=== PATIENT | male | born 1945 | race Caucasian/White ===

== ENCOUNTER 2019-01-06 10:05 | Inpatient (IN) | payer OTHER, MEDICARE, SELFPAY ==
[2019-01-06] VITALS (10 sets, daily range): BP systolic 129–141; BP diastolic 69–90; PULSE 66–89; RESP 14–18; TEMP 36.4–37.2; O2SAT 96–99; BMI 27.8; BMI 26.4; BMI 26.5
--- NOTE | 2019-01-06 10:18 | RAD_ITS ---
STUDY: X-RAY CHEST REASON FOR EXAM: Male, 73 years old. Bilateral lower extremity edema. TECHNIQUE: Single AP portable view of the chest. COMPARISON: None. FINDINGS: Minimal increased markings at the lung bases suggestive of mild bibasilar scarring. There is no demonstrated pleural abnormality. Sternal cerclage wires and vascular clips are present from a prior sternotomy and coronary artery bypass graft procedure (CABG). Normal mediastinum and maddie. Normal visualized pulmonary arteries. There is atherosclerotic tortuosity of the aortic arch and descending thoracic aorta. Normal visualized thoracic spine. Normal visualized ribs, clavicles, and shoulders. There is no demonstrated abnormality of the visualized soft tissue structures of the upper abdomen. RAD/Chest 1 View (Portable) IMPRESSION: No acute abnormalities. Electronically Signed: Hussain Sarabia, at 11:03 EDT , Service support ,
--- NOTE | 2019-01-06 10:19 | EKG12_ITS ---
Test Reason : EDEMA Blood Pressure : / mmHG Vent. Rate : 074 BPM Atrial Rate : 074 BPM P-R Int : 116 ms QRS Dur : 108 ms QT Int : 410 ms P-R-T Axes : -16 -34 -01 degrees QTc Int : 455 ms Normal sinus rhythm Left axis deviation , LAHB Minimal voltage criteria for LVH, may be normal variant Abnormal ECG Confirmed by GWEN KAUR ([id number]), medical editor MAXIME RIVER ([id number]) on 01/08/2019 2:33:08 PM Referred By: Venkata Lee Confirmed By:GWEN KAUR
--- NOTE | 2019-01-06 10:22 | ED.DCSUM_ITS ---
- ER Visit Summary Date of Service: 01/06/19 Chief Complaint: Bilateral acute on chronic lower extremity lymphedema and now unable to ambulate History of Present Illness: The patient is a 73 M history of CAD, CHF, hypertension and chronic lymphedema for the last 3+ years. He has had a 6 way bypass done for CAD. Patient states he has chronic lower extremity lymphedema is gotten worse his son states he is unable to even walk around his house because the amount of swelling. He is unable to get his dressings off. He denies any fever or chills. Physical Examination: Older male no acute distress. Vital signs are stable and afebrile. He does not look septic or toxic. HEENT exam unremarkable. Neck nontender no JVD no lymphadenopathy. Lungs clear to auscultation bilaterally. Heart regular rhythm 3/6 systolic ejection murmur. Abdomen is soft and nontender. Normal bowel sounds no peritoneal signs. Extremities he moves all 4. His upper extremities are unremarkable. He has normal staff field engineer strength. Both lower extremities are massively swollen.. The right lower leg is red in the front. He has compression stockings that we need to get off. He will need to be cut off. Is very foul odor coming from his legs. He is physically unable to lift them off the bed so heavy due to the lymphedema. Neurologically he is awake and alert. He can move all 4 extremities. Test Results: See white count 8. Hemoglobin 11. No old available for comparison. Chemistries unremarkable gap of 9. BUN 26 creatinine 0.9. Chest x-ray chronic changes prior sternotomy but no signs of failure or effusions. EKG sinus rhythm rate of 74 no ischemia. Emergency Department Course and Treatment: Patient will need [facility]. He can even walk around his house currently his legs are so swollen. Screening labs will be obtained. client services analyst been consulted. Treatment Plan: Repeat exam unchanged. I spoke to the hospitalist about admission. He was started on IV Zosyn for possible lower extremity soft tissue infection. Disposition: Admission Impression: Acute on chronic lower extremity lymphedema Unable to ambulate and failure to thrive Rule out lower extremity cellulitis and anaerobic infection This note was generated with [employer] dictation software. It may contain incorrect words, spelling, and punctuation that were not noted in review of the chart prior to signing ED Disposition - Plan for ED Patient: Referrals: Care Physician,No Primary [NON-STAFF] -
--- NOTE | 2019-01-06 10:23 | NURSING ---
CALLED DIRECTOR OF EXHIBITS FOR DR PAYAN
--- NOTE | 2019-01-06 11:14 | CM.ED ---
Social Work Consult: Placement/APS Informant: Dr. Lilly Met with patient in room. Patient stating to live alone in a 1-story home. Patient stating to be [facility] connected and to have last seen a [facility] doctor 6 months ago. Patient stating to have been able to ambulate with a walker up until today. Patient stating to take a [place] Shower (sponge bath) 1-2 times a week. Patient presenting with fowl odor and noted to have hair on head matted down. Patient with wounds to bilateral legs from kalani hose. Patient stating to not be able to manage kalani hose on own. Patient stating that friends have been providing patient with meals in the home. Patient stating to have no concerns with home and to plan to return to home after ED provides patient with antibiotics for legs, patient stating this it what has fixed my legs before. Nursing staff stating that wound have maggots in them. Patient stating to not be concerned about state of wounds and to have seen them this bad before. Patient agreeable to this social media director speaking with patient son, Yinka. Yinka reporting to have been providing patient with meals but to have been unable to go into patient home for that past few days due to the smell. Yinka stating to have been attempting to set up home health aides and a medical alert system for patient, but patient has been declining aides. Yinka stating that patient home is clean at this time due to patient ex- cleaning the home earlier this week. Yinka concerned with patient returning to the community and stating to have been trying to convince patient to come to the hospital for sometime. This social media director educating Yinka about adult protective services and that Yinka is able to also call reports. Yinka voicing understanding. Telephone call to Adult Protective ServicesJade. Voicemail left with above information. Jade to contact this social media director back with any questions. Hand off to acute social media director completed. Yann CASTILLO, DORIAN
[2019-01-06 11:21] LABS: Absolute Lymphocyte Count 0.87 X10^3/uL (0.83-4.51); Absolute Neutrophil Count 6.5 X10^3/uL (2.0-7.7); Basophil# 0.03 X10^3/uL; Basophil% 0.4 % (0-1); Eosinophil# 0.09 X10^3/uL; Eosinophils% 1.1 % (0-5); Hemoglobin 11.6 g/dL (13.0-16.5); Lymphocyte # 0.87 X10^3/ul (4.0); Lymphocyte % 10.6 % (19-41); Mean Corp Hgb Conc 31.4 g/dL (32-36); Mean Corpuscular Hgb 27.9 pg (27.0-32.0); Mean Corpuscular Volume 88.9 fL (80-94); Monocyte# 0.72 X10^3/uL; Monocyte% 8.7 % (0-10); NRBC Flagged by Analyzer 0 % (0-5); Neutrophil # 6.49 X10^3/uL (2.7-7.7); Neutrophil % 78.7 % (47-70); Platelet Count 243 K/mm3 (150-450); RBC Distribution Width CV 14.4 % (11.6-14.6); RBC Distribution Width SD 46.5 fl (35.1-43.9); Red Blood Count 4.16 M/mm3 (4.6-6.2); White Blood Count 8.2 K/mm3 (4.4-11.0)
[2019-01-06 11:25] LABS: POSITIVE COUNT NO; POSITIVE DIFFERENTIAL NO; POSITIVE MORPHOLOGY NO
[2019-01-06 11:34] LABS: Anion Gap 9 (5-15); BUN 26 mg/dL (7-18); BUN/Creat Ratio 26.7 RATIO (10-20); Calcium,Total 8.8 mg/dL (8.5-10.1); Chloride 103 mmol/L (98-107); Creatinine, Serum 0.97 mg/dL (0.70-1.30); EST Glomerular Filtration Rate 80 mL/min (>60); Est Glom Filt Rate - Afr Amer 97 mL/min (>60); Estimated Creatinine Clearance 82.27 ml/min; Glucose 115 mg/dL (74-106); Potassium 3.7 mmol/L (3.5-5.1); Sodium Level 142 mmol/L (136-145)
--- NOTE | 2019-01-06 12:39 | HP.PCM_ITS ---
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 Hoskins: [place] to LAD, SVG to two PDA branches of RCA, SVG to CX, and SVG to two branches of the DX of the LAD (6) History of left heart catheterization Status: Chronic (7) S/P CABG x 6 Status: Chronic Comment: 03/26/1997, [facility] per Dr. Hoskins: [place] to LAD, SVG to two PDA branches of RCA, SVG to CX, and SVG to two branches of the DX of the LAD History of Present Illness Date of Admission: 01/06/19 Chief Complaint: Bilateral lower extremity swelling wounds redness and malodorou s discharge The patient is a 73 year old M with past medical history significant for chronic lymphedema, essential hypertension, coronary artery disease with previous CABG in 1996 who presents with increasing swelling involving both lower extremities. Patient also did notice redness as well as malodorous discharge from both lower extremities. He presented to the emergency department in view of worsening symptoms. An assessment of lateral lower extremity cellulitis in the setting of chronic lymphedema was made admitted to the regular nursing floor for subsequent management. Past Medical History Past Medical History (Chronic Problems): Chronic Problems (Last Reviewed 06/04/17 @ 11:39 by Lewis Ball MD) Hyperlipidemia (Chronic) Hypertension (Chronic) Bradycardia (Chronic) Old inferior wall myocardial infarction (Chronic) Atherosclerotic heart disease of [place] coronary artery without angina pectoris (Chronic) 03/26/1997, [facility] per Dr. Hoskins: [place] to LAD, SVG to two PDA branches of RCA, SVG to CX, and SVG to two branches of the DX of the LAD History of left heart catheterization (Chronic) S/P CABG x 6 (Chronic) 03/26/1997, [facility] per Dr. Hoskins: [place] to LAD, SVG to two PDA branches of RCA, SVG to CX, and SVG to two branches of the DX of the LAD Medical History: Medical History (Last Reviewed 01/06/19 @ 13:10 by Venkata Lee MD) Hyperlipidemia (Chronic) E78.5 Hypertension (Chronic) I10 Bradycardia (Chronic) R00.1 Old inferior wall myocardial infarction (Chronic) I25.2 Atherosclerotic heart disease of [place] coronary artery without angina pectoris (Chronic) I25.10 03/26/1997, [facility] per Dr. Hoskins: [place] to LAD, SVG to two PDA branches of RCA, SVG to CX, and SVG to two branches of the DX of the LAD History of left heart catheterization (Chronic) Z98.890 Allergies hydrocodone [From Vicodin] Adverse Reaction (Intermediate, Verified 01/06/19 10:12) Vomiting morphine Adverse Reaction (Intermediate, Verified 01/06/19 10:12) Vomiting Home Medications: Ambulatory Orders Medication Instructions Recorded aspirin 81 mg tablet,delayed 81 mg PO QDAY 05/31/17 release vitamin E mixed 400 unit capsule 400 unit PO .COMPLEX ea 05/31/17 ascorbic acid (vitamin C) 500 mg 500 mg PO BID ea 06/04/17 capsule benazepril 20 1 tab PO QDAY #90 tab 06/04/17 mg-hydrochlorothiazide 25 mg tablet calcium-magnesium 300 mg-300 mg 1 tab PO QDAY tab 06/04/17 tablet cinnamon bark 500 mg capsule 1,000 mg PO BID ea 06/04/17 magnesium 250 mg tablet 250 mg PO QDAY 06/04/17 niacin ER 500 mg capsule,extended 500 mg PO QHS 06/04/17 release simvastatin 80 mg tablet 80 mg PO QPM #90 tab 05/23/18 metoprolol tartrate 25 mg tablet 25 mg PO BID #180 tab 05/30/18 Surgical History: Surgical History (Last Reviewed 01/06/19 @ 13:10 by Venkata Lee MD) S/P CABG x 6 (Chronic) Z95.1 03/26/1997, [facility] per Dr. Hoskins: [place] to LAD, SVG to two PDA branches of RCA, SVG to CX, and SVG to two branches of the DX of the LAD Smoking Status: Former smoker - *Family History Maternal Family History: Family History (Last Reviewed 01/06/19 @ 13:10 by Venkata Lee MD) Father CAD (coronary artery disease) Myocardial infarction Hx of CABG Mother CAD (coronary artery disease) Hx of CABG Alzheimer's dementia Review of Systems Constitutional: Denies: Anorexia, Chills, Fever HEENT: Denies: Head Aches, Sinus Congestion, Sinus Drainage Cardiovascular: Denies: Chest Pain, Orthopnea, Palpitations, Paroxysmal Noc. Dyspnea Respiratory: Denies: Cough, Shortness of breath at rest, Shortness of breath upon exertion, Sputum production Gastrointestinal: Denies: Abdominal Pain, Hematemesis, Hematochezia, Nausea, Melena, Vomiting Genitourinary: Denies: Dysuria, Frequency, Hematuria, Urgency Musculoskeletal: Denies: Joint Pain, Joint Tenderness Skin: Reports: Pruritis, Rash, Skin Changes, Wounds Neurological: Denies: Focal weakness, Numbness, Tingling Psychiatric: Denies: Homicidal Ideations, Suicidal Ideations Hematologic/ Lymphatic: Denies: Easy Bruising, Easy Bleeding VTE Information - Inpt Only VTE Present on Admission: No VTE Mechan Device Prophylaxis: None VTE Pharm Prophylaxis ordered?: Yes Objective: GENERAL: cooperative HEENT: Atraumatic; moist oral mucosa EYES; Anicteric, Normal Conjunctiva NECK; supple, normal thyroid, no distended JVD. RESPIRATORY: Diminished to auscultation bilaterally, CARDIOVASCULAR: Regular S1 S2, no audible murmurs GI: soft, non-tender, normoactive bowel sounds, : No Renal angle tenderness; EXTREMITIES: Bilateral lymphedema with areas of warmth and erythema on the anterior santiago with open wounds above the ankle with malodorous discharge MUSCULOSKELETAL: No Joint Tenderness; no muscle waisting NEURO: Awake; no lateralizing signs. SKIN: Described above PSYCH; Normal affect - Physical Exam Vital Signs Temp Pulse Resp BP Pulse Ox 97.9 F 73 18 137/90 H 98 01/06/19 11:09 01/06/19 11:09 01/06/19 11:09 01/06/19 11:09 01/06/19 11:09 Oxygen Delivery Method Room Air Weight: 101.2 kg Body Mass Index (BMI) 27.8 Laboratory Tests Past 24 Hrs 08/13/19 08/13/19 11:00 11:00 WBC 8.2 RBC 4.16 L Hgb 11.6 L Hct 37.0 L MCV 88.9 MCH 27.9 MCHC 31.4 L RDW Std Deviation 46.5 H RDW Coeff of Allegra 14.4 Plt Count 243 MPV 10.0 Immature Gran % (Auto) 0.500 Neut % (Auto) 78.7 H Lymph % (Auto) 10.6 L Dare % (Auto) 8.7 Eos % (Auto) 1.1 Baso % (Auto) 0.4 Absolute Neuts (auto) 6.5 Absolute Lymphs (auto) 0.87 Nucleated RBC % 0 Sodium 142 Potassium 3.7 Chloride 103 Carbon Dioxide 30.0 Anion Gap 9 BUN 26 H Creatinine 0.97 Estim Creat Clear Calc 82.27 Est GFR (MDRD) Af Amer 97 Est GFR (MDRD) Non-Af 80 BUN/Creatinine Ratio 26.7 H Glucose 115 H Calcium 8.8 Assessment/Plan Patient is a 73-year-old gentleman with history of bilateral chronic lymphedema, CAD with previous CABG who presented with increasing swelling erythema and more order was discharged from both lower extremities 1. Cellulitis in the patient with bilateral lymphedema. Admitted to regular nursing floor patient started on broad-spectrum antibiotic therapy with vancomycin as well as Zosyn. Cultures sent consult placed wound care nurse as well as infectious disease and podiatry 2. Coronary artery disease status post CABG in 1996 3. Dyslipidemia-patient is on statin therapy, continued at home dose 4. Hypertension-blood pressure controlled, home medications continued with dose adjustment as needed 5. Bilateral chronic lymphedema patient has apparently been managed at the [facility] 6. DVT prophylaxis SC Lovenox CODE STATUS full code Code Visit Inpatient E&M: 93598 Init Hosp L3
--- NOTE | 2019-01-06 13:24 | NURSING ---
312 KITTOE CELLULITIS, LYMPHEDEMA
--- NOTE | 2019-01-06 14:04 | NURSING ---
1245 CALLED MED SURG, TALKED TO ARACELI. ROOM IS CLEAN,BUT NO BED IN ROOM
--- NOTE | 2019-01-06 14:21 | ED.RN ---
son Yinka left his number [phone]. wanted an update with room # and health update. cori charles rn [id number]
--- NOTE | 2019-01-06 14:49 | ECHOD_ITS ---
Reason For Study: dyspnea/SOB Procedure This was a 2D Doppler, Color Flow transthoracic echocardiogram. The study was technically difficult. Unable to reposition patient due to BLE lymphedema and abdominal support wrap (PT stated can not be removed). Exam performed portable in patient room. Left Ventricle Mild concentric left ventricular hypertrophy. The estimated ejection fraction is 60 %. Stage 1 diastolic dysfunction. No regional wall motion abnormalities noted. Right Ventricle Normal size and thickness. Normal systolic function. Atria The left atrium is mildly enlarged. Mitral Valve The mitral valve is structurally normal. No prolapse or stenosis seen. Tricuspid Valve Normal tricuspid valve. Trivial tricuspid valve insufficiency. Right ventricular systolic pressure estimated to be 31 mmHg. Aortic Valve Trisinus/trileaflet aortic valve. Mild diffuse aortic valve thickening. Mild aortic stenosis. Peak aortic valve gradient 23 mmHg. Mean aortic valve gradient 13 mmHg. Calculated aortic valve area (continuity equation) is 1.8 cm2. Pulmonic Valve Normal pulmonic valve. Great Vessels Calcified aortic root. Normal arch. Pericardium/Pleural No pericardial effusion. MMode/2D Measurements & Calculations LVIDd: 6.0 cm IVSd: 1.3 cm LVOT diam: 2.2 cm LVIDs: 4.1 cm LVPWd: 1.2 cm LVOT area: 4.0 cm2 RVDd: 3.3 cm FS: 31.3 % Ao root diam: 3.5 cm LAV(MOD-bp): 91.2 ml LA A4 area: 25.3 cm2 LAV(MOD-bp) Indexed: 40.6 ml/m2 LAV(MOD-sp2): 90.1 ml LAV(MOD-sp4): 90.1 ml LA dimension(2D): 5.0 cm Time Measurements MV dec time: 0.23 sec Doppler Measurements & Calculations MV E max mono: 62.4 cm/sec Lat Peak E' Mono: 14.1 cm/sec Med Peak E' Mono: 7.8 cm/sec MV A max mono: 86.1 cm/sec E/E' lat: 4.4 E/E' med: 8.0 MV E/A: 0.72 Ao V2 max: 240.0 cm/sec LV V1 max: 104.6 cm/sec SV(LVOT): 84.9 ml Ao max P.0 mmHg LV V1 max P.4 mmHg Ao V2 mean: 171.7 cm/sec LV V1 mean P.3 mmHg Ao mean P.0 mmHg LV V1 mean: 72.0 cm/sec Ao V2 VTI: 45.8 cm LV V1 VTI: 21.4 cm EMERALD(I,D): 1.9 cm2 EMERALD(V,D): 1.7 cm2 PA V2 max: 106.2 cm/sec TR max mono: 257.5 cm/sec TR max P.5 mmHg Interpretation Summary Mild concentric left ventricular hypertrophy. The estimated ejection fraction is 60 %. Stage 1 diastolic dysfunction. The left atrium is mildly enlarged. Trivial tricuspid valve insufficiency. Right ventricular systolic pressure estimated to be 31 mmHg. Mild aortic stenosis. Calculated aortic valve area (continuity equation) is 1.8 cm2. There is no comparison study available. Ordering Physician: Venkata Lee Referring Physician: [facility] Performed By: Sonia Beard RDCS, RVT
[2019-01-06] MEDS: Acetaminophen 325 MG Tablet 650 MG PO (15:56)
[2019-01-06] MEDS: Furosemide 40 MG/4 ML Vial IV ×2 (15:57→22:02)
--- NOTE | 2019-01-06 16:00 | PCM.RX.CS ---
Consult Pharmacy has been consulted to manage selected antiobiotic: Vancomycin Type of Consult: New start Suspected Infection: Skin/Soft tissue Prior Doses of Antibiotics Received/Current Regimen: NEW START Labs: Sodium 142 mmol/L (136-145) 01/06/19 11:00 Potassium 3.7 mmol/L (3.5-5.1) 01/06/19 11:00 Chloride 103 mmol/L (98-107) 01/06/19 11:00 Carbon Dioxide 30.0 mmol/L (21.0-32.0) 01/06/19 11:00 9 (5-15) 01/06/19 11:00 BUN 26 mg/dL (7-18) H 01/06/19 11:00 0.97 mg/dL (0.70-1.30) 01/06/19 11:00 Est GFR (MDRD) Af Amer 97 mL/min (>60) 01/06/19 11:00 Est GFR (MDRD) Non-Af 80 mL/min (>60) 01/06/19 11:00 26.7 RATIO (10-20) H 01/06/19 11:00 Glucose 115 mg/dL (74-106) H 01/06/19 11:00 TROUGH ORDERED PRIOR TO 4TH DOSE Weight used for dosin.1 kg Estimated Creatinine Clearance: 82.27 Goal Trough: 10-15 mcg/mL - VANCOMYCIN 1500MG LOADING DOSE THEN 1250MG IVPB Q12H Pharmacy Plan for Drug Dosing: Pharmacy Service will continue to monitor and adjust dosing as required.
--- NOTE | 2019-01-06 17:49 | NURSING ---
wound photo: lymphedema bilat lower extrem
--- NOTE | 2019-01-06 17:52 | NURSING ---
wound photo right heel
--- NOTE | 2019-01-06 17:55 | NURSING ---
wound photo left heel
--- NOTE | 2019-01-06 17:58 | NURSING ---
wound photo left posterior lower leg
--- NOTE | 2019-01-06 18:10 | NURSING ---
Addendum entered by Marsha Ovalle 01/06/19 18:17: right circumferential ankle Original Note: wound photo
--- NOTE | 2019-01-06 18:18 | NURSING ---
wound photo right ant ankle
--- NOTE | 2019-01-06 18:21 | CON.PCM_ITS ---
Problem List (1) Lymphedema of lower extremity Status: Acute (2) Ulcer of right lower extremity with fat layer exposed Status: Acute (3) Ulcer of left lower extremity with fat layer exposed Status: Acute Reason for Consult Date of Consultation: 01/06/19 Reason for Consultation: lymphedema, cellulitis, ulcers to lower extremities History of Present Illness: The patient is a 73 year old M with with a past medical history significant for chronic lymphedema, essential hypertension, CAD with previous CABG in 1996 as well as other comorbidities was consulted to podiatry after being admitted to the emergency room today for bilateral lymphedema with open ulcers to bilateral ankles as well as an ulcer to left heel as well as a pressure injury to the right heel. Patient unsure how long his compression stockings had been wrinkled and slid down, but feels that it was at least a week. He says he is unable to get these on and off on his own. He has not done much to care for these areas on his own. He says he usually [place] up [place] for any medical issues and has seen the wound center in the past at the [place]. I also discussed this case with the patient's ex-, friend, and son who all state that the patient is unable to adequately care for himself on his own and needs assistance. Patient is currently resting comfortably in bed and denies any feelings of nausea, vomiting, fever, chills. [] Past Medical History Past Medical History (Chronic Problems): Chronic Problems (Last Reviewed 01/06/19 @ 13:10 by Venkata Lee MD) Hyperlipidemia (Chronic) Hypertension (Chronic) Bradycardia (Chronic) Old inferior wall myocardial infarction (Chronic) Atherosclerotic heart disease of [place] coronary artery without angina pectoris (Chronic) 03/26/1997, [facility] per Dr. Hoskins: [place] to LAD, SVG to two PDA branches of RCA, SVG to CX, and SVG to two branches of the DX of the LAD History of left heart catheterization (Chronic) S/P CABG x 6 (Chronic) 03/26/1997, [facility] per Dr. Hoskins: [place] to LAD, SVG to two PDA branches of RCA, SVG to CX, and SVG to two branches of the DX of the LAD Medical History: Medical History (Last Reviewed 01/06/19 @ 13:10 by Venkata Lee MD) Hyperlipidemia (Chronic) E78.5 Hypertension (Chronic) I10 Bradycardia (Chronic) R00.1 Old inferior wall myocardial infarction (Chronic) I25.2 Atherosclerotic heart disease of [place] coronary artery without angina pectoris (Chronic) I25.10 03/26/1997, [facility] per Dr. Hoskins: [place] to LAD, SVG to two PDA branches of RCA, SVG to CX, and SVG to two branches of the DX of the LAD History of left heart catheterization (Chronic) Z98.890 Allergies hydrocodone [From Vicodin] Adverse Reaction (Intermediate, Verified 01/06/19 10:12) Vomiting morphine Adverse Reaction (Intermediate, Verified 01/06/19 10:12) Vomiting Home Medications: Ambulatory Orders Medication Instructions Recorded aspirin 81 mg tablet,delayed 81 mg PO DAILY 05/31/17 release ascorbic acid (vitamin C) 500 mg 500 mg PO BID ea 06/04/17 capsule magnesium 250 mg tablet 250 mg PO DAILY 06/04/17 Calcium Carb,Gluc/Mag Ox,Gluc 1 tab PO DAILY 01/06/19 [Calcium Magnesium Caplet] Cinnamon Bark [Cinnamon] 500 mg PO DAILY 01/06/19 Metoprolol Tartrate [Lopressor 25 mg PO BID 01/06/19 (beta uriel)] Simvastatin 80 mg PO QPM 01/06/19 Surgical History: Surgical History (Last Reviewed 01/06/19 @ 13:10 by Venkata Lee MD) S/P CABG x 6 (Chronic) Z95.1 03/26/1997, [facility] per Dr. Hoskins: [place] to LAD, SVG to two PDA branches of RCA, SVG to CX, and SVG to two branches of the DX of the LAD Smoking Status: Former smoker Tobacco Use: Cigarettes - *Family History Maternal Family History: Family History (Last Reviewed 01/06/19 @ 13:10 by Venkata Lee MD) Father CAD (coronary artery disease) Myocardial infarction Hx of CABG Mother CAD (coronary artery disease) Hx of CABG Alzheimer's dementia Review of Systems Constitutional: Denies: Chills, Fever, Weight Change HEENT: Denies: Head Aches, Sinus Congestion, Sinus Drainage Cardiovascular: Denies: Chest Pain, Palpitations Respiratory: Denies: Cough, Shortness of breath at rest, Sputum production Gastrointestinal: Denies: Abdominal Pain, Nausea, Vomiting Genitourinary: Denies: Dysuria Musculoskeletal: Reports: Leg Pain. Denies: Joint Pain, Joint Tenderness Skin: Reports: - - Ulcers to bilateral lower extremities Neurological: Denies: Numbness, Tingling, Focal weakness Psychiatric: Denies: Homicidal Ideations, Suicidal Ideations Patient Problems: Active and Suspected Problems (Last Reviewed 01/06/19 @ 13:10 by Venkata Lee MD) Lymphedema of lower extremity (Acute) Ulcer of right lower extremity with fat layer exposed (Acute) Ulcer of left lower extremity with fat layer exposed (Acute) - Physical Exam General: Alert, Oriented x3, Cooperative, No apparent distress Extremities: Capillary Refill Less than 3 Seconds - To distal digits of the right and left foot, No Calf Tenderness - Negative Bear and Randle signs bilateral, Diminished Peripheral Pulses - DP and PT pulses nonpalpable due to patient's lymphedema, Edema - Significant lymphedema to bilateral lower extremities Skin: Ulcer/ Wound - Patient has 0 to the anterior aspect of the left ankle in the posterior and lateral aspect of the right ankle with fat layer exposed. Left ankle ulcer measures approximately 1.5 cm x 10 cm x 0.6 cm. The right ankle ulcer measures approximately 1.2 cm x 12 cm x 0.5 cm. There is no probing to bone, no tracking, no undermining in these areas. The base is a mixture of adherent slough, fibrin, biofilm, granular tissue. There is no purulence or malodor appreciated to these ulcer sites. Patient does have some slight erythema to bilateral lower extremities with right being slightly worse than left. This is already improved in the short time he is been admitted and now on antibiotics. Patient also has an ulcer to the left heel measuring approximately 1.3 cm x 2 cm x 0.5 cm. The base is majority of fibrotic tissue as well as some biofilm and granular tissue. There is no deep probing to bone on initial exam today, no tracking, no undermining. There is no purulence or surrounding cellulitis or erythema to the site. There is also a very slight unstageable pressure injury to the right heel as well with no openings or breakdown of skin at this time and no signs of surrounding local infection. Musculoskeletal: No Tenderness to Palpation of Joints or Extremities, Tenderness - Some tenderness with manipulation of ulcer sites Neurological: Sensory exam intact to light touch and pain Psych/Mental Status: Normal Affect, Appropriate Vital Signs Temp Pulse Resp BP Pulse Ox 98.6 F 70 16 129/69 H 99 01/06/19 15:44 01/06/19 16:56 01/06/19 15:44 01/06/19 15:44 01/06/19 15:44 Oxygen Delivery Method Room Air Weight: 96.1 kg Body Mass Index (BMI) 26.4 Intake and Output for Last 24 Hours 01/04/19 01/05/19 01/06/19 23:59 23:59 23:59 Intake Total 120 / 120 Output Total 1150 / 1150 Balance -1030 / -1030 Laboratory Tests Past 24 Hrs 01/06/19 01/06/19 01/06/19 11:00 11:00 17:19 WBC 8.2 RBC 4.16 L Hgb 11.6 L Hct 37.0 L MCV 88.9 MCH 27.9 MCHC 31.4 L RDW Std Deviation 46.5 H RDW Coeff of Allegra 14.4 Plt Count 243 MPV 10.0 Immature Gran % (Auto) 0.500 Neut % (Auto) 78.7 H Lymph % (Auto) 10.6 L Ada % (Auto) 8.7 Eos % (Auto) 1.1 Baso % (Auto) 0.4 Absolute Neuts (auto) 6.5 Absolute Lymphs (auto) 0.87 Nucleated RBC % 0 Sodium 142 Potassium 3.7 Chloride 103 Carbon Dioxide 30.0 Anion Gap 9 BUN 26 H Creatinine 0.97 Estim Creat Clear Calc 82.27 Est GFR (MDRD) Af Amer 97 Est GFR (MDRD) Non-Af 80 BUN/Creatinine Ratio 26.7 H Glucose 115 H Calcium 8.8 MRSA (PCR) Pending Assessment/Plan All Active Problems (Last Reviewed 01/06/19 @ 13:10 by Venkata Lee MD) Lymphedema of lower extremity (Acute) Ulcer of right lower extremity with fat layer exposed (Acute) Ulcer of left lower extremity with fat layer exposed (Acute) Ulcer right lower extremity with fat layer exposed Ulcer left lower extremity fat layer exposed Lymphedema Cellulitis lower extremity Other comorbidities This patient was carefully examined and evaluated resting bedside this evening after being admitted to the emergency room for bilateral lymphedema as well as some lower leg cellulitis and ulcers to bilateral lower ankles and left heel. Patient is somewhat of a poor historian and cannot tell me all the details of how his ulcers came about. Patient's WBC is 8.2. Vital signs are all currently stable. Wound cultures taken earlier and results are still pending. Bilateral ankle x-rays will be ordered for this patient. The ulcer sites were all carefully cleansed, and then dressed with Aquacel Ag to the base followed by 4 x 4's, Kerlix, and Javier bandages. Santyl will be ordered for future dressing changes. The patient is to keep his legs elevated all times while seated or laying in bed. He is to make sure he keeps all pressure off of his heels at all times by having him floated over the ends of pillows so nothing but air is touching his heels. I also discussed the case at length with the patient's ex- , friend, and son who are all visiting. They all spoke with me telling me that they do not feel the patient is safe to live on his own anymore and cannot adequately care for himself. They state that he has trouble getting around due to his lymphedema. They are hoping the patient can be placed in extended care facility upon discharge. They would also [facility] the [facility] as [facility] is already been [facility] multiple times. They are also wondering whether they should have the patient transferred up to [facility] as [facility]. They state they will talk with social work tomorrow. Continued medical management DVT prophylaxis is appreciated per primary medical team. Podiatry will continue to follow this patient while in house.
--- NOTE | 2019-01-06 18:22 | NURSING ---
wound photo left ant ankle
[2019-01-06 18:52] LABS: M R Staph aureus DNA By PCR Negative (Negative); Probe Check PASS; Specimen Processing Control PASS
[2019-01-06] MEDS: Metoprolol Tartrate 25 MG Tablet PO (22:03)
[2019-01-06] MEDS: Atorvastatin Calcium 40 MG Tablet PO (22:03)
[2019-01-06] MEDS: Ascorbic Acid 500 MG Tablet PO (22:03)
[2019-01-07] VITALS (7 sets, daily range): BP systolic 115–137; BP diastolic 63–70; PULSE 66–76; RESP 16–18; TEMP 36.8–37.4; O2SAT 95–98
[2019-01-07] MEDS: 0.9% NaCl Peripheral Flush Adult/Peds IV ×2 (04:13→14:22)
[2019-01-07 05:41] LABS: Absolute Lymphocyte Count 1.06 X10^3/uL (0.83-4.51); Absolute Neutrophil Count 6.4 X10^3/uL (2.0-7.7); Basophil# 0.05 X10^3/uL; Basophil% 0.6 % (0-1); Eosinophils% 3.5 % (0-5); Hematocrit 37.6 % (40-54); Lymphocyte # 1.06 X10^3/ul (4.0); Lymphocyte % 12.3 % (19-41); Mean Corp Hgb Conc 31.9 g/dL (32-36); Mean Corpuscular Hgb 27.8 pg (27.0-32.0); Mean Platelet Vol. 10.1 fl (6.2-12.0); Monocyte% 9.3 % (0-10); NRBC Flagged by Analyzer 0 % (0-5); Neutrophil # 6.37 X10^3/uL (2.7-7.7); Neutrophil % 74.1 % (47-70); Platelet Count 218 K/mm3 (150-450); RBC Distribution Width CV 14.6 % (11.6-14.6); RBC Distribution Width SD 46.3 fl (35.1-43.9); Red Blood Count 4.32 M/mm3 (4.6-6.2); White Blood Count 8.6 K/mm3 (4.4-11.0)
[2019-01-07 05:58] LABS: Anion Gap 7 (5-15); BUN 20 mg/dL (7-18); BUN/Creat Ratio 19.8 RATIO (10-20); Calcium,Total 8.5 mg/dL (8.5-10.1); Chloride 103 mmol/L (98-107); Creatinine, Serum 1.01 mg/dL (0.70-1.30); EST Glomerular Filtration Rate 77 mL/min (>60); Est Glom Filt Rate - Afr Amer 93 mL/min (>60); Estimated Creatinine Clearance 79.02 ml/min; Glucose 116 mg/dL (74-106); Magnesium 1.8 mg/dL (1.6-2.6); Potassium 3.4 mmol/L (3.5-5.1); Sodium Level 140 mmol/L (136-145)
[2019-01-07] MEDS: Furosemide 40 MG/4 ML Vial IV ×3 (06:05→21:25)
--- NOTE | 2019-01-07 07:10 | PCM.PN.HOSP ---
Patient Problems: Active and Suspected Problems (Last Reviewed 01/06/19 @ 13:10 by Venkata Lee MD) Lymphedema of lower extremity (Acute) Ulcer of right lower extremity with fat layer exposed (Acute) Ulcer of left lower extremity with fat layer exposed (Acute) Subjective: Patient is a 73-year-old gentleman with history of bilateral chronic lymphedema, CAD with previous CABG who presented with increasing swelling erythema and more order was discharged from both lower extremities patient admitted to regular nursing floor started on broad-spectrum antibiotic therapy. Patient was seen in consultation by Dr. Sanches with podiatry's notes and commendations reviewed. Patient's potassium down to 3.4 repletion initiated Objective: GENERAL: cooperative HEENT: Atraumatic; moist oral mucosa EYES; Anicteric, Normal Conjunctiva NECK; supple, normal thyroid, no distended JVD. RESPIRATORY: Diminished to auscultation bilaterally, CARDIOVASCULAR: Regular S1 S2, no audible murmurs GI: soft, non-tender, normoactive bowel sounds, : No Renal angle tenderness; EXTREMITIES: Bilateral lymphedema; dressed MUSCULOSKELETAL: No Joint Tenderness; no muscle waisting NEURO: Awake; no lateralizing signs. SKIN: Described above PSYCH; Normal affect Vitals/I&O's: Vital Signs Temp Pulse Resp BP Pulse Ox 98.2 F 66 16 125/63 H 96 01/07/19 03:24 01/07/19 03:24 01/07/19 03:24 01/07/19 03:24 01/07/19 03:24 Oxygen Delivery Method Room Air Weight: 96.1 kg Body Mass Index (BMI) 26.4 Intake and Output for Last 24 Hours 01/05/19 01/06/19 01/07/19 23:59 23:59 23:59 Intake Total 120 / 520 800 / 800 Output Total 1150 / 1450 900 / 900 Balance -1030 / -930 -100 / -100 Laboratory Results 01/06/19 11:00: WBC 8.2, RBC 4.16 L, Hgb 11.6 L, Hct 37.0 L, MCV 88.9, MCH 27.9, MCHC 31.4 L, RDW Std Deviation 46.5 H, RDW Coeff of Allegra 14.4, Plt Count 243, MPV 10.0, Immature Gran % (Auto) 0.500, Neut % (Auto) 78.7 H, Lymph % (Auto) 10.6 L, Aurora % (Auto) 8.7, Eos % (Auto) 1.1, Baso % (Auto) 0.4, Absolute Neuts (auto) 6.5, Absolute Lymphs (auto) 0.87, Nucleated RBC % 0 01/06/19 11:00: Sodium 142, Potassium 3.7, Chloride 103, Carbon Dioxide 30.0, Anion Gap 9, BUN 26 H, Creatinine 0.97, Estim Creat Clear Calc 82.27, Est GFR (MDRD) Af Amer 97, Est GFR (MDRD) Non-Af 80, BUN/Creatinine Ratio 26.7 H, Glucose 115 H, Calcium 8.8 01/06/19 17:19: MRSA (PCR) Negative 01/07/19 05:30: WBC 8.6, RBC 4.32 L, Hgb 12.0 L, Hct 37.6 L, MCV 87.0, MCH 27.8, MCHC 31.9 L, RDW Std Deviation 46.3 H, RDW Coeff of Allegra 14.6, Plt Count 218, MPV 10.1, Immature Gran % (Auto) 0.200, Neut % (Auto) 74.1 H, Lymph % (Auto) 12.3 L, Aurora % (Auto) 9.3, Eos % (Auto) 3.5, Baso % (Auto) 0.6, Absolute Neuts (auto) 6.4, Absolute Lymphs (auto) 1.06, Nucleated RBC % 0 01/07/19 05:30: Sodium 140, Potassium 3.4 L, Chloride 103, Carbon Dioxide 30.0, Anion Gap 7, BUN 20 H, Creatinine 1.01, Estim Creat Clear Calc 79.02, Est GFR (MDRD) Af Amer 93, Est GFR (MDRD) Non-Af 77, BUN/Creatinine Ratio 19.8, Glucose 116 H, Calcium 8.5, Magnesium 1.8 Current Medications Acetaminophen (Tylenol) 650 mg PO Q6H PRN PRN PRN Reason: Mild Pain (1-3)/Temp > 100.7 F Last Admin: 01/06/19 15:56 Dose: 650 mg Documented by: Al Hydroxide/Mg Hydroxide (Mylanta Ii) 30 ml PO Q6H PRN PRN PRN Reason: Gastric Burning Albuterol Sulfate (Ventolin Aerosols) 2.5 mg INHALATION Q2H PRN PRN PRN Reason: Shortness of Breath/Wheezing Ascorbic Acid (Vitamin C) 500 mg PO BID [facility] Last Admin: 01/06/19 22:03 Dose: 500 mg Documented by: Aspirin (Ecotrin) 81 mg PO DAILY@0800 [facility] Atorvastatin Calcium (Lipitor) 40 mg PO QHS [facility] Last Admin: 01/06/19 22:03 Dose: 40 mg Documented by: Calcium Carbonate (Os-Francisco J 500) 500 mg PO DAILY@0800 [facility] Collagenase (Santyl) 1 applic TOPICAL DAILY [facility]; Protocol Enoxaparin Sodium (Lovenox) 40 mg SC DAILY@1000 [facility] Furosemide (Lasix) 40 mg IV Q8 [facility] Last Admin: 01/07/19 06:05 Dose: 40 mg Documented by: Guaifenesin (Robitussin) 20 ml PO Q4H PRN PRN PRN Reason: COUGH Vancomycin IV Pharmacy to Dose (1 ea/ Sodium Chloride) 500 mls @ 250 mls/hr IV X1 PRN; Protocol PRN Reason: Rx to Dose Piperacillin Sod/Tazobactam (Sod 3.375 gm/ Sodium Chloride) 50 mls @ 12.5 mls/hr IV Q8 [facility] Last Admin: 01/07/19 06:05 Dose: 12.5 mls/hr Documented by: Vancomycin HCl 1,250 mg/ (Sodium Chloride) 275 mls @ 167 mls/hr IV Q12H [facility] Last Admin: 01/07/19 04:10 Dose: 167 mls/hr Documented by: Sodium Chloride () 250 mls @ 15 mls/hr IV .[id number] PRN PRN Reason: SALINE FLUSH Magnesium Hydroxide (Milk Of Magnesia) 30 ml PO DAILY PRN PRN PRN Reason: Constipation Magnesium Oxide (Mag-Ox 400) 200 mg PO DAILY [facility] Melatonin (Melatonin) 3 mg PO QHS PRN PRN PRN Reason: INSOMNIA Metoprolol Tartrate (Lopressor (Beta Muna)) 25 mg PO BID [facility] Last Admin: 01/06/19 22:03 Dose: 25 mg Documented by: Nutritional Formula (Lactose Free) (Ensure Enlive) 120 ml PO 4X/DAY [facility] Last Admin: 01/06/19 22:02 Dose: 120 ml Documented by: Ondansetron HCl (Zofran) 4 mg IV Q8H PRN PRN PRN Reason: NAUSEA/VOMITING Promethazine HCl (Phenergan) 25 mg IM Q6H PRN PRN PRN Reason: Breakthrough nausea/vomiting Sodium Chloride () 10 - 40 ml IV UD PRN PRN Reason: SALINE FLUSH Last Admin: 01/07/19 04:13 Dose: 20 ml Documented by: Medical Necessity - Tobacco Use Smoking Status: Former smoker Tobacco Use: Cigarettes Assessment/Plan All Active Problems (Last Reviewed 01/06/19 @ 13:10 by Venkata Lee MD) Lymphedema of lower extremity (Acute) Ulcer of right lower extremity with fat layer exposed (Acute) Ulcer of left lower extremity with fat layer exposed (Acute) Patient is a 73-year-old gentleman with history of bilateral chronic lymphedema, CAD with previous CABG who presented with increasing swelling erythema and more order was discharged from both lower extremities 1. Cellulitis in the patient with bilateral lymphedema. Admitted to regular nursing floor patient started on broad-spectrum antibiotic therapy with vancomycin as well as Zosyn. Cultures sent consult placed wound care nurse as well as infectious disease and podiatry. Patient was seen in consultation by Dr. Sanches with podiatry's notes and commendations reviewed. 2. Coronary artery disease status post CABG in 1996 3. Dyslipidemia-patient is on statin therapy, continued at home dose 4. Hypertension-blood pressure controlled, home medications: Patient blood pressure control remains optimal 5. Bilateral chronic lymphedema patient has apparently been managed at the [place] hospital consult was placed to wound care nurse for dressing changes 6. Hypokalemia corrected per protocol 7. DVT prophylaxis SC Lovenox CODE STATUS full code Code Visit Inpatient E&M: 34747 Subs Hosp L3
--- NOTE | 2019-01-07 08:00 | RAD_ITS ---
STUDY: X-RAY - LEFT ANKLE REASON FOR EXAM: Male, 73 years old. Ulcerations. TECHNIQUE: 3 view(s) of the ankle. COMPARISON: None. FINDINGS: Normal visualized distal tibia and fibula. Normal medial and lateral malleoli. Normal tibiotalar articulation and ankle mortise. Plantar spur. The visualized subtalar, talonavicular, calcaneocuboid and tarsal articulations are normal. Diffuse soft tissue swelling. RAD/Ankle min 3 Views IMPRESSION: Diffuse soft tissue swelling. Electronically Signed: Hussain Sarabia, at 13:54 EDT , Service support ,
--- NOTE | 2019-01-07 08:00 | RAD_ITS ---
STUDY: X-RAY - RIGHT ANKLE REASON FOR EXAM: Male, 73 years old. Ulcerations. TECHNIQUE: 3 view(s) of the ankle. COMPARISON: None. FINDINGS: Normal visualized distal tibia and fibula. Old small avulsion fracture of the medial malleolus. Normal tibiotalar articulation and ankle mortise. Plantar spur. The visualized subtalar, talonavicular, calcaneocuboid and tarsal articulations are normal. Diffuse soft tissue swelling. Atherosclerotic calcification. RAD/Ankle min 3 Views IMPRESSION: Diffuse soft tissue swelling. Old avulsion fracture of the medial malleolus. Electronically Signed: Hussain Sarabia, at 13:53 EDT , Service support ,
[2019-01-07] MEDS: Magnesium Oxide 400 MG Tablet 200 MG PO (09:01)
[2019-01-07] MEDS: Calcium (Elemental) 500 MG Tablet PO (09:01)
[2019-01-07] MEDS: Aspirin E.C. 81 MG Tablet PO (09:01)
[2019-01-07] MEDS: Ascorbic Acid 500 MG Tablet PO ×2 (09:01→21:24)
[2019-01-07] MEDS: Enoxaparin 40 MG/0.4 ML Syringe SC (09:04)
[2019-01-07] MEDS: Metoprolol Tartrate 25 MG Tablet PO ×2 (09:05→21:24)
[2019-01-07] MEDS: Collagenase 30gm Tube 1 APPLIC TOPICAL (09:20)
--- NOTE | 2019-01-07 09:43 | NURSING ---
wound photo: right heel
--- NOTE | 2019-01-07 09:44 | NURSING ---
wound photo: right ankle (lateral view)
--- NOTE | 2019-01-07 09:45 | NURSING ---
wound photo: right ankle (medial view)
--- NOTE | 2019-01-07 09:46 | NURSING ---
wound photo: right anterior ankle
--- NOTE | 2019-01-07 09:47 | NURSING ---
wound photo: left anterior ankle
--- NOTE | 2019-01-07 09:49 | NURSING ---
wound photo: left heel
--- NOTE | 2019-01-07 11:04 | CASEMGMT ---
Case Management Progress Note: This racebook writer s/w patient at bedside, Confirmed patient is a and is Service Connected, states [facility]. States [facility] for [facility] and signed Declination. This racebook writer called [facility] refuge manager [phone] ext [phone] and left a VM to return call to this CM or primary [facility] Tish Reid to notify of admission and refusal of transfer. Patient wishes to stay at [facility] for admission but would like the [facility] as he is service connected. Faxed Refusal of transfer, face sheet, and H&P to [facility] [phone] to notify of admission. Delia Larsen RNCM
--- NOTE | 2019-01-07 11:20 | CASEMGMT ---
Social Work Note MIRIAM spoke with Black Sanches at [facility]. Black states pt is in system and is 30% service connected. MIRIAM updated Black on pt's admission and reason for admission (Cellulitis, Lymphedema). MIRIAM informed Black that per CM note, pt has declined transfer to [place] [facility]. Black states that they will only cover bill if pt's admission to hospital is related to pt's service. Black states that at this time she is only seeing heart disease that is service related and that is not what pt came to hospital for. MIRIAM asked Black that since pt has Medicare secondary if pt could go to SNF under Medicare and Black confirms this. Black provided extension [phone]. Black asked to be updated. Black stated that pt has to be 70% service connected for [place] to pay for SNF but if pt comes to hospital with a condition related to service and is under 70% service connected, they may be able to get paperwork completed for pt to go to SNF under [place]. Black states again though that since pt's admission to [facility] is not related to service, pt could go to SNF under Medicare. Tish Smith PAINTER SHIPYARD, MACHINE FANCY STITCHER
--- NOTE | 2019-01-07 12:28 | PCM.PROGNOTE ---
Patient Problems: Active and Suspected Problems (Last Reviewed 01/06/19 @ 13:10 by Venkata Lee MD) Lymphedema of lower extremity (Acute) Ulcer of right lower extremity with fat layer exposed (Acute) Ulcer of left lower extremity with fat layer exposed (Acute) Subjective: This patient was seen again today resting comfortably in bed with his ex- in the room. Patient being seen for chronic lymphedema as well as bilateral lower extremity ulcers. Patient had no acute events overnight. He says he feels better today. He states that his legs feel better as well. He currently denies any feelings of nausea, vomiting, fever, chills. - Physical Exam General: Alert, Oriented x3, Cooperative, No apparent distress Extremities: Capillary Refill Less than 3 Seconds - To distal digits of the right left foot, No Calf Tenderness - Negative Bear and Randle signs bilateral, Edema - Chronic lymphedema to lower extremities Skin: Ulcer/ Wound - Patient had just undergone a dressing change approximately 1 hour ago. Pictures were taken and were carefully reviewed. No significant changes seen since yesterday. Ulcer sites and skin appearance described in detail yesterday's note and can be referred to if needed. Neurological: Sensory exam intact to light touch and pain Psych/Mental Status: Normal Affect, Appropriate Vital Signs Temp Pulse Resp BP Pulse Ox 99.3 F H 68 18 137/70 H 98 01/07/19 09:13 01/07/19 09:13 01/07/19 09:13 01/07/19 09:13 01/07/19 09:13 Oxygen Delivery Method Room Air Weight: 96.1 kg Body Mass Index (BMI) 26.4 Intake and Output for Last 24 Hours 01/05/19 01/06/19 01/07/19 23:59 23:59 23:59 Intake Total 120 / 520 800 / 800 Output Total 1150 / 1450 900 / 900 Balance -1030 / -930 -100 / -100 Microbiology Past 72 Hours 01/06/19 17:16 Gram Stain - Final Wound - Other Wound Culture - Preliminary Gram negative avelina Gram positive organism Laboratory Tests Past 24 Hrs 01/06/19 01/07/19 01/07/19 17:19 05:30 05:30 WBC 8.6 RBC 4.32 L Hgb 12.0 L Hct 37.6 L MCV 87.0 MCH 27.8 MCHC 31.9 L RDW Std Deviation 46.3 H RDW Coeff of Allegra 14.6 Plt Count 218 MPV 10.1 Immature Gran % (Auto) 0.200 Neut % (Auto) 74.1 H Lymph % (Auto) 12.3 L [place] % (Auto) 9.3 Eos % (Auto) 3.5 Baso % (Auto) 0.6 Absolute Neuts (auto) 6.4 Absolute Lymphs (auto) 1.06 Nucleated RBC % 0 Sodium 140 Potassium 3.4 L Chloride 103 Carbon Dioxide 30.0 Anion Gap 7 BUN 20 H Creatinine 1.01 Estim Creat Clear Calc 79.02 Est GFR (MDRD) Af Amer 93 Est GFR (MDRD) Non-Af 77 BUN/Creatinine Ratio 19.8 Glucose 116 H Calcium 8.5 Magnesium 1.8 MRSA (PCR) Negative Medical Necessity - Tobacco Use Smoking Status: Former smoker Tobacco Use: Cigarettes Assessment/Plan All Active Problems (Last Reviewed 01/06/19 @ 13:10 by Venkata Lee MD) Lymphedema of lower extremity (Acute) Ulcer of right lower extremity with fat layer exposed (Acute) Ulcer of left lower extremity with fat layer exposed (Acute) Ulcer right lower extremity with fat layer exposed Ulcer left lower extremity fat layer exposed Lymphedema Cellulitis lower extremity Other comorbidities This patient was carefully examined and evaluated resting bedside for bilateral lymphedema as well as improving lower leg cellulitis and ulcers to bilateral lower ankles and left heel. Patient's ex- in the room again today. Patient's WBC is 8.6. Vital signs are all currently stable. Wound cultures taken earlier and preliminary results show gram-negative avelina and gram-positive organism. Bilateral ankle x-rays were ordered for this patient last evening and if still not been taken. Deysi Chopra took the patient's dressings down today, cleanse the lower legs, and redressed the ulcer sites with Santyl to the base followed by 4 x 4's, Kerlix, and Javier bandages. She took pictures of the ulcer sites and notes were reviewed carefully today. No significant change appreciated since yesterday evening. The patient is to keep his legs elevated all times while seated or laying in bed. He is to make sure he keeps all pressure off of his heels at all times by having him floated over the ends of pillows so nothing but air is touching his heels. I also discussed the case at length with the patient's ex-, friend, and son last evening. They all spoke with me telling me that they do not feel the patient is safe to live on his own anymore and cannot adequately care for himself. They state that he has trouble getting around due to his lymphedema. They are hoping the patient can be placed in extended care facility upon discharge. I discussed this issue further with the patient again today and he seems amenable. They would also like the [facility] as [facility] is already [facility] multiple [facility]. Patient also agrees with this plan. Continued medical management DVT prophylaxis is appreciated per primary medical team. Podiatry will continue to follow this patient while in house.
--- NOTE | 2019-01-07 13:50 | CASEMGMT ---
Social Work Note SW met with pt to confirm discharge plans. Pt is alert and orientated x3. SW introduced self and role at [facility]. Pt states he lives alone and was previously independent with ALDs except for the last few days. Pt states his legs got worse and was unable to get around. Pt states he has canes and walkers at home. SW educated pt on SNF and provided pt with list of area SNF. SW educated pt that he is able to go to SNF under his Medicare if he gets qualifying stay and then Medicare will pay for SNF first 20 days at 100%. SW encouraged pt to review SNF list and have 2-3 options and that this worker will check back with him tomorrow. Pt states that he thought he was going to [facility] for a while. MIRIAM informed pt that this worker is unsure when pt will be medically cleared for discharge but that it is important to have a discharge plan lined up so when pt is medically cleared for discharge everything is done. Pt states understanding, is willing to review list of SNF tonight. Plan: TBD. Likely SNF pending acceptance Tish Smith SCREEN PRINTING MACHINE LOADER UNLOADER, GM VIDEO
--- NOTE | 2019-01-07 14:47 | CON.PCM_ITS ---
Problem List (1) Lymphedema of lower extremity Status: Acute Reason for Consult: leg infection Consulted by: Dr. Lee History of Present Illness: The patient is a 73 year old M with chronic lymphedema, presented 01/06 with several weeks of worsened BLE edema, drainage, redness, pain, and odor. Had been unable to get around the house. [facility] [place] reports he was on po abx recently. No fever, no n/v/d. Came to ED, compression stockings had to be cut off. Legs feeling better, now on vanc/zosyn. Full ROS performed and neg except as noted above. 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 Hoskins: [place]O to LAD, SVG to two PDA branches of RCA, SVG to CX, and SVG to two branches of the DX of the LAD Allergies/Adverse Reactions: Allergies hydrocodone [From Vicodin] Adverse Reaction (Intermediate, Verified 01/06/19 10:12) Vomiting morphine Adverse Reaction (Intermediate, Verified 01/06/19 10:12) Vomiting Home Medications: Ambulatory Orders Medication Instructions Recorded aspirin 81 mg tablet,delayed 81 mg PO DAILY 05/31/17 release ascorbic acid (vitamin C) 500 mg 500 mg PO BID ea 06/04/17 capsule magnesium 250 mg tablet 250 mg PO DAILY 06/04/17 Calcium Carb,Gluc/Mag Ox,Gluc 1 tab PO DAILY 01/06/19 [Calcium Magnesium Caplet] Cinnamon Bark [Cinnamon] 500 mg PO DAILY 01/06/19 Metoprolol Tartrate [Lopressor 25 mg PO BID 01/06/19 (beta uriel)] Simvastatin 80 mg PO QPM 01/06/19 - Social History SMOKING STATUS:: Former smoker Vital Signs Temp Pulse Resp BP Pulse Ox 98.3 F 66 18 115/65 95 01/07/19 14:26 01/07/19 14:26 01/07/19 14:26 01/07/19 14:26 01/07/19 14:26 Oxygen Delivery Method Room Air Weight: 96.1 kg Body Mass Index (BMI) 26.4 Microbiology Past 72 Hours 01/06/19 17:16 Gram Stain - Final Wound - Other Wound Culture - Preliminary Gram negative avelina Gram positive organism Laboratory Tests Past 24 Hrs 01/06/19 01/07/19 01/07/19 17:19 05:30 05:30 WBC 8.6 RBC 4.32 L Hgb 12.0 L Hct 37.6 L MCV 87.0 MCH 27.8 MCHC 31.9 L RDW Std Deviation 46.3 H RDW Coeff of Allegra 14.6 Plt Count 218 MPV 10.1 Immature Gran % (Auto) 0.200 Neut % (Auto) 74.1 H Lymph % (Auto) 12.3 L [place] % (Auto) 9.3 Eos % (Auto) 3.5 Baso % (Auto) 0.6 Absolute Neuts (auto) 6.4 Absolute Lymphs (auto) 1.06 Nucleated RBC % 0 Sodium 140 Potassium 3.4 L Chloride 103 Carbon Dioxide 30.0 Anion Gap 7 BUN 20 H Creatinine 1.01 Estim Creat Clear Calc 79.02 Est GFR (MDRD) Af Amer 93 Est GFR (MDRD) Non-Af 77 BUN/Creatinine Ratio 19.8 Glucose 116 H Calcium 8.5 Magnesium 1.8 MRSA (PCR) Negative - Other Studies Radiology: [] reviewed Other Studies: [] Route of nutrition/ use of supplements: [] Nutritional Intake: [] IV Site: [] Quiñones Catheter: [] - Physical Exam General: Alert, Cooperative, No apparent distress HEENT: Atraumatic, PERRLA, EOMI Neck: Supple, No Nodes Lungs: Clear to auscultation, Normal air movement Cardiovascular: Regular rate, Regular Rhythm Abdomen: Soft, Non Tender, Non-Distended Extremities: Edema Skin: Ulcer/ Wound - reviewed photos of BLE IV Site: Peripheral, without redness Neurological: Cranial nerves II-XII grossly intact - Assessment/Plan Antibiotics: [] Assessment/Plan: [] Active and Suspected Problems (Last Reviewed 01/06/19 @ 13:10 by Venkata Lee MD) Lymphedema of lower extremity (Acute) Ulcer of right lower extremity with fat layer exposed (Acute) Ulcer of left lower extremity with fat layer exposed (Acute) Infected ulcers of BLE due to chronic lymphedema - cx here pending, podiatry following, cont vanc/zosyn for now. Will follow, thank you.
[2019-01-07] MEDS: Acetaminophen 325 MG Tablet 650 MG PO (18:50)
[2019-01-07] MEDS: Atorvastatin Calcium 40 MG Tablet PO (21:24)
[2019-01-08] VITALS (7 sets, daily range): BP systolic 108–126; BP diastolic 61–76; PULSE 61–71; RESP 18; TEMP 36.6–37.1; O2SAT 95–96
[2019-01-08 03:54] LABS: Absolute Lymphocyte Count 1.19 X10^3/uL (0.83-4.51); Absolute Neutrophil Count 5.9 X10^3/uL (2.0-7.7); Basophil# 0.04 X10^3/uL; Basophil% 0.5 % (0-1); Eosinophils% 3.7 % (0-5); Hematocrit 33.7 % (40-54); Hemoglobin 10.7 g/dL (13.0-16.5); Lymphocyte # 1.19 X10^3/ul (4.0); Lymphocyte % 14.5 % (19-41); Mean Corp Hgb Conc 31.8 g/dL (32-36); Mean Corpuscular Volume 88.2 fL (80-94); Mean Platelet Vol. 10.2 fl (6.2-12.0); Monocyte# 0.68 X10^3/uL; Monocyte% 8.3 % (0-10); NRBC Flagged by Analyzer 0 % (0-5); Neutrophil # 5.94 X10^3/uL (2.7-7.7); Neutrophil % 72.5 % (47-70); Platelet Count 228 K/mm3 (150-450); RBC Distribution Width CV 14.4 % (11.6-14.6); RBC Distribution Width SD 46.1 fl (35.1-43.9); Red Blood Count 3.82 M/mm3 (4.6-6.2); White Blood Count 8.2 K/mm3 (4.4-11.0)
[2019-01-08 04:05] LABS: Anion Gap 7 (5-15); BUN 21 mg/dL (7-18); BUN/Creat Ratio 18.9 RATIO (10-20); Calcium,Total 8.1 mg/dL (8.5-10.1); Chloride 100 mmol/L (98-107); Creatinine, Serum 1.11 mg/dL (0.70-1.30); EST Glomerular Filtration Rate 69 mL/min (>60); Est Glom Filt Rate - Afr Amer 84 mL/min (>60); Glucose 119 mg/dL (74-106); Potassium 2.8 mmol/L (3.5-5.1); Sodium Level 142 mmol/L (136-145)
[2019-01-08 04:15] LABS: Vancomycin, Trough Level 19.4 ug/mL (5.0-15.0)
[2019-01-08] MEDS: Potassium Chloride 10mEq/100mL 10 MEQ/100 ML IV.SOLN. 100 MEQ IV BOLUS ×6 (05:11→10:28)
--- NOTE | 2019-01-08 05:12 | PCM.RX.CS ---
Consult Pharmacy has been consulted to manage selected antiobiotic: Vancomycin Type of Consult: Follow-up Suspected Infection: Other Prior Doses of Antibiotics Received/Current Regimen: Medications Vancomycin HCl 1,250 mg/ (Sodium Chloride) 275 mls @ 167 mls/hr IV Q12H CHARIS Last Admin: 01/08/19 04:03 Dose: 167 mls/hr Documented by: Labs: Sodium 142 mmol/L (136-145) 01/08/19 03:30 Potassium 2.8 mmol/L (3.5-5.1) L 01/08/19 03:30 Chloride 100 mmol/L (98-107) 01/08/19 03:30 Carbon Dioxide 35.0 mmol/L (21.0-32.0) H 01/08/19 03:30 7 (5-15) 01/08/19 03:30 BUN 21 mg/dL (7-18) H 01/08/19 03:30 1.11 mg/dL (0.70-1.30) 01/08/19 03:30 Est GFR (MDRD) Af Amer 84 mL/min (>60) 01/08/19 03:30 Est GFR (MDRD) Non-Af 69 mL/min (>60) 01/08/19 03:30 18.9 RATIO (10-20) 01/08/19 03:30 Glucose 119 mg/dL (74-106) H 01/08/19 03:30 Vancomycin Trough 19.4 ug/mL (5.0-15.0) H 01/08/19 03:30 Microbiology: Microbiology 01/06/19 17:16 Wound - Other Gram Stain - Final 01/06/19 17:16 Wound - Other Wound Culture - Preliminary Gram negative avelina Gram positive organism Goal Trough: 10-15 mcg/mL Pharmacy Plan for Drug Dosing: Vancomycin trough above goal but dose prior to level was given 2.5 hr late. Recommend to still decrease slightly to 1000mg IV q12h, restart this evening. Check prior to 4th dose. Pharmacy Service will continue to monitor and adjust dosing as required. Follow-Up Labs: Trough Vancomycin - 01/10 @ 0930
[2019-01-08] MEDS: Furosemide 40 MG/4 ML Vial IV ×3 (06:36→22:46)
[2019-01-08] MEDS: 0.9% NaCl Peripheral Flush Adult/Peds IV ×4 (06:39→14:26)
--- NOTE | 2019-01-08 07:21 | PCM.PN.HOSP ---
Patient Problems: Active and Suspected Problems (Last Reviewed 01/06/19 @ 13:10 by Venkata Lee MD) Lymphedema of lower extremity (Acute) Ulcer of right lower extremity with fat layer exposed (Acute) Ulcer of left lower extremity with fat layer exposed (Acute) Subjective: Patient seen had a relatively uneventful night. Potassium this morning is 2.7 repletion initiated Wound cultures so far positive for Gram negative avelina and Gram positive organism Objective: GENERAL: cooperative HEENT: Atraumatic; moist oral mucosa EYES; Anicteric, Normal Conjunctiva NECK; supple, normal thyroid, no distended JVD. RESPIRATORY: Diminished to auscultation bilaterally, CARDIOVASCULAR: Regular S1 S2, no audible murmurs GI: soft, non-tender, normoactive bowel sounds, : No Renal angle tenderness; EXTREMITIES: Bilateral lymphedema; dressed NEURO: Awake; no lateralizing signs. SKIN: Described above PSYCH; Normal affect Vitals/I&O's: Vital Signs Temp Pulse Resp BP Pulse Ox 98.7 F 62 18 115/61 95 01/08/19 03:03 01/08/19 03:03 01/08/19 03:03 01/08/19 03:03 01/08/19 03:03 Oxygen Delivery Method Room Air Weight: 96.1 kg Body Mass Index (BMI) 26.4 Intake and Output for Last 24 Hours 01/06/19 01/07/19 01/08/19 23:59 23:59 23:59 Intake Total 120 / 520 1541 / 1761 370 / 370 Output Total 1150 / 1450 2700 / 3300 1750 / 1750 Balance -1030 / -930 -1159 / -1539 -1380 / -1380 Microbiology Past 72 Hours 01/06/19 17:16 Wound - Other Gram Stain - Final 01/06/19 17:16 Wound - Other Wound Culture - Preliminary Gram negative avelina Gram positive organism Laboratory Results 01/08/19 03:30: WBC 8.2, RBC 3.82 L, Hgb 10.7 L, Hct 33.7 L, MCV 88.2, MCH 28.0, MCHC 31.8 L, RDW Std Deviation 46.1 H, RDW Coeff of Allegra 14.4, Plt Count 228, MPV 10.2, Immature Gran % (Auto) 0.500, Neut % (Auto) 72.5 H, Lymph % (Auto) 14.5 L, [place] % (Auto) 8.3, Eos % (Auto) 3.7, Baso % (Auto) 0.5, Absolute Neuts (auto) 5.9, Absolute Lymphs (auto) 1.19, Nucleated RBC % 0 01/08/19 03:30: Sodium 142, Potassium 2.8 L, Chloride 100, Carbon Dioxide 35.0 H, Anion Gap 7, BUN 21 H, Creatinine 1.11, Estim Creat Clear Calc 71.90, Est GFR (MDRD) Af Amer 84, Est GFR (MDRD) Non-Af 69, BUN/Creatinine Ratio 18.9, Glucose 119 H, Calcium 8.1 L 01/08/19 03:30: Vancomycin Trough 19.4 H Current Medications Acetaminophen (Tylenol) 650 mg PO Q6H PRN PRN PRN Reason: Mild Pain (1-3)/Temp > 100.7 F Last Admin: 01/07/19 18:50 Dose: 650 mg Documented by: Al Hydroxide/Mg Hydroxide (Mylanta Ii) 30 ml PO Q6H PRN PRN PRN Reason: Gastric Burning Albuterol Sulfate (Ventolin Aerosols) 2.5 mg INHALATION Q2H PRN PRN PRN Reason: Shortness of Breath/Wheezing Ascorbic Acid (Vitamin C) 500 mg PO BID [facility] Last Admin: 01/07/19 21:24 Dose: 500 mg Documented by: Aspirin (Ecotrin) 81 mg PO DAILY@0800 [facility] Last Admin: 01/07/19 09:01 Dose: 81 mg Documented by: Atorvastatin Calcium (Lipitor) 40 mg PO QHS [facility] Last Admin: 01/07/19 21:24 Dose: 40 mg Documented by: Calcium Carbonate (Os-Francisco J 500) 500 mg PO DAILY@0800 [facility] Last Admin: 01/07/19 09:01 Dose: 500 mg Documented by: Collagenase (Santyl) 1 applic TOPICAL DAILY [facility]; Protocol Last Admin: 01/07/19 09:20 Dose: 1 applicatio Documented by: Enoxaparin Sodium (Lovenox) 40 mg SC DAILY@1000 [facility] Last Admin: 01/07/19 09:04 Dose: 40 mg Documented by: Furosemide (Lasix) 40 mg IV Q8 [facility] Last Admin: 01/08/19 06:36 Dose: 40 mg Documented by: Guaifenesin (Robitussin) 20 ml PO Q4H PRN PRN PRN Reason: COUGH Vancomycin IV Pharmacy to Dose (1 ea/ Sodium Chloride) 500 mls @ 250 mls/hr IV X1 PRN; Protocol PRN Reason: Rx to Dose Piperacillin Sod/Tazobactam (Sod 3.375 gm/ Sodium Chloride) 50 mls @ 12.5 mls/hr IV Q8 [facility] Last Admin: 01/08/19 06:36 Dose: 12.5 mls/hr Documented by: Sodium Chloride () 250 mls @ 15 mls/hr IV .[id number] PRN PRN Reason: SALINE FLUSH Potassium Chloride () 10 meq in 100 mls @ 100 mls/hr IV BOLUS Q1H [facility] Stop: 01/08/19 10:59 Last Admin: 01/08/19 07:13 Dose: 100 mls/hr Documented by: Vancomycin HCl (Vancomycin) 1,000 mg in 200 mls @ 200 mls/hr IV Q12H [facility] Magnesium Hydroxide (Milk Of Magnesia) 30 ml PO DAILY PRN PRN PRN Reason: Constipation Magnesium Oxide (Mag-Ox 400) 200 mg PO DAILY [facility] Last Admin: 01/07/19 09:01 Dose: 200 mg Documented by: Melatonin (Melatonin) 3 mg PO QHS PRN PRN PRN Reason: INSOMNIA Metoprolol Tartrate (Lopressor (Beta Muna)) 25 mg PO BID [facility] Last Admin: 01/07/19 21:24 Dose: 25 mg Documented by: Nutritional Formula (Lactose Free) (Ensure Enlive) 120 ml PO 4X/DAY [facility] Last Admin: 01/07/19 21:24 Dose: 120 ml Documented by: Ondansetron HCl (Zofran) 4 mg IV Q8H PRN PRN PRN Reason: NAUSEA/VOMITING Potassium Chloride (K-Dur) 20 meq PO BIDCM [facility] Potassium Chloride (K-Dur) 40 meq PO X1 ONE Stop: 01/08/19 07:21 Promethazine HCl (Phenergan) 25 mg IM Q6H PRN PRN PRN Reason: Breakthrough nausea/vomiting Sodium Chloride () 10 - 40 ml IV UD PRN PRN Reason: SALINE FLUSH Last Admin: 01/08/19 06:39 Dose: 10 ml Documented by: Medical Necessity - Tobacco Use Smoking Status: Former smoker Tobacco Use: Cigarettes Assessment/Plan All Active Problems (Last Reviewed 01/06/19 @ 13:10 by Venkata Lee MD) Lymphedema of lower extremity (Acute) Ulcer of right lower extremity with fat layer exposed (Acute) Ulcer of left lower extremity with fat layer exposed (Acute) Patient is a 73-year-old gentleman with history of bilateral chronic lymphedema, CAD with previous CABG who presented with increasing swelling erythema and more order was discharged from both lower extremities 1. Cellulitis in the patient with bilateral lymphedema. Admitted to regular nursing floor patient started on broad-spectrum antibiotic therapy with vancomycin as well as Zosyn. Cultures sent consult placed wound care nurse as well as infectious disease and podiatry. Patient was seen in consultation by Dr. Sanches with podiatry's notes and commendations reviewed. Wound cultures so far positive for Gram negative avelina and Gram positive organism 2. Coronary artery disease status post CABG in 1996 3. Chronic congestive heart failure with preserved ejection fraction echo obtained on 01/06/2019 demonstrated EF of 61% with stage I diastolic dysfunction and concentric left ventricular hypertrophy 4. Dyslipidemia-patient is on statin therapy, continued at home dose 5. Hypertension-blood pressure controlled, home medications: Patient blood pressure control remains optimal 6. Bilateral chronic lymphedema patient has apparently been managed at the [facility] consult was placed to wound care nurse for dressing changes 7. Hypokalemia corrected per protocol 8. DVT prophylaxis SC Lovenox CODE STATUS full code Code Visit Inpatient E&M: 77641 Subs Hosp L2
[2019-01-08] MEDS: Ascorbic Acid 500 MG Tablet PO ×2 (09:31→22:45)
[2019-01-08] MEDS: Magnesium Oxide 400 MG Tablet 200 MG PO (09:31)
[2019-01-08] MEDS: Aspirin E.C. 81 MG Tablet PO (09:31)
[2019-01-08] MEDS: Calcium (Elemental) 500 MG Tablet PO (09:31)
[2019-01-08] MEDS: Enoxaparin 40 MG/0.4 ML Syringe SC (09:32)
[2019-01-08] MEDS: Metoprolol Tartrate 25 MG Tablet PO ×2 (09:32→22:45)
--- NOTE | 2019-01-08 10:07 | PCM.PN.ID ---
Patient Problems: Active and Suspected Problems (Last Reviewed 01/06/19 @ 13:10 by Venkata Lee MD) Lymphedema of lower extremity (Acute) Ulcer of right lower extremity with fat layer exposed (Acute) Ulcer of left lower extremity with fat layer exposed (Acute) Subjective: Feeling better, legs less sore, no fever - Physical Exam General: Alert, Cooperative, No apparent distress Lungs: Clear to auscultation, Normal air movement Cardiovascular: Regular rate, Regular Rhythm Abdomen: Soft, Non Tender, Non-Distended Skin: Ulcer/ Wound - legs wrapped Vital Signs Temp Pulse Resp BP Pulse Ox 97.8 F 65 18 108/66 95 01/08/19 08:30 01/08/19 09:32 01/08/19 08:30 01/08/19 08:30 01/08/19 08:44 Oxygen Delivery Method Room Air Weight: 96.1 kg Body Mass Index (BMI) 26.4 Intake and Output for Last 24 Hours 01/06/19 01/07/19 01/08/19 23:59 23:59 23:59 Intake Total 120 / 520 1541 / 1761 370 / 370 Output Total 1150 / 1450 2700 / 3300 1750 / 1750 Balance -1030 / -930 -1159 / -1539 -1380 / -1380 Microbiology Past 72 Hours 01/06/19 17:16 Gram Stain - Final Wound - Other Wound Culture - Final Proteus mirabilis Gram positive organism Laboratory Tests Past 24 Hrs 01/08/19 01/08/19 01/08/19 03:30 03:30 03:30 WBC 8.2 RBC 3.82 L Hgb 10.7 L Hct 33.7 L MCV 88.2 MCH 28.0 MCHC 31.8 L RDW Std Deviation 46.1 H RDW Coeff of Allegra 14.4 Plt Count 228 MPV 10.2 Immature Gran % (Auto) 0.500 Neut % (Auto) 72.5 H Lymph % (Auto) 14.5 L [place] % (Auto) 8.3 Eos % (Auto) 3.7 Baso % (Auto) 0.5 Absolute Neuts (auto) 5.9 Absolute Lymphs (auto) 1.19 Nucleated RBC % 0 Sodium 142 Potassium 2.8 L Chloride 100 Carbon Dioxide 35.0 H Anion Gap 7 BUN 21 H Creatinine 1.11 Estim Creat Clear Calc 71.90 Est GFR (MDRD) Af Amer 84 Est GFR (MDRD) Non-Af 69 BUN/Creatinine Ratio 18.9 Glucose 119 H Calcium 8.1 L Vancomycin Trough 19.4 H Medical Necessity - Tobacco Use Smoking Status: Former smoker Tobacco Use: Cigarettes Route of nutrition/ use of supplements: [] Nutritional Intake: [] IV Site: [] Quiñones Catheter: [] - Assessment/Plan Antibiotics: [] Assessment/Plan: [] Active and Suspected Problems (Last Reviewed 01/06/19 @ 13:10 by Venkata Lee MD) Lymphedema of lower extremity (Acute) Ulcer of right lower extremity with fat layer exposed (Acute) Ulcer of left lower extremity with fat layer exposed (Acute) Infected ulcers of BLE due to chronic lymphedema - cx here showing gram pos and proteus, podiatry following, will narrow to doxy/augmentin, plan on 5 more days of po abx after discharge. Will follow
[2019-01-08] MEDS: Collagenase 30gm Tube 1 APPLIC TOPICAL (10:31)
--- NOTE | 2019-01-08 11:23 | CASEMGMT ---
Addendum entered by Tish Smith 01/08/19 14:19: SW received message from Kiana at [facility] stating they are able to accept pt but had questions. Kiana asked if pt was going to apply for Medicaid, states they are not a [facility] SNF so won't be able to bill [facility] and stated they have a wound nurse and physician at facility so pt will get seen by them and not go up to [facility] for wound care. SW in to speak with pt. SW updated pt that [facility] is able to accept pt, educated pt on Medicaid and [facility] will be able to assist pt with applying for Medicaid, informed pt that [facility] not be [facility] for SNF and informed pt that [facility] has wound nurse and physician and that once pt discharges from SNF he can follow up with [facility] for wound care. Pt states understanding, states he feels like he needs a few more days. SW informed pt to speak with physician regarding discharge. SW placed a call back to Kiana at [facility] and updated her on this. Plan: W tomorrow skilled Original Note: Social Work Note Physician updated this worker that pt is agreeable to SNF. SW met with pt to confirm discharge plans. Pt states he reviewed list of SNF with his friend and is agreeable to going to SNF. Pt asked this worker about [facility]CU. SW informed pt that this worker will have to check on bed availability but as of the other day they didn't have any beds and pt can't stay at [facility] until a bed opens up. Pt states that first choice for SNF is [facility] and second choice is [facility] [place]. SW explained that this worker will call [facility] first and send referral to determine if they are able to accept pt. Pt states understanding. MIRIAM placed a call to Jeannie with TCU who confirms TCU doesn't have any beds. SW faxed referral to [facility] and placed a call to Kiana at [facility] and left message regarding referral. SW waiting for call back. Plan: SNF tomorrow pending acceptance Tish Smith ROTARY DUMP OPERATOR, CROP SETTING OUT MACHINE OPERATOR
[2019-01-08] MEDS: Doxycycline 100 MG CAPSULE PO ×2 (12:26→22:45)
[2019-01-08] MEDS: Amox/Clavulanate 875 MG Tablet PO ×2 (12:26→17:44)
[2019-01-08] MEDS: Magnesium Hydroxide 30 ML UDC PO (12:32)
--- NOTE | 2019-01-08 15:52 | CASEMGMT ---
Social Work Note MIRIAM received message from Kiana at [facility] asking if she is able to contact pt's friend Kurt that is listed on demographics page. MIRIAM placed a call back to Kiana at [facility] and left her a message and updated her that this worker hasn't been working with pt's friend Kurt and this worker is not sure how involved he is with patient's care. MIRIAM informed Kiana that pt is his own person, is alert and orientated x4, and is able to make own decisions so this worker has only been working with the pt. MIRIAM informed Kiana that this worker can ask pt tomorrow if he is agreeable to providing [facility] with Kurt's contact information and agreeable to [facility] calling Kurt, or ex- name and number or son's name and number that then could be relayed to [facility]. Tish Smith COOK HELPER JUICE, BLACK PICKLER
[2019-01-08] MEDS: Atorvastatin Calcium 40 MG Tablet PO (22:46)
[2019-01-09 02:55] VITALS: BP 116/77; PULSE 66; RESP 20; TEMP 36.6; O2SAT 95
[2019-01-09] MEDS: Furosemide 40 MG/4 ML Vial IV ×2 (05:50→14:17)
[2019-01-09 06:34] LABS: Absolute Lymphocyte Count 1.41 X10^3/uL (0.83-4.51); Absolute Neutrophil Count 5.7 X10^3/uL (2.0-7.7); Basophil# 0.04 X10^3/uL; Basophil% 0.5 % (0-1); Eosinophil# 0.33 X10^3/uL; Hematocrit 35.1 % (40-54); Hemoglobin 10.9 g/dL (13.0-16.5); Lymphocyte # 1.41 X10^3/ul (4.0); Lymphocyte % 16.9 % (19-41); Mean Corp Hgb Conc 31.1 g/dL (32-36); Mean Corpuscular Hgb 27.5 pg (27.0-32.0); Mean Corpuscular Volume 88.6 fL (80-94); Mean Platelet Vol. 10.4 fl (6.2-12.0); Monocyte# 0.82 X10^3/uL; Monocyte% 9.8 % (0-10); NRBC Flagged by Analyzer 0 % (0-5); Neutrophil # 5.72 X10^3/uL (2.7-7.7); Neutrophil % 68.4 % (47-70); Platelet Count 230 K/mm3 (150-450); RBC Distribution Width CV 14.6 % (11.6-14.6); RBC Distribution Width SD 46.6 fl (35.1-43.9); Red Blood Count 3.96 M/mm3 (4.6-6.2); White Blood Count 8.4 K/mm3 (4.4-11.0)
[2019-01-09 06:51] LABS: Anion Gap 5 (5-15); BUN 22 mg/dL (7-18); BUN/Creat Ratio 18.5 RATIO (10-20); Calcium,Total 8.2 mg/dL (8.5-10.1); Chloride 98 mmol/L (98-107); Creatinine, Serum 1.19 mg/dL (0.70-1.30); EST Glomerular Filtration Rate 64 mL/min (>60); Est Glom Filt Rate - Afr Amer 77 mL/min (>60); Estimated Creatinine Clearance 67.06 ml/min; Glucose 115 mg/dL (74-106); Potassium 3.7 mmol/L (3.5-5.1); Sodium Level 139 mmol/L (136-145)
--- NOTE | 2019-01-09 07:33 | PN_ITS ---
Patient Problems: Active and Suspected Problems (Last Reviewed 01/06/19 @ 13:10 by Venkata Lee MD) Lymphedema of lower extremity (Acute) Ulcer of right lower extremity with fat layer exposed (Acute) Ulcer of left lower extremity with fat layer exposed (Acute) Subjective: Patient wound cultures came back positive for Proteus mirabilis as well as coagulase negative staph. Antibiotics have since been adjusted by infectious disease awaiting for patient to make a decision regarding disposition to a senior living facility Microbiology 01/06/19 17:16 Wound - Other Gram Stain - Final 01/06/19 17:16 Wound - Other Wound Culture - Final Proteus mirabilis Coag Negative Staph Objective: GENERAL: cooperative HEENT: Atraumatic; moist oral mucosa EYES; Anicteric, Normal Conjunctiva NECK; supple, normal thyroid, RESPIRATORY: Diminished to auscultation bilaterally, CARDIOVASCULAR: Regular S1 S2, GI: soft, non-tender, normoactive bowel sounds, : No Renal angle tenderness; EXTREMITIES: Bilateral lymphedema; dressed NEURO: Awake; no lateralizing signs. SKIN: Described above PSYCH; Normal affect Vitals/I&O's: Vital Signs Temp Pulse Resp BP Pulse Ox 98 F 66 20 H 116/77 95 01/09/19 02:55 01/09/19 02:55 01/09/19 02:55 01/09/19 02:55 01/09/19 02:55 Oxygen Delivery Method Room Air Weight: 96.1 kg Body Mass Index (BMI) 26.4 Intake and Output for Last 24 Hours 01/07/19 01/08/19 01/09/19 23:59 23:59 23:59 Intake Total 1541 / 1761 1605 / 1775 370 / 370 Output Total 2700 / 3300 4325 / 4625 1175 / 1175 Balance -1159 / -1539 -2720 / -2850 -805 / -805 Microbiology Past 72 Hours 01/06/19 17:16 Wound - Other Gram Stain - Final 01/06/19 17:16 Wound - Other Wound Culture - Final Proteus mirabilis Coag Negative Staph Laboratory Results 01/09/19 06:06: WBC 8.4, RBC 3.96 L, Hgb 10.9 L, Hct 35.1 L, MCV 88.6, MCH 27.5, MCHC 31.1 L, RDW Std Deviation 46.6 H, RDW Coeff of Allegra 14.6, Plt Count 230, MPV 10.4, Immature Gran % (Auto) 0.400, Neut % (Auto) 68.4, Lymph % (Auto) 16.9 L, [place] % (Auto) 9.8, Eos % (Auto) 4.0, Baso % (Auto) 0.5, Absolute Neuts (auto) 5.7, Absolute Lymphs (auto) 1.41, Nucleated RBC % 0 01/09/19 06:06: Sodium 139, Potassium 3.7, Chloride 98, Carbon Dioxide 36.0 H, Anion Gap 5, BUN 22 H, Creatinine 1.19, Estim Creat Clear Calc 67.06, Est GFR (MDRD) Af Amer 77, Est GFR (MDRD) Non-Af 64, BUN/Creatinine Ratio 18.5, Glucose 115 H, Calcium 8.2 L Current Medications Acetaminophen (Tylenol) 650 mg PO Q6H PRN PRN PRN Reason: Mild Pain (1-3)/Temp > 100.7 F Last Admin: 01/07/19 18:50 Dose: 650 mg Documented by: Al Hydroxide/Mg Hydroxide (Mylanta Ii) 30 ml PO Q6H PRN PRN PRN Reason: Gastric Burning Albuterol Sulfate (Ventolin Aerosols) 2.5 mg INHALATION Q2H PRN PRN PRN Reason: Shortness of Breath/Wheezing Amoxicillin/Clavulanate Potassium ([facility]) [facility] Last Admin: 01/08/19 17:44 Dose: 875 mg Documented by: Ascorbic Acid (Vitamin C) 500 mg PO BID [facility] Last Admin: 01/08/19 22:45 Dose: 500 mg Documented by: Aspirin (Ecotrin) 81 mg PO DAILY@0800 [facility] Last Admin: 01/08/19 09:31 Dose: 81 mg Documented by: Atorvastatin Calcium (Lipitor) 40 mg PO QHS [facility] Last Admin: 01/08/19 22:46 Dose: 40 mg Documented by: Calcium Carbonate (Os-Francisco J 500) 500 mg PO DAILY@0800 [facility] Last Admin: 01/08/19 09:31 Dose: 500 mg Documented by: Collagenase (Santyl) 1 applic TOPICAL DAILY [facility]; Protocol Last Admin: 01/08/19 10:31 Dose: 1 applicatio Documented by: Doxycycline Monohydrate (Doxycycline) 100 mg PO BID [facility] Last Admin: 01/08/19 22:45 Dose: 100 mg Documented by: Enoxaparin Sodium (Lovenox) 40 mg SC DAILY@1000 [facility] Last Admin: 01/08/19 09:32 Dose: 40 mg Documented by: Furosemide (Lasix) 40 mg IV Q8 [facility] Last Admin: 01/09/19 05:50 Dose: 40 mg Documented by: Guaifenesin (Robitussin) 20 ml PO Q4H PRN PRN PRN Reason: COUGH Sodium Chloride () 250 mls @ 15 mls/hr IV .[id number] PRN PRN Reason: SALINE FLUSH Magnesium Hydroxide (Milk Of Magnesia) 30 ml PO DAILY PRN PRN PRN Reason: Constipation Last Admin: 01/08/19 12:32 Dose: 30 ml Documented by: Magnesium Oxide (Mag-Ox 400) 200 mg PO DAILY [facility] Last Admin: 01/08/19 09:31 Dose: 200 mg Documented by: Melatonin (Melatonin) 3 mg PO QHS PRN PRN PRN Reason: INSOMNIA Metoprolol Tartrate (Lopressor (Beta Muna)) 25 mg PO BID [facility] Last Admin: 01/08/19 22:45 Dose: 25 mg Documented by: Nutritional Formula (Lactose Free) (Ensure Enlive) 120 ml PO 4X/DAY [facility] Last Admin: 01/08/19 23:16 Dose: Not Given Documented by: Ondansetron HCl (Zofran) 4 mg IV Q8H PRN PRN PRN Reason: NAUSEA/VOMITING Potassium Chlor[facility] ([facility]Dur) [facility] Last Admin: 01/08/19 17:44 Dose: 20 meq Documented by: Promethazine HCl (Phenergan) 25 mg IM Q6H PRN PRN PRN Reason: Breakthrough nausea/vomiting Sodium Chloride () 10 - 40 ml IV UD PRN PRN Reason: SALINE FLUSH Last Admin: 01/08/19 14:26 Dose: 10 ml Documented by: Medical Necessity - Tobacco Use Smoking Status: Former smoker Tobacco Use: Cigarettes Assessment/Plan All Active Problems (Last Reviewed 01/06/19 @ 13:10 by Venkata Lee MD) Lymphedema of lower extremity (Acute) Ulcer of right lower extremity with fat layer exposed (Acute) Ulcer of left lower extremity with fat layer exposed (Acute) Patient is a 73-year-old gentleman with history of bilateral chronic lymphedema, CAD with previous CABG who presented with increasing swelling erythema and more order was discharged from both lower extremities 1. Cellulitis in the patient with bilateral lymphedema. Admitted to regular nursing floor patient started on broad-spectrum antibiotic therapy with vancomycin as well as Zosyn. Cultures sent consult placed wound care nurse as well as infectious disease and podiatry. Patient was seen in consultation by Dr. Sanches with podiatry's notes and commendations reviewed. Patient wound cultures came back positive for Proteus mirabilis as well as coagulase negative staph. Antibiotics adjusted by ID 2. Coronary artery disease status post CABG in 1996 3. Chronic congestive heart failure with preserved ejection fraction echo obtained on 01/06/2019 demonstrated EF of 61% with stage I diastolic dysfunction and concentric left ventricular hypertrophy 4. Dyslipidemia-patient is on statin therapy, continued at home dose 5. Hypertension-blood pressure controlled, home medications: Patient blood pressure control remains optimal 6. Bilateral chronic lymphedema patient has apparently been managed at the [facility] consult was placed to wound care nurse for dressing changes 7. Hypokalemia corrected per protocol 8. DVT prophylaxis SC Lovenox CODE STATUS full code Code Visit Inpatient E&M: 53971 Subs Hosp L2
--- NOTE | 2019-01-09 08:24 | TREXTCAR_ITS ---
- Diet 01/06/19 14:50 Diet: Cardiac/Low Cholesterol Food consistency:: Regular Liquid Consistency:: Regular/Thin Diet: Fluid Restriction Food consistency:: Regular Liquid Consistency:: Regular/Thin Fluid restriction:: 1500 mL - Wound(s) r ant ankle Wound Type: Pressure Injury Dressing Change: AntiMicrobial (Aquacel AG, etc) right circumferential ankle Wound Type: pressure injury from compression stockings Dressing Change: santyl left ant ankle Wound Type: pressure injury from compression stocking Dressing Change: santyl left heel Wound Type: Pressure Injury Dressing Change: santyl post left lower leg Wound Type: Stasis Ulcer Dressing Change: Adaptic right heel Wound Type: Pressure Injury Dressing Change: Dry Sterile Dressing - Therapies Physical Therapy: Eval and Treat Occupational Therapy: Eval and Treat - Problem/Diagnosis (1) Hyperlipidemia Status: Chronic Current Visit: No (2) Hypertension Status: Chronic Current Visit: No (3) Bradycardia Status: Chronic Current Visit: No (4) 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 Hoskins: MON[place]ÑO to LAD, SVG to two PDA branches of RCA, SVG to CX, and SVG to two branches of the DX of the LAD Current Visit: No (6) History of left heart catheterization Status: Chronic Current Visit: No (7) S/P CABG x 6 Status: Chronic Comment: 03/26/1997, [facility] per Dr. Hoskins: MON[place]ÑO to LAD, SVG to two PDA branches of RCA, SVG to CX, and SVG to two branches of the DX of the LAD Current Visit: No - Allergies/Procedures Done in Hospital Allergies/Adverse Reactions: Allergies hydrocodone [From Vicodin] Adverse Reaction (Intermediate, Verified 01/06/19 10:12) Vomiting morphine Adverse Reaction (Intermediate, Verified 01/06/19 10:12) Vomiting - Type of Care/Length of Stay Estimated LOS: Convalescent Care Less Than 30 days Type of Care Needed: Skilled Rehab Potential: Good Prognosis: Good - Additional Orders/Day of Discharge H&P will serve as current which was dated: 01/09/19 Day of Discharge: 01/09/19 - Dietary and Speech Recommendations Dietitian Recommendations/Changes: Recommend Slava 1 packet BID d/t wounds - order by pharmacy. Recommend continue cardiac/low cholesterol, low Na diet. - Follow Up Care Primary Care Physician: Care Physician,No Primary [NON-STAFF] - [facility]
--- NOTE | 2019-01-09 08:26 | PCM.DC.SUM ---
Discharge Date and Diagnosis - Problem List Patient Problems: Active and Suspected Problems (Last Reviewed 01/06/19 @ 13:10 by Venkata Lee MD) Lymphedema of lower extremity (Acute) Ulcer of right lower extremity with fat layer exposed (Acute) Ulcer of left lower extremity with fat layer exposed (Acute) Date of Admission: 01/06/19 Date of Discharge: 01/09/19 - Primary Discharge Diagnosis Active and Suspected Problems (Last Reviewed 01/06/19 @ 13:10 by Venkata Lee MD) Lymphedema of lower extremity (Acute) Ulcer of right lower extremity with fat layer exposed (Acute) Ulcer of left lower extremity with fat layer exposed (Acute) - Secondary Discharge Diagnosis Chronic Problems (Last Reviewed 01/06/19 @ 13:10 by Venkata Lee MD) Hyperlipidemia (Chronic) Hypertension (Chronic) Bradycardia (Chronic) Old inferior wall myocardial infarction (Chronic) Atherosclerotic heart disease of [place] coronary artery without angina pectoris (Chronic) 03/26/1997, [facility] per Dr. Hoskins: MONTAÑO to LAD, SVG to two PDA branches of RCA, SVG to CX, and SVG to two branches of the DX of the LAD History of left heart catheterization (Chronic) S/P CABG x 6 (Chronic) 03/26/1997, [facility] per Dr. Hoskins: MONTAÑO to LAD, SVG to two PDA branches of RCA, SVG to CX, and SVG to two branches of the DX of the LAD Hospital Course and Treatment Imaging Results: Clinical Impression(s) from Imaging Studies Chest X-Ray 01/06/19 10:18 IMPRESSION: No acute abnormalities. Electronically Signed: Hussain Sarabia, at 11:03 EDT , Service support , Ankle X-Ray 01/07/19 08:00 IMPRESSION: Diffuse soft tissue swelling. Electronically Signed: Hussain Sarabia, at 13:54 EDT , Service support , Ankle X-Ray 01/07/19 08:00 IMPRESSION: Diffuse soft tissue swelling. Old avulsion fracture of the medial malleolus. Electronically Signed: Hussain Sarabia, at 13:53 EDT , Service support , Microbiology 01/06/19 17:16 Wound - Other Gram Stain - Final 01/06/19 17:16 Wound - Other Wound Culture - Final Proteus mirabilis Coag Negative Staph Consultations 01/06/19 14:49 Consult: Onc/Wound/reshipping clerk Routine Comment: Summary of Care Provided: Patient is a 73-year-old gentleman with history of bilateral chronic lymphedema, CAD with previous CABG who presented with increasing swelling erythema and more order was discharged from both lower extremities 1. Cellulitis in the patient with bilateral lymphedema. Admitted to regular nursing floor patient started on broad-spectrum antibiotic therapy with vancomycin as well as Zosyn. Cultures sent consult placed wound care nurse as well as infectious disease and podiatry. Patient was seen in consultation by Dr. Sanches with podiatry's notes and commendations reviewed. Patient wound cultures came back positive for Proteus mirabilis as well as coagulase negative staph. Antibiotics adjusted by ID patient was discharged on Augmentin as well as doxycycline for 5 more days. 2. Coronary artery disease status post CABG in 1996 3. Chronic congestive heart failure with preserved ejection fraction echo obtained on 01/06/2019 demonstrated EF of 61% with stage I diastolic dysfunction and concentric left ventricular hypertrophy 4. Dyslipidemia-patient is on statin therapy, continued at home dose 5. Hypertension-blood pressure controlled, home medications: Patient blood pressure control remains optimal 6. Bilateral chronic lymphedema patient has apparently been managed at the [facility] consult was placed to wound care nurse for dressing changes 7. Hypokalemia corrected per protocol 8. DVT prophylaxis SC Lovenox Patient Problems: Active and Suspected Problems (Last Reviewed 01/06/19 @ 13:10 by Venkata Lee MD) Lymphedema of lower extremity (Acute) Ulcer of right lower extremity with fat layer exposed (Acute) Ulcer of left lower extremity with fat layer exposed (Acute) Objective: GENERAL: cooperative HEENT: Atraumatic; moist oral mucosa EYES; Anicteric, Normal Conjunctiva NECK; supple, normal thyroid, RESPIRATORY: Diminished to auscultation bilaterally, CARDIOVASCULAR: Regular S1 S2, GI: soft, non-tender, normoactive bowel sounds, : No Renal angle tenderness; EXTREMITIES: Bilateral lymphedema; dressed NEURO: Awake; no lateralizing signs. SKIN: Described above PSYCH; Normal affect - Physical Exam Vital Signs Temp Pulse Resp BP Pulse Ox 98 F 66 20 H 116/77 95 01/09/19 02:55 01/09/19 02:55 01/09/19 02:55 01/09/19 02:55 01/09/19 02:55 Oxygen Delivery Method Room Air Weight: 96.1 kg Body Mass Index (BMI) 26.4 Intake and Output for Last 24 Hours 01/07/19 01/08/19 01/09/19 23:59 23:59 23:59 Intake Total 1541 / 1761 1605 / 1775 370 / 370 Output Total 2700 / 3300 4325 / 4625 1175 / 1175 Balance -1159 / -1539 -2720 / -2850 -805 / -805 Microbiology Past 72 Hours 01/06/19 17:16 Gram Stain - Final Wound - Other Wound Culture - Final Proteus mirabilis Coag Negative Staph Laboratory Tests Past 24 Hrs 01/09/19 01/09/19 06:06 06:06 WBC 8.4 RBC 3.96 L Hgb 10.9 L Hct 35.1 L MCV 88.6 MCH 27.5 MCHC 31.1 L RDW Std Deviation 46.6 H RDW Coeff of Allegra 14.6 Plt Count 230 MPV 10.4 Immature Gran % (Auto) 0.400 Neut % (Auto) 68.4 Lymph % (Auto) 16.9 L [place] % (Auto) 9.8 Eos % (Auto) 4.0 Baso % (Auto) 0.5 Absolute Neuts (auto) 5.7 Absolute Lymphs (auto) 1.41 Nucleated RBC % 0 Sodium 139 Potassium 3.7 Chloride 98 Carbon Dioxide 36.0 H Anion Gap 5 BUN 22 H Creatinine 1.19 Estim Creat Clear Calc 67.06 Est GFR (MDRD) Af Amer 77 Est GFR (MDRD) Non-Af 64 BUN/Creatinine Ratio 18.5 Glucose 115 H Calcium 8.2 L Discharge Diet: 2000 mg Sodium Diet Discharge Activity: Return to Normal Activity Home Medications: Medications to take at Discharge aspirin 81 mg tablet,delayed release 81 mg PO DAILY 05/31/17 ascorbic acid (vitamin C) 500 mg capsule 500 mg PO BID ea 06/04/17 magnesium 250 mg tablet 250 mg PO DAILY 06/04/17 Calcium Carb,Gluc/Mag Ox,Gluc [Calcium Magnesium Caplet] 1 tab PO DAILY 01/06/19 Cinnamon Bark [Cinnamon] 500 mg PO DAILY 01/06/19 Metoprolol Tartrate [Lopressor (beta uriel)] 25 mg PO BID 01/06/19 Simvastatin 80 mg PO QPM 01/06/19 Acetaminophen [Tylenol Tablet] 650 mg PO Q6H PRN PRN tab 01/09/19 Albuterol Aerosols [Ventolin Aerosols] 2.5 mg INHALATION Q2H PRN PRN vial.neb. 01/09/19 Amox/Clavulanate Tablet [Augmentin Tablet] 875 mg PO BIDCM #10 tab 01/09/19 Collagenase [Santyl] 1 applic TOPICAL DAILY #0 tube 01/09/19 Doxycycline 100 mg PO BID #10 cap 01/09/19 Ensure Enlive 120 ml PO 4X/DAY liquid 01/09/19 Furosemide [Lasix] 40 mg PO DAILY #30 tab 01/09/19 Guaifenesin [Robitussin] 20 ml PO Q4H PRN PRN udc 01/09/19 Mag Hydrox/Al Hydrox/Simeth [Mylanta II] 30 ml PO Q6H PRN PRN udc 01/09/19 Magnesium Hydroxide [Milk Of Magnesia] 30 ml PO DAILY PRN PRN udc 01/09/19 Melatonin 3 mg PO QHS PRN PRN tab 01/09/19 Potassium Chloride [K-Dur] 20 meq PO DAILY #30 tab 01/09/19 Following Prescrptions Were Given to Patient: Amox/Clavulanate Tablet [Augmentin Tablet] 875 mg PO BIDCM #10 tab Prescription Printed Doxycycline 100 mg PO BID #10 cap Prescription Printed Potassium Chloride [K-Dur] 20 meq PO DAILY #30 tab Prescription Printed Furosemide [Lasix] 40 mg PO DAILY #30 tab Prescription Printed Primary Care Physician: Care Physician,No Primary [NON-STAFF] - Please follow [place] Phys[place] Disposition: Nursing Home facility Minutes spent on discharge:: 45 Patient Condition:: Stable Medical Necessity - Tobacco Use Smoking Status: Former smoker Tobacco Use: Cigarettes Meaningful Use Info Meaningful Use Diagnoses (Choose all that apply): None applicable Code Visit Inpatient E&M: 69873 Disch Hosp
[2019-01-09 08:42] VITALS: BP 114/75; PULSE 67; RESP 18; TEMP 36.7; O2SAT 97
[2019-01-09] MEDS: Amox/Clavulanate 875 MG Tablet PO (08:49)
[2019-01-09] MEDS: Aspirin E.C. 81 MG Tablet PO (08:50)
[2019-01-09] MEDS: Magnesium Oxide 400 MG Tablet 200 MG PO (08:50)
[2019-01-09] MEDS: Ascorbic Acid 500 MG Tablet PO (08:51)
[2019-01-09] MEDS: Doxycycline 100 MG CAPSULE PO (08:51)
[2019-01-09 08:52] VITALS: BP 114/75; PULSE 67
[2019-01-09] MEDS: Calcium (Elemental) 500 MG Tablet PO (08:52)
[2019-01-09] MEDS: Metoprolol Tartrate 25 MG Tablet PO (08:52)
--- NOTE | 2019-01-09 09:20 | CASEMGMT ---
Social Work Note SW received message from Kiana at [facility] stating they still have concerns and would like to speak with pt's media sales representative either pt's friend Kurt listed on demographics page, pt's ex-, or pt's son. SW will speak to pt. Tish Smith READING ASSISTANT, MACHINIST CLASS B
[2019-01-09] MEDS: Enoxaparin 40 MG/0.4 ML Syringe SC (10:03)
[2019-01-09] MEDS: Bisacodyl 10 MG Suppository RECTAL (10:04)
[2019-01-09] MEDS: Collagenase 30gm Tube 1 APPLIC TOPICAL (10:09)
--- NOTE | 2019-01-09 10:27 | CASEMGMT ---
Addendum entered by Tish Smith 01/09/19 12:54: SW placed a call to Lucia at [facility] and updated her on transportation time. Addendum entered by Tish Smith 01/09/19 11:49: SW received call from Lucia at [facility] stating she is able to accept pt today. SW faxed discharge paperwork to Lucia at [facility] including transfer to extended care facility, signed medication list and any scripts. Original in SNF folder and copy on pt's chart. SW in to update pt that [facility] is now not able to accept pt. SW informed pt that per the list pt's friend circled [facility] as a second choice and that this worker faxed referral to [facility] and they are able to accept pt. Pt states that he heard bad things about that place. SW informed pt that everyone has different experiences at [facility] and that at [facility] they have all private rooms so pt will be able to have private room. Pt states he doesn't want to go to any of the other SNF in [place] and is agreeable to [facility]. SW explained that this worker will arrange transportation for later this afternoon as RN is wanting pt to have bowel movement. Pt states understanding. MIRIAM called [facility] and arranged transportation via cot for 3:30pm. Transportation form completed and placed on SNF folder and copy on pt's chart. MIRIAM completed [facility]val[facility] in [place]. Original in SNF folder and copy on pt's chart. SW updated RN and Pt on transportation time. MIRIAM placed a call to Jade Em at [facility] and updated her that pt will be discharged to [facility] today. Plan: [facility] skilled today with [facility] transporting via cot at 3:30pm Tish Smith RESIDENTIAL SPECIALIST, SEMIAUTOMATIC TAPER OPERATOR Original Note: Social Work Note SW in to speak with pt regarding [facility] calling pt's friend, ex- or son. SW updated pt that [facility] is able to accept pt today and should be able to discharge today. Pt gave this worker permission to give [facility] permission to call his friend Kurt. Pt states that Kurt is aware pt will be going to SNF but is unware that it would be today. RN states pt hasn't had a bowel movement and is requesting transportation be arranged for later this afternoon. While this worker was in talking with pt. SW received another phone call from Kiana at [facility]. Kiana left this worker a message stating she met with staff again this morning and they still have concerns with pt. Kiana states that her concerns are that pt is non-weight bearing on BLE, pt has no secondary insurance and they have no loan clerk beds available and if they were not able to skill pt they would have no senior care beds available. Kiana at [facility] states that they are not able to accept pt at this time. Per previous conversation with pt, pt's second choice for SNF is [facility] [place] [facility]. MIRIAM placed a call to [facility] [place] and updated her on referral and that pt is medically cleared for discharge today. MIRIAM faxed referral. Plan: [facility] [place] pending acceptance Tish Smith RESIDENTIAL SPECIALIST, SEMIAUTOMATIC TAPER OPERATOR
--- NOTE | 2019-01-09 12:30 | CASEMGMT ---
Social Work Note SW attempted to update pt on discharge time, pt soundly sleeping. Tish Smith LAWN MOWER MECHANIC, SALES SUPPORT COORDINATOR
--- NOTE | 2019-01-09 12:38 | PN_ITS ---
Patient Problems: Active and Suspected Problems (Last Reviewed 01/06/19 @ 13:10 by Venkata Lee MD) Lymphedema of lower extremity (Acute) Ulcer of right lower extremity with fat layer exposed (Acute) Ulcer of left lower extremity with fat layer exposed (Acute) Subjective: Patient was seen this morning for follow up foot/leg ulcers. He was resting comfortably in bed, no new complaints. No complaints of fever, chills, nausea or vomiting. Patient is schedule to be discharged to nursing facility today. - Physical Exam General: Alert, Oriented x3, Cooperative, No apparent distress Extremities: Capillary Refill Less than 3 Seconds, - - Patient has ulcer to the anterior aspect of the left ankle in the posterior and lateral aspect of the right ankle with fat layer exposed - improved. There is no exposed bone, no tracking, no undermining in these areas. The base is a mixture of fibrogranular tissue. There is no purulence or malodor appreciated to these ulcer sites. Patient does have resolved erythema bilateral lower extremities with sign much less edema present. ulcer to the left heel with the base is fibrogranular tissue. There is no deep probing to bone, no tracking, no undermining. There is no purulence or surrounding cellulitis or erythema to the site. There is also a very slight unstageable pressure injury to the right heel as well with no openings or breakdown of skin at this time and no signs of surrounding local infection. No evidence of acute ischemia bilateral foot/ankle or leg Psych/Mental Status: Normal Affect, Alert and oriented to time, place, person, mood and affect Vital Signs Temp Pulse Resp BP Pulse Ox 98.1 F 67 18 114/75 97 01/09/19 08:42 01/09/19 08:52 01/09/19 08:42 01/09/19 08:52 01/09/19 08:42 Oxygen Delivery Method Room Air Weight: 96.1 kg Body Mass Index (BMI) 26.4 Intake and Output for Last 24 Hours 01/07/19 01/08/19 01/09/19 23:59 23:59 23:59 Intake Total 1541 / 1761 1605 / 1775 370 / 370 Output Total 2700 / 3300 4325 / 4625 1175 / 1175 Balance -1159 / -1539 -2720 / -2850 -805 / -805 Microbiology Past 72 Hours 01/06/19 17:16 Gram Stain - Final Wound - Other Wound Culture - Final Proteus mirabilis Coag Negative Staph Laboratory Tests Past 24 Hrs 01/09/19 01/09/19 06:06 06:06 WBC 8.4 RBC 3.96 L Hgb 10.9 L Hct 35.1 L MCV 88.6 MCH 27.5 MCHC 31.1 L RDW Std Deviation 46.6 H RDW Coeff of Allegra 14.6 Plt Count 230 MPV 10.4 Immature Gran % (Auto) 0.400 Neut % (Auto) 68.4 Lymph % (Auto) 16.9 L [place] % (Auto) 9.8 Eos % (Auto) 4.0 Baso % (Auto) 0.5 Absolute Neuts (auto) 5.7 Absolute Lymphs (auto) 1.41 Nucleated RBC % 0 Sodium 139 Potassium 3.7 Chloride 98 Carbon Dioxide 36.0 H Anion Gap 5 BUN 22 H Creatinine 1.19 Estim Creat Clear Calc 67.06 Est GFR (MDRD) Af Amer 77 Est GFR (MDRD) Non-Af 64 BUN/Creatinine Ratio 18.5 Glucose 115 H Calcium 8.2 L Medical Necessity - Tobacco Use Smoking Status: Former smoker Tobacco Use: Cigarettes Assessment/Plan All Active Problems (Last Reviewed 01/06/19 @ 13:10 by Venkata Lee MD) Lymphedema of lower extremity (Acute) Ulcer of right lower extremity with fat layer exposed (Acute) Ulcer of left lower extremity with fat layer exposed (Acute) Ulcer right lower extremity with fat layer exposed Ulcer left lower extremity fat layer exposed Heel ulcer Lymphedema - edema much improved Cellulitis lower extremity - much improved Other comorbidities Reviewed data, and findings. There has been noted improvement. Reviewed culture results. Patient to complete course of antibiotic per Infectious Disease. Continue with local wound care. Santyl, with overlying gauze, and neal dressings - change daily, continue to cleanse with each dressing change. The patient is to keep his legs elevated all times while seated or laying in bed. He is to make sure he keeps all pressure off of his heels at all times by having him floated over the ends of pillows so nothing but air is touching his heels. Patient going to nursing facility. Patient to follow up at wound center for outpatient care of wounds next week (patient would like to go to [place]), sooner if needed.
[2019-01-09 14:07] VITALS: BP 125/79; PULSE 65; RESP 18; TEMP 36.7; O2SAT 95
[2019-01-09] MEDS: 0.9% NaCl Peripheral Flush Adult/Peds IV (14:18)
--- NOTE | 2019-01-09 15:19 | NURSING ---
report called to Pur[facility] @ [facility]
[2019-01-09 15:38] VITALS: BP 125/79; PULSE 65; RESP 18; TEMP 36.7; O2SAT 95
--- NOTE | 2019-01-12 14:29 | CASEMGMT ---
Case Management Progress Note: Received a Call from Lina from the [facility], inquired about what SNF patient was DC'd to. Updated on SNF patient was sent to per notes. Pan Larsen RNCM
== END 2019-01-09 15:38 | disposition skilled nursing facility (03) | DRG 603 ==
LOC: ED 11:41 → MS3 12:59
PROVIDERS: Admitting Provider Internal Medicine; Emergency Provider Emergency Medicine; Referring Provider Internal Medicine; Visit Provider Internal Medicine
DX: L03.116 Cellulitis of left lower limb (principal); I50.32 Chronic diastolic (congestive) heart failure; L97.322 Non-pressure chronic ulcer of left ankle with fat layer exposed; L97.312 Non-pressure chronic ulcer of right ankle with fat layer exposed; L97.429 Non-pressure chronic ulcer of left heel and midfoot with unspecified severity; I89.0 Lymphedema, not elsewhere classified; L03.115 Cellulitis of right lower limb; Z95.1 Presence of aortocoronary bypass graft; I25.10 Atherosclerotic heart disease of native coronary artery without angina pectoris; E78.5 Hyperlipidemia, unspecified; B96.4 Proteus (mirabilis) (morganii) as the cause of diseases classified elsewhere; B95.7 Other staphylococcus as the cause of diseases classified elsewhere; I11.0 Hypertensive heart disease with heart failure; E87.6 Hypokalemia; L89.610 Pressure ulcer of right heel, unstageable; I25.2 Old myocardial infarction
CPT/HCPCS: 36415; 71045; 73610; 80048; 80202; 83735; 85025; 87070; 87077; 87186; 87205; 87641; 93005; 93306; 97162; 97166; 97530; 97802; 99251; 99285; J7040; J7050; A4216; G0463; J1940

== ENCOUNTER 2020-04-04 11:46 | Inpatient (IN) | payer MEDICARE, OTHER, SELFPAY ==
[2019-05-28 08:45] VITALS: BMI 29.2
[2020-04-04] VITALS (11 sets, daily range): BP systolic 111–149; BP diastolic 66–89; PULSE 67–80; RESP 16–18; TEMP 36.6–37; O2SAT 94–97; BMI 29.0; BMI 28.1; BMI 28.2
--- NOTE | 2020-04-04 13:04 | RAD_ITS ---
STUDY: X-RAY - RIGHT FOOT CLINICAL: Male, 75 years old. Pain, and swelling. TECHNIQUE: 3 view(s) of the foot. COMPARISON: None. FINDINGS: There is a plantar calcaneal spur. Normal visualized subtalar, talonavicular, calcaneocuboid, tarsal and tarsometatarsal articulations. Normal metatarsi. Normal metatarsophalangeal joint of the great toe. Normal tibial and fibular sesamoid bones. Normal interphalangeal joint of the great toe. Normal phalanges of the great toe. Normal second through fifth metatarsophalangeal joints. Normal interphalangeal joints and phalanges of the lesser toes. Diffuse soft tissue swelling. Vascular calcification. RAD/Foot min 3 Views IMPRESSION: Diffuse soft tissue swelling. Electronically Signed: Hussain Sarabia, at 14:01 EST , Service support ,
--- NOTE | 2020-04-04 13:06 | ED.VIS.GEN ---
History of Present Illness Chief Complaint: Wound Informant: Patient Onset: Weeks - 1 approx Context: Gradual Onset Timing: Continuous Quality: sore Location: left ankle/lower leg Current Severity: Moderate Maximum Severity: Moderate Worsened by: walking Relieved by: rest Associated Symptoms: increased swelling in legs Narrative: Patient states that he has had some increased lymphedema in his legs lately. He states they are a little painful and the left one has been seeping a little lately. He has old, soiled compression stockings on that have zippers and when asked if he has wounds beneath those, he states no he does not. He denies any fevers, chills, systemic symptoms of any sort. 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 (2) Nonrheumatic aortic (valve) stenosis Status: Chronic (3) (HFpEF) heart failure with preserved ejection fraction Status: Chronic (4) Essential (primary) hypertension Status: Chronic (5) Hyperlipidemia Status: Chronic (6) Lymphedema of lower extremity Status: Chronic Past Medical History - Allergies and Home Meds Allergies/Adverse Reactions: Allergies hydrocodone [From Vicodin] Adverse Reaction (Intermediate, Verified 04/04/20 11:50) Vomiting morphine Adverse Reaction (Intermediate, Verified 04/04/20 11:50) Vomiting [facility] Care Phys[facility]: [facility] [[facility] - Lives: Alone Smoking Status: Former smoker Review of Systems General: Denies: Chills, Fever, Sweats Eyes: Denies: Visual changes - bilaterally, Diplopia ENT: Denies: Rhinorrhea, Sore throat Cardiovascular: Denies: Chest pain, Palpitations Respiratory: Denies: Dyspnea, Cough, Dyspnea on exertion Gastrointestinal: Denies: Abdominal pain, Nausea, Vomiting, Diarrhea, Melena, Hematochezia Genitourinary: Denies: Dysuria, Hematuria, Frequency Musculoskeletal: Reports: Swelling, Extremity Pain. Denies: Neck pain, Back pain Skin: Reports: Wounds - Although patient denies. Denies: Rash Neurological: Denies: Headache, Weakness, Parasthesia, Numbness Physical Exam Vital Signs/Narrative: Vital Signs Temp Pulse Resp BP Pulse Ox 04/04/20 11:51 98.6 F 80 17 142/78 H 97 04/04/20 11:47 98.6 F 80 17 142/78 H 97 Inital Vital Signs reviewed: Yes General: Well nourished, Well developed, Unkempt, No Acute Distress Head: Normocephalic, Atraumatic Eyes: Perrl, EOMI ENT: Moist mucous membranes, No rhinorrhea Neck: Supple, Nontender Cardiovascular: Regular rate, Regular rhythm, No murmurs Respiratory: No distress, CTA bilaterally, Chest nontender Abdomen: Soft, Nontender, Nondistended, Normal bowel sounds Back: Nontender, Normal Inspection Extremities: Tenderness - Both ankles around the wound. on the right, dorsally, the tibialis anterior and extensor digitorum tendons are exposed and plainly palpable, intact., Edema - Severe lymphedema both lower legs distally including ankles and feet. The lymphedema limits any significant evaluation of the distal lower extremities and feet, although they do appear well perfused and warm. Skin: Normal color, - - Chronic appearing wounds in both lower extremities, especially where his compression stockings did into his ankles, where there are deep crevasses, with surrounding erythema, bleeding mildly on the left. No purulent discharge expressible. Neurological: Alert, Oriented x3, Cranial nerves II-XII grossly intact, Normal Strength, Normal Sensation Psychological: Normal affect, Normal Mood Diagnostic/Tx/Re-eval Impressions Foot X-Ray 04/04/20 13:24 IMPRESSION: Diffuse soft tissue swelling. Electronically Signed: Hussain Sarabia, at 14:02 EST , Service support , 04/04/20 13:04 Xray Foot [Foot min 3 Views] [RAD] Stat 04/04/20 13:24 Foot min 3 Views [RAD] Stat Laboratory Results 04/04/20 04/04/20 12:02 12:02 WBC 8.1 RBC 4.36 L Hgb 12.1 L Hct 39.4 L MCV 90.4 MCH 27.8 MCHC 30.7 L RDW Std Deviation 50.4 H RDW Coeff of Allegra 15.1 H Plt Count 307 MPV 10.4 Immature Gran % (Auto) 0.400 Neut % (Auto) 76.0 H Lymph % (Auto) 12.5 L [place] % (Auto) 9.0 Eos % (Auto) 1.7 Baso % (Auto) 0.4 Absolute Neuts (auto) 6.2 Absolute Lymphs (auto) 1.02 Nucleated RBC % 0 ESR 31 H Sodium 140 Potassium 3.3 L Chloride 105 Carbon Dioxide 30.0 Anion Gap 5 BUN 28 H Creatinine 1.28 Estim Creat Clear Calc 60.51 Est GFR (MDRD) Af Amer 71 Est GFR (MDRD) Non-Af 58 L BUN/Creatinine Ratio 21.9 H Glucose 109 H Calcium 9.3 C-React Prot Ext Range 133.00 H - Medical Decision Making CRP is very elevated but the rest of his labs show nothing acute. He is a little prerenal. There is no evidence of osteomyelitis in either foot on x-ray. The wounds look and smell awful. He is having trouble caring for himself at home. He does not see wound care, and did not even know that he had wounds or that they smelled funny. Given the chronicity of them and erythema everywhere that may be associated with infection or just lymphedema/stasis, it is very difficult to tell on exam if there is any infection or not, but there certainly are several openings but they are deep within crevices in the skin/lymphedema and difficult to evaluate. There is very little tenderness, however it is difficult to palpate into deeper tissues. With tendons being open and exposed I have concerned that he may need more than oral antibiotics and an outpatient appointment with wound care in a week or 2. Plan is for admission. ED Disposition - Plan for ED Patient: Disposition: Acute Care [facility] Diagnosis: Lymphedema of lower extremity, Infected wound [facility] -
--- NOTE | 2020-04-04 13:24 | RAD_ITS ---
STUDY: X-RAY - LEFT FOOT CLINICAL: Male, 75 years old. Increased pain and swelling. TECHNIQUE: 3 view(s) of the foot. COMPARISON: None. FINDINGS: There is a plantar calcaneal spur. Normal visualized subtalar, talonavicular, calcaneocuboid, tarsal and tarsometatarsal articulations. Normal metatarsi. Normal metatarsophalangeal joint of the great toe. Normal tibial and fibular sesamoid bones. Normal interphalangeal joint of the great toe. Normal phalanges of the great toe. Normal second through fifth metatarsophalangeal joints. Normal interphalangeal joints and phalanges of the lesser toes. Diffuse soft tissue swelling. Vascular calcification. RAD/Foot min 3 Views IMPRESSION: Diffuse soft tissue swelling. Electronically Signed: Hussain Sarabia, at 14:02 EST , Service support ,
--- NOTE | 2020-04-04 13:27 | CM.ED ---
Social Work Consult: Adult Protective Services Informant: Nursing staff. Nursing reporting unmanaged wounds and foul odder. Nursing reporting that patient lives alone. Patient noted to have matted hair as well. Chief Complaint: Swelling in legs. Marital/Social History: . Has one adult child Yinka ([phone]). Patient provided verbal permission for this social and human services assistant to speak with patient son. PCP: [place]. [facility] as that is what I need. Living Situation: Lives alone in a 1-story apartment. DME: Cane. PLOF: Patient reports to use a cane to ambulate sometimes. Patient states to be able to drive self to the grocery store to obtain groceries. Patient reports to compete sponge baths on own and to be able to manage all ADL's/IADL's. Of note EMS reports that patient was unable to ambulate without assistance. Advanced Care Planning: Denies having a HCPOA/LW. Declines information on. Support/Resources: No active community services. Patient reports that patient son sometimes will bring me food. 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 Transportation: Patient reports to be able to drive self. Mental Health treatment/history: Denies. Maybe a little Depressed because of my legs. Denies suicidal thoughts/plans/intents. Mental Status Exam: A&Ox3 Appearance/General Behavior: Calm. Unkept. A foul odder is noted in the room. Patient hair is noted to be matted to patient head and appears unkept and unwashed. Mood/Affect: Pleasant, Engaged. Communication Pattern: Responds to questions. Assessment: Met with patient in room. Introduced self and social and human services assistant role. Patient agreeable to speaking with this social and human services assistant. Upon entering patient room a foul odder is noted. Patient remembering this social and human services assistant from prior interaction in 2018. From chart review patient was admitted to acute care setting in [address] [facility]. Patient reports to have been at the [facility] for three months and to have returned to home. Patient denies any concerns on returning to home or need for community services. This social and human services assistant inquires as to who called EMS today. Patient reports I think my son, or best friend. Patient identifies son as Yinka and best friend as Kurt Gibson. This social and human services assistant noted that patient son contact information is not on patient chart. Patient reports to not be sure of patient contact number and instructed this social and human services assistant to call [employer] as that is where he works. Patient states to want to get antibiotics and get home. This social and human services assistant voices concern for patient being able to manage own needs in the home. Patient states multiples times I can take care of myself. Patient states to change dressings on patient wounds daily, I can reach them. Patient reports I spray them [compression stockings] with alcohol daily. Telephone call to [employer]. This social and human services assistant able to speak with patient son, Yinka. Yinka providing contact number to this social and human services assistant that is listed above. Yinka states concern for patient to care for self. Yinka states that patient lays on couch all the time and does not take care of his legs. Yinka states that patient cleans patient stockings but not patient wounds, as patient reported as well. Yinka reports he can't keep living like this. Yinka confirms that patient does not have a HCPOA. Yinka reports that patient home is unkept and there is a smell in the house. Yinka states to be unable to go into patient home due to the smell. Yinka reports a desire to support/help patient but that patient does not make good choices. Yinka recommends for patient to transition to a fdc and stay there. This social and human services assistant explains patient rights as patient appears to be alert and oriented. Yinka reports understanding and frustration with current situation with patient. Patient son also notes that patient has only been out of the fdc for 6 months, which does not add up to patient timeline. Yinka requests updates as patient allows. Telephone call to Andrea RITTER. Andrea updated on above information and request to be updated on patient disposition from the Emergency Department. Medical team updated on above. Will continue to follow as needed. Yann CASTILLO, YANG
[2020-04-04 13:34] LABS: Erythrocyte Sedimentation Rate 31 mm/hr (0-20)
[2020-04-04 13:35] LABS: Absolute Lymphocyte Count 1.02 X10^3/uL (0.83-4.51); Absolute Neutrophil Count 6.2 X10^3/uL (2.0-7.7); Basophil# 0.03 X10^3/uL; Basophil% 0.4 % (0-1); Eosinophil# 0.14 X10^3/uL; Eosinophils% 1.7 % (0-5); Hematocrit 39.4 % (40-54); Hemoglobin 12.1 g/dL (13.0-16.5); Lymphocyte # 1.02 X10^3/ul (4.0); Lymphocyte % 12.5 % (19-41); Mean Corp Hgb Conc 30.7 g/dL (32-36); Mean Corpuscular Hgb 27.8 pg (27.0-32.0); Mean Corpuscular Volume 90.4 fL (80-94); Mean Platelet Vol. 10.4 fl (6.2-12.0); Monocyte# 0.73 X10^3/uL; NRBC Flagged by Analyzer 0 % (0-5); Neutrophil # 6.19 X10^3/uL (2.7-7.7); Platelet Count 307 K/mm3 (150-450); RBC Distribution Width CV 15.1 % (11.6-14.6); RBC Distribution Width SD 50.4 fl (35.1-43.9); Red Blood Count 4.36 M/mm3 (4.6-6.2); White Blood Count 8.1 K/mm3 (4.4-11.0)
[2020-04-04 14:16] LABS: Anion Gap 5 (5-15); BUN 28 mg/dL (7-18); BUN/Creat Ratio 21.9 RATIO (10-20); Calcium,Total 9.3 mg/dL (8.5-10.1); Chloride 105 mmol/L (98-107); Creatinine, Serum 1.28 mg/dL (0.70-1.30); EST Glomerular Filtration Rate 58 mL/min (>60); Est Glom Filt Rate - Afr Amer 71 mL/min (>60); Estimated Creatinine Clearance 60.51 ml/min; Glucose 109 mg/dL (74-106); Potassium 3.3 mmol/L (3.5-5.1); Sodium Level 140 mmol/L (136-145)
--- NOTE | 2020-04-04 14:16 | CM.ED ---
Addendum entered by Marina Fischer 04/04/20 14:19: This health and social care teacher writing down Yinka's cell phone number on a paper for patient. Patient also asking to have patient friends number, Kurt Gibson written down for patient. This health and social care teacher giving patient contact numbers for KurtMelizatt. Original Note: Social Work Patient providing verbal permission for this health and social care teacher to have patient son, Yinka Esquivel contact information added to patient chart. While this health and social care teacher was speaking with patient nursing staff was cleaning patient wounds. This health and social care teacher inquiring when the last time was that patient was saw patient wounds. Patient states it has been awhile. Patient states I need help. Active listening provided. Will continue to follow as needed. Yann Fischer MSW, DORIAN-S
--- NOTE | 2020-04-04 14:49 | ED.RN ---
PT PRESENTS WITH VERY POOR HYGIENE, UNABLE TO BATHE SELF, STATES I HOSE DOWN MY LEGS AND THEN SPRAY ALCOHOL ON THEM. LEGS AND FEET WASHED WITH SALINE AND HYDRA CLENS, WET GAUZE PLACED IN OPEN WOUNDS ON ANKLES, DRY GAUZE PLACED AROUND TOES. LARGE PIECES OF DIRT, SKIN AND HAIR FALLING OFF ONTO FLOOR. WOUNDS ON LEGS HAVE STRONG ODOR, TENDON VISIBLE ON RIGHT ANKLE. AWARE.
--- NOTE | 2020-04-04 16:56 | CM.ED ---
Social Work Telephone call to patient son, Yinka. This social and human services assistant updated Yinka that patient is being admitted to the hospital for wound management. Yinka voices understanding. No further questions currently. Telephone call to Adult Protective Services, Andrea. No answer. Voicemail left updating on patient admission. Yann CASTILLO, DORIAN-S
--- NOTE | 2020-04-04 17:33 | PCM.HP.STD ---
History of Present Illness Date of Admission: 04/04/20 Chief Complaint: increase leg swelling The patient is a 75 year old M presents with increased leg swelling. Patient was wearing AMINA hose but was not able to get his legs and his AMINA hose due to increased girth. Patient has a known history of a lymphedema. He presented to the emergency room and had redness on his legs but patient stated that occurred after they cleaned his legs and did receive antibiotics with vancomycin. Patient himself denies any fever or chills. Patient states that he takes furosemide once daily. He does not know if his weight has gone up. He denies any shortness of breath. [] Past Medical History Past Medical History (Chronic Problems): Chronic Problems (Last Reviewed 05/28/19 @ 11:[address] 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 Rigoberto Yuan DO) Atherosclerotic heart disease of [place] coronary artery without angina pectoris (Chronic) I25.10 Old inferior wall myocardial infarction (Chronic) I25.2 Nonrheumatic aortic (valve) stenosis (Chronic) I35.0 (HFpEF) heart failure with preserved ejection fraction (Chronic) I50.30 Essential (primary) hypertension (Chronic) I10 Hyperlipidemia (Chronic) E78.5 Lymphedema of lower extremity (Chronic) I89.0 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 Z77.098 Ulcer of left lower extremity with fat layer exposed L97.922 Ulcer of right lower extremity with fat layer exposed L97.912 Cellulitis and abscess of lower extremity Onset Date: 12/2018 L03.119, L02.419 Bradycardia (Inactive) R00.1 History of left heart catheterization (Inactive) Z98.890 Allergies hydrocodone [From Vicodin] Adverse Reaction (Intermediate, Verified 04/04/20 11:50) Vomiting morphine Adverse Reaction (Intermediate, Verified 04/04/20 11:50) Vomiting Home Medications: Ambulatory Orders Medication Instructions Recorded ascorbic acid (vitamin C) 500 mg 500 mg PO BID ea 06/04/17 capsule Cinnamon Bark [Cinnamon] 500 mg PO DAILY 01/06/19 furosemide 40 mg tablet 40 mg PO DAILY #90 tab 05/28/19 metoprolol tartrate 25 mg tablet 25 mg PO BID #180 tab 05/28/19 potassium chloride 20 mEq 20 meq PO DAILY #90 tab 05/28/19 tablet,extended release(part/cryst) Aspirin [Aspirin EC] 81 mg PO DAILY@0800 04/04/20 Magnesium Oxide 400 mg PO DAILY 04/04/20 Simvastatin 80 mg PO QPM 04/04/20 Surgical History: Surgical History (Last Reviewed 04/04/20 @ 17:[address] Rigoberto Yuan DO) H/O coronary artery bypass surgery (Resolved) Onset Date: 03/26/97 Z95.1 CABG x 6 [place] to LAD, Sequential SVG to two RPDA, SVG to LCx, Sequential SVG to D1 and D2 03/26/97 Lives: Alone Smoking Status: Former smoker Tobacco Use: Cigarettes - *Family History Maternal Family History: Family History (Last Reviewed 04/04/20 @ 17:[address] Rigoberto Yuan DO) Father CAD (coronary artery disease) Myocardial infarction Hx of CABG Mother CAD (coronary artery disease) Hx of CABG Alzheimer's dementia Review of Systems Constitutional: Denies: Anorexia, Chills, Fever, Malaise, Weakness HEENT: Denies: Head Aches, Sinus Congestion, Sinus Drainage Cardiovascular: Reports: Edema. Denies: Chest Pain, Palpitations Respiratory: Denies: Cough, Shortness of breath at rest, Sputum production Gastrointestinal: Denies: Abdominal Pain, Nausea, Vomiting Skin: Reports: Rash, Skin Changes - Chronic open wounds on the creases between his legs and his feet. Comment: All review of systems were negative except as mentioned above in the history of present illness and the other review of systems. VTE Information - Inpt Only VTE Present on Admission: No VTE Mechan Device Prophylaxis: None VTE Pharm Prophylaxis ordered?: Yes Patient Problems: Active and Suspected Problems (Last Reviewed 05/28/19 @ 11:[address] Lewis Ball MD) Infected wound (Acute) - Physical Exam Vitals/I&O's: Vital Signs Temp Pulse Resp BP Pulse Ox 36.6 C 67 16 111/66 97 04/04/20 16:47 04/04/20 16:47 04/04/20 16:47 04/04/20 16:47 04/04/20 16:47 Oxygen Delivery Method Room Air Weight: 102.194 kg Body Mass Index (BMI) 28.1 Intake and Output for Last 24 Hours 04/02/20 04/03/20 04/04/20 23:59 23:59 23:59 Intake Total 530 / 530 Balance 530 / 530 General: Alert, Cooperative, No apparent distress HEENT: Atraumatic, Normocephalic Oral: Moist Mucosa, No Gingival or Mucosal Lesions/ Ulcerations Neck: No Nodes, Thyroid Normal Size and Texture Lungs: Clear to auscultation, Normal air movement, No rhonchi, No wheeze, No rales Cardiovascular: Regular rate, Regular Rhythm, Normal S1, Normal S2, No murmurs Abdomen: Bowel Sounds Present, Soft, Non Tender, Non-Distended, No Hepato-splenomegaly, Passing Flatus Extremities: - - Profound lymphedema of the lower extremities with redundant tissue over his ankles as well as over his feet. Does have fungating tissue over his legs and toes. Skin: - - Open wounds at the crease of his ankles and feet. No purulence could be expressed. Psych/Mental Status: Normal Affect, Appropriate Laboratory Results 04/04/20 12:02: WBC 8.1, RBC 4.36 L, Hgb 12.1 L, Hct 39.4 L, MCV 90.4, MCH 27.8, MCHC 30.7 L, RDW Std Deviation 50.4 H, RDW Coeff of Allegra 15.1 H, Plt Count 307, MPV 10.4, Immature Gran % (Auto) 0.400, Neut % (Auto) 76.0 H, Lymph % (Auto) 12.5 L, [place] % (Auto) 9.0, Eos % (Auto) 1.7, Baso % (Auto) 0.4, Absolute Neuts (auto) 6.2, Absolute Lymphs (auto) 1.02, Nucleated RBC % 0, ESR 31 H 04/04/20 12:02: Sodium 140, Potassium 3.3 L, Chloride 105, Carbon Dioxide 30.0, Anion Gap 5, BUN 28 H, Creatinine 1.28, Estim Creat Clear Calc 60.51, Est GFR (MDRD) Af Amer 71, Est GFR (MDRD) Non-Af 58 L, BUN/Creatinine Ratio 21.9 H, Glucose 109 H, Calcium 9.3, C-React Prot Ext Range 133.00 H Current Medications Sodium Chloride (0.9% Saline Lock 10 Ml Syringe) 10 - 40 ml IV UD PRN PRN Reason: SALINE FLUSH Assessment/Plan All Active Problems (Last Reviewed 05/28/19 @ 11:[address] Lewis Ball MD) Infected wound (Acute) H/O coronary artery bypass surgery (Resolved 03/26/97) 1. Lymphedema: Patient has profound lymphedema in his lower extremities. Patient states that he has had harvesting of his veins from both legs due to his history of CABG. This really complicating his overall lymphedematous picture. Patient only on furosemide once daily. I feel that he needs more vigorous diuresis. Will put the patient on furosemide 40mg twice daily IV. Strict I's and O's, fluid restriction of 1500 cc/day. Patient had an echocardiogram from December 2018 where his ejection fraction was 60% at that time left jugular systolic pressure was 31 mmHg. Also noted mild aortic stenosis. Patient does have erythema of his lower extremities though I do not feel that they are infected at this time and told the patient I would not be continuing antibiotics on the floor. Discussed reasoning for no antibiotics as I would feel that his legs are infected at this time though could be given his large wounds become infected but also antibiotic resistance and potential for C. difficile colitis. I did advise the patient to get an outpatient polysomnogram to see if he has some underlying sleep apnea. 2. LE wounds Venous stasis, but also due to profound lymphedema Once again, I do not feel there is any actual infection. Consult wound care and nutrition for recommendations. 3. Hypokalemia: replace. check mag 4. VTE prophylaxis: LMWH 5. Advanced care planning: DW patient. He is unsure what he wants. Informed patient that I will leave him at full code (explained its meanings to patient). Encouraged him to discuss further with family at some point in the future. Inpatient E&M: 36206 Init Hosp L2
[2020-04-04] MEDS: Furosemide 40 MG/4 ML Vial IV (18:02)
[2020-04-04] MEDS: 0.9% Saline Lock 10 ML Syringe IV (18:03)
[2020-04-04] MEDS: Atorvastatin Calcium 40 MG Tablet PO (21:00)
[2020-04-04] MEDS: Metoprolol Tartrate 25 MG Tablet PO (21:00)
[2020-04-04] MEDS: Ascorbic Acid 500 MG Tablet PO (21:00)
[2020-04-05] VITALS (9 sets, daily range): BP systolic 110–138; BP diastolic 62–83; PULSE 62–100; RESP 16–18; TEMP 36.6–37.2; O2SAT 94–97
[2020-04-05 07:19] LABS: Absolute Lymphocyte Count 1.22 X10^3/uL (0.83-4.51); Absolute Neutrophil Count 4.7 X10^3/uL (2.0-7.7); Basophil# 0.03 X10^3/uL; Basophil% 0.4 % (0-1); Eosinophils% 4.4 % (0-5); Hematocrit 35.6 % (40-54); Lymphocyte # 1.22 X10^3/ul (4.0); Lymphocyte % 17.8 % (19-41); Mean Corp Hgb Conc 30.9 g/dL (32-36); Mean Corpuscular Hgb 27.6 pg (27.0-32.0); Mean Corpuscular Volume 89.4 fL (80-94); Mean Platelet Vol. 9.7 fl (6.2-12.0); Monocyte# 0.56 X10^3/uL; Monocyte% 8.2 % (0-10); NRBC Flagged by Analyzer 0 % (0-5); Neutrophil % 68.8 % (47-70); Platelet Count 265 K/mm3 (150-450); RBC Distribution Width CV 14.9 % (11.6-14.6); RBC Distribution Width SD 49.3 fl (35.1-43.9); Red Blood Count 3.98 M/mm3 (4.6-6.2); White Blood Count 6.8 K/mm3 (4.4-11.0)
[2020-04-05 07:47] LABS: Anion Gap 3 (5-15); BUN 25 mg/dL (7-18); BUN/Creat Ratio 21.2 RATIO (10-20); Calcium,Total 8.6 mg/dL (8.5-10.1); Chloride 109 mmol/L (98-107); Creatinine, Serum 1.18 mg/dL (0.70-1.30); EST Glomerular Filtration Rate 64 mL/min (>60); Est Glom Filt Rate - Afr Amer 78 mL/min (>60); Estimated Creatinine Clearance 65.64 ml/min; Glucose 117 mg/dL (74-106); Potassium 3.4 mmol/L (3.5-5.1); Sodium Level 142 mmol/L (136-145)
--- NOTE | 2020-04-05 09:08 | NURSING ---
wound photo: left anterior ankle
--- NOTE | 2020-04-05 09:09 | NURSING ---
wound photo: right anterior ankle
[2020-04-05] MEDS: Magnesium Chloride 64 MG Delay Rel.Tablet 128 MG PO (09:51)
[2020-04-05] MEDS: Enoxaparin 40 MG/0.4 ML Syringe SC (09:51)
[2020-04-05] MEDS: Polyethylene Glycol 3350 17 GM PACKET PO (09:51)
[2020-04-05] MEDS: Metoprolol Tartrate 25 MG Tablet PO ×2 (09:52→20:58)
[2020-04-05] MEDS: Senna/Docusate Sodium 1 Tablet PO ×2 (09:52→20:57)
[2020-04-05] MEDS: Ascorbic Acid 500 MG Tablet PO ×2 (09:52→20:57)
[2020-04-05] MEDS: Furosemide 40 MG/4 ML Vial IV ×2 (09:52→18:08)
[2020-04-05] MEDS: Aspirin E.C. 81 MG Tablet PO (09:52)
--- NOTE | 2020-04-05 12:50 | PCM.CONS.GEN ---
Problem List (1) Lymphedema of right lower extremity Status: Chronic (2) Lymphedema of left lower extremity Status: Acute (3) Ulcer of right lower extremity with bone involvement without evidence of necrosis Status: Chronic (4) Cellulitis of right lower limb Status: Acute (5) Ulcer of left lower extremity with muscle involvement without evidence of necrosis Status: Chronic Reason for Consult Date of Consultation: 04/05/20 Reason for Consultation: Chronic ankle ulcers History of Present Illness: The patient is a 75 year old M with significant past medical history of lymphedema, hypertension, cardiac disease was admitted for increased lower extremity edema and chronic ulcers that have progressively worsened over the past year. He relates he is taking decent care of himself at home and is unaware that his wounds have deteriorated and progressed in a worse manner. He denies lower extremity pain. He denies fever, chill, nausea, vomiting, loss of appetite. He denies recent trauma. He has ongoing weakness in his left lower extremity that is consistent with his dropfoot deformity. He relates just a couple weeks ago he was ambulating fine with a cane.He relates he does not plan to follow-up with a digital imaging specialist because he is receiving care with the [place] system. He does not want to consider longterm placement. Past Medical History Past Medical History (Chronic Problems): Chronic Problems (Last Updated 04/04/20 @ 17:[address] 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 Rigoberto Yuan DO) Atherosclerotic heart disease of [place] coronary artery without angina pectoris (Chronic) I25.10 Old inferior wall myocardial infarction (Chronic) I25.2 Nonrheumatic aortic (valve) stenosis (Chronic) I35.0 (HFpEF) heart failure with preserved ejection fraction (Chronic) I50.30 Essential (primary) hypertension (Chronic) I10 Hyperlipidemia (Chronic) E78.5 Lymphedema of lower extremity (Chronic) I89.0 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 Z77.098 Ulcer of left lower extremity with fat layer exposed L97.922 Ulcer of right lower extremity with fat layer exposed L97.912 Cellulitis and abscess of lower extremity Onset Date: 12/2018 L03.119, L02.419 Bradycardia (Inactive) R00.1 History of left heart catheterization (Inactive) Z98.890 Allergies hydrocodone [From Vicodin] Adverse Reaction (Intermediate, Verified 04/04/20 11:50) Vomiting morphine Adverse Reaction (Intermediate, Verified 04/04/20 11:50) Vomiting Home Medications: Ambulatory Orders Medication Instructions Recorded ascorbic acid (vitamin C) 500 mg 500 mg PO BID ea 06/04/17 capsule Cinnamon Bark [Cinnamon] 500 mg PO DAILY 01/06/19 furosemide 40 mg tablet 40 mg PO DAILY #90 tab 05/28/19 metoprolol tartrate 25 mg tablet 25 mg PO BID #180 tab 05/28/19 potassium chloride 20 mEq 20 meq PO DAILY #90 tab 05/28/19 tablet,extended release(part/cryst) Aspirin [Aspirin EC] 81 mg PO DAILY@0800 04/04/20 Magnesium Oxide 400 mg PO DAILY 04/04/20 Simvastatin 80 mg PO QPM 04/04/20 Surgical History: Surgical History (Last Reviewed 04/04/20 @ 17:[address] Rigoberto Yuan DO) H/O coronary artery bypass surgery (Resolved) Onset Date: 03/26/97 Z95.1 CABG x 6 [place] to LAD, Sequential SVG to two RPDA, SVG to LCx, Sequential SVG to D1 and D2 03/26/97 Lives: Alone Smoking Status: Former smoker Tobacco Use: Cigarettes - *Family History Maternal Family History: Family History (Last Reviewed 04/04/20 @ 17:[address] Rigoberto Yuan DO) Father CAD (coronary artery disease) Myocardial infarction Hx of CABG Mother CAD (coronary artery disease) Hx of CABG Alzheimer's dementia Review of Systems Constitutional: Denies: Chills, Fever Cardiovascular: Reports: Edema. Denies: Chest Pain Respiratory: Denies: Cough, Shortness of Breath Gastrointestinal: Denies: Nausea, Vomiting Musculoskeletal: Denies: Foot Pain, Joint Tenderness, Leg Pain Skin: Reports: Skin Changes, Wounds Neurological: Reports: Balance problems, Incoordination, Numbness Patient Problems: Active and Suspected Problems (Last Updated 04/04/20 @ 17:[address] Rigoberto Yuan, DO) Infected wound (Acute) Lymphedema of left lower extremity (Acute) Cellulitis of right lower limb (Acute) - Physical Exam Vitals/I&O's: Vital Signs Temp Pulse Resp BP Pulse Ox 98.2 F 76 16 126/72 H 94 04/05/20 09:45 04/05/20 09:52 04/05/20 09:45 04/05/20 09:52 04/05/20 09:45 Oxygen Delivery Method Room Air Weight: 101.695 kg Body Mass Index (BMI) 28.1 Intake and Output for Last 24 Hours 04/03/20 04/04/20 04/05/20 23:59 23:59 23:59 Intake Total 530 / 530 500 / 500 Output Total 2400 / 2400 Balance 530 / 530 -1900 / -1900 General: Alert, Oriented x3, Cooperative HEENT: Atraumatic Extremities: No cyanosis, Capillary Refill Less than 3 Seconds, No Calf Tenderness, Diminished Peripheral Pulses, Edema, - - There is also a left medial foot fissure that extends to deeper muscular compartment without infection. There is also a heel ulcer on the left that has some hemorrhagic tissue with no adjacent infection. There is nonblanchable area to the left heel with no exposed subcutaneous/subhemorrhagic Skin: Ulcer/ Wound - Anterior ankle right lower extremity ulcer with exposed tendon and product of probe to bone and joint. There is localized purulence of less than 2 cc expressed from the dorsal lateral hindfoot. After saline irrigation additional purulence was not formed. No R. erythema, streaking, odor, necrosis, - - Left lower extremity anterior ankle ulcer has granulation tissue and healthy appearing extensor tendons. There is probe to deep tissue and this is not apparent if it is bone. No purulence on expression, no odor, no necrosis, no erythema or streaking. Skin is atrophic and hairless. Musculoskeletal: No Tenderness to Palpation of Joints or Extremities, Muscle Wasting, - - Lower extremity weakness bilateral lower extremities with no apparent resistive left ankle dorsiflexion consistent with dropfoot deformity. Laxity with past manipulation left ankle. Lymphatic: - - Lymphedema bilateral lower extremities with increased skin wrinkles with compression wraps used the last day. There is chronic skin changes with significant invagination at the bases of all toes bilateral and also extending onto the ankle and leg. Compartments are soft to palpate bilateral lower e Neurological: - - Altered sensation light touch Psych/Mental Status: Normal Affect, Appropriate Laboratory Results 04/04/20 12:02: WBC 8.1, RBC 4.36 L, Hgb 12.1 L, Hct 39.4 L, MCV 90.4, MCH 27.8, MCHC 30.7 L, RDW Std Deviation 50.4 H, RDW Coeff of [place] 15.1 H, Plt Count 307, MPV 10.4, Immature Gran % (Auto) 0.400, Neut % (Auto) 76.0 H, Lymph % (Auto) 12.5 L, [place] % (Auto) 9.0, Eos % (Auto) 1.7, Baso % (Auto) 0.4, Absolute Neuts (auto) 6.2, Absolute Lymphs (auto) 1.02, Nucleated RBC % 0, ESR 31 H 04/04/20 12:02: Sodium 140, Potassium 3.3 L, Chloride 105, Carbon Dioxide 30.0, Anion Gap 5, BUN 28 H, Creatinine 1.28, Estim Creat Clear Calc 60.51, Est GFR (MDRD) Af Amer 71, Est GFR (MDRD) Non-Af 58 L, BUN/Creatinine Ratio 21.9 H, Glucose 109 H, Calcium 9.3, C-React Prot Ext Range 133.00 H 04/05/20 07:03: WBC 6.8, RBC 3.98 L, Hgb 11.0 L, Hct 35.6 L, MCV 89.4, MCH 27.6, MCHC 30.9 L, RDW Std Deviation 49.3 H, RDW Coeff of [place] 14.9 H, Plt Count 265, MPV 9.7, Immature Gran % (Auto) 0.400, Neut % (Auto) 68.8, Lymph % (Auto) 17.8 L, [place] % (Auto) 8.2, Eos % (Auto) 4.4, Baso % (Auto) 0.4, Absolute Neuts (auto) 4.7, Absolute Lymphs (auto) 1.22, Nucleated RBC % 0 04/05/20 07:03: Sodium 142, Potassium 3.4 L, Chloride 109 H, Carbon Dioxide 30.0, Anion Gap 3 L, BUN 25 H, Creatinine 1.18, Estim Creat Clear Calc 65.64, Est GFR (MDRD) Af Amer 78, Est GFR (MDRD) Non-Af 64, BUN/Creatinine Ratio 21.2 H, Glucose 117 H, Calcium 8.6 04/05/20 08:00: S.aureus Protein A PCR Pending, MRSA (PCR) Pending Current Medications Acetaminophen (Acetaminophen 325 Mg Tablet) 650 mg PO Q6H PRN PRN PRN Reason: Pain Score 1-10/Temp > 100.7 F Ascorbic Acid (Ascorbic Acid 500 Mg Tablet) 500 mg PO BID [facility] Last Admin: 04/05/20 09:52 Dose: 500 mg Documented by: Aspirin (Aspirin E.C. 81 Mg Tablet) 81 mg PO DAILY@0800 [facility] Last Admin: 04/05/20 09:52 Dose: 81 mg Documented by: Atorvastatin Calcium (Atorvastatin Calcium 40 Mg Tablet) 40 mg PO QHS [facility] Last Admin: 04/04/20 21:00 Dose: 40 mg Documented by: Enoxaparin Sodium (Enoxaparin 40 Mg/0.4 Ml Syringe) 40 mg SC DAILY [facility] Last Admin: 04/05/20 09:51 Dose: 40 mg Documented by: Furosemide (Furosemide 40 Mg/4 Ml Vial) 40 mg IV BID@1000,1800 [facility] Last Admin: 04/05/20 09:52 Dose: 40 mg Documented by: Magnesium Chloride (Magnesium Chloride 64 Mg Delay Rel.Tablet) 128 mg PO DAILY [facility] Last Admin: 04/05/20 09:51 Dose: 128 mg Documented by: Metoprolol Tartrate (Metoprolol Tartrate 25 Mg Tablet) 25 mg PO BID [facility] Last Admin: 04/05/20 09:52 Dose: 25 mg Documented by: Ondansetron HCl (Ondansetron 4 Mg/2 Ml Vial) 4 mg IV Q8H PRN PRN PRN Reason: NAUSEA/VOMITING Polyethylene Glycol (Polyethylene Glycol 3350 17 Gm Packet) 17 gm PO DAILY [facility] Last Admin: 04/05/20 09:51 Dose: 17 gm Documented by: Potassium Chloride (Potassium Chloride 20 Meq Tablet) 20 meq PO DAILYCM [facility] Last Admin: 04/05/20 09:52 Dose: 20 meq Documented by: Senna/Docusate Sodium (Senna/Docusate Sodium 1 Tablet) 1 tablet PO BID [facility] Last Admin: 04/05/20 09:52 Dose: 1 tablet Documented by: Sodium Chloride (0.9% Saline Lock 10 Ml Syringe) 10 - 40 ml IV UD PRN PRN Reason: SALINE FLUSH Assessment/Plan All Active Problems (Last Reviewed 04/04/20 @ 17:[address] Rigoberto Yuan, DO) Infected wound (Acute) Lymphedema of left lower extremity (Acute) Cellulitis of right lower limb (Acute) H/O coronary artery bypass surgery (Resolved 03/26/97) Chronic bilateral lower extremity lymphedema Right anterior ankle ulcer with positive probe to bone and exposed tendon Right ankle purulence Left anterior ankle ulcer with exposed tendon and deep structures, no purulence Left dropfoot Lower extremity edema with additional cardiac and other etiologies Debilitation and gait impairment I reviewed and discussed his case. He is afebrile and his vital signs remained stable. His labs were reviewed with a white blood cell count of 6.8, ESR 31, C-reactive protein of 133. Bilateral foot x-rays demonstrated significant edema consistent with his lymphedema. There was no soft tissue emphysema, foreign body, acute fracture or dislocation, or acute osseous destruction adjacent to the ulcer site. Ankle x-rays were better evaluate his ulcer location sites and these will be ordered for tomorrow. Culture was already obtained for the left ankle and these results are pending including MRSA PCR. After irrigation of the right ankle and identification of a small localized area of purulence, aerobic, anaerobic, and MRSA PCR culture was obtained. Is noted he is on IV vancomycin and recommend continuation till additional information from the cultures return. Although he has a localized purulence. There was no streaking or odor or systemic signs of illness. A dressing consisting of Aquacel Ag, gauze, abdominal pad, Kerlix were applied to bilateral lower extremities. Dakin solution will be ordered for dressing change and irrigation tomorrow. I recommend continued aggressive edema management with diuresis, elevation, and double Javier wrap application. He understands he is at high risk for limb loss and systemic illness due to this condition. He is not a great amputation candidate due to his lymphedema status and wound care to keep him infection free and stable is recommended at this time. He does not appear to be able to care for himself properly at home and I also recommend residential facility placement with transition into a comprehensive home health and digital imaging specialist follow-up in outpatient setting. He reports he was doing well on his own and is not amendable to this at this time. I will continue to follow him very closely while in house. Please do not hesitate to call if you have any questions. Thank you for the consultation. Abbie Weber DPM, FACF[facility] [phone]
[2020-04-05 13:09] LABS: M R Staph aureus DNA By PCR Negative (Negative); Probe Check PASS; Specimen Processing Control PASS; Staph aureus DNA By PCR NEGATIVE (Negative)
--- NOTE | 2020-04-05 14:11 | CASEMGMT ---
Social Work Note MIRIAM met with pt to continue discussion of discharge plans. SNF is being recommended. SW in to speak with pt. MIRIAM introduced self and role at [facility]. Pt is alert and orientated. MIRIAM discussed SNF placement with pt. Pt denied SNF at this time. Pt does confirm that he went to [facility] in the past. Pt states I've neem doing just fine at home. MIRIAM informed pt that MIRIAM and RN EMMIE will continue to follow along for pt's needs at discharge. MIRIAM did provide pt with list of SNF that accept pt's insurance. MIRIAM informed pt that this worker can get pt to SNF under his Medicare if pt is agreeable to SNF. Pt states understanding, again denied SNF at this time. Plan: [facility], OR FIRST ASSIST REGISTERED NURSE
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
--- NOTE | 2020-04-05 19:23 | NURSING ---
Spoke to [facility] hospital case consultant. Silvina Lynn has been assigned to patient case. Her fax # is [phone] and will need faxed clinical information tomorrow. Phone # is [phone] ext [phone]. The [facility] will be closed tomorrow 04/06 for .
[2020-04-05] MEDS: Atorvastatin Calcium 40 MG Tablet PO (20:57)
--- NOTE | 2020-04-05 21:07 | RAD_ITS ---
HISTORY: CHRONIC ANTERIOR ANKLE WOUND/INFECTION ADDITIONAL HISTORY: None provided. EXAMINATION/TECHNIQUE: XR Ankle Min 3 Views Left Number of images including paperwork: 4 COMPARISON: 01/07/2019 FINDINGS: BONES: No acute fracture. No bone destructive changes or periostitis. MRI more sensitive for osteomyelitis. JOINTS: No subluxation. SOFT TISSUES: No distinct foreign body. Soft tissue edema. Soft tissue defect anterior to the distal tibia appears similar. Vascular calcifications. Surgical clips in the medial lower leg. RAD/Ankle min 3 Views IMPRESSION: No acute osseous abnormality. Anterior ankle soft tissue wound. at 2211 Reported and signed by: Alexandria Garcia MD Electronically Signed: Alexandria Garcia MD at 22:11 EST Tel , Service support ,
--- NOTE | 2020-04-05 21:07 | RAD_ITS ---
HISTORY: CHRONIC ANTERIOR ANKLE WOUND/INFECTION ADDITIONAL HISTORY: None provided. EXAMINATION/TECHNIQUE: XR Ankle Min 3 Views Right Number of images including paperwork: 3 COMPARISON: 01/07/2019 FINDINGS: BONES: No acute fracture. No bone destructive changes or periostitis. MRI more sensitive for osteomyelitis. JOINTS: No subluxation. SOFT TISSUES: No distinct foreign body. Soft tissue defect is noted anterior to the proximal tibia lateral aspect measuring about 1.6 cm, previously about 9 mm. Soft tissue swelling. Vascular calcifications. RAD/Ankle min 3 Views IMPRESSION: No acute osseous abnormality. Anterior ankle soft tissue wound. at 2205 Reported and signed by: Alexandria Garcia MD Electronically Signed: Alexandria Garcia MD at 22:04 EST Tel , Service support ,
[2020-04-06] VITALS (7 sets, daily range): BP systolic 114–133; BP diastolic 62–73; PULSE 62–68; RESP 18; TEMP 36.7–37.2; O2SAT 94–96
[2020-04-06] MEDS: 0.9% Saline Lock 10 ML Syringe IV ×5 (03:42→22:22)
[2020-04-06] MEDS: DAKIN'S SOL HALF STRENGTH (=0.25%) 1 APPLIC TOPICAL (07:58)
--- NOTE | 2020-04-06 08:14 | PCM.PROGNOTE ---
Patient Problems: Active and Suspected Problems (Last Updated 04/04/20 @ 17:[address] Rigoberto Yuan, DO) Infected wound (Acute) Lymphedema of left lower extremity (Acute) Cellulitis of right lower limb (Acute) Subjective: This 75-year-old male was seen bedside this morning for bilateral anterior ankle ulcers with deep tissue exposure. He denies fever, chill, nausea, vomiting. He has been compliant with compression dressings. - Physical Exam Vitals/I&O's: Vital Signs Temp Pulse Resp BP Pulse Ox 98.9 F 63 18 133/73 H 94 04/06/20 03:38 04/06/20 03:38 04/06/20 03:38 04/06/20 03:38 04/06/20 03:38 Oxygen Delivery Method Room Air Weight: 99.065 kg Body Mass Index (BMI) 28.1 Intake and Output for Last 24 Hours 04/04/20 04/05/20 04/06/20 23:59 23:59 23:59 Intake Total 530 / 530 1670 / 1670 0 / 0 Output Total 5250 / 5250 200 / 200 Balance 530 / 530 -3580 / -3580 -200 / -200 General: Alert, Oriented x3, Cooperative HEENT: Atraumatic Extremities: No cyanosis, Capillary Refill Less than 3 Seconds, Diminished Peripheral Pulses, Edema - Bilateral lymphedema changes Skin: Ulcer/ Wound - Localized purulent drainage noted from the distal margin of the anterior lateral wound that does have exposed healthy looking tendon and positive probe to bone and joint right. There is no purulence on the left anterior foot ulcers. There is exposed tendon and bone noted to the anterior ankle,left, - - Bilateral skin is atrophic and hairless without redness or Musculoskeletal: No Tenderness to Palpation of Joints or Extremities, Muscle Wasting, - - Left dropfoot. Bilateral soft compartments. No bogginess or fluctuance on palpation bilateral lower extremities Neurological: - - Lack of normal epicritic sensation to light touch Psych/Mental Status: Normal Affect, Appropriate Laboratory Results 04/05/20 08:00: S.aureus Protein A PCR NEGATIVE, MRSA (PCR) Negative 04/05/20 12:50: S.aureus Protein A PCR Cancelled, MRSA (PCR) Cancelled Current Medications Acetaminophen (Acetaminophen 325 Mg Tablet) 650 mg PO Q6H PRN PRN PRN Reason: Pain Score 1-Temp > 100.7 F Ascorbic Acid (Ascorbic Acid 500 Mg Tablet) 500 mg PO BID [facility] Last Admin: 04/05/20 20:57 Dose: 500 mg Documented by: Aspirin (Aspirin E.C. 81 Mg Tablet) 81 mg PO DAILY@0800 [facility] Last Admin: 04/05/20 09:52 Dose: 81 mg Documented by: Atorvastatin Calcium (Atorvastatin Calcium 40 Mg Tablet) 40 mg PO QHS [facility] Last Admin: 04/05/20 20:57 Dose: 40 mg Documented by: Enoxaparin Sodium (Enoxaparin 40 Mg/0.4 Ml Syringe) 40 mg SC DAILY [facility] Last Admin: 04/05/20 09:51 Dose: 40 mg Documented by: Furosemide (Furosemide 40 Mg/4 Ml Vial) 40 mg IV BID@1000,1800 [facility] Last Admin: 04/05/20 18:08 Dose: 40 mg Documented by: Magnesium Chloride (Magnesium Chloride 64 Mg Delay Rel.Tablet) 128 mg PO DAILY [facility] Last Admin: 04/05/20 09:51 Dose: 128 mg Documented by: Metoprolol Tartrate (Metoprolol Tartrate 25 Mg Tablet) 25 mg PO BID [facility] Last Admin: 04/05/20 20:58 Dose: 25 mg Documented by: Ondansetron HCl (Ondansetron 4 Mg/2 Ml Vial) 4 mg IV Q8H PRN PRN PRN Reason: NAUSEA/VOMITING Polyethylene Glycol (Polyethylene Glycol 3350 17 Gm Packet) 17 gm PO DAILY [facility] Last Admin: 04/05/20 09:51 Dose: 17 gm Documented by: Potassium Chloride (Potassium Chloride 20 Meq Tablet) 20 meq PO DAILYCM [facility] Last Admin: 04/05/20 09:52 Dose: 20 meq Documented by: Senna/Docusate Sodium (Senna/Docusate Sodium 1 Tablet) 1 tablet PO BID [facility] Last Admin: 04/05/20 20:57 Dose: 1 tablet Documented by: Sodium Chloride (0.9% Saline Lock 10 Ml Syringe) 10 - 40 ml IV UD PRN PRN Reason: SALINE FLUSH Last Admin: 04/06/20 03:42 Dose: 10 ml Documented by: Sodium Hypochlorite (Dakin's Charissa Half Strength (=0.25%)) 1 applic TOPICAL DAILY [facility]; Protocol Last Admin: 04/06/20 07:58 Dose: 1 applicatio Documented by: Medical Necessity - Tobacco Use Smoking Status: Former smoker Tobacco Use: Cigarettes Assessment/Plan All Active Problems (Last Reviewed 04/04/20 @ 17:[address] Rigoberto Yuan DO) Infected wound (Acute) Lymphedema of left lower extremity (Acute) Cellulitis of right lower limb (Acute) H/O coronary artery bypass surgery (Resolved 03/26/97) Chronic bilateral lower extremity lymphedema Right anterior ankle ulcer with positive probe to bone and exposed tendon Right ankle purulence Left anterior ankle ulcer with exposed tendon and bone, no purulence Left dropfoot Lower extremity edema with additional cardiac and other etiologies Debilitation and gait impairment I reviewed and discussed his case. He is afebrile and his vital signs remained stable. His labs were reviewed without leukocytosis today, ESR 31, C-reactive protein of 133. Bilateral foot and ankle x-rays demonstrated significant edema consistent with his lymphedema. There was no soft tissue emphysema, foreign body, acute fracture or dislocation, or acute osseous destruction adjacent to the ulcer site. He has localized purulence to the right ankle ulcer without systemic illness or local streaking. Cultures demonstrate gram neg avelina growth so far and potential fungus; final report is pending. He was started on the recommended broad spectrum antibiotics until further culture development; vancomycin and zosyn. Dakin solution on a wicked gauze was applied to the deep probed tract right ankle and also to the left ankle and foot ulcer sites. I recommend continued aggressive edema management with diuresis, elevation, and double Javier wrap application. He understands he is at high risk for limb loss and systemic illness due to this condition. I will continue to follow him very closely while in house. Please do not hesitate to call if you have any questions. Abbie Weber DPM, [facility] [phone]
[2020-04-06] MEDS: Aspirin E.C. 81 MG Tablet PO (08:46)
[2020-04-06 09:20] LABS: Hematocrit 36.9 % (40-54); Hemoglobin 11.3 g/dL (13.0-16.5); Mean Corp Hgb Conc 30.6 g/dL (32-36); Mean Corpuscular Hgb 27.6 pg (27.0-32.0); Mean Corpuscular Volume 90.2 fL (80-94); Mean Platelet Vol. 9.5 fl (6.2-12.0); Platelet Count 262 K/mm3 (150-450); RBC Distribution Width SD 49.3 fl (35.1-43.9); Red Blood Count 4.09 M/mm3 (4.6-6.2); White Blood Count 7.9 K/mm3 (4.4-11.0)
[2020-04-06] MEDS: Enoxaparin 40 MG/0.4 ML Syringe SC (09:20)
[2020-04-06] MEDS: Furosemide 40 MG/4 ML Vial IV ×2 (09:20→18:26)
[2020-04-06] MEDS: Polyethylene Glycol 3350 17 GM PACKET PO (09:20)
[2020-04-06] MEDS: Metoprolol Tartrate 25 MG Tablet PO ×2 (09:21→22:16)
[2020-04-06] MEDS: Magnesium Chloride 64 MG Delay Rel.Tablet 128 MG PO (09:21)
[2020-04-06] MEDS: Ascorbic Acid 500 MG Tablet PO ×2 (09:21→22:16)
[2020-04-06] MEDS: Senna/Docusate Sodium 1 Tablet PO ×2 (09:21→22:16)
--- NOTE | 2020-04-06 09:31 | PCM.PROGNOTE ---
<Elisha Pelayo OUTREACH LIBRARIAN - Last Filed: 04/06/20 09:43> Patient Problems: Active and Suspected Problems (Last Updated 04/04/20 @ 17:[address] Rigoberto Yuan DO) Infected wound (Acute) Lymphedema of left lower extremity (Acute) Cellulitis of right lower limb (Acute) Subjective: Patient seen and examined. Reports improvement in lower extremity swelling and left lower extremity pain. Denies fever, chills. - Physical Exam Vitals/I&O's: Vital Signs Temp Pulse Resp BP Pulse Ox 98.6 F 67 18 118/62 94 04/06/20 09:19 04/06/20 09:21 04/06/20 09:19 04/06/20 09:21 04/06/20 09:19 Oxygen Delivery Method Room Air Weight: 218 lb 6.4 oz Body Mass Index (BMI) 28.1 Intake and Output for Last 24 Hours 04/04/20 04/05/20 04/06/20 23:59 23:59 23:59 Intake Total 530 / 530 1670 / 1670 0 / 0 Output Total 5250 / 5250 200 / 200 Balance 530 / 530 -3580 / -3580 -200 / -200 General: Alert, Oriented x3, Cooperative HEENT: Atraumatic, PERRLA, EOMI, Normocephalic Neck: Supple, No JVD, Negative Carotid Bruits Lungs: Clear to auscultation, Normal air movement Cardiovascular: Regular rate, No murmurs Abdomen: Bowel Sounds Present, Soft, Non Tender, Non-Distended Extremities: No clubbing, No cyanosis, Capillary Refill Less than 3 Seconds, - - Chronic lymphedema bilateral lower extremities. Skin: - - Bilateral lower extremity wounds, dressings intact. Change this morning per wound RN. Musculoskeletal: No Tenderness to Palpation of Joints or Extremities Neurological: Cranial nerves II-XII grossly intact, Neuro grossly intact Psych/Mental Status: Normal Affect, Appropriate Laboratory Results 04/05/20 08:00: S.aureus Protein A PCR NEGATIVE, MRSA (PCR) Negative 04/05/20 12:50: S.aureus Protein A PCR Cancelled, MRSA (PCR) Cancelled 04/06/20 09:09: WBC 7.9, RBC 4.09 L, Hgb 11.3 L, Hct 36.9 L, MCV 90.2, MCH 27.6, MCHC 30.6 L, RDW Std Deviation 49.3 H, RDW Coeff of Allegra 15.0 H, Plt Count 262, MPV 9.5 04/06/20 09:09: Sodium Pending, Potassium Pending, Chloride Pending, Carbon Dioxide Pending, Anion Gap Pending, BUN Pending, Creatinine Pending, Est GFR (MDRD) Af Amer Pending, Est GFR (MDRD) Non-Af Pending, BUN/Creatinine Ratio Pending, Glucose Pending, Calcium Pending Current Medications Acetaminophen (Acetaminophen 325 Mg Tablet) 650 mg PO Q6H PRN PRN PRN Reason: Pain Score 1-10/Temp > 100.7 F Ascorbic Acid (Ascorbic Acid 500 Mg Tablet) 500 mg PO BID [facility] Last Admin: 04/06/20 09:21 Dose: 500 mg Documented by: Aspirin (Aspirin E.C. 81 Mg Tablet) 81 mg PO DAILY@0800 [facility] Last Admin: 04/06/20 08:46 Dose: 81 mg Documented by: Atorvastatin Calcium (Atorvastatin Calcium 40 Mg Tablet) 40 mg PO QHS [facility] Last Admin: 04/05/20 20:57 Dose: 40 mg Documented by: Enoxaparin Sodium (Enoxaparin 40 Mg/0.4 Ml Syringe) 40 mg SC DAILY [facility] Last Admin: 04/06/20 09:20 Dose: 40 mg Documented by: Furosemide (Furosemide 40 Mg/4 Ml Vial) 40 mg IV BID@1000,1800 [facility] Last Admin: 04/06/20 09:20 Dose: 40 mg Documented by: Magnesium Chloride (Magnesium Chloride 64 Mg Delay Rel.Tablet) 128 mg PO DAILY [facility] Last Admin: 04/06/20 09:21 Dose: 128 mg Documented by: Metoprolol Tartrate (Metoprolol Tartrate 25 Mg Tablet) 25 mg PO BID [facility] Last Admin: 04/06/20 09:21 Dose: 25 mg Documented by: Ondansetron HCl (Ondansetron 4 Mg/2 Ml Vial) 4 mg IV Q8H PRN PRN PRN Reason: NAUSEA/VOMITING Polyethylene Glycol (Polyethylene Glycol 3350 17 Gm Packet) 17 gm PO DAILY [facility] Last Admin: 04/06/20 09:20 Dose: 17 gm Documented by: Potassium Chloride (Potassium Chloride 20 Meq Tablet) 20 meq PO DAILYCM [facility] Last Admin: 04/06/20 08:46 Dose: 20 meq Documented by: Senna/Docusate Sodium (Senna/Docusate Sodium 1 Tablet) 1 tablet PO BID [facility] Last Admin: 04/06/20 09:21 Dose: 1 tablet Documented by: Sodium Chloride (0.9% Saline Lock 10 Ml Syringe) 10 - 40 ml IV UD PRN PRN Reason: SALINE FLUSH Last Admin: 04/06/20 09:20 Dose: 10 ml Documented by: Sodium Hypochlorite (Dakin's Charissa Half Strength (=0.25%)) 1 applic TOPICAL DAILY [facility]; Protocol Last Admin: 04/06/20 07:58 Dose: 1 applicatio Documented by: Medical Necessity - Tobacco Use Smoking Status: Former smoker Tobacco Use: Cigarettes Assessment/Plan All Active Problems (Last Reviewed 04/04/20 @ 17:[address] Rigoberto Yuan, DO) Infected wound (Acute) Lymphedema of left lower extremity (Acute) Cellulitis of right lower limb (Acute) H/O coronary artery bypass surgery (Resolved 03/26/97) 1. Bilateral lower extremity lymphedema-continue IV Lasix. Javier wraps bilateral lower extremities. Patient's previous echo December 2018 demonstrates an EF of 60%, stage I diastolic dysfunction, RVSP estimated to be 31 mmHg. 2. Bilateral lower extremity wounds with purulent drainage-MRSA/MSSA PCR negative. Wound cultures pending. Will begin IV vancomycin and IV Zosyn pending repeat wound cultures. Wound RN consult. Continue dressing changes per orders. Patient will need follow-up with wound center. Podiatry following. 3. Hypokalemia-replace per protocol, trend BMP. 4. Hypertension-stable, continue metoprolol, Lasix. 5. Hyperlipidemia-continue statin. 6. CAD-continue aspirin, statin, metoprolol. 7. Self-neglect- recommended SNF however patient declines at this time. SW following. DVT prophylaxis- Lovenox sc This patient was seen by JAS[facility] Lr under the supervision of Dr. Landis. <Anthony Landis F - Last Filed: 04/06/20 18:33> - Physical Exam Vitals/I&O's: Vital Signs Temp Pulse Resp BP Pulse Ox 98.7 F 62 18 118/64 94 04/06/20 15:15 04/06/20 15:15 04/06/20 15:15 04/06/20 15:15 04/06/20 15:15 Oxygen Delivery Method Room Air Weight: 218 lb 6.4 oz Body Mass Index (BMI) 28.1 Intake and Output for Last 24 Hours 04/04/20 04/05/20 04/06/20 23:59 23:59 23:59 Intake Total 530 / 530 1670 / 1670 980.25 / 980.25 Output Total 5250 / 5250 1025 / 1025 Balance 530 / 530 -3580 / -3580 -44.75 / -44.75 Microbiology Past 72 Hours 04/05/20 12:50 Wound Drainage - Ankle Gram Stain - Final 04/05/20 12:50 Wound Drainage - Ankle Wound Culture - Preliminary Gram negative avelina 04/05/20 08:00 Wound - Aerobic & Anaerobic Swabs Gram Stain - Final 04/05/20 08:00 Wound - Aerobic & Anaerobic Swabs Wound Culture - Preliminary Gram negative avelina Possible Fungus Laboratory Results 04/06/20 09:09: WBC 7.9, RBC 4.09 L, Hgb 11.3 L, Hct 36.9 L, MCV 90.2, MCH 27.6, MCHC 30.6 L, RDW Std Deviation 49.3 H, RDW Coeff of Allegra 15.0 H, Plt Count 262, MPV 9.5 04/06/20 09:09: Sodium 139, Potassium 3.2 L, Chloride 103, Carbon Dioxide 31.0, Anion Gap 5, BUN 26 H, Creatinine 1.13, Estim Creat Clear Calc 68.55, Est GFR (MDRD) Af Amer 82, Est GFR (MDRD) Non-Af 67, BUN/Creatinine Ratio 23.0 H, Glucose 107 H, Calcium 8.5 Current Medications Acetaminophen (Acetaminophen 325 Mg Tablet) 650 mg PO Q6H PRN PRN PRN Reason: Pain Score 1-10/Temp > 100.7 F Ascorbic Acid (Ascorbic Acid 500 Mg Tablet) 500 mg PO BID [facility] Last Admin: 04/06/20 09:21 Dose: 500 mg Documented by: Aspirin (Aspirin E.C. 81 Mg Tablet) 81 mg PO DAILY@0800 [facility] Last Admin: 04/06/20 08:46 Dose: 81 mg Documented by: Atorvastatin Calcium (Atorvastatin Calcium 40 Mg Tablet) 40 mg PO QHS [facility] Last Admin: 04/05/20 20:57 Dose: 40 mg Documented by: Enoxaparin Sodium (Enoxaparin 40 Mg/0.4 Ml Syringe) 40 mg SC DAILY [facility] Last Admin: 04/06/20 09:20 Dose: 40 mg Documented by: Furosemide (Furosemide 40 Mg/4 Ml Vial) 40 mg IV BID@1000,1800 [facility] Last Admin: 04/06/20 18:26 Dose: 40 mg Documented by: Piperacillin Sod/Tazobactam (Sod 3.375 gm/ Sodium Chloride) 50 mls @ 12.5 mls/hr IV Q8 [facility] Last Infusion: 04/06/20 17:56 Dose: Infused Documented by: Vancomycin IV Pharmacy to Dose (1 ea/ Sodium Chloride) 500 mls @ 250 mls/hr IV X1 PRN; Protocol PRN Reason: Rx to Dose Sodium Chloride () 250 mls @ 15 mls/hr IV .[id number] PRN PRN Reason: Additional IVPB Infusion Last Infusion: 04/06/20 17:56 Dose: 15 mls/hr Documented by: Vancomycin HCl 1,250 mg/ (Sodium Chloride) 275 mls @ 167 mls/hr IV Q12H [facility] Magnesium Chloride (Magnesium Chloride 64 Mg Delay Rel.Tablet) 128 mg PO DAILY [facility] Last Admin: 04/06/20 09:21 Dose: 128 mg Documented by: Metoprolol Tartrate (Metoprolol Tartrate 25 Mg Tablet) 25 mg PO BID [facility] Last Admin: 04/06/20 09:21 Dose: 25 mg Documented by: Ondansetron HCl (Ondansetron 4 Mg/2 Ml Vial) 4 mg IV Q8H PRN PRN PRN Reason: NAUSEA/VOMITING Polyethylene Glycol (Polyethylene Glycol 3350 17 Gm Packet) 17 gm PO DAILY [facility] Last Admin: 04/06/20 09:20 Dose: 17 gm Documented by: Potassium Chloride (Potassium Chloride 20 Meq Tablet) 20 meq PO DAILYCM [facility] Last Admin: 04/06/20 08:46 Dose: 20 meq Documented by: Senna/Docusate Sodium (Senna/Docusate Sodium 1 Tablet) 1 tablet PO BID [facility] Last Admin: 04/06/20 09:21 Dose: 1 tablet Documented by: Sodium Chloride (0.9% Saline Lock 10 Ml Syringe) 10 - 40 ml IV UD PRN PRN Reason: SALINE FLUSH Last Admin: 04/06/20 18:26 Dose: 10 ml Documented by: Sodium Hypochlorite (Dakin's Charissa Half Strength (=0.25%)) 1 applic TOPICAL DAILY [facility]; Protocol Last Admin: 04/06/20 07:58 Dose: 1 applicatio Documented by: Addendum: Dr. Landis I personally examined the patient and reviewed the chart. I agree with the above. 75-year-old male with history of lymphedema presented from home because of increasing swelling in his lower extremities as well as redness. He does take Lasix daily at home but he did not know that his weight had been increasing or that he could take extra Lasix. Culture data is pending, it does appear preliminarily to be gram-negative rods. Appreciate podiatry assistance. We will continue with Jered and continue to monitor culture data. Inpatient E&M: 34566 Subs Hosp L2
[2020-04-06 09:48] LABS: Anion Gap 5 (5-15); BUN 26 mg/dL (7-18); Calcium,Total 8.5 mg/dL (8.5-10.1); Chloride 103 mmol/L (98-107); Creatinine, Serum 1.13 mg/dL (0.70-1.30); EST Glomerular Filtration Rate 67 mL/min (>60); Est Glom Filt Rate - Afr Amer 82 mL/min (>60); Estimated Creatinine Clearance 68.55 ml/min; Glucose 107 mg/dL (74-106); Potassium 3.2 mmol/L (3.5-5.1); Sodium Level 139 mmol/L (136-145)
--- NOTE | 2020-04-06 13:49 | PHA.PHARE_ITS ---
Consult Pharmacy has been consulted to manage selected antiobiotic: Vancomycin Type of Consult: New start Suspected Infection: Skin/Soft tissue Prior Doses of Antibiotics Received/Current Regimen: received 1500mg x1 in E.R. but that was 2 days ago on 04/04/20 Labs: Sodium 139 mmol/L (136-145) 04/06/20 09:09 Potassium 3.2 mmol/L (3.5-5.1) L 04/06/20 09:09 Chloride 103 mmol/L (98-107) 04/06/20 09:09 Carbon Dioxide 31.0 mmol/L (21.0-32.0) 04/06/20 09:09 Anion Gap 5 (5-15) 04/06/20 09:09 BUN 26 mg/dL (7-18) H 04/06/20 09:09 Creatinine 1.13 mg/dL (0.70-1.30) 04/06/20 09:09 Est GFR (MDRD) Af Amer 82 mL/min (>60) 04/06/20 09:09 Est GFR (MDRD) Non-Af 67 mL/min (>60) 04/06/20 09:09 BUN/Creatinine Ratio 23.0 RATIO (10-20) H 04/06/20 09:09 Glucose 107 mg/dL (74-106) H 04/06/20 09:09 Microbiology: Microbiology 04/05/20 12:50 Wound Drainage - Ankle Gram Stain - Final 04/05/20 12:50 Wound Drainage - Ankle Wound Culture - Preliminary Gram negative avelina 04/05/20 08:00 Wound - Aerobic & Anaerobic Swabs Gram Stain - Final 04/05/20 08:00 Wound - Aerobic & Anaerobic Swabs Wound Culture - Preliminary Gram negative avelina Possible Fungus Weight used for dosin kg Estimated Creatinine Clearance: 68.5ml/min Goal Trough: 15-20 mcg/mL Pharmacy Plan for Drug Dosing: Give initial loading dose of 2000mg x1, then continue with 1250mg q12h per [facility] vanc dosing protocol. Will check a trough level before the 4th dose tomorrow night. Pharmacy Service will continue to monitor and adjust dosing as required. Follow-Up Labs: Trough Vancomycin Labs to be done on [date and time ordered]: 04/07/20 22:30
--- NOTE | 2020-04-06 15:09 | CASEMGMT ---
Social Work Note MIRIAM received message from EMMIE Husain through [place] requesting update on pt. Lisha states to call [phone] ext. [phone]. MIRIAM attempted to call Lisha twice with number that was provided, phone kept ringing, no answer and didn't go to voicemail. Tish Smith COMMERCIAL FRONT LOAD OPERATOR, DENTAL ASSISTANT INSTRUCTOR
[2020-04-06] MEDS: Atorvastatin Calcium 40 MG Tablet PO (22:16)
[2020-04-07 02:36] VITALS: BP 109/69; PULSE 65; RESP 18; TEMP 36.7; O2SAT 95
[2020-04-07] MEDS: 0.9% Saline Lock 10 ML Syringe IV ×3 (03:21→18:26)
[2020-04-07 06:01] LABS: Hematocrit 35.7 % (40-54); Hemoglobin 10.8 g/dL (13.0-16.5); Mean Corp Hgb Conc 30.3 g/dL (32-36); Mean Corpuscular Volume 89.3 fL (80-94); Mean Platelet Vol. 9.4 fl (6.2-12.0); Platelet Count 292 K/mm3 (150-450); RBC Distribution Width CV 14.8 % (11.6-14.6); RBC Distribution Width SD 48.8 fl (35.1-43.9); White Blood Count 8.9 K/mm3 (4.4-11.0)
[2020-04-07 06:37] LABS: Anion Gap 6 (5-15); BUN 36 mg/dL (7-18); BUN/Creat Ratio 28.6 RATIO (10-20); Calcium,Total 8.6 mg/dL (8.5-10.1); Chloride 100 mmol/L (98-107); Creatinine, Serum 1.26 mg/dL (0.70-1.30); EST Glomerular Filtration Rate 59 mL/min (>60); Est Glom Filt Rate - Afr Amer 72 mL/min (>60); Estimated Creatinine Clearance 61.47 ml/min; Glucose 112 mg/dL (74-106); Potassium 3.4 mmol/L (3.5-5.1); Sodium Level 138 mmol/L (136-145)
[2020-04-07] MEDS: DAKIN'S SOL HALF STRENGTH (=0.25%) 1 APPLIC TOPICAL (07:15)
--- NOTE | 2020-04-07 07:27 | PN_ITS ---
Patient Problems: Active and Suspected Problems (Last Updated 04/04/20 @ 17:[address] Rigoberto Yuan, DO) Infected wound (Acute) Lymphedema of left lower extremity (Acute) Cellulitis of right lower limb (Acute) Subjective: This 75-year-old male was seen bedside for bilateral ankle wounds with deep tissue exposure including a rate sided infection. He also has other wounds to his left foot and lymphedema. He denies fever, chill, nausea, vomiting, pain. He has reduction in swelling. - Physical Exam Vitals/I&O's: Vital Signs Temp Pulse Resp BP Pulse Ox 98.1 F 65 18 109/69 95 04/07/20 02:36 04/07/20 02:36 04/07/20 02:36 04/07/20 02:36 04/07/20 02:36 Oxygen Delivery Method Room Air Weight: 97.341 kg Body Mass Index (BMI) 28.1 Intake and Output for Last 24 Hours 04/05/20 04/06/20 04/07/20 23:59 23:59 23:59 Intake Total 1670 / 1670 2240.00 / 2240.00 325 / 325 Output Total 5250 / 5250 3175 / 3175 400 / 400 Balance -3580 / -3580 -935.00 / -935.00 -75 / -75 General: Alert, Oriented x3, Cooperative HEENT: Atraumatic Extremities: No cyanosis, Capillary Refill Less than 3 Seconds, No Calf Tenderness, Diminished Peripheral Pulses, Edema, - - Lymphedema bilateral lower extremities. There are foot and ankle invaginations due to his chronic lymphedema status Skin: Ulcer/ Wound - No erythema streaking necrosis bilateral. Positive probe to bone and visualize healthy tendon bilateral anterior ankles. There was a prior pocket of purulence on the right ankle from the hindfoot laterally and this purulence is no longer present today on expression. The wound still looks fibrous, - - The left anterior ankle wound looks healthy with granulation tissue. His adjacent skin is hairless and atrophic Musculoskeletal: No Tenderness to Palpation of Joints or Extremities, Muscle Wasting, - - Weakness including dropfoot left Neurological: - - Lack of normal epicritic sensation Psych/Mental Status: Normal Affect, Appropriate Microbiology Past 72 Hours 04/04/20 12:02 Blood Culture (Wb) - Anticubital Right Blood Culture - Preliminary 04/05/20 12:50 Wound Drainage - Ankle Gram Stain - Final 04/05/20 12:50 Wound Drainage - Ankle Wound Culture - Preliminary Gram negative avelina 04/05/20 08:00 Wound - Aerobic & Anaerobic Swabs Gram Stain - Final 04/05/20 08:00 Wound - Aerobic & Anaerobic Swabs Wound Culture - Preliminary Gram negative avelina Possible Fungus Laboratory Results 04/06/20 09:09: WBC 7.9, RBC 4.09 L, Hgb 11.3 L, Hct 36.9 L, MCV 90.2, MCH 27.6, MCHC 30.6 L, RDW Std Deviation 49.3 H, RDW Coeff of Allegra 15.0 H, Plt Count 262, MPV 9.5 04/06/20 09:09: Sodium 139, Potassium 3.2 L, Chloride 103, Carbon Dioxide 31.0, Anion Gap 5, BUN 26 H, Creatinine 1.13, Estim Creat Clear Calc 68.55, Est GFR (MDRD) Af Amer 82, Est GFR (MDRD) Non-Af 67, BUN/Creatinine Ratio 23.0 H, Glucose 107 H, Calcium 8.5 04/07/20 05:46: WBC 8.9, RBC 4.00 L, Hgb 10.8 L, Hct 35.7 L, MCV 89.3, MCH 27.0, MCHC 30.3 L, RDW Std Deviation 48.8 H, RDW Coeff of Allegra 14.8 H, Plt Count 292, MPV 9.4 04/07/20 05:46: Sodium 138, Potassium 3.4 L, Chloride 100, Carbon Dioxide 32.0, Anion Gap 6, BUN 36 H, Creatinine 1.26, Estim Creat Clear Calc 61.47, Est GFR (MDRD) Af Amer 72, Est GFR (MDRD) Non-Af 59 L, BUN/Creatinine Ratio 28.6 H, Glucose 112 H, Calcium 8.6 Current Medications Acetaminophen (Acetaminophen 325 Mg Tablet) 650 mg PO Q6H PRN PRN PRN Reason: Pain Score 1-10/Temp > 100.7 F Ascorbic Acid (Ascorbic Acid 500 Mg Tablet) 500 mg PO BID [facility] Last Admin: 04/06/20 22:16 Dose: 500 mg Documented by: Aspirin (Aspirin E.C. 81 Mg Tablet) 81 mg PO DAILY@0800 [facility] Last Admin: 04/06/20 08:46 Dose: 81 mg Documented by: Atorvastatin Calcium (Atorvastatin Calcium 40 Mg Tablet) 40 mg PO QHS [facility] Last Admin: 04/06/20 22:16 Dose: 40 mg Documented by: Enoxaparin Sodium (Enoxaparin 40 Mg/0.4 Ml Syringe) 40 mg SC DAILY [facility] Last Admin: 04/06/20 09:20 Dose: 40 mg Documented by: Furosemide (Furosemide 40 Mg/4 Ml Vial) 40 mg IV BID@1000,1800 [facility] Last Admin: 04/06/20 18:26 Dose: 40 mg Documented by: Piperacillin Sod/Tazobactam (Sod 3.375 gm/ Sodium Chloride) 50 mls @ 12.5 mls/hr IV Q8 [facility] Last Admin: 04/07/20 05:30 Dose: 12.5 mls/hr Documented by: Vancomycin IV Pharmacy to Dose (1 ea/ Sodium Chloride) 500 mls @ 250 mls/hr IV X1 PRN; Protocol PRN Reason: Rx to Dose Sodium Chloride () 250 mls @ 15 mls/hr IV .[id number] PRN PRN Reason: Additional IVPB Infusion Last Infusion: 04/06/20 22:35 Dose: 0 mls/hr Documented by: Vancomycin HCl 1,250 mg/ (Sodium Chloride) 275 mls @ 167 mls/hr IV Q12H [facility] Last Infusion: 04/07/20 00:13 Dose: Infused Documented by: Magnesium Chloride (Magnesium Chloride 64 Mg Delay Rel.Tablet) 128 mg PO DAILY [facility] Last Admin: 04/06/20 09:21 Dose: 128 mg Documented by: Metoprolol Tartrate (Metoprolol Tartrate 25 Mg Tablet) 25 mg PO BID [facility] Last Admin: 04/06/20 22:16 Dose: 25 mg Documented by: Ondansetron HCl (Ondansetron 4 Mg/2 Ml Vial) 4 mg IV Q8H PRN PRN PRN Reason: NAUSEA/VOMITING Polyethylene Glycol (Polyethylene Glycol 3350 17 Gm Packet) 17 gm PO DAILY [facility] Last Admin: 04/06/20 09:20 Dose: 17 gm Documented by: Potassium Chloride (Potassium Chloride 20 Meq Tablet) 20 meq PO DAILYCM [facility] Last Admin: 04/06/20 08:46 Dose: 20 meq Documented by: Senna/Docusate Sodium (Senna/Docusate Sodium 1 Tablet) 1 tablet PO BID [facility] Last Admin: 04/06/20 22:16 Dose: 1 tablet Documented by: Sodium Chloride (0.9% Saline Lock 10 Ml Syringe) 10 - 40 ml IV UD PRN PRN Reason: SALINE FLUSH Last Admin: 04/07/20 05:30 Dose: 10 ml Documented by: Sodium Hypochlorite (Dakin's Charissa Half Strength (=0.25%)) 1 applic TOPICAL DAILY [facility]; Protocol Last Admin: 04/06/20 07:58 Dose: 1 applicatio Documented by: Medical Necessity - Tobacco Use Smoking Status: Former smoker Tobacco Use: Cigarettes Assessment/Plan All Active Problems (Last Reviewed 04/04/20 @ 17:[address] 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 He is afebrile and his vital signs remained stable. His labs were reviewed without leukocytosis today, ESR 31, C-reactive protein of 133. Cultures demonstrate gram neg avelina growth so far and potential fungus; final report is pending. He was started on the recommended broad spectrum antibiotics until further culture development; vancomycin and zosyn. Copious saline irrigation was performed today toe bilateral anterior ankle wound sites. Dakin solution on a wicked gauze was applied to the deep probed tract right ankle and also to the left ankle and foot ulcer sites. I do not anticipate the need for surgical intervention such as incision and drainage at this time. He is responding well to wound care and antibiotics currently. I recommend continued aggressive edema management with diuresis, elevation, and double Javier wrap application. He understands he is at high risk for limb loss and systemic illness due to this condition. I will continue to follow him very closely while in house. Please do not hesitate to call if you have any questions. Abbie Weber DPM, [facility] [phone]
[2020-04-07 07:43] VITALS: BP 104/68; PULSE 70; RESP 16; TEMP 37.3; O2SAT 93
[2020-04-07] MEDS: Aspirin E.C. 81 MG Tablet PO (08:00)
[2020-04-07 10:40] VITALS: PULSE 70
[2020-04-07] MEDS: Metoprolol Tartrate 25 MG Tablet PO ×2 (10:40→21:41)
[2020-04-07] MEDS: Enoxaparin 40 MG/0.4 ML Syringe SC (10:40)
[2020-04-07] MEDS: Ascorbic Acid 500 MG Tablet PO ×2 (10:41→21:42)
[2020-04-07] MEDS: Magnesium Chloride 64 MG Delay Rel.Tablet 128 MG PO (10:41)
[2020-04-07] MEDS: Polyethylene Glycol 3350 17 GM PACKET PO (10:41)
[2020-04-07] MEDS: Senna/Docusate Sodium 1 Tablet PO (10:41)
--- NOTE | 2020-04-07 10:47 | CASEMGMT ---
VIRGIE OLEA in to discuss discharge planning with patient. VIRGIE OLEA discuss care needs at discharge. Patient realizes that he can not care for himself if he is to discharge home today or tomorrow and is agreeable to go to SNF at discharge. Patient [facility] that [facility] last year. VIRGIE OLEA updated MIRIAM Perla Smith regarding request for SNF referral. [facility] and he [facility] and have stay billed under his [facility] A. [facility] signed [facility].
[2020-04-07] MEDS: Furosemide 40 MG/4 ML Vial IV ×2 (10:48→18:25)
--- NOTE | 2020-04-07 10:50 | CASEMGMT ---
Addendum entered by Tish Smith 04/07/20 13:15: MIRIAM received message from Lucia at [facility] stating she is able to accept pt. MIRIAM updated Lucia that the plan is now discharge tomorrow. Lucia states understanding. SW updated pt on acceptance to [facility] and likely discharge tomorrow. Pt states understanding, agreeable to [facility]. Plan: [facility] once medically cleared Addendum entered by Tish Smith 04/07/20 11:01: MIRIAM received message from [facility] [place] MIRIAM asking if APS report was made on pt. MIRIAM placed a call to [facility] and left message that APS report was made for pt in ED, APS will be updated once pt discharges and updated [facility] that at this time, pt is agreeable to SNF. Original Note: Social Work Note SW faxed referral to [facility]. MIRIAM placed a call to Lucia at [facility] and provided referral. MIIRAM updated Lucia that pt ready for discharge today if SNF can accept. Lucia states understanding, will review referral. Plan: [facility] pending acceptance Tish Smith LOW EMISSION AUTOMOBILE DESIGNER, GROUNDS FOREMAN
--- NOTE | 2020-04-07 10:52 | MRI_ITS ---
STUDY: MRI RIGHT ANKLE WITH AND WITHOUT CONTRAST REASON FOR EXAM: Male, 75 years old. right ankle anterior non healing wound probing to the bone, hx lymphedema TECHNIQUE: Standarized fat and water weighted pulse sequences were obtained in all 3 orthogonal plane pre and post intravenous administration of IV Yes YES. COMPARISON: X-ray 04/05/2020 FINDINGS: Diffuse skin thickening and edema of the subcutaneous fat consistent with known lymphedema. There is an ulcer of the anterior laterally which extends deep to the musculotendinous junction of the extensor digitorum. No loculated fluid collection to suggest abscess. No marrow edema to suggest cortical osteitis. No bone destruction to suggest osteomyelitis. Normal posterior tibialis tendon. Normal flexor digitorum longus tendon. Normal flexor hallucis longus tendon. Normal peroneus longus and brevis tendons. Normal tibialis anterior tendon. Normal extensor hallucis longus tendon. Normal extensor digitorum longus tendons. Normal Achilles tendon and teno-osseous insertion. Normal plantar fascia. Normal plantar calcaneal tubercles. Normal intrinsic muscles of the rearfoot. Normal distal tibiofibular syndesmotic ligamentous complex. Normal lateral ligamentous complex. Normal subtalar ligaments and sinus tarsi. Normal deltoid ligamentous complexes. Normal plantar calcaneonavicular (spring) ligament. Normal tibiotalar articulation. Normal talar dome. Normal subtalar articulations. Normal talonavicular articulation. Normal calcaneocuboid articulation. Normal navicular-cuneiform articulations. There is no abnormal contrast enhancement. MRI/Lower Ext Joint Only W/WO Cont IMPRESSION: Lymphedema and ulcer of the anterolateral soft tissues but no abscess or osteomyelitis. Electronically Signed: Brent Aguirre MD at 16:41 EST Tel , Service support ,
--- NOTE | 2020-04-07 12:48 | PCM.PN.HOSP ---
<Lorenzo Gutierrez - Last Filed: 04/07/20 12:48> Patient Problems: Active and Suspected Problems (Last Updated 04/04/20 @ 17:[address] Rigoberto Yuan, DO) Infected wound (Acute) Lymphedema of left lower extremity (Acute) Cellulitis of right lower limb (Acute) Reason for Visit: nonhealing wounds BLE Subjective: pain controlled. pt with ongoing weakness and difficulty ambulating on his own. no fever/chills. No SOB/cough. No nausea / vomiting / diarrhea. Vitals/I&O's: Vital Signs Temp Pulse Resp BP Pulse Ox 99.1 F 70 16 104/68 93 04/07/20 07:43 04/07/20 10:40 04/07/20 07:43 04/07/20 07:43 04/07/20 07:43 Oxygen Delivery Method Room Air Weight: 214 lb 9.6 oz Body Mass Index (BMI) 28.1 Intake and Output for Last 24 Hours 04/05/20 04/06/20 04/07/20 23:59 23:59 23:59 Intake Total 1670 / 1670 2240.00 / 2240.00 375 / 375 Output Total 5250 / 5250 3175 / 3175 400 / 400 Balance -3580 / -3580 -935.00 / -935.00 -25 / -25 General: Alert, Oriented x3, Cooperative HEENT: Atraumatic, PERRLA, EOMI, Normocephalic Neck: Supple, No JVD, Negative Carotid Bruits Lungs: Clear to auscultation, Normal air movement Cardiovascular: Regular rate, No murmurs Abdomen: Bowel Sounds Present, Soft, Non Tender Extremities: Capillary Refill Less than 3 Seconds, Edema Skin: No rashes, No breakdown Musculoskeletal: No Tenderness to Palpation of Joints or Extremities Neurological: Cranial nerves II-XII grossly intact Psych/Mental Status: Normal Affect, Appropriate, Alert and oriented to time, place, person, mood and affect Microbiology Past 72 Hours 04/05/20 08:00 Wound - Aerobic & Anaerobic Swabs Gram Stain - Final 04/05/20 08:00 Wound - Aerobic & Anaerobic Swabs Wound Culture - Preliminary Providencia stuartii 04/05/20 08:00 Wound - Aerobic & Anaerobic Swabs Anaerobic Culture - Preliminary Checking for anaerobes, further studies to follow. 04/05/20 12:50 Wound Drainage - Ankle Gram Stain - Final 04/05/20 12:50 Wound Drainage - Ankle Wound Culture - Preliminary Proteus mirabilis 04/05/20 12:50 Wound Drainage - Ankle Anaerobic Culture - Preliminary Checking for anaerobes, further studies to follow. 04/04/20 12:02 Blood Culture (Wb) - Anticubital Right Blood Culture - Preliminary Laboratory Results 04/07/20 05:46: WBC 8.9, RBC 4.00 L, Hgb 10.8 L, Hct 35.7 L, MCV 89.3, MCH 27.0, MCHC 30.3 L, RDW Std Deviation 48.8 H, RDW Coeff of Allegra 14.8 H, Plt Count 292, MPV 9.4 04/07/20 05:46: Sodium 138, Potassium 3.4 L, Chloride 100, Carbon Dioxide 32.0, Anion Gap 6, BUN 36 H, Creatinine 1.26, Estim Creat Clear Calc 61.47, Est GFR (MDRD) Af Amer 72, Est GFR (MDRD) Non-Af 59 L, BUN/Creatinine Ratio 28.6 H, Glucose 112 H, Calcium 8.6 04/07/20 11:42: COVID-19 (LALIT) Pending Current Medications Acetaminophen (Acetaminophen 325 Mg Tablet) 650 mg PO Q6H PRN PRN PRN Reason: Pain Score 1-10/Temp > 100.7 F Ascorbic Acid (Ascorbic Acid 500 Mg Tablet) 500 mg PO BID [facility] Last Admin: 04/07/20 10:41 Dose: 500 mg Documented by: Aspirin (Aspirin E.C. 81 Mg Tablet) 81 mg PO DAILY@0800 [facility] Last Admin: 04/07/20 08:00 Dose: 81 mg Documented by: Atorvastatin Calcium (Atorvastatin Calcium 40 Mg Tablet) 40 mg PO QHS [facility] Last Admin: 04/06/20 22:16 Dose: 40 mg Documented by: Enoxaparin Sodium (Enoxaparin 40 Mg/0.4 Ml Syringe) 40 mg SC DAILY [facility] Last Admin: 04/07/20 10:40 Dose: 40 mg Documented by: Furosemide (Furosemide 40 Mg/4 Ml Vial) 40 mg IV BID@1000,1800 [facility] Last Admin: 04/07/20 10:48 Dose: 40 mg Documented by: Sodium Chloride () 250 mls @ 15 mls/hr IV .[id number] PRN PRN Reason: Additional IVPB Infusion Last Infusion: 04/06/20 22:35 Dose: 0 mls/hr Documented by: Ceftriaxone Sodium 2 gm/ (Sodium Chloride) 50 mls @ 100 mls/hr IV Q24 [facility] Magnesium Chloride (Magnesium Chloride 64 Mg Delay Rel.Tablet) 128 mg PO DAILY [facility] Last Admin: 04/07/20 10:41 Dose: 128 mg Documented by: Metoprolol Tartrate (Metoprolol Tartrate 25 Mg Tablet) 25 mg PO BID [facility] Last Admin: 04/07/20 10:40 Dose: 25 mg Documented by: Ondansetron HCl (Ondansetron 4 Mg/2 Ml Vial) 4 mg IV Q8H PRN PRN PRN Reason: NAUSEA/VOMITING Polyethylene Glycol (Polyethylene Glycol 3350 17 Gm Packet) 17 gm PO DAILY [facility] Last Admin: 04/07/20 10:41 Dose: 17 gm Documented by: Potassium Chloride (Potassium Chloride 20 Meq Tablet) 20 meq PO DAILYCM [facility] Last Admin: 04/07/20 08:01 Dose: 20 meq Documented by: Senna/Docusate Sodium (Senna/Docusate Sodium 1 Tablet) 1 tablet PO BID [facility] Last Admin: 04/07/20 10:41 Dose: 1 tablet Documented by: Sodium Chloride (0.9% Saline Lock 10 Ml Syringe) 10 - 40 ml IV UD PRN PRN Reason: SALINE FLUSH Last Admin: 04/07/20 05:30 Dose: 10 ml Documented by: Sodium Hypochlorite (Dakin's Charissa Half Strength (=0.25%)) 1 applic TOPICAL DAILY [facility]; Protocol Last Admin: 04/07/20 07:15 Dose: 1 applicatio Documented by: STROKE Vital Signs/Narrative: Vital Signs Pulse 04/07/20 10:40 70 Medical Necessity - Tobacco Use Smoking Status: Former smoker Tobacco Use: Cigarettes Assessment/Plan All Active Problems (Last Reviewed 04/04/20 @ 17:[address] Rigoberto Yuan DO) Infected wound (Acute) Lymphedema of left lower extremity (Acute) Cellulitis of right lower limb (Acute) H/O coronary artery bypass surgery (Resolved 03/26/97) 1. BL LE lymphedema with nonhealing wounds, cellulitis - probes to bone. MRI right ankle pending. purulent drainage improved. culture with proteus and Providencia susceptible to rocephin. abx changed to rocephin. blood cx prelim neg. if osteo will consult ID. Per podiatry no plans for surgery at this point. Continue neal wraps, lasix. Wound care following 2. Hypokalemia - replete. check mag/phos. 3. HTN - stable 4. HLD - statin 5, CAD - asa/statin/metoprolol 6. Debility - PTOT, SNF placement 7. Normocytic anemia - check iron/tibc. DVT ppx: lovenox DC planing: SNF This patient was seen by Lorenzo Gutierrez PA-C under the supervision of Dr. Landis. <Anthony Landis F - Last Filed: 04/07/20 18:04> Vitals/I&O's: Vital Signs Temp Pulse Resp BP Pulse Ox 98.6 F 66 16 112/55 L 94 04/07/20 14:25 04/07/20 14:25 04/07/20 14:25 04/07/20 14:25 04/07/20 14:25 Oxygen Delivery Method Room Air Weight: 214 lb 9.6 oz Body Mass Index (BMI) 28.1 Intake and Output for Last 24 Hours 04/05/20 04/06/20 04/07/20 23:59 23:59 23:59 Intake Total 1670 / 1670 2240.00 / 2240.00 700 / 700 Output Total 5250 / 5250 3175 / 3175 1000 / 1000 Balance -3580 / -3580 -935.00 / -935.00 -300 / -300 Microbiology Past 72 Hours 04/05/20 08:00 Wound - Aerobic & Anaerobic Swabs Gram Stain - Final 04/05/20 08:00 Wound - Aerobic & Anaerobic Swabs Wound Culture - Preliminary Providencia stuartii 04/05/20 08:00 Wound - Aerobic & Anaerobic Swabs Anaerobic Culture - Preliminary Checking for anaerobes, further studies to follow. 04/05/20 12:50 Wound Drainage - Ankle Gram Stain - Final 04/05/20 12:50 Wound Drainage - Ankle Wound Culture - Preliminary Proteus mirabilis 04/05/20 12:50 Wound Drainage - Ankle Anaerobic Culture - Preliminary Checking for anaerobes, further studies to follow. 04/04/20 12:02 Blood Culture (Wb) - Anticubital Right Blood Culture - Preliminary Laboratory Results 04/07/20 05:46: WBC 8.9, RBC 4.00 L, Hgb 10.8 L, Hct 35.7 L, MCV 89.3, MCH 27.0, MCHC 30.3 L, RDW Std Deviation 48.8 H, RDW Coeff of Allegra 14.8 H, Plt Count 292, MPV 9.4 04/07/20 05:46: Sodium 138, Potassium 3.4 L, Chloride 100, Carbon Dioxide 32.0, Anion Gap 6, BUN 36 H, Creatinine 1.26, Estim Creat Clear Calc 61.47, Est GFR (MDRD) Af Amer 72, Est GFR (MDRD) Non-Af 59 L, BUN/Creatinine Ratio 28.6 H, Glucose 112 H, Calcium 8.6 04/07/20 05:46: Phosphorus 3.2, Magnesium 1.9, Iron 36 L, TIBC 256, Iron Saturation 14.1 L 04/07/20 11:42: COVID-19 (LALIT) Not Detected Current Medications Acetaminophen (Acetaminophen 325 Mg Tablet) 650 mg PO Q6H PRN PRN PRN Reason: Pain Score 1-10/Temp > 100.7 F Ascorbic Acid (Ascorbic Acid 500 Mg Tablet) 500 mg PO BID [facility] Last Admin: 04/07/20 10:41 Dose: 500 mg Documented by: Aspirin (Aspirin E.C. 81 Mg Tablet) 81 mg PO DAILY@0800 [facility] Last Admin: 04/07/20 08:00 Dose: 81 mg Documented by: Atorvastatin Calcium (Atorvastatin Calcium 40 Mg Tablet) 40 mg PO QHS [facility] Last Admin: 04/06/20 22:16 Dose: 40 mg Documented by: Enoxaparin Sodium (Enoxaparin 40 Mg/0.4 Ml Syringe) 40 mg SC DAILY [facility] Last Admin: 04/07/20 10:40 Dose: 40 mg Documented by: Furosemide (Furosemide 40 Mg/4 Ml Vial) 40 mg IV BID@1000,1800 [facility] Last Admin: 04/07/20 10:48 Dose: 40 mg Documented by: Sodium Chloride () 250 mls @ 15 mls/hr IV .[id number] PRN PRN Reason: Additional IVPB Infusion Last Infusion: 11/11/20 22:35 Dose: 0 mls/hr Documented by: Ceftriaxone Sodium 2 gm/ (Sodium Chloride) 50 mls @ 100 mls/hr IV Q24 [facility] Last Infusion: 04/07/20 13:05 Dose: Infused Documented by: Ferric Sodium Gluconate Complex 250 mg/ Sodium Chloride 270 mls @ 135 mls/hr IV X1 ONE Stop: 04/07/20 19:59 Magnesium Chloride (Magnesium Chloride 64 Mg Delay Rel.Tablet) 128 mg PO DAILY [facility] Last Admin: 04/07/20 10:41 Dose: 128 mg Documented by: Metoprolol Tartrate (Metoprolol Tartrate 25 Mg Tablet) 25 mg PO BID [facility] Last Admin: 04/07/20 10:40 Dose: 25 mg Documented by: Ondansetron HCl (Ondansetron 4 Mg/2 Ml Vial) 4 mg IV Q8H PRN PRN PRN Reason: NAUSEA/VOMITING Polyethylene Glycol (Polyethylene Glycol 3350 17 Gm Packet) 17 gm PO DAILY [facility] Last Admin: 04/07/20 10:41 Dose: 17 gm Documented by: Polysaccharide Iron Complex (Iron Polysaccharide Complex 150 Mg Capsule) [facility] Potassium Chloride (Potassium Chloride 20 Meq Tablet) 20 meq PO DAILYCM [facility] Last Admin: 04/07/20 08:01 Dose: 20 meq Documented by: Senna/Docusate Sodium (Senna/Docusate Sodium 1 Tablet) 1 tablet PO BID [facility] Last Admin: 04/07/20 10:41 Dose: 1 tablet Documented by: Sodium Chloride (0.9% Saline Lock 10 Ml Syringe) 10 - 40 ml IV UD PRN PRN Reason: SALINE FLUSH Last Admin: 04/07/20 05:30 Dose: 10 ml Documented by: Sodium Hypochlorite (Dakin's Charissa Half Strength (=0.25%)) 1 applic TOPICAL DAILY [facility]; Protocol Last Admin: 04/07/20 07:15 Dose: 1 applicatio Documented by: STROKE Vital Signs/Narrative: Vital Signs Temp Pulse Resp BP Pulse Ox 04/07/20 14:25 98.6 F 66 16 112/55 L 94 Addendum: Dr. Landis I personally examined the patient and reviewed the chart. I agree with the above. 75-year-old male with history of lymphedema presented from home because of increasing swelling in his lower extremities as well as redness. He does take Lasix daily at home but he did not know that his weight had been increasing or that he could take extra Lasix. Culture data is pending, it does appear preliminarily to be gram-negative rods. Appreciate podiatry assistance. We will continue with Jered and continue to monitor culture data. 04/07/2020: Pain is controlled, and an MRI was obtained today to evaluate for osteomyelitis to dictate duration of antibiotics, MRI was negative for osteo therefore could plan for discharge to a half-way on oral antibiotics for 7 to 10 days to treat his Proteus and Providencia. In discussion with podiatry, there is no current plan for surgery and will need to follow-up at the wound care center on discharge. Inpatient E&M: 11385 Subs Hosp L2
[2020-04-07 14:25] VITALS: BP 112/55; PULSE 66; RESP 16; TEMP 37; O2SAT 94
[2020-04-07 14:32] LABS: Iron 36 ug/dL (65-175); Iron Binding Capacity,Total 256 ug/dL (250-450); Magnesium 1.9 mg/dL (1.6-2.6); PERCENT IRON SATURATION 14.1 % (15.0-55.0); Phosphorus 3.2 mg/dL (2.5-4.9)
--- NOTE | 2020-04-07 14:50 | NURSING ---
pt to mri via bed. attends placed on pt.
[2020-04-07] MEDS: Sodium Ferric Gluconat 250 MG in 0.9% Normal Saline 250 ML 135 MG IV (18:37)
[2020-04-07 21:36] VITALS: BP 124/81; PULSE 70; RESP 18; TEMP 36.9; O2SAT 98
[2020-04-07 21:41] VITALS: PULSE 70
[2020-04-07] MEDS: Atorvastatin Calcium 40 MG Tablet PO (21:45)
[2020-04-07 23:14] LABS: Vancomycin, Trough Level 21.8 ug/mL (5.0-15.0)
[2020-04-08 03:52] VITALS: BP 117/78; PULSE 69; RESP 16; TEMP 36.6; O2SAT 99
[2020-04-08 07:31] LABS: Absolute Lymphocyte Count 1.36 X10^3/uL (0.83-4.51); Absolute Neutrophil Count 5.7 X10^3/uL (2.0-7.7); Basophil# 0.06 X10^3/uL; Basophil% 0.7 % (0-1); Eosinophil# 0.33 X10^3/uL; Hematocrit 38.2 % (40-54); Hemoglobin 11.6 g/dL (13.0-16.5); Lymphocyte # 1.36 X10^3/ul (4.0); Lymphocyte % 16.6 % (19-41); Mean Corp Hgb Conc 30.4 g/dL (32-36); Mean Corpuscular Hgb 27.7 pg (27.0-32.0); Mean Corpuscular Volume 91.2 fL (80-94); Mean Platelet Vol. 9.6 fl (6.2-12.0); Monocyte# 0.66 X10^3/uL; Monocyte% 8.1 % (0-10); NRBC Flagged by Analyzer 0 % (0-5); Neutrophil # 5.72 X10^3/uL (2.7-7.7); Neutrophil % 70.1 % (47-70); Platelet Count 304 K/mm3 (150-450); RBC Distribution Width CV 14.9 % (11.6-14.6); RBC Distribution Width SD 50.1 fl (35.1-43.9); Red Blood Count 4.19 M/mm3 (4.6-6.2); White Blood Count 8.2 K/mm3 (4.4-11.0)
[2020-04-08] MEDS: DAKIN'S SOL HALF STRENGTH (=0.25%) 1 APPLIC TOPICAL (08:05)
--- NOTE | 2020-04-08 08:07 | PN_ITS ---
Patient Problems: Active and Suspected Problems (Last Updated 04/04/20 @ 17:[address] Rigoberto Yuan, DO) Infected wound (Acute) Lymphedema of left lower extremity (Acute) Cellulitis of right lower limb (Acute) Subjective: This patient was seen bedside bilateral anterior ankle wound with deep tissue exposure and left foot ulcers. These are chronic. He denies fever, chill, nausea, vomiting. He does have some intermittent pain noted more on the left side. He is amenable to go to the [facility]. - Physical Exam Vitals/I&O's: Vital Signs Temp Pulse Resp BP Pulse Ox 98 F 69 16 117/78 99 04/08/20 03:52 04/08/20 03:52 04/08/20 03:52 04/08/20 03:52 04/08/20 03:52 Oxygen Delivery Method Room Air Weight: 96.479 kg Body Mass Index (BMI) 28.1 Intake and Output for Last 24 Hours 04/06/20 04/07/20 04/08/20 23:59 23:59 23:59 Intake Total 2240.00 / 2240.00 970 / 1190 220 / 220 Output Total 3175 / 3175 1000 / 1500 1200 / 1200 Balance -935.00 / -935.00 -30 / -310 -980 / -980 General: Alert, Oriented x3, Cooperative HEENT: Atraumatic Extremities: No cyanosis, Capillary Refill Less than 3 Seconds, No Calf Tenderness, Diminished Peripheral Pulses, Edema Skin: Ulcer/ Wound - Reduce periulcer inflammation and edema. There is no odor erythema streaking or necrosis. There is no nasra purulence on expression of the right anterior ankle. There is exposed bone and tendon to bilateral anterior ankle and not to the other foot ulcer sites Musculoskeletal: No Tenderness to Palpation of Joints or Extremities, Muscle Wasting, - - Dropfoot, left. Compartments are soft to palpate bilateral lower extremities Neurological: - - Altered sensation via light touch Psych/Mental Status: Normal Affect, Appropriate Microbiology Past 72 Hours 04/04/20 12:02 Blood Culture (Wb) - Anticubital Right Blood Culture - Preliminary 04/05/20 08:00 Wound - Aerobic & Anaerobic Swabs Gram Stain - Final 04/05/20 08:00 Wound - Aerobic & Anaerobic Swabs Wound Culture - Final Providencia stuartii Proteus mirabilis 04/05/20 08:00 Wound - Aerobic & Anaerobic Swabs Anaerobic Culture - Preliminary Checking for anaerobes, further studies to follow. 04/05/20 12:50 Wound Drainage - Ankle Gram Stain - Final 04/05/20 12:50 Wound Drainage - Ankle Wound Culture - Preliminary Proteus mirabilis 04/05/20 12:50 Wound Drainage - Ankle Anaerobic Culture - Preliminary Checking for anaerobes, further studies to follow. Laboratory Results 04/07/20 05:46: Phosphorus 3.2, Magnesium 1.9, Iron 36 L, TIBC 256, Iron Saturation 14.1 L 04/07/20 11:42: COVID-19 (LALIT) Not Detected 04/07/20 22:27: Vancomycin Trough 21.8 H 04/08/20 07:02: WBC 8.2, RBC 4.19 L, Hgb 11.6 L, Hct 38.2 L, MCV 91.2, MCH 27.7, MCHC 30.4 L, RDW Std Deviation 50.1 H, RDW Coeff of Allegra 14.9 H, Plt Count 304, MPV 9.6, Immature Gran % (Auto) 0.500, Neut % (Auto) 70.1 H, Lymph % (Auto) 16.6 L, Payne % (Auto) 8.1, Eos % (Auto) 4.0, Baso % (Auto) 0.7, Absolute Neuts (auto) 5.7, Absolute Lymphs (auto) 1.36, Nucleated RBC % 0 04/08/20 07:02: Sodium Pending, Potassium Pending, Chloride Pending, Carbon Dioxide Pending, Anion Gap Pending, BUN Pending, Creatinine Pending, Est GFR (MDRD) Af Amer Pending, Est GFR (MDRD) Non-Af Pending, BUN/Creatinine Ratio Pending, Glucose Pending, Calcium Pending Current Medications Acetaminophen (Acetaminophen 325 Mg Tablet) 650 mg PO Q6H PRN PRN PRN Reason: Pain Score 1-10/Temp > 100.7 F Ascorbic Acid (Ascorbic Acid 500 Mg Tablet) 500 mg PO BID [facility] Last Admin: 04/07/20 21:42 Dose: 500 mg Documented by: Aspirin (Aspirin E.C. 81 Mg Tablet) 81 mg PO DAILY@0800 [facility] Last Admin: 04/07/20 08:00 Dose: 81 mg Documented by: Atorvastatin Calcium (Atorvastatin Calcium 40 Mg Tablet) 40 mg PO QHS [facility] Last Admin: 04/07/20 21:45 Dose: 40 mg Documented by: Enoxaparin Sodium (Enoxaparin 40 Mg/0.4 Ml Syringe) 40 mg SC DAILY [facility] Last Admin: 04/07/20 10:40 Dose: 40 mg Documented by: Furosemide (Furosemide 40 Mg/4 Ml Vial) 40 mg IV BID@1000,1800 [facility] Last Admin: 04/07/20 18:25 Dose: 40 mg Documented by: Sodium Chloride () 250 mls @ 15 mls/hr IV .[id number] PRN PRN Reason: Additional IVPB Infusion Last Infusion: 04/06/20 22:35 Dose: 0 mls/hr Documented by: Ceftriaxone Sodium 2 gm/ (Sodium Chloride) 50 mls @ 100 mls/hr IV Q24 [facility] Last Infusion: 04/07/20 13:05 Dose: Infused Documented by: Magnesium Chloride (Magnesium Chloride 64 Mg Delay Rel.Tablet) 128 mg PO DAILY [facility] Last Admin: 04/07/20 10:41 Dose: 128 mg Documented by: Metoprolol Tartrate (Metoprolol Tartrate 25 Mg Tablet) 25 mg PO BID [facility] Last Admin: 04/07/20 21:41 Dose: 25 mg Documented by: Ondansetron HCl (Ondansetron 4 Mg/2 Ml Vial) 4 mg IV Q8H PRN PRN PRN Reason: NAUSEA/VOMITING Polyethylene Glycol (Polyethylene Glycol 3350 17 Gm Packet) 17 gm PO DAILY [facility] Last Admin: 04/07/20 10:41 Dose: 17 gm Documented by: Polysaccharide Iron Complex (Iron Polysaccharide Complex 150 Mg Capsule) [facility] Potassium Chloride (Potassium Chloride 20 Meq Tablet) [facility] Last Admin: 04/07/20 08:01 Dose: 20 meq Documented by: Senna/Docusate Sodium (Senna/Docusate Sodium 1 Tablet) 1 tablet PO BID [facility] Last Admin: 04/07/20 21:42 Dose: Not Given Documented by: Sodium Chloride (0.9% Saline Lock 10 Ml Syringe) 10 - 40 ml IV UD PRN PRN Reason: SALINE FLUSH Last Admin: 04/07/20 18:26 Dose: 10 ml Documented by: Sodium Hypochlorite (Dakin's Charissa Half Strength (=0.25%)) 1 applic TOPICAL DAILY [facility]; Protocol Last Admin: 04/07/20 07:15 Dose: 1 applicatio Documented by: Medical Necessity - Tobacco Use Smoking Status: Former smoker Tobacco Use: Cigarettes Assessment/Plan All Active Problems (Last Reviewed 04/04/20 @ 17:[address] Rigoberto Yuan, DO) Infected wound (Acute) Lymphedema of left lower extremity (Acute) Cellulitis of right lower limb (Acute) H/O coronary artery bypass surgery (Resolved 03/26/97) Chronic bilateral lower extremity lymphedema Right anterior ankle ulcer with positive probe to bone and exposed tendon Right ankle purulence resolving Left anterior ankle ulcer with exposed tendon and bone, no purulence Left dropfoot Lower extremity edema with additional cardiac and other etiologies Debilitation and gait impairment I reviewed and discussed his case. He is afebrile and his vital signs remained stable. His labs were reviewed without leukocytosis today (WBC 8.2), ESR 31, C- reactive protein of 133. MRI was negative for abscess or osteomyelitis. There were no osseous changes appreciated on plain x-rays either. Cultures demonstrate Proteus mirabilis and proventia stuartii so far and potential fungus; final report is pending. He was started on the recommended broad spectrum antibiotics until further culture development; vancomycin and zosyn. He will likely be transitioned to oral Rocephin at this time. Subcutaneous excisional debridement was performed after verbal consent to the right anterior ankle and left anterior ankle and medial left foot. Fibrous tissue, biofilm, slough, devitalized subcutaneous tissue was excised with a 3 mm curette. Pressu re was applied to maintain hemostasis. He tolerated this well. Copious saline irrigation was performed today toe bilateral anterior ankle wound sites. Dakin solution on a wicked gauze was applied to the deep probed tract right ankle and also to the left ankle and foot ulcer sites. I recommend this irrigation and daily dressing changes are continue [facility] [place] To continue with elevation and multilayered Javier wrap application. I recommend he follows up with the wound healing center after discharge. It is ok to discharge from a podiatry standpoint. Please do not hesitate to call if you have any questions. Abbie Weber DPM, [facility] [phone]
--- NOTE | 2020-04-08 08:12 | DCINST_ITS ---
Discharge Activity: Use Walker Weight Bearing Status: Partial weight bearing Keep extremity elevated above heart level: Left Leg, Right Leg Call your doctor if your incision/area has: Continuous Slow Oozing, Sudden Increased Bleeding, Increased Pain/ Swelling, Increased Redness, Foul Smelling Discharge Call your doctor if you observe: Fever of 101 or Higher, Calf discomfort, Uncontrolled pain Cleanse incision/area with: Soap & Water - Use antibacterial soap, - - Irrigate right ankle tracking site along the distal margin of the wound that extends into the dorsal foot daily with normal saline. Additional Dressing/Incision Instructions:: --Keep dressing clean and dry. DO NOT REMOVE THE DRESSING. You may adjust the elastic (Javier) bandage for comfort. A small amount of spotting of blood is normal and this should not alarm you. --After irrigation, packing with Dakin soaked gauze into this deeper area of the right ankle, left ankle, and left foot ulcers. Cover with dry gauze abdominal pads. --Apply open gauze to edema toe region. --Lastly, cover with protective Kerlix and a nonmanner and 2 Javeir wraps starting in the foot and extending to the leg. Additional Instructions: Complete oral antibiotics as prescribed. Allergies/Adverse Reactions: Allergies hydrocodone [From Vicodin] Adverse Reaction (Intermediate, Verified 04/04/20 11:50) Vomiting morphine Adverse Reaction (Intermediate, Verified 04/04/20 11:50) Vomiting Medications to take at Discharge ascorbic acid (vitamin C) 500 mg capsule 500 mg PO BID ea 06/04/17 Cinnamon Bark [Cinnamon] 500 mg PO DAILY 01/06/19 furosemide 40 mg tablet 40 mg PO DAILY #90 tab 05/28/19 metoprolol tartrate 25 mg tablet 25 mg PO BID #180 tab 05/28/19 potassium chloride 20 mEq tablet,extended release(part/cryst) 20 meq PO DAILY #90 tab 05/28/19 Aspirin [Aspirin EC] 81 mg PO DAILY@0800 04/04/20 Magnesium Oxide 400 mg PO DAILY 04/04/20 Simvastatin 80 mg PO QPM 04/04/20 Primary Care Physician: [facility] [Primary Care Provider] - Test Results: Test results from this visit will be discussed in further detail at your follow- up appointment, if applicable. Please Follow Up With: Clinic,Wound - Dr. Weber When: 1 week Proposed Discharge Date: 04/08/20
[2020-04-08 08:15] LABS: Anion Gap 3 (5-15); BUN 34 mg/dL (7-18); BUN/Creat Ratio 26.2 RATIO (10-20); Calcium,Total 8.8 mg/dL (8.5-10.1); Chloride 102 mmol/L (98-107); EST Glomerular Filtration Rate 57 mL/min (>60); Est Glom Filt Rate - Afr Amer 69 mL/min (>60); Estimated Creatinine Clearance 59.58 ml/min; Glucose 110 mg/dL (74-106); Potassium 3.9 mmol/L (3.5-5.1); Sodium Level 140 mmol/L (136-145)
[2020-04-08 08:18] VITALS: BP 93/64; PULSE 66; RESP 15; TEMP 36.8; O2SAT 93
[2020-04-08] MEDS: Aspirin E.C. 81 MG Tablet PO (10:01)
[2020-04-08] MEDS: Iron Polysaccharide Complex 150 MG CAPSULE PO (10:02)
[2020-04-08] MEDS: Enoxaparin 40 MG/0.4 ML Syringe SC (10:06)
[2020-04-08] MEDS: Magnesium Chloride 64 MG Delay Rel.Tablet 128 MG PO (10:07)
[2020-04-08] MEDS: Ascorbic Acid 500 MG Tablet PO (10:11)
[2020-04-08 10:14] VITALS: BP 93/64; PULSE 66
[2020-04-08] MEDS: 0.9% Saline Lock 10 ML Syringe IV (10:22)
[2020-04-08] MEDS: Furosemide 40 MG/4 ML Vial IV (10:22)
[2020-04-08] MEDS: Magnesium Citrate 300 ML 150 ML PO (10:48)
--- NOTE | 2020-04-08 11:24 | PCM.EXTCARCO ---
- Diet 04/04/20 17:34 Diet: Cardiac - Heart Healthy Food consistency:: Regular Liquid Consistency:: Regular/Thin Type of Dietary Supplement:: Slava Is pt able to select menu?: Yes Fluid restriction:: 1500 mL Diet Comments: Slava @breakfast and dinner - Routine Orders/Code Status Suppository Type: Dulcolax 10mg Suppository Frequency: Daily PRN Routine Lab Work: CBC - 5 days, BMP - 3 days Code Status: Full Code - Wound(s) BLE Wound Type: lymphedema wounds left ankle Wound Type: lymphedema wound right ankle Wound Type: lymphedema wound lower back Wound Type: Laceration right heel Wound Type: Pressure Injury left heel Wound Type: Pressure Injury left anterior ankle Wound Type: nonhealing wounds from compression hose Dressing Change: Dakins moistened gauze right anterior ankle Wound Type: nonhealing wound from compression hose Dressing Change: Dakins moistened gauze - Therapies Physical Therapy: Eval and Treat Occupational Therapy: Eval and Treat - Problem/Diagnosis (1) Cellulitis of right lower limb Status: Acute (2) Infected wound Status: Acute (3) (HFpEF) heart failure with preserved ejection fraction Status: Chronic (4) Essential (primary) hypertension Status: Chronic (5) Hyperlipidemia Status: Chronic (6) Lymphedema of lower extremity Status: Chronic (7) H/O coronary artery bypass surgery Status: Resolved Comment: CABG x 6 [place] to LAD, Sequential SVG to two RPDA, SVG to LCx, Sequential SVG to D1 and D2 03/26/97 - Allergies/Procedures Done in Hospital Allergies/Adverse Reactions: Allergies hydrocodone [From Vicodin] Adverse Reaction (Intermediate, Verified 04/04/20 11:50) Vomiting morphine Adverse Reaction (Intermediate, Verified 04/04/20 11:50) Vomiting Procedures: None - Type of Care/Length of Stay Estimated LOS: Convalescent Care Less Than 30 days Type of Care Needed: Skilled Rehab Potential: Fair Prognosis: Fair - Additional Orders/Day of Discharge Day of Discharge: 04/08/20 - Dietary and Speech Recommendations Dietitian Recommendations/Changes: Continue cardiac diet w/ 1500 mL FR. Will add Slava BID w/ lunch and dinner to assist in wound healing. - Follow Up Care Primary Care Physician: [facility] [Primary Care Provider] - Please follow up with your Primary Care Physician in: 2 weeks Please Follow Up With: Clinic,Wound - Dr. Weber When: 1 week
[2020-04-08 12:00] VITALS: BP 105/62; PULSE 58; RESP 15; TEMP 36.4; O2SAT 94
--- NOTE | 2020-04-08 13:00 | CASEMGMT ---
Social Work Note Pt is discharging to [facility] today. MIRIAM faxed completed discharge paperwork to [facility] including transfer to extended care facility, signed medication list, any scripts, COVID screening tool, negative COVID test. Original in SNF folder and copy on pt's chart. MIRIAM completed convalescent 7000 in [facility]. Original in SNF folder and copy on pt's chart. RN states pt can transport via wheelchair van. Wheelchair van would be private pay for pt. MIRIAM placed a call to Lucia at [facility] and asked if [facility] is able to transport pt. Lucia states they can be at [facility] at 2:30pm to transport pt. MIRIAM updated RN. MIRIAM in to speak with pt and updated pt on discharge and transportation time to [facility]. Pt states understanding, agreeable to discharge to [facility]. MIRIAM placed a call to Anrdea at [facility] and left message updating on pt's discharge. MIRIAM placed a call to [place] at [facility] and updated her on pt's discharge. Plan: [facility] today skilled with [facility] transporting pt via wheelchair van at 2:30pm Tish CASTILLO, [employer]
--- NOTE | 2020-04-08 13:57 | DS.PCM_ITS ---
<Lorenzo Gutierrez - Last Filed: 04/08/20 13:57> Discharge Date and Diagnosis - Problem List Patient Problems: Active and Suspected Problems (Last Updated 04/04/20 @ 17:[address] Rigoberto Yuan DO) Infected wound (Acute) Lymphedema of left lower extremity (Acute) Cellulitis of right lower limb (Acute) Date of Admission: 04/04/20 Date of Discharge: 04/08/20 - Primary Discharge Diagnosis Acute Problems: Active Problems (Last Updated 04/04/20 @ 17:[address] Rigoberto Yuan DO) Infected wound (Acute) Lymphedema of left lower extremity (Acute) Cellulitis of right lower limb (Acute) - Secondary Discharge Diagnosis Chronic Problems: Chronic Problems (Last Updated 04/04/20 @ 17:[address] 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 RAD/Foot min 3 Views IMPRESSION: Diffuse soft tissue swelling. RAD/Ankle min 3 Views IMPRESSION: No acute osseous abnormality. Anterior ankle soft tissue wound. RAD/Ankle min 3 Views IMPRESSION: No acute osseous abnormality. Anterior ankle soft tissue wound. MRI/Lower Ext Joint Only W/WO Cont IMPRESSION: Lymphedema and ulcer of the anterolateral soft tissues but no abscess or osteomyelitis. Consultations Podiatry-Dr. Weber 04/04/20 17:34 Consult: Onc/Wound/history professor Routine Comment: Operations: None Procedures: None Summary of Care Provided: Hospital course: The patient is a 75 year old M past medical history of lymphedema, CAD with prior CABG, who presented to the emergency room with 3 swelling of the lower extremities. Patient was found to have marked lower extremity edema, with significant wounds near the ankles where his lymphedema stockings had cut into his legs. He had been pursuing wound care through the [place] [facility]. Patient was admitted to the medical surgical floor. Podiatry was consulted. He was felt to have cellulitis in his legs complicated by the deep wounds present. He was placed on Vanco and Zosyn. There was purulent drainage expressed by podiatry particularly from the right ankle. The wound is probed to the bone. X-rays demonstrated soft tissue swelling. An MRI of the right ankle was obtained and did not demonstrate underlying osteomyelitis. Wound culture was obtained and demonstrated Proteus mirabilis and Providencia stuartii. 1 of 4 bottles of his blood culture came back with gram-positive cocci in chains, this was felt to be contaminant. He has no fever or leukocytosis. Patient was transitioned to Cipro and will complete 10 days of this. He continues to remain significantly debilitated and requires ongoing wound care as he was not properly caring for his wounds at home. His Lasix was increased while he was here as he had recent marked increase in his lower extremity edema. He was discharged to longterm in stable condition. He will need to continue the higher dose of Lasix, antibiotics, and will need close follow-up with the wound care center with the french teacher in 1 week. He will also need to follow-up with his PCP in 2 weeks. This patient was seen by Lorenzo Gutierrez PA-C under the supervision of Doctor Landis. [] Patient Problems: Active and Suspected Problems (Last Updated 04/04/20 @ 17:[address] Rigoberto Yuan DO) Infected wound (Acute) Lymphedema of left lower extremity (Acute) Cellulitis of right lower limb (Acute) - Physical Exam Vitals/I&O's: Vital Signs Temp Pulse Resp BP Pulse Ox 97.5 F L 58 L 15 105/62 94 04/08/20 12:00 04/08/20 12:00 04/08/20 12:00 04/08/20 12:00 04/08/20 12:00 Oxygen Delivery Method Room Air Weight: 212 lb 11.2 oz Body Mass Index (BMI) 28.1 Intake and Output for Last 24 Hours 04/06/20 04/07/20 04/08/20 23:59 23:59 23:59 Intake Total 2240.00 / 2240.00 970 / 1190 270 / 270 Output Total 3175 / 3175 1000 / 1500 1200 / 1200 Balance -935.00 / -935.00 -30 / -310 -930 / -930 General: Alert, Oriented x3, Cooperative HEENT: Atraumatic, PERRLA, EOMI, Normocephalic Neck: Supple, No JVD, Negative Carotid Bruits Lungs: Clear to auscultation, Normal air movement Cardiovascular: Regular rate, No murmurs Abdomen: Bowel Sounds Present, Soft, Non Tender Extremities: Capillary Refill Less than 3 Seconds, Edema - Lymphedema, bilateral lower extremities Skin: No rashes, No breakdown Musculoskeletal: No Tenderness to Palpation of Joints or Extremities Neurological: Cranial nerves II-XII grossly intact Psych/Mental Status: Normal Affect, Appropriate Microbiology Past 72 Hours 04/05/20 12:50 Wound Drainage - Ankle Gram Stain - Final 04/05/20 12:50 Wound Drainage - Ankle Wound Culture - Preliminary Proteus mirabilis 04/05/20 12:50 Wound Drainage - Ankle Anaerobic Culture - Preliminary Checking for anaerobes, further studies to follow. 04/04/20 12:02 Blood Culture (Wb) - Anticubital Right Blood Culture - Preliminary 04/05/20 08:00 Wound - Aerobic & Anaerobic Swabs Gram Stain - Final 04/05/20 08:00 Wound - Aerobic & Anaerobic Swabs Wound Culture - Final Providencia stuartii Proteus mirabilis 04/05/20 08:00 Wound - Aerobic & Anaerobic Swabs Anaerobic Culture - Preliminary Checking for anaerobes, further studies to follow. Laboratory Results 04/07/20 05:46: Phosphorus 3.2, Magnesium 1.9, Iron 36 L, TIBC 256, Iron Saturation 14.1 L 04/07/20 11:42: COVID-19 (LALIT) Not Detected 04/07/20 22:27: Vancomycin Trough 21.8 H 04/08/20 07:02: WBC 8.2, RBC 4.19 L, Hgb 11.6 L, Hct 38.2 L, MCV 91.2, MCH 27.7, MCHC 30.4 L, RDW Std Deviation 50.1 H, RDW Coeff of Allegra 14.9 H, Plt Count 304, MPV 9.6, Immature Gran % (Auto) 0.500, Neut % (Auto) 70.1 H, Lymph % (Auto) 16.6 L, [place] % (Auto) 8.1, Eos % (Auto) 4.0, Baso % (Auto) 0.7, Absolute Neuts (auto) 5.7, Absolute Lymphs (auto) 1.36, Nucleated RBC % 0 04/08/20 07:02: Sodium 140, Potassium 3.9, Chloride 102, Carbon Dioxide 35.0 H, Anion Gap 3 L, BUN 34 H, Creatinine 1.30, Estim Creat Clear Calc 59.58, Est GFR (MDRD) Af Amer 69, Est GFR (MDRD) Non-Af 57 L, BUN/Creatinine Ratio 26.2 H, Glucose 110 H, Calcium 8.8 Current Medications Acetaminophen (Acetaminophen 325 Mg Tablet) 650 mg PO Q6H PRN PRN PRN Reason: Pain Score 1-10/Temp > 100.7 F Ascorbic Acid (Ascorbic Acid 500 Mg Tablet) 500 mg PO BID [facility] Last Admin: 04/08/20 10:11 Dose: 500 mg Documented by: Aspirin (Aspirin E.C. 81 Mg Tablet) 81 mg PO DAILY@0800 [facility] Last Admin: 04/08/20 10:01 Dose: 81 mg Documented by: Atorvastatin Calcium (Atorvastatin Calcium 40 Mg Tablet) 40 mg PO QHS [facility] Last Admin: 04/07/20 21:45 Dose: 40 mg Documented by: Enoxaparin Sodium (Enoxaparin 40 Mg/0.4 Ml Syringe) 40 mg SC DAILY [facility] Last Admin: 04/08/20 10:06 Dose: 40 mg Documented by: Furosemide (Furosemide 40 Mg/4 Ml Vial) 40 mg IV BID@1000,1800 [facility] Last Admin: 04/08/20 10:22 Dose: 40 mg Documented by: Sodium Chloride () 250 mls @ 15 mls/hr IV .[id number] PRN PRN Reason: Additional IVPB Infusion Last Infusion: 04/06/20 22:35 Dose: 0 mls/hr Documented by: Ceftriaxone Sodium 2 gm/ (Sodium Chloride) 50 mls @ 100 mls/hr IV Q24 [facility] Last Infusion: 04/08/20 10:52 Dose: Infused Documented by: Magnesium Chloride (Magnesium Chloride 64 Mg Delay Rel.Tablet) 128 mg PO DAILY [facility] Last Admin: 04/08/20 10:07 Dose: 128 mg Documented by: Metoprolol Tartrate (Metoprolol Tartrate 25 Mg Tablet) 25 mg PO BID [facility] Last Admin: 04/08/20 10:14 Dose: Not Given Documented by: Ondansetron HCl (Ondansetron 4 Mg/2 Ml Vial) 4 mg IV Q8H PRN PRN PRN Reason: NAUSEA/VOMITING Polyethylene Glycol (Polyethylene Glycol 3350 17 Gm Packet) 17 gm PO DAILY [facility] Last Admin: 04/08/20 10:10 Dose: Not Given Documented by: Polysaccharide Iron Complex (Iron Polysaccharide Complex 150 Mg Capsule) 150 mg PO DAILYCM [facility] Last Admin: 04/08/20 10:02 Dose: 150 mg Documented by: Potassium Chloride (Potassium Chloride 20 Meq Tablet) 20 meq PO DAILYCM [facility] Last Admin: 04/08/20 10:05 Dose: 20 meq Documented by: Senna/Docusate Sodium (Senna/Docusate Sodium 1 Tablet) 1 tablet PO BID [facility] Last Admin: 04/08/20 10:10 Dose: Not Given Documented by: Sodium Chloride (0.9% Saline Lock 10 Ml Syringe) 10 - 40 ml IV UD PRN PRN Reason: SALINE FLUSH Last Admin: 04/08/20 10:22 Dose: 10 ml Documented by: Sodium Hypochlorite (Dakin's Charissa Half Strength (=0.25%)) 1 applic TOPICAL DAILY [facility]; Protocol Last Admin: 04/08/20 08:05 Dose: 1 applicatio Documented by: Discharge Diet: Low fat/ Low Cholesterol, 2000 mg Sodium Diet Discharge Activity: Use Walker Weight Bearing Status: Partial weight bearing Keep extremity elevated above heart level: Left Leg, Right Leg Call your doctor if your incision/area has: Continuous Slow Oozing, Sudden Incre ased Bleeding, Increased Pain/ Swelling, Increased Redness, Foul Smelling Discharge Call your doctor if you observe: Fever of 101 or Higher, Calf discomfort, Uncontrolled pain Cleanse incision/area with: Soap & Water - Use antibacterial soap, - - Irrigate right ankle tracking site along the distal margin of the wound that extends into the dorsal foot daily with normal saline. Additional Dressing/Incision Instructions:: --Keep dressing clean and dry. DO NOT REMOVE THE DRESSING. You may adjust the elastic (Javier) bandage for comfort. A small amount of spotting of blood is normal and this should not alarm you. --After irrigation, packing with Dakin soaked gauze into this deeper area of the right ankle, left ankle, and left foot ulcers. Cover with dry gauze abdominal pads. --Apply open gauze to edema toe region. --Lastly, cover with protective Kerlix and a nonmanner and 2 Javier wraps starting in the foot and extending to the leg. Home Medications: Medications to take at Discharge ascorbic acid (vitamin C) 500 mg capsule 500 mg PO BID ea 06/04/17 metoprolol tartrate 25 mg tablet 25 mg PO BID #180 tab 05/28/19 Aspirin [Aspirin EC] 81 mg PO DAILY@0800 04/04/20 Magnesium Oxide 400 mg PO DAILY 04/04/20 Simvastatin 80 mg PO QPM 04/04/20 Acetaminophen [Tylenol Tablet] 650 mg PO Q6H PRN PRN tab 04/08/20 Ciprofloxacin [Cipro] 500 mg PO BID #20 tab 04/08/20 Furosemide 40 mg PO BID #60 tab 04/08/20 Iron Polysaccharide Complex [Ferrex 150] 150 mg PO DAILYCM cap 04/08/20 Polyethylene Glycol 3350 [Miralax] 17 gm PO DAILY packet 04/08/20 Potassium Chloride [K-Dur] 20 meq PO BID #90 tab 04/08/20 Senna/Docusate Sodium [Senokot-S] 1 tab PO BID tab 04/08/20 Sodium Hypochlorite [Dakins Solution 0.25% (1/2 Strength)] 1 applic TOPICAL DAILY bottle 04/08/20 Following Prescriptions Were Given to Patient: Ciprofloxacin [Cipro] 500 mg PO BID #20 tab Primary Care Physician: [facility],[place] [Primary Care Provider] - Please follow up with your Primary Care Physician in: 2 weeks Please Follow Up With: Clinic,Wound - Dr. Weber When: 1 week Additional Instructions: Complete oral antibiotics as prescribed. Disposition: [facility] facility Minutes spent on discharge:: 35 Patient Condition:: Stable Medical Necessity - Tobacco Use Smoking Status: Former smoker Tobacco Use: Cigarettes Meaningful Use Info Meaningful Use Diagnoses (Choose all that apply): None applicable <Anthony Landis - Last Filed: 04/08/20 14:38> Discharge Date and Diagnosis - Primary Discharge Diagnosis Acute Problems: Active Problems (Last Updated 04/04/20 @ 17:[address] Rigoberto Yuan DO) Infected wound (Acute) Lymphedema of left lower extremity (Acute) Cellulitis of right lower limb (Acute) - Secondary Discharge Diagnosis Chronic Problems: Chronic Problems (Last Updated 04/04/20 @ 17:[address] 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) Nonrheumatic aortic (valve) stenosis (Chronic) (HFpEF) heart failure with preserved ejection fraction (Chronic) Essential (primary) hypertension (Chronic) Hyperlipidemia (Chronic) Lymphedema of lower extremity (Chronic) Hospital Course and Treatment Consultations 04/04/20 17:34 Consult: Onc/Wound/history professor Routine Comment: Summary of Care Provided: The patient is a 75 year old M [] - Physical Exam Vitals/I&O's: Vital Signs Temp Pulse Resp BP Pulse Ox 97.5 F L 58 L 15 105/62 94 04/08/20 12:00 04/08/20 12:00 04/08/20 12:00 04/08/20 12:00 04/08/20 12:00 Oxygen Delivery Method Room Air Weight: 212 lb 11.2 oz Body Mass Index (BMI) 28.1 Intake and Output for Last 24 Hours 04/06/20 04/07/20 04/08/20 23:59 23:59 23:59 Intake Total 2240.00 / 2240.00 970 / 1190 270 / 270 Output Total 3175 / 3175 1000 / 1500 1200 / 1200 Balance -935.00 / -935.00 -30 / -310 -930 / -930 Microbiology Past 72 Hours 04/05/20 12:50 Wound Drainage - Ankle Gram Stain - Final 04/05/20 12:50 Wound Drainage - Ankle Wound Culture - Preliminary Proteus mirabilis 04/05/20 12:50 Wound Drainage - Ankle Anaerobic Culture - Preliminary Checking for anaerobes, further studies to follow. 04/04/20 12:02 Blood Culture (Wb) - Anticubital Right Blood Culture - Preliminary 04/05/20 08:00 Wound - Aerobic & Anaerobic Swabs Gram Stain - Final 04/05/20 08:00 Wound - Aerobic & Anaerobic Swabs Wound Culture - Final Providencia stuartii Proteus mirabilis 04/05/20 08:00 Wound - Aerobic & Anaerobic Swabs Anaerobic Culture - Prel iminary Checking for anaerobes, further studies to follow. Laboratory Results 04/07/20 22:27: Vancomycin Trough 21.8 H 04/08/20 07:02: WBC 8.2, RBC 4.19 L, Hgb 11.6 L, Hct 38.2 L, MCV 91.2, MCH 27.7, MCHC 30.4 L, RDW Std Deviation 50.1 H, RDW Coeff of Allegra 14.9 H, Plt Count 304, MPV 9.6, Immature Gran % (Auto) 0.500, Neut % (Auto) 70.1 H, Lymph % (Auto) 16.6 L, [place] % (Auto) 8.1, Eos % (Auto) 4.0, Baso % (Auto) 0.7, Absolute Neuts (auto) 5.7, Absolute Lymphs (auto) 1.36, Nucleated RBC % 0 04/08/20 07:02: Sodium 140, Potassium 3.9, Chloride 102, Carbon Dioxide 35.0 H, Anion Gap 3 L, BUN 34 H, Creatinine 1.30, Estim Creat Clear Calc 59.58, Est GFR (MDRD) Af Amer 69, Est GFR (MDRD) Non-Af 57 L, BUN/Creatinine Ratio 26.2 H, Glucose 110 H, Calcium 8.8 Current Medications Acetaminophen (Acetaminophen 325 Mg Tablet) 650 mg PO Q6H PRN PRN PRN Reason: Pain Score 1-10/Temp > 100.7 F Ascorbic Acid (Ascorbic Acid 500 Mg Tablet) 500 mg PO BID [facility] Last Admin: 04/08/20 10:11 Dose: 500 mg Documented by: Aspirin (Aspirin E.C. 81 Mg Tablet) 81 mg PO DAILY@0800 [facility] Last Admin: 04/08/20 10:01 Dose: 81 mg Documented by: Atorvastatin Calcium (Atorvastatin Calcium 40 Mg Tablet) 40 mg PO QHS [facility] Last Admin: 04/07/20 21:45 Dose: 40 mg Documented by: Enoxaparin Sodium (Enoxaparin 40 Mg/0.4 Ml Syringe) 40 mg SC DAILY [facility] Last Admin: 04/08/20 10:06 Dose: 40 mg Documented by: Furosemide (Furosemide 40 Mg/4 Ml Vial) 40 mg IV BID@1000,1800 [facility] Last Admin: 04/08/20 10:22 Dose: 40 mg Documented by: Sodium Chloride () 250 mls @ 15 mls/hr IV .[id number] PRN PRN Reason: Additional IVPB Infusion Last Infusion: 04/06/20 22:35 Dose: 0 mls/hr Documented by: Ceftriaxone Sodium 2 gm/ (Sodium Chloride) 50 mls @ 100 mls/hr IV Q24 [facility] Last Infusion: 04/08/20 10:52 Dose: Infused Documented by: Magnesium Chloride (Magnesium Chloride 64 Mg Delay Rel.Tablet) 128 mg PO DAILY [facility] Last Admin: 04/08/20 10:07 Dose: 128 mg Documented by: Metoprolol Tartrate (Metoprolol Tartrate 25 Mg Tablet) 25 mg PO BID [facility] Last Admin: 04/08/20 10:14 Dose: Not Given Documented by: Ondansetron HCl (Ondansetron 4 Mg/2 Ml Vial) 4 mg IV Q8H PRN PRN PRN Reason: NAUSEA/VOMITING Polyethylene Glycol (Polyethylene Glycol 3350 17 Gm Packet) 17 gm PO DAILY [facility] Last Admin: 04/08/20 10:10 Dose: Not Given Documented by: Polysaccharide Iron Complex (Iron Polysaccharide Complex 150 Mg Capsule) 150 mg PO DAILYCM [facility] Last Admin: 04/08/20 10:02 Dose: 150 mg Documented by: Potassium Chloride (Potassium Chloride 20 Meq Tablet) 20 meq PO DAILYCM [facility] Last Admin: 04/08/20 10:05 Dose: 20 meq Documented by: Senna/Docusate Sodium (Senna/Docusate Sodium 1 Tablet) 1 tablet PO BID [facility] Last Admin: 04/08/20 10:10 Dose: Not Given Documented by: Sodium Chloride (0.9% Saline Lock 10 Ml Syringe) 10 - 40 ml IV UD PRN PRN Reason: SALINE FLUSH Last Admin: 04/08/20 10:22 Dose: 10 ml Documented by: Sodium Hypochlorite (Dakin's Charissa Half Strength (=0.25%)) 1 applic TOPICAL DAILY [facility]; Protocol Last Admin: 04/08/20 08:05 Dose: 1 applicatio Documented by: Addendum: Dr. Landis I personally examined the patient and reviewed the chart. I agree with the above. 75-year-old male with history of lymphedema presented from home because of increasing swelling in his lower extremities as well as redness. He does take Lasix daily at home but he did not know that his weight had been increasing or that he could take extra Lasix. Culture data is pending, it does appear preliminarily to be gram-negative rods. Appreciate podiatry assistance. We will continue with Jered and continue to monitor culture data. 04/07/2020: Pain is controlled, and an MRI was obtained today to evaluate for osteomyelitis to dictate duration of antibiotics, MRI was negative for osteo therefore could plan for discharge to a prison on oral antibiotics for 7 to 10 days to treat his Proteus and Providencia. In discussion with podiatry, there is no current plan for surgery and will need to follow-up at the wound care center on discharge. 04/08/2020: Doing much better today, culture data has finalized. He did have 1 out of 4 blood cultures with gram-positive contaminant however given as blood cultures have been obtained since the ninth without any further growth in either of the other 3 bottles I feel confident that this truly is just a contaminant. We will continue with Dionne to treat his infected foot for 10 more days as an outpatient p.o. and he will follow-up with podiatry as an outpatient as well. I discussed with him the risk and benefits of discharge and he expressed understanding and would like to be discharged today to the longterm facility. Inpatient E&M: [id number] Disch Hosp
--- NOTE | 2020-04-11 10:14 | CASEMGMT ---
Social Work Note SW received message from Lisha ([phone] ext. [phone]) at [facility] requesting update on pt's discharge plan. MIRIAM placed a call to Lisha and informed her that pt discharged to SNF Saturday. Tish Smith DAMAGE ADJUSTER, BASKET BRAIDER
== END 2020-04-08 14:39 | disposition skilled nursing facility (03) | DRG 571 ==
LOC: ED 15:13 → MS3 17:43
PROVIDERS: Internal Medicine; Nurse Practitioner Family; Physician Assistant; Emergency Provider Emergency Medicine; Visit Provider Family Medicine
DX: I89.0 Lymphedema, not elsewhere classified (principal); L03.115 Cellulitis of right lower limb; I50.32 Chronic diastolic (congestive) heart failure; L97.322 Non-pressure chronic ulcer of left ankle with fat layer exposed; L97.312 Non-pressure chronic ulcer of right ankle with fat layer exposed; B96.4 Proteus (mirabilis) (morganii) as the cause of diseases classified elsewhere; I11.0 Hypertensive heart disease with heart failure; M21.372 Foot drop, left foot; D64.9 Anemia, unspecified; I25.10 Atherosclerotic heart disease of native coronary artery without angina pectoris; I35.0 Nonrheumatic aortic (valve) stenosis; I25.2 Old myocardial infarction; E78.5 Hyperlipidemia, unspecified; E87.6 Hypokalemia; Z95.1 Presence of aortocoronary bypass graft; Z79.82 Long term (current) use of aspirin; Z79.899 Other long term (current) drug therapy; Z87.891 Personal history of nicotine dependence
CPT/HCPCS: 36415; 73610; 73630; 73723; 80048; 80202; 83540; 83550; 83735; 84100; 85025; 85027; 85652; 86140; 87040; 87070; 87075; 87077; 87186; 87205; 87635; 87640; 97110; 97162; 97166; 97530; 97535; 97802; 99285; A9575; J7040; J7050; A4216; J0696; J1940; J2916; U0002

== ENCOUNTER 2021-04-08 10:20 | Inpatient (IN) | payer OTHER, SELFPAY ==
[2021-04-08] VITALS (10 sets, daily range): BP systolic 100–129; BP diastolic 56–75; PULSE 78–84; RESP 16–18; TEMP 36.3–37.7; O2SAT 98–99; BMI 27.6; BMI 25.1
--- NOTE | 2021-04-08 10:31 | RAD_ITS ---
STUDY: X-RAY - RIGHT TIBIA AND FIBULA REASON FOR EXAM: Male, 76 years old. Swelling TECHNIQUE: 4 view(s) of the tibia and fibula were obtained. COMPARISON: None. FINDINGS: Normal visualized tibia. Normal visualized fibula. Diffuse soft tissue swelling. Vascular calcifications. Surgical clips. RAD/Tibia & Fibula 2 Views IMPRESSION: Diffuse soft tissue swelling may indicate cellulitis. No underlying acute osseous abnormality is identified. Electronically Signed: Jose Springer MD at 12:45 EST Tel , Service support ,
--- NOTE | 2021-04-08 10:31 | RAD_ITS ---
STUDY: X-RAY - RIGHT FOOT CLINICAL: Male, 76 years old. Swelling TECHNIQUE: 3 view(s) of the foot. COMPARISON: None. FINDINGS: Normal talus, calcaneus, and tarsal bones. Normal visualized subtalar, talonavicular, calcaneocuboid, tarsal and tarsometatarsal articulations. There is demineralization of the metatarsi. Normal metatarsophalangeal joint of the great toe. Normal tibial and fibular sesamoid bones. Normal interphalangeal joint of the great toe. Normal phalanges of the great toe. Normal second through fifth metatarsophalangeal joints. Normal interphalangeal joints. Demineralization of the phalanges of the lesser toes. There is severe soft tissue swelling. There is air in the soft tissues on the plantar aspect of the forefoot. RAD/Foot 2 Views IMPRESSION: Severe soft tissue swelling. Air in the soft tissues consistent with infection with gas-forming organisms. No osseous destruction seen. Electronically Signed: Jonathon Muhammad MD at 12:50 EST , Service support ,
--- NOTE | 2021-04-08 10:51 | RAD_ITS ---
STUDY: X-RAY - LEFT TIBIA AND FIBULA REASON FOR EXAM: Male, 76 years old. SWELLING TECHNIQUE: 2 view(s) of the tibia and fibula were obtained. COMPARISON: None. FINDINGS: Tibia and fibula are intact and located at the knee and ankle. There is diffuse soft tissue swelling with surgical clips in the distal medial lower leg. RAD/Tibia & Fibula 2 Views IMPRESSION: Normal tibia/fibula. Soft tissue swelling and prior surgery. Electronically Signed: Alesha Hernadez MD at 12:21 EST Tel , Service support ,
--- NOTE | 2021-04-08 10:51 | RAD_ITS ---
STUDY: X-RAY - LEFT FOOT CLINICAL: Male, 76 years old. SWELLING TECHNIQUE: 2 view(s) of the foot. COMPARISON: None. FINDINGS: Normal talus, calcaneus, and tarsal bones. Normal visualized subtalar, talonavicular, calcaneocuboid, tarsal and tarsometatarsal articulations. There is demineralization of the metatarsi. Normal metatarsophalangeal joint of the great toe. Normal tibial and fibular sesamoid bones. Normal interphalangeal joint of the great toe. Normal phalanges of the great toe. Normal second through fifth metatarsophalangeal joints. Normal interphalangeal joints. Demineralization of the phalanges of the lesser toes. There is severe soft tissue swelling. There is air in the soft tissues of the forefoot. RAD/Foot 2 Views IMPRESSION: Severe soft tissue swelling. Air in the soft tissues consistent with infection with gas-forming organisms. No osseous destruction seen. Electronically Signed: Jonathon Muhammad MD at 12:51 EST , Service support ,
--- NOTE | 2021-04-08 10:52 | RAD_ITS ---
STUDY: X-RAY CHEST REASON FOR EXAM: Male, 76 years old. Edema TECHNIQUE: Single frontal view of the chest. COMPARISON: None. FINDINGS: Median sternotomy wires. Mediastinal clips. The lungs are clear and expanded. There is no demonstrated pleural abnormality. Normal size heart. Normal mediastinum and maddie. Normal visualized pulmonary arteries. Normal visualized aortic arch and descending thoracic aorta. Normal visualized thoracic spine. Normal visualized ribs, clavicles, and shoulders. There is no demonstrated abnormality of the visualized soft tissue structures of the upper abdomen. RAD/Chest 1 View (Portable) IMPRESSION: Normal x-ray examination of the chest. Electronically Signed: Jose Springer MD at 12:47 EST Tel , Service support ,
--- NOTE | 2021-04-08 10:52 | EKG12_ITS ---
Test Reason : WOUND Blood Pressure : / mmHG Vent. Rate : 077 BPM Atrial Rate : 077 BPM P-R Int : 132 ms QRS Dur : 106 ms QT Int : 398 ms P-R-T Axes : 000 -40 015 degrees QTc Int : 450 ms Normal sinus rhythm Left axis deviation Nonspecific ST and T wave abnormality Abnormal ECG Confirmed by NILE LEUNG, AFIA ([id number]), film editor MAXIME RIVER ([id number]) on 04/10/2021 10:53:12 AM Referred By: HU Confirmed By:AFIA DOWD MD
--- NOTE | 2021-04-08 10:55 | ED.VIS.LOWEX ---
HPI History of Present Illness Chief Complaint: Wound Narrative Narrative: 76-year-old male presenting with lower extremity edema which is chronic. He states that he has this secondary to agent orange exposure when he was in [place]. Patient states that he had previously been admitted for lower extremity cellulitis in the past. He states currently he has no wound care follow-up and does not see anybody for his lower extremities. He has been caring for himself by cleaning his right leg every day and wrapping it in Javier wrap's. He does his left leg every other day. He states that he does wash the Javier wrap and then reapplies them. He states that he actually feels very well, and comments that he feels better than he usually does however he notes that he has seen some maggots from his lower extremities and believes it has to be the last 2 days but this occurred because he has not seen them when he cleans his legs. Patient has not had a fever, chills. He denies nausea or vomiting. Patient states that he has been able to ambulate at home with a cane. 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 myocardial infarction Ulcer of left lower extremity with fat layer exposed Ulcer of right lower extremity with fat layer exposed Home Medications ascorbic acid (vitamin C) 500 mg capsule 500 mg PO BID ea 06/04/17 [History Last Taken 04/04/20] Aspirin [Aspirin Ec] 81 mg PO DAILY@0800 04/04/20 [History Last Taken 04/02/20] magnesium oxide 400 mg PO DAILY 04/04/20 [History Last Taken 04/04/20] acetaminophen 650 mg PO Q6H PRN PRN tab 04/08/20 [Rx Last Taken Unknown] polyethylene glycol 3350 17 gm PO DAILY packet 04/08/20 [Rx Last Taken Unknown] polysaccharide iron complex 150 mg PO DAILYCM cap 04/08/20 [Rx Last Taken Unknown] sennosides-docusate sodium 1 tab PO BID tab 04/08/20 [Rx Last Taken Unknown] sodium hypochlorite 1 applic TOPICAL DAILY bottle 04/08/20 [Rx Last Taken Unknown] metoprolol tartrate 25 mg tablet 25 mg PO BID #180 tab 06/29/20 [Rx Last Taken Unknown] furosemide 40 mg tablet 40 mg PO BID #180 tab 08/01/20 [Rx Last Taken Unknown] simvastatin 80 mg tablet 80 mg PO QPM #90 tab 08/01/20 [Rx Last Taken Unknown] potassium chloride 20 mEq tablet,extended release(part/cryst) 20 meq PO BID #90 tab 09/23/20 [Rx Last Taken Unknown] Allergy/AdvReac Type Severity Reaction Status Date / Time hydrocodone [From Vicodin] AdvReac Intermediate Vomiting Verified 04/08/21 10:25 morphine AdvReac Intermediate Vomiting Verified 04/08/21 10:25 Family History Father , age 62 CAD (coronary artery disease) Myocardial infarction Hx of CABG Mother CAD (coronary artery disease) Hx of CABG Alzheimer's dementia Surgical History H/O coronary artery bypass surgery (03/26/97) Social History Smoking Status: Former smoker pack-years: 35 ROS ROS ED Constitutional Constitutional ED: Denies chills or fever(s) Eyes Eyes: Denies blurry vision or change in vision ENT ENT ED: Denies rhinorrhea or sore throat Cardiovascular Cardiovascular: Denies chest pain or palpitations Respiratory/Chest Respiratory/Chest: Denies cough or dyspnea Gastrointestinal Gastrointestinal: Denies abdominal pain, nausea or vomiting Genitourinary Genitourinary ED: Denies dysuria or hematuria Integumentary Reports other Details: Lower extremity edema with redness and maggots coming from his skin. Neurologic Neurologic: Denies headache(s) or paresthesias EXAM Physical Exam Const Vital Signs: 04/08/21 10:21 04/08/21 10:23 04/08/21 11:16 Temperature 97.4 F L 97.4 F L Temperature Source Oral Oral Pulse Rate 81 81 84 Respiratory Rate 16 16 16 Blood Pressure 117/71 117/71 129/75 H Blood Pressure Mean 86 86 93 Pulse Ox 99 99 99 Oxygen Delivery Method Room Air Room Air 04/08/21 11:38 Temperature 97.4 F L Temperature Source Oral Pulse Rate 84 Respiratory Rate 16 Blood Pressure 129/75 H Blood Pressure Mean 93 Pulse Ox 99 Oxygen Delivery Method Room Air Positive well nourished General Appearance ED: NAD HEENT normocephalic and atraumatic Neck full ROM Chest Wall inspection of chest normal and palpation of chest normal Resp normal respiratory effort and clear to auscultation bilaterally Extremity Extremity Narrative: Bilateral lower extremity edema which is pitting. When the dressings are taken down his feet have very deep indentions and then from the Javier wrap being so tight. The tissue from the dorsal surface of the feet has been forced distally over the toes and from the dorsal aspect you are not able to see his toes. On the plantar surface of the bilateral feet the bottom of the toes are visualized. There are some toenails which have been displaced and are embedded in the skin. There are 100s of maggots on both legs which seem to be coming out of tissue creases and possibly holes. There is a piece of embedded Javier wrap in the right heel which was unable to be removed. There is some bleeding from the site and there is bleeding at the the proximal foot on the left as well. This is very mild. Psych mental status grossly normal Skin Skin Narrative: As described above MDM MDM MDM Narrative Medical decision making narrative: Patient presenting with bilateral lower extremity edema with maggots and slight erythema to the bilateral lower extremities. There is some distortion of the anatomy due to the edema and the tight bandages. There is some bandage that is embedded into the right heel that is not able to be removed. Patient states he feels well otherwise. Patient has been keeping his wounds wrapped in Javier wraps which he washes and then puts back on himself. Patient's EKG performed on arrival showed a sinus rhythm of 74 bpm without sign of ischemic change. Chest x-ray on my interpretation shows no acute cardiopulmonary process. BC shows no leukocytosis and his white blood cell count of 6.2. Hemoglobin 9.5 with last comparison a year ago. It has not significantly dropped. Patient's creatinine is 1.54. Electrolytes appear to be normal. CRP is 17.6. Sed rate is 53. Chest x-ray my interpretation shows no acute cardiopulmonary process and the radiologist does agree. The bilateral tibial x-rays appear to show soft tissue swelling on my interpretation however there is no acute bony abnormality. On my interpretation of the bilateral foot x-rays it does look like there is subcutaneous gas however without the ability to physically examine the feet the radiologist reads this as gas-forming organisms however I do believe this is the redundancy of the skin and the area that is between the soft tissues on feet that is causing the solution. His feet are not having any crepitance and there is not any significant erythema. Patient was discussed with Dr. Charlton who came and physically examined the patient himself. He recommended twice daily cleaning of the feet. I did give him vancomycin and Zosyn. The patient will be admitted to the hospitalist. Impression: 1. Bilateral lower extremity edema 2. Bilateral lower extremity cellulitis Lab Data Attestation: I reviewed the patient's lab results. Labs: Laboratory Results - last 24 hr 04/08/21 04/08/21 04/08/21 10:50 10:50 10:50 WBC 6.2 RBC 3.47 L Hgb 9.5 L Hct 30.4 L MCV 87.6 MCH 27.4 MCHC 31.3 L RDW Std Deviation 50.5 H RDW Coeff of Allegra 15.9 H Plt Count 312 MPV 8.9 Immature Gran % (Auto) 0.300 Neut % (Auto) 62.5 Lymph % (Auto) 23.5 [place] % (Auto) 10.0 Eos % (Auto) 3.1 Baso % (Auto) 0.6 Absolute Neuts (auto) 3.9 Absolute Lymphs (auto) 1.46 Nucleated RBC % 0 ESR 53 H PT 13.8 INR 1.1 Sodium 137 Potassium 3.4 L Chloride 108 H Carbon Dioxide 23.0 Anion Gap 6 BUN 29 H Creatinine 1.54 H Estim Creat Clear Calc 49.54 Est GFR (MDRD) Af Amer 57 L Est GFR (MDRD) Non-Af 47 L BUN/Creatinine Ratio 18.8 Glucose 102 Lactic Acid Calcium 8.6 Total Bilirubin 0.40 AST 13 L ALT 17 Alkaline Phosphatase 98 C-React Prot Ext Range 17.60 H B-Natriuretic Peptide Total Protein 6.9 Albumin 2.4 L Globulin 4.5 H Albumin/Globulin Ratio 0.5 L 04/08/21 04/08/21 10:50 10:50 WBC RBC Hgb Hct MCV MCH MCHC RDW Std Deviation RDW Coeff of Allegra Plt Count MPV Immature Gran % (Auto) Neut % (Auto) Lymph % (Auto) [place] % (Auto) Eos % (Auto) Baso % (Auto) Absolute Neuts (auto) Absolute Lymphs (auto) Nucleated RBC % ESR PT INR Sodium Potassium Chloride Carbon Dioxide Anion Gap BUN Creatinine Estim Creat Clear Calc Est GFR (MDRD) Af Amer Est GFR (MDRD) Non-Af BUN/Creatinine Ratio Glucose Lactic Acid 1.6 Calcium Total Bilirubin AST ALT Alkaline Phosphatase C-React Prot Ext Range B-Natriuretic Peptide 52.7 Total Protein Albumin Globulin Albumin/Globulin Ratio Radiography Diagnostic Testing: Clinical Impression(s) from Imaging Studies Foot X-Ray 04/08/21 10:31 IMPRESSION: Severe soft tissue swelling. Air in the soft tissues consistent with infection with gas-forming organisms. No osseous destruction seen. Electronically Signed: Jonathon Muhammad MD at 12:50 EST , Service support , Tibia/Fibula X-Ray 04/08/21 10:31 IMPRESSION: Diffuse soft tissue swelling may indicate cellulitis. No underlying acute osseous abnormality is identified. Electronically Signed: Jose Springer MD at 12:45 EST Tel , Service support , Foot X-Ray 04/08/21 10:51 IMPRESSION: Severe soft tissue swelling. Air in the soft tissues consistent with infection with gas-forming organisms. No osseous destruction seen. Electronically Signed: Jonathon Muhammad MD at 12:51 EST , Service support , Tibia/Fibula X-Ray 04/08/21 10:51 IMPRESSION: Normal tibia/fibula. Soft tissue swelling and prior surgery. Electronically Signed: Alesha Hernadez MD at 12:21 EST Tel , Service support , Chest X-Ray 04/08/21 10:52 IMPRESSION: Normal x-ray examination of the chest. Electronically Signed: Jose Springer MD at 12:47 EST Tel , Service support , Discharge Plan Triage Chief Complaint: Wound ED Provider: Ari Treviño Dx/Rx/DC Orders Primary Care Provider: [place], [place]
--- NOTE | 2021-04-08 10:57 | NURSING ---
LEFT A MESSAGE WITH [facility] THAT PT NEEDS ADMISSION.
[2021-04-08] MEDS: Piperacil/Tazobactam 3.375 GM/50 ML ML IV (11:11)
[2021-04-08 11:12] LABS: Absolute Lymphocyte Count 1.46 X10^3/uL (0.83-4.51); Absolute Neutrophil Count 3.9 X10^3/uL (2.0-7.7); Basophil# 0.04 X10^3/uL; Basophil% 0.6 % (0-1); Eosinophil# 0.19 X10^3/uL; Eosinophils% 3.1 % (0-5); Hematocrit 30.4 % (40-54); Hemoglobin 9.5 g/dL (13.0-16.5); Lymphocyte # 1.46 X10^3/ul (0.83-4.51); Lymphocyte % 23.5 % (19-41); Mean Corp Hgb Conc 31.3 g/dL (32-36); Mean Corpuscular Hgb 27.4 pg (27.0-32.0); Mean Corpuscular Volume 87.6 fL (80-94); Mean Platelet Vol. 8.9 fl (6.2-12.0); Monocyte# 0.62 X10^3/uL; NRBC Flagged by Analyzer 0 % (0-5); Neutrophil # 3.88 X10^3/uL (2.7-7.7); Neutrophil % 62.5 % (47-70); Platelet Count 312 K/mm3 (150-450); RBC Distribution Width CV 15.9 % (11.6-14.6); RBC Distribution Width SD 50.5 fl (35.1-43.9); Red Blood Count 3.47 M/mm3 (4.6-6.2); White Blood Count 6.2 K/mm3 (4.4-11.0)
[2021-04-08 11:19] LABS: Erythrocyte Sedimentation Rate 53 mm/hr (0-20)
[2021-04-08 11:22] LABS: International Normalized Ratio 1.1; Prothrombin Time (Protime)PT. 13.8 SECONDS (11.7-14.9)
[2021-04-08 11:31] LABS: ALB/GLOB Ratio 0.5 RATIO (0.9-2.4); AST(SGOT) 13 U/L (15-37); Alanine Aminotransfer ALT/SGPT 17 U/L (16-61); Albumin, Serum 2.4 g/dL (3.2-5.0); Alkaline Phosphatase 98 U/L (45-117); Anion Gap 6 (5-15); BUN 29 mg/dL (7-18); BUN/Creat Ratio 18.8 RATIO (10-20); Calcium,Total 8.6 mg/dL (8.5-10.1); Chloride 108 mmol/L (98-107); Creatinine, Serum 1.54 mg/dL (0.70-1.30); EST Glomerular Filtration Rate 47 mL/min (>60); Est Glom Filt Rate - Afr Amer 57 mL/min (>60); Estimated Creatinine Clearance 49.54 ml/min; Globulin 4.5 g/dL (2.2-4.2); Glucose 102 mg/dL (74-106); Potassium 3.4 mmol/L (3.5-5.1); Protein, Total 6.9 g/dL (6.4-8.2); Sodium Level 137 mmol/L (136-145)
[2021-04-08 11:36] LABS: BNP,B-Type NATRIURETIC PEPTIDE 52.7 pg/mL (0-100); Lactic Acid 1.6 mmol/L (0.4-1.9)
--- NOTE | 2021-04-08 11:53 | PCM.CONS.GEN ---
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 There were a significant amounts of maggots to bilateral foot/ankle and distal legs. There are noted to be chronic superficial wounds to the foot and ankle bilateral - there is no probe to bone or deeper tissue, there is no visible abscess, no fluctuance or crepitus noted. Labs and xrays have been ordered. Bilateral foot/heel wound cultures have been obtained and results pending. The patient is going to be started on board spectrum antibiotics. Bilateral lower extremities (foot/ankle/leg) were cleansed with hydrogen peroxide to address the maggots. Then betadine scrub was performed to the foot/ankle/leg - a betadine wet to dry gauze dressing with overlying gauze, kerlix and neal dressing was applied. Patient will be admitted for further care and management. He does not appear to be able to care for himself properly at home, he would benefit from senior care facility placement with transition into a comprehensive home health or senior care facility along with a registration specialist follow-up in outpatient setting upon discharge. He would also benefit from lymphedema clinic in the future. Discussed case with ER physician Dr. Treviño, and hospitalist Dr. Luong Podiatry will continue to follow HPI Consult Data Date of Consult: 04/08/21 HPI Narrative Reason for Consultation: Wounds, lymphedema to lower extremity bilateral HPI Narrative: SCOTT WIGGINS, is a 76 M with multiple medical problems who presents severe lymphedema to bilateral lower extremity, there is significant oder and a lot of maggots. He relates he tries to change the dressings himself at home. His lymphedema is a chronic issue, but appears he is not able to properly care for himself. Patient's son made him come to the ER, patient relates he can be hard headed. Patient relates he has very little to no pain. He relates be ambulates with a cane. I was called by the ER, and the plan is for patient to be admitted. He is afebrile. 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 Bradycardia Cellulitis and abscess of lower extremity (12/2018) Essential (primary) hypertension History of left heart catheterization Hyperlipidemia Lymphedema of lower extremity Nonrheumatic aortic (valve) stenosis Old inferior wall myocardial infarction Ulcer of left lower extremity with fat layer exposed Ulcer of right lower extremity with fat layer exposed Home Medications ascorbic acid (vitamin C) 500 mg capsule 500 mg PO BID ea 06/04/17 [History Last Taken 04/04/20] Aspirin [Aspirin Ec] 81 mg PO DAILY@0800 04/04/20 [History Last Taken 04/02/20] magnesium oxide 400 mg PO DAILY 04/04/20 [History Last Taken 04/04/20] acetaminophen 650 mg PO Q6H PRN PRN tab 04/08/20 [Rx Last Taken Unknown] polyethylene glycol 3350 17 gm PO DAILY packet 04/08/20 [Rx Last Taken Unknown] polysaccharide iron complex 150 mg PO DAILYCM cap 04/08/20 [Rx Last Taken Unknown] sennosides-docusate sodium 1 tab PO BID tab 04/08/20 [Rx Last Taken Unknown] sodium hypochlorite 1 applic TOPICAL DAILY bottle 04/08/20 [Rx Last Taken Unknown] metoprolol tartrate 25 mg tablet 25 mg PO BID #180 tab 06/29/20 [Rx Last Taken Unknown] furosemide 40 mg tablet 40 mg PO BID #180 tab 08/01/20 [Rx Last Taken Unknown] simvastatin 80 mg tablet 80 mg PO QPM #90 tab 08/01/20 [Rx Last Taken Unknown] potassium chloride 20 mEq tablet,extended release(part/cryst) 20 meq PO BID #90 tab 09/23/20 [Rx Last Taken Unknown] Allergy/AdvReac Type Severity Reaction Status Date / Time hydrocodone [From Vicodin] AdvReac Intermediate Vomiting Verified 04/08/21 10:25 morphine AdvReac Intermediate Vomiting Verified 04/08/21 10:25 Family History Father , age 62 CAD (coronary artery disease) Myocardial infarction Hx of CABG Mother CAD (coronary artery disease) Hx of CABG Alzheimer's dementia Surgical History H/O coronary artery bypass surgery (03/26/97) Social History Smoking Status: Former smoker pack-years: 35 Physical Exam Const alert, oriented x3 and no apparent distress Extremity Extremity Narrative: Patient has ulcers to the anterior aspect of the ankle bilateral and to heels bilaterally with fat layer exposed, there is no exposed bone, no tracking, no undermining in these areas, there is no fluctuance, no crepitus, no visible abscess present. There are hairs noted in the wounds. There was noted to be significant amount of maggots, the bases of the wounds are a mixture of fibrogranular tissue, there is no purulence, but there is significant malodor, there is some erythema around the wounds, there is significant lower extremity lymphedema present. No evidence of acute ischemia bilateral foot/ankle or leg. CFT < 2 seconds to all toes. Toenails are long, and dystrophic bilateral. Significant lymphedema with a good amount of extra tissue noted to the forefoot covering many of the toes creating for many creases of skin with maceration noted in these skin creases, lichenification of skin noted c/w chronic lymphedema bilateral foot, ankle and leg. Lab / Micro Data Result Diagrams: 04/08/21 10:50 04/08/21 10:50 Labs: Laboratory Results - last 24 hr 04/08/21 10:50: WBC 6.2, RBC 3.47 L, Hgb 9.5 L, Hct 30.4 L, MCV 87.6, MCH 27.4, MCHC 31.3 L, RDW Std Deviation 50.5 H, RDW Coeff of Allegra 15.9 H, Plt Count 312, MPV 8.9, Immature Gran % (Auto) 0.300, Neut % (Auto) 62.5, Lymph % (Auto) 23.5, [place] % (Auto) 10.0, Eos % (Auto) 3.1, Baso % (Auto) 0.6, Absolute Neuts (auto) 3.9, Absolute Lymphs (auto) 1.46, Nucleated RBC % 0, ESR 53 H 04/08/21 10:50: Sodium 137, Potassium 3.4 L, Chloride 108 H, Carbon Dioxide 23.0, Anion Gap 6, BUN 29 H, Creatinine 1.54 H, Estim Creat Clear Calc 49.54, Est GFR (MDRD) Af Amer 57 L, Est GFR (MDRD) Non-Af 47 L, BUN/Creatinine Ratio 18.8, Glucose 102, Calcium 8.6, Total Bilirubin 0.40, AST 13 L, ALT 17, Alkaline Phosphatase 98, C-React Prot Ext Range 17.60 H, Total Protein 6.9, Albumin 2.4 L, Globulin 4.5 H, Albumin/Globulin Ratio 0.5 L 04/08/21 10:50: PT 13.8, INR 1.1 04/08/21 10:50: Lactic Acid 1.6 04/08/21 10:50: B-Natriuretic Peptide 52.7
--- NOTE | 2021-04-08 13:43 | CM.ED ---
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 MIRIAM called Andrea at [facility] and left voice mail that patient was admitted to [facility] with wound. MIRIAM advised that Tish is the assigned social work job titles. Plan: To be determined Jeanette BRAVO
--- NOTE | 2021-04-08 14:05 | HP.PCM.HOS_ITS ---
HPI - General General Date of Admission: 04/08/21 Date of Service: 04/08/21 Chief Complaint: Lower extremity wounds. HPI Narrative SCOTT WIGGINS, is a 76 M who presented to the emergency department at [facility] on 04/08/2021 with a chief complaint of bilateral lower extremity wounds. 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 He has been admitted for lower extremity cellulitis in the past and his most recent admission here was approximately 1 year ago when he was admitted for similar issue.(Of note Adult Protective Services was consulted at that time) on admission he reported that he currently has no foot wound follow-up and does not see anybody for his lower extremities and has continued caring for himself at home by cleaning his right leg every day and wrapping it in an Javier bandage. He states he does the contralateral limb every other day. He reported that he washes the Javier wraps and then reapply them. He has no subjective complaints other than the wounds. He noted that he has seen some maggots crawling from his lower extremities and believes that it has only been the last 2 days that he had noted them. He reported he did not see any when he cleans his legs. He reported no fever or chills and denied nausea or vomiting. He reports that he is able to ambulate with a cane at home. Upon presentation to the emergency department he was noted to have bilateral lower extremity edema that was pitting in nature. His dressings were taken down and noted to be extremely black. The dressings were so tight that he had deep indentations from the Javier bandages. The tissue on the dorsum of the foot had been forced over the toes to the extent that you could not see his toes when visualizing them. Some of his toenails have been displaced and were embedded into the skin. On exam in the emergency department there were a hundreds of maggots on both legs which appeared to be coming out of the tissue creases. The Javier bandage at the right heel was so tightly wrapped that it was unable to be completely removed and there was some bleeding at that site. The bleeding was mild. He was evaluated by podiatry in the emergency department and upon discussion with the bagger meat no crepitance was noted and there was not significant erythema. Podiatry does not currently feel he will need any surgical intervention but needs extensive cleaning of his feet at least twice a day. He was given vancomycin and Zosyn in the emergency department and this will be continued on admission. His vital signs were unremarkable. His CBC shows a mild chronic stable anemia and a normal white count with no left shift. His sed rate is elevated at fifty-three and his CRP was elevated at 17.6. His coags are normal. His chemistry panel showed mild hypokalemia with a potassium of 3.4 a mild BUN elevation which appears to be at baseline and a mild serum creatinine elevation which is slightly above baseline at 1.54. Serum creatinine baseline appears to be 1.1-1.3. His lactic acid is 1.6. His LFTs are unremarkable. X-rays of bilateral lower extremities show severe soft tissue swelling with air in the soft tissues consistent with infection and gas-forming organisms bilaterally. Bilateral tib-fib x-rays were unremarkable other than soft tissue swelling. He will be admitted to the medical floor and placed on IV antibiotics including vancomycin, Zosyn, and clindamycin with concerning bilateral lower extremity gas-forming organisms on his x-ray and a CT of his feet will be performed. 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 Bradycardia Cellulitis and abscess of lower extremity (12/2018) Essential (primary) hypertension History of left heart catheterization Hyperlipidemia Lymphedema of lower extremity Nonrheumatic aortic (valve) stenosis Old inferior wall myocardial infarction Ulcer of left lower extremity with fat layer exposed Ulcer of right lower extremity with fat layer exposed Home Medications ascorbic acid (vitamin C) 500 mg capsule 500 mg PO BID ea 06/04/17 [History Last Taken 04/04/20] Aspirin [Aspirin Ec] 81 mg PO DAILY@0800 04/04/20 [History Last Taken 04/02/20] magnesium oxide 400 mg PO DAILY 04/04/20 [History Last Taken 04/04/20] acetaminophen 650 mg PO Q6H PRN PRN tab 04/08/20 [Rx Last Taken Unknown] polyethylene glycol 3350 17 gm PO DAILY packet 04/08/20 [Rx Last Taken Unknown] polysaccharide iron complex 150 mg PO DAILYCM cap 04/08/20 [Rx Last Taken Unknown] sennosides-docusate sodium 1 tab PO BID tab 04/08/20 [Rx Last Taken Unknown] sodium hypochlorite 1 applic TOPICAL DAILY bottle 04/08/20 [Rx Last Taken Unknown] metoprolol tartrate 25 mg tablet 25 mg PO BID #180 tab 06/29/20 [Rx Last Taken Unknown] furosemide 40 mg tablet 40 mg PO BID #180 tab 08/01/20 [Rx Last Taken Unknown] simvastatin 80 mg tablet 80 mg PO QPM #90 tab 08/01/20 [Rx Last Taken Unknown] potassium chloride 20 mEq tablet,extended release(part/cryst) 20 meq PO BID #90 tab 09/23/20 [Rx Last Taken Unknown] Allergy/AdvReac Type Severity Reaction Status Date / Time hydrocodone [From Vicodin] AdvReac Intermediate Vomiting Verified 04/08/21 10:25 morphine AdvReac Intermediate Vomiting Verified 04/08/21 10:25 Family History Father , age 62 CAD (coronary artery disease) Myocardial infarction Hx of CABG Mother CAD (coronary artery disease) Hx of CABG Alzheimer's dementia Surgical History H/O coronary artery bypass surgery (03/26/97) Social History (Updated 04/08/21 @ 14:[address] Karlene Luong DO) Smoking Status: Former smoker pack-years: 35 alcohol intake: former substance use type: does not use ROS Constitutional Constitutional: Denies anorexia, change in weight, chills, fatigue, fever(s), malaise, night sweats, weakness or other Eyes Eyes: Denies blurry vision, change in eye color, change in vision, discharge from eye(s), double vision, erythema, eye pain, loss of vision or other ENT HEENT: Denies abnormal hearing, dysphagia, ear pain, epistaxis, headache(s), hearing loss, nasal congestion, nasal discharge, post nasal drip, sinus pressure, sore throat or other Cardiovascular Cardiovascular: Denies chest pain, claudication, dyspnea on exertion, edema, lightheadedness, orthopnea, palpitations, paroxysmal nocturnal dyspnea, rapid heart rate, syncope or other Respiratory/Chest Respiratory/Chest: Denies cough, dyspnea, excessive phlegm production, hemoptysis, productive cough, shortness of breath at rest, shortness of breath with exertion, wheezing or other Gastrointestinal Gastrointestinal: Denies abdominal pain, coffee ground emesis, constipation, diarrhea, dyspepsia, hematemesis, hematochezia, loose stools, melena, nausea, vomiting or other Genitourinary Genitourinary: Denies burning urination, difficulty urinating, dysuria, hematuria, nocturia, urinary frequency, urinary hesitancy, urinary incontinence, urinary urgency or other Musculoskeletal Musculoskeletal: Denies arthralgias, back pain, joint pain, joint stiffness, joint swelling, myalgias, neck pain or other Neurologic Neurologic: Denies abnormal gait, abnormal speech, confusion, disequilibrium, dizziness, focal weakness, headache(s), numbness, paresthesias, seizure-like activity, seizures, syncope, tingling, tremor(s) or other Psychiatric Psychiatric: Denies anxiety, depression, homicidal ideation, suicidal ideation or other Endocrine Endocrinology: Denies change in body appearance, cold intolerance, excessive sweating, heat intolerance, polydipsia, polyuria or other Hematologic/Lymphatic Hematologic/Lymphatic: Denies anemia, easy bleeding, easy bruising, lymphadenopathy or other Allergic/Immunologic Allergic/Immunologic: Denies rhinitis, hives, eczemia, asthma or other Vital Signs Vital Signs Vital Signs: 04/08/21 10:21 04/08/21 10:23 04/08/21 11:16 Temperature 97.4 F L 97.4 F L Temperature Source Oral Oral Pulse Rate 81 81 84 Respiratory Rate 16 16 16 Blood Pressure 117/71 117/71 129/75 H Blood Pressure Mean 86 86 93 Pulse Ox 99 99 99 Oxygen Delivery Method Room Air Room Air 04/08/21 11:38 04/08/21 12:11 Temperature 97.4 F L 97.4 F L Temperature Source Oral Temporal Pulse Rate 84 82 Respiratory Rate 16 16 Blood Pressure 129/75 H 129/75 H Blood Pressure Mean 93 93 Pulse Ox 99 99 Oxygen Delivery Method Room Air Room Air Weight Weight: 100.2 kg Body Mass Index (BMI) 27.6 Physical Exam Const alert and oriented x3 General Appearance: cooperative, comfortable and disheveled Orientation / Consciousness: awake Exam Limitations: no limitations HEENT normocephalic and head/scalp atraumatic HEENT Narrative: Dentures in place, Mallampati three, no thrush, hair is all matted down and has the appearance of a helmet, no lice noted at this time although with extreme matting it is difficult to tell Eyes PERRL and EOMs intact bilaterally Eyes Narrative: Mild pill conjunctiva, no scleral icterus Neck no lymphadenopathy, supple, no JVD and no carotid bruits Neck Narrative: Trachea midline, no thyroid enlargement Resp normal respiratory effort, no retractions, no use of accessory muscles and clear to auscultation bilaterally Resp Narrative: Diffusely diminished but no adventitious sounds Auscultation: Negative for crackles, rales, rhonchi or wheezes Cardio regular rate, regular rhythm, S1 normal heart sound, S2 normal heart sound, no murmurs, no rub, no gallops, no clicks and no JVD GI normal to inspection, nondistended, normoactive bowel sounds, soft to palpation, non-tender and non-distended Extremity Extremity Narrative: Severe bilateral lower extremity distal lymphedema, dressings are in place at this time, unable to palpate for pulses but cap refill is good, no cyanosis or clubbing Skin Skin Narrative: Severe maceration and tissue deformation of bilateral lower extremities with multiple folds but no deep wounds noted on exam however exam is difficult, maggots crawling out of the wound in the emergency Neuro oriented x3, CN's II-XII intact bilaterally, moves all extremities and no focal motor deficits Sensorium / Orientation: awake and alert Speech: speech normal Psych affect normal Results Lab / Micro Data Attestation: I reviewed the patient's lab results. Result Diagrams: 04/08/21 10:50 04/08/21 10:50 Labs: Laboratory Results - last 24 hr 04/08/21 10:50: WBC 6.2, RBC 3.47 L, Hgb 9.5 L, Hct 30.4 L, MCV 87.6, MCH 27.4, MCHC 31.3 L, RDW Std Deviation 50.5 H, RDW Coeff of Allegra 15.9 H, Plt Count 312, MPV 8.9, Immature Gran % (Auto) 0.300, Neut % (Auto) 62.5, Lymph % (Auto) 23.5, [place] % (Auto) 10.0, Eos % (Auto) 3.1, Baso % (Auto) 0.6, Absolute Neuts (auto) 3.9, Absolute Lymphs (auto) 1.46, Nucleated RBC % 0, ESR 53 H 04/08/21 10:50: Sodium 137, Potassium 3.4 L, Chloride 108 H, Carbon Dioxide 23.0, Anion Gap 6, BUN 29 H, Creatinine 1.54 H, Estim Creat Clear Calc 49.54, Est GFR (MDRD) Af Amer 57 L, Est GFR (MDRD) Non-Af 47 L, BUN/Creatinine Ratio 18.8, Glucose 102, Calcium 8.6, Total Bilirubin 0.40, AST 13 L, ALT 17, Alkaline Phosphatase 98, C-React Prot Ext Range 17.60 H, Total Protein 6.9, Albumin 2.4 L , Globulin 4.5 H, Albumin/Globulin Ratio 0.5 L 04/08/21 10:50: PT 13.8, INR 1.1 04/08/21 10:50: Lactic Acid 1.6 04/08/21 10:50: B-Natriuretic Peptide 52.7 Micro: Microbiology 04/08/21 10:56 Wound Drainage - Heel, Left Gram Stain - Final 04/08/21 10:56 Wound Drainage - Heel Right Gram Stain - Final Radiology Impression Foot X-Ray 04/08/21 10:31 IMPRESSION: Severe soft tissue swelling. Air in the soft tissues consistent with infection with gas-forming organisms. No osseous destruction seen. Electronically Signed: Jonathon Muhammad MD at 12:50 EST , Service support , Tibia/Fibula X-Ray 04/08/21 10:31 IMPRESSION: Diffuse soft tissue swelling may indicate cellulitis. No underlying acute osseous abnormality is identified. Electronically Signed: Jose Springer MD at 12:45 EST Tel , Service support , Foot X-Ray 04/08/21 10:51 IMPRESSION: Severe soft tissue swelling. Air in the soft tissues consistent with infection with gas-forming organisms. No osseous destruction seen. Electronically Signed: Jonathon Muhammad MD at 12:51 EST , Service support , Tibia/Fibula X-Ray 04/08/21 10:51 IMPRESSION: Normal tibia/fibula. Soft tissue swelling and prior surgery. Electronically Signed: Alesha Hernadez MD at 12:21 EST Tel , Service support , Chest X-Ray 04/08/21 10:52 IMPRESSION: Normal x-ray examination of the chest. Electronically Signed: Jose Springer MD at 12:47 EST Tel , Service support , Assessment & Plan Assessment/Plan (1) Cellulitis of left lower limb: (2) Lymphedema of right lower extremity: (3) Lymphedema of left lower extremity: PLAN: Bilateral lower extremity cellulitis/lymphedema -Lymphedema is chronic and related to agent orange exposure in [place] -Dressings were unclean and a hundreds of maggots came pouring out of the underneath the dressings when removed in the emergency department -Tissue smells as if it is rotting -ESR and CRP are elevated -Bilateral foot x-rays show air in the soft tissues consistent with infection with gas-forming organisms -CT of bilateral feet are pending -Continue vancomycin and Zosyn and add clindamycin given findings on x-ray -Wound care consulted -Podiatry consulted Adult failure to thrive -Patient is insistent that he is able to take care of himself but upon examination he is very unclean, his hair is matted, his skin is dirty, he has significant dirt underneath his fingernails and with his presentation of his lower extremity wounds it is my opinion that he is not able to take care of himself at this time -It appears APS was consulted at his last admission -Reconsult to social work for further APS involvement -Patient may need guardianship -Recommend discharge to facility and not home -PT/OT consultations Chronic normocytic anemia -Continue home iron supplementation -Anticipate this is related to anemia of chronic disease -We will obtain iron studies -Hemoglobin is currently relatively stable Hypokalemia -This must be a chronic issue as patient is on chronic supplementation at home -We will give an extra 40 mEq here and continue home dosing -Repeat BMP in a.m. CKD stage IIIa -Serum creatinine is just mildly elevated from baseline at 1.1-1.3 -Current serum creatinine is 1.54 -Continue to follow renal function slowly and avoid nephrotoxins as able -We will continue home Lasix at this time Compensated HFpEF-diastolic -Home Chronic constipation -Continue home MiraLAX and senna Hyperlipidemia -Continue on some statin History of CAD status post coronary artery bypass graft -Patient had CABG x6 in the ninety-seven -BNP is normal and patient is asymptomatic at this time -Continue home medications DVT prophylaxis -Lovenox daily 40 mg CODE STATUS -Full code as per discussion the emergency department with the patient Charges/Coding Visit Charges Inpatient E&M: 66192 Init Hosp L3
--- NOTE | 2021-04-08 14:13 | CT_ITS ---
STUDY: CTA OF THE ABDOMINAL AORTA AND BILATERAL LOWER EXTREMITIES REASON FOR EXAM: Male, 76 years old. infection -- B Feet RADIATION DOSAGE (If Supplied By Facility): CTDIvol = ( 8.34 ) mGy, DLP = ( 1220.66 ) mGycm TECHNIQUE: Axial CT angiography multi-detector data acquisition was obtained from the diaphragmatic hiatus to the feet following intravenous administration of IV 100mL Isovue-370. Axial images and MIP images were reconstructed from the axial data set. Post-processing of the angiographic images was performed, with multiplanar reformation and 3D reconstruction. Individualized dose optimization techniques were used for this CT. TECHNICAL QUALITY: Good COMPARISON: None. Descriptors of Narrowing: None (0%) Mild (< 50%) Moderate (50-70%) Severe (70-90%) Subtotal/Total Occlusion (90-100%) Non-Evaluable (technically non-diagnostic FINDINGS: CTA abdomen, pelvis, and lower extremity runoff: Abdominal aorta: Scattered calcified lesions are present without aneurysmal dilatation or dissection. Celiac and superior mesenteric arteries: Ostial calcifications are present without evidence of stenosis or occlusion. Inferior mesenteric artery: No demonstrated narrowing. Right renal artery(arteries): Moderate ostial calcifications in proximal RIGHT renal artery calcifications. Mild narrowing suspected. Left renal artery(arteries): Bulky calcifications involving the ostium and proximal LEFT renal artery. Current exam does not allow for adequate quantification for Right common iliac artery: Diffuse calcifications without stenosis. Right external iliac artery: Diffuse calcifications without stenosis. Right internal iliac artery: Moderate extensive calcifications without nasra stenosis. Left common iliac artery: Diffuse calcifications without stenosis. Left external iliac artery: Diffuse calcifications without stenosis. Left internal iliac artery: Moderate to extensive calcifications without nasra stenosis. RIGHT LOWER EXTREMITY Right common femoral artery: No demonstrated narrowing. Diffuse calcifications are noted. Right profundus femoris: No demonstrated narrowing. Diffuse calcifications are present. Right superficial femoral: No demonstrated narrowing. Diffuse calcifications are present. Right popliteal artery: Moderate soft and calcified plaque present. No stenosis noted. Right tibioperoneal trunk: Soft and calcified plaque noted at, findings consistent with a mild (less than 50%) narrowing noted. Right anterior tibial artery: Multiple coarse and tubular calcifications throughout the TOMASZ, however contrast is noted within the TOMASZ to the level of the foot without occlusion. Multilevel narrowing is noted however. Narrowing is estimated at less than 50% at multiple levels. Right posterior tibial artery: Extensive calcifications are present throughout the LEFT LEASE PICKER. There is only faint contrast opacification within the LEFT posterior tibial artery at the level of the ankle. Multiple areas of tandem stenosis estimated at 50-70%. Right peroneal artery: Extensive calcifications within the RIGHT peroneal artery with only faint contrast opacification distally at the ankle appear Plantar arch: Plantar arch appears to be primarily supplied by TOMASZ. LEFT LOWER EXTREMITY Left common femoral artery: No demonstrated narrowing. Diffuse calcifications present. Left profundus femoris: No demonstrated narrowing. Diffuse nonobstructing calcifications present. Left superficial femoral: No demonstrated narrowing. Diffuse nonobstructing calcifications present. Left popliteal artery: No demonstrated narrowing. Diffuse calcification involving the popliteal artery without nasra marrow. Left tibioperoneal trunk: Bulky calcification noted with approximately 50% narrowing. Left anterior tibial artery: Extensive diffuse circumferential calcification throughout the course of the TOMASZ. Multilevel narrowing is noted without nasra occlusion. Left posterior tibial artery: Extensive diffuse calcification throughout the LEASE PICKER. There are focal areas of tandem narrowing ranging from 50-70%. Left peroneal artery: Extensive calcification noted. No nasra occlusion however multilevel tandem narrowing present. Plantar arch: LEFT plantar arch appears to be contributed by both the LEASE PICKER and TOMASZ. CT ABDOMEN AND PELVIS: HEPATOBILIARY: Liver: Normal as visualized. Gallbladder: Not adequately visualized Pancreas: Pancreas is normal size configuration and density. No mass is noted. Spleen: The spleen is homogeneous and normal in size. . BOWEL: Stomach: Normal as visualized Bowel: Large and small bowel loops have normal configuration, however a moderate length segment of small bowel extends into a prominent LEFT inguinal hernia without evidence of incarceration or obstruction. Appendix: Not visualized: GENITOURINARY: Adrenals: Not adequately visualized. Kidneys: Kidneys appear symmetric in size. No calcifications are seen in the collecting system. There is no hydronephrosis or surrounding fluid. Bladder: Normal Pelvic organs: The visualized pelvic organs are normal in size and configuration. No masses or adenopathy noted. RETROPERITONEUM: Retroperitoneal fascial planes have normal appearance. PERITONEAL CAVITY: No ascites noted ANTERIOR ABDOMINAL WALL: Prominent LEFT inguinal hernia containing moderate length segment of bowel. BONES AND SOFT TISSUES: The skeleton shows no evidence for fractures or destructive lesions. OTHER: Extensive soft tissue edema noted in the distal calves, ankle and feet bilaterally. CT/CTA LWR EXTR W/O & W/DYE IMPRESSION: 1. Multilevel vascular calcifications throughout the abdominal aorta and iliac vessels bilaterally without aneurysmal dilatation stenosis or occlusion. 2. Calcifications at the level of the proximal renal arteries greater on the LEFT than RIGHT. LEFT renal stenosis is not excluded. 3. Extensive diffuse nonoccluding calcification and vascular disease from the common femoral arteries to the popliteal arteries bilaterally. Mild narrowing is noted in the RIGHT tibial peroneal trunk. 4. Extensive multilevel atherosclerotic disease with circumferential calcifications from the tibial peroneal trunk to the level of the ankle and feet bilaterally. 5. There does appear to be significant reduction of contrast opacification of the distal LEFT LEASE PICKER at the level of the ankle due to tandem stenoses. The LEFT plantar arch appears to be contributed and reinforced by the TOMASZ. 6. Extensive diffuse three-vessel disease on the LEFT, however the plantar arch appears to be contributed by both the LEASE PICKER and reinforced by branches of the TOMASZ. 7. Extensive subcutaneous edema involving the ankle and feet bilaterally. 8. Incidental note of a prominent LEFT inguinal hernia containing a moderate length segment of bowel without obstruction or incarceration. Electronically Signed: Brent Daniels MD at 17:31 EST Tel , Service support ,
--- NOTE | 2021-04-08 15:49 | PCM.RX.CS ---
Consult Pharmacy has been consulted to manage selected antiobiotic: Vancomycin Type of Consult: New start Suspected Infection: Skin/Soft tissue Labs: Sodium 137 mmol/L (136-145) 04/08/21 10:50 Potassium 3.4 mmol/L (3.5-5.1) L 04/08/21 10:50 Chloride 108 mmol/L (98-107) H 04/08/21 10:50 Carbon Dioxide 23.0 mmol/L (21.0-32.0) 04/08/21 10:50 Anion Gap 6 (5-15) 04/08/21 10:50 BUN 29 mg/dL (7-18) H 04/08/21 10:50 Creatinine 1.54 mg/dL (0.70-1.30) H 04/08/21 10:50 Est GFR (MDRD) Af Amer 57 mL/min (>60) L 04/08/21 10:50 Est GFR (MDRD) Non-Af 47 mL/min (>60) L 04/08/21 10:50 BUN/Creatinine Ratio 18.8 RATIO (10-20) 04/08/21 10:50 Glucose 102 mg/dL (74-106) 04/08/21 10:50 Microbiology: Microbiology 04/08/21 10:56 Wound Drainage - Heel, Left Gram Stain - Final 04/08/21 10:56 Wound Drainage - Heel Right Gram Stain - Final Goal Trough: 15-20 mcg/mL Pharmacy Plan for Drug Dosing: NEW START IV VANCOMYCIN Consulting Physician: Dr. Miah Luong Indication: Cellulitis Goal Trough: 15-20 SrCr: 1.54 CrCl: 50mls/min Comments: pt received a 1500mg x1 dose in the ER on 04/08/21 at 1210 Vancomcyin Dose: based on pts weight and renal function, recommend an initial dose of 750mg q12h, starting 04/08/21 at 2300. dosing calculated using Clinical Pharmacology dosing calculator which shows an est trough of 15. Pending Level: 04/09/21 at 2230 Pharmacy Service will continue to monitor and adjust dosing as required. Follow-Up Labs: Trough Vancomycin - 04/09/21 at 2230
[2021-04-08] MEDS: Potassium Chloride Oral Tablet 20 MEQ 40 MEQ PO (16:02)
--- NOTE | 2021-04-08 16:26 | PCS.PANDOC ---
PANDEMIC DOCUMENTATION INITIATED: Date: 01/09/2021 Time: 1900 Start
[2021-04-08] MEDS: Furosemide 40 MG Tablet PO (18:36)
[2021-04-08] MEDS: Potassium Chloride Oral Tablet 20 MEQ PO (18:36)
[2021-04-08] MEDS: Metoprolol Tartrate 25 MG Tablet PO (21:23)
[2021-04-08] MEDS: 0.9% Saline Lock 10 ML Syringe IV (21:23)
[2021-04-08] MEDS: Atorvastatin Calcium 40 MG Tablet PO (21:23)
[2021-04-08] MEDS: Senna/Docusate Sodium 1 Tablet PO (21:27)
[2021-04-08] MEDS: Ascorbic Acid 500 MG Tablet PO (21:27)
[2021-04-09] VITALS (12 sets, daily range): BP systolic 87–107; BP diastolic 52–62; PULSE 63–77; RESP 16–18; TEMP 36.8–37.4; O2SAT 94–100
[2021-04-09 05:54] LABS: Absolute Lymphocyte Count 1.18 X10^3/uL (0.83-4.51); Absolute Neutrophil Count 5.2 X10^3/uL (2.0-7.7); Basophil# 0.04 X10^3/uL; Basophil% 0.5 % (0-1); Eosinophil# 0.29 X10^3/uL; Hematocrit 26.1 % (40-54); Hemoglobin 8.2 g/dL (13.0-16.5); Lymphocyte # 1.18 X10^3/ul (0.83-4.51); Lymphocyte % 16.1 % (19-41); Mean Corp Hgb Conc 31.4 g/dL (32-36); Mean Corpuscular Hgb 27.4 pg (27.0-32.0); Mean Corpuscular Volume 87.3 fL (80-94); Mean Platelet Vol. 9.4 fl (6.2-12.0); Monocyte% 8.2 % (0-10); NRBC Flagged by Analyzer 0 % (0-5); Neutrophil % 70.8 % (47-70); Platelet Count 277 K/mm3 (150-450); RBC Distribution Width CV 15.9 % (11.6-14.6); RBC Distribution Width SD 50.3 fl (35.1-43.9); Red Blood Count 2.99 M/mm3 (4.6-6.2); White Blood Count 7.3 K/mm3 (4.4-11.0)
[2021-04-09 06:34] LABS: ALB/GLOB Ratio 0.4 RATIO (0.9-2.4); AST(SGOT) 37 U/L (15-37); Alanine Aminotransfer ALT/SGPT 19 U/L (16-61); Albumin, Serum 1.8 g/dL (3.2-5.0); Alkaline Phosphatase 78 U/L (45-117); Anion Gap 7 (5-15); BUN 33 mg/dL (7-18); BUN/Creat Ratio 22.1 RATIO (10-20); Calcium,Total 7.7 mg/dL (8.5-10.1); Chloride 109 mmol/L (98-107); Creatinine, Serum 1.49 mg/dL (0.70-1.30); EST Glomerular Filtration Rate 49 mL/min (>60); Est Glom Filt Rate - Afr Amer 59 mL/min (>60); Glucose 114 mg/dL (74-106); Magnesium 2.1 mg/dL (1.6-2.6); Phosphorus 3.1 mg/dL (2.5-4.9); Potassium 3.7 mmol/L (3.5-5.1); Protein, Total 5.8 g/dL (6.4-8.2); Sodium Level 138 mmol/L (136-145)
[2021-04-09] MEDS: Ascorbic Acid 500 MG Tablet PO ×2 (08:32→20:47)
[2021-04-09] MEDS: Enoxaparin 40 MG/0.4 ML Syringe SC (08:33)
[2021-04-09] MEDS: Senna/Docusate Sodium 1 Tablet PO ×2 (08:33→20:47)
[2021-04-09] MEDS: Polyethylene Glycol 3350 17 GM PACKET PO (08:33)
[2021-04-09] MEDS: Magnesium Chloride 64 MG Delay Rel.Tablet 128 MG PO (08:33)
[2021-04-09] MEDS: Iron Polysaccharide Complex 150 MG CAPSULE PO (08:34)
[2021-04-09] MEDS: Aspirin E.C. 81 MG Tablet PO (08:34)
[2021-04-09] MEDS: Potassium Chloride Oral Tablet 20 MEQ PO ×2 (08:35→18:18)
[2021-04-09 08:52] LABS: Platelet Count 262 K/mm3 (150-450); RET-HE 30.4 pg (30-35); Reticulocyte Count 1.57 % (0.5-1.5)
[2021-04-09 08:58] LABS: Ferritin 178 ng/mL (26-388); Iron 29 ug/dL (65-175); Iron Binding Capacity,Total 295 ug/dL (250-450); PERCENT IRON SATURATION 9.8 % (15.0-55.0)
--- NOTE | 2021-04-09 11:01 | PN_ITS ---
Subjective Subjective Patient was seen today for follow up bilateral LE wounds and lymphedema. Patient resting in bed, no complaints. No fever, chills, nausea or vomiting. He relates feet are feeling better. Objective Data Objective Data Vital Signs: Vital Signs Temp Pulse Resp BP Pulse Ox 99.4 F H 65 16 87/52 L 94 04/09/21 08:27 04/09/21 08:27 04/09/21 08:27 04/09/21 08:27 04/09/21 08:27 Oxygen Delivery Method Room Air Weight: 91.172 kg Body Mass Index (BMI) 25.1 Intake & Output: Intake and Output for Last 24 Hours 04/07/21 04/08/21 04/09/21 23:59 23:59 23:59 Intake Total 1229.75 / 1229.75 704 / 704 Output Total 300 / 300 610 / 610 Balance 929.75 / 929.75 94 / 94 Lab / Micro Data Result Diagrams: 04/09/21 04:53 04/09/21 04:53 Labs: Laboratory Results - last 24 hr 04/08/21 10:50: WBC 6.2, RBC 3.47 L, Hgb 9.5 L, Hct 30.4 L, MCV 87.6, MCH 27.4, MCHC 31.3 L, RDW Std Deviation 50.5 H, RDW Coeff of Allegra 15.9 H, Plt Count 312, MPV 8.9, Immature Gran % (Auto) 0.300, Neut % (Auto) 62.5, Lymph % (Auto) 23.5, [place] % (Auto) 10.0, Eos % (Auto) 3.1, Baso % (Auto) 0.6, Absolute Neuts (auto) 3.9, Absolute Lymphs (auto) 1.46, Nucleated RBC % 0, ESR 53 H 04/08/21 10:50: Sodium 137, Potassium 3.4 L, Chloride 108 H, Carbon Dioxide 23.0, Anion Gap 6, BUN 29 H, Creatinine 1.54 H, Estim Creat Clear Calc 49.54, Est GFR (MDRD) Af Amer 57 L, Est GFR (MDRD) Non-Af 47 L, BUN/Creatinine Ratio 18.8, Glucose 102, Calcium 8.6, Total Bilirubin 0.40, AST 13 L, ALT 17, Alkaline Phosphatase 98, C-React Prot Ext Range 17.60 H, Total Protein 6.9, Albumin 2.4 L , Globulin 4.5 H, Albumin/Globulin Ratio 0.5 L 04/08/21 10:50: PT 13.8, INR 1.1 04/08/21 10:50: Lactic Acid 1.6 04/08/21 10:50: B-Natriuretic Peptide 52.7 04/09/21 04:53: WBC 7.3, RBC 2.99 L, Hgb 8.2 L, Hct 26.1 L, MCV 87.3, MCH 27.4, MCHC 31.4 L, RDW Std Deviation 50.3 H, RDW Coeff of Allegra 15.9 H, Plt Count 277, MPV 9.4, Immature Gran % (Auto) 0.400, Neut % (Auto) 70.8 H, Lymph % (Auto) 16.1 L, [place] % (Auto) 8.2, Eos % (Auto) 4.0, Baso % (Auto) 0.5, Absolute Neuts (auto) 5.2, Absolute Lymphs (auto) 1.18, Nucleated RBC % 0 04/09/21 04:53: Sodium 138, Potassium 3.7, Chloride 109 H, Carbon Dioxide 22.0, Anion Gap 7, BUN 33 H, Creatinine 1.49 H, Estim Creat Clear Calc 51.20, Est GFR (MDRD) Af Amer 59 L, Est GFR (MDRD) Non-Af 49 L, BUN/Creatinine Ratio 22.1 H, Glucose 114 H, Calcium 7.7 L, Phosphorus 3.1, Magnesium 2.1, Total Bilirubin 0.20, AST 37, ALT 19, Alkaline Phosphatase 78, Total Protein 5.8 L, Albumin 1.8 L, Globulin 4.0, Albumin/Globulin Ratio 0.4 L 04/09/21 04:53: Retic Count 1.57 H, Immature Retic Fraction 16.10 H, Retic Hgb Equivalent 30.4 04/09/21 04:53: Iron 29 L, TIBC 295, Iron Saturation 9.8 L, Ferritin 178 Micro: Microbiology 04/08/21 10:56 Wound Drainage - Heel, Left Gram Stain - Final 04/08/21 10:56 Wound Drainage - Heel Right Gram Stain - Final Radiography Diagnostic Testing: Radiology Impression Foot X-Ray 04/08/21 10:31 IMPRESSION: Severe soft tissue swelling. Air in the soft tissues consistent with infection with gas-forming organisms. No osseous destruction seen. Electronically Signed: Jonathon Muhammad MD at 12:50 EST , Service support , Tibia/Fibula X-Ray 04/08/21 10:31 IMPRESSION: Diffuse soft tissue swelling may indicate cellulitis. No underlying acute osseous abnormality is identified. Electronically Signed: Jose Springer MD at 12:45 EST Tel , Service support , Foot X-Ray 04/08/21 10:51 IMPRESSION: Severe soft tissue swelling. Air in the soft tissues consistent with infection with gas-forming organisms. No osseous destruction seen. Electronically Signed: Jonathon Muhammad MD at 12:51 EST , Service support , Tibia/Fibula X-Ray 04/08/21 10:51 IMPRESSION: Normal tibia/fibula. Soft tissue swelling and prior surgery. Electronically Signed: Alesha Hernadez MD at 12:21 EST Tel , Service support , Chest X-Ray 04/08/21 10:52 IMPRESSION: Normal x-ray examination of the chest. Electronically Signed: Jose Springer MD at 12:47 EST Tel , Service support , Lower Extremity CTA 04/08/21 14:13 IMPRESSION: 1. Multilevel vascular calcifications throughout the abdominal aorta and iliac vessels bilaterally without aneurysmal dilatation stenosis or occlusion. 2. Calcifications at the level of the proximal renal arteries greater on the LEFT than RIGHT. LEFT renal stenosis is not excluded. 3. Extensive diffuse nonoccluding calcification and vascular disease from the common femoral arteries to the popliteal arteries bilaterally. Mild narrowing is noted in the RIGHT tibial peroneal trunk. 4. Extensive multilevel atherosclerotic disease with circumferential calcifications from the tibial peroneal trunk to the level of the ankle and feet bilaterally. 5. There does appear to be significant reduction of contrast opacification of the distal LEFT LATHE PULLER at the level of the ankle due to tandem stenoses. The LEFT plantar arch appears to be contributed and reinforced by the TOMASZ. 6. Extensive diffuse three-vessel disease on the LEFT, however the plantar arch appears to be contributed by both the LATHE PULLER and reinforced by branches of the TOMASZ. 7. Extensive subcutaneous edema involving the ankle and feet bilaterally. 8. Incidental note of a prominent LEFT inguinal hernia containing a moderate length segment of bowel without obstruction or incarceration. Electronically Signed: Brent Daniels MD at 17:31 EST Tel , Service support , ADDENDUM: 04/08/21 0432 Physical Exam Const alert, oriented x3 and no apparent distress Extremity Extremity Narrative: Patient has ulcers plantar medial 1st toe on the left foot, also noted to have ulcer to the posterior medial right heel, and some diffuse ankle ulcerations bilaterally with fat layer exposed, there is no exposed bone, no tracking, no undermining in these areas, there is no fluctuance, no crepitus, no visible abscess present. There was noted to be very small amount of residual maggots, the bases of the wounds are a mixture of fibrogranular tissue, there is no purulence, there is some malodor but much better today, there is trace erythema around the wounds, there is significant lower extremity lymphedema present but swelling less. No evidence of acute ischemia bilateral foot/ankle or leg. CFT < 2 seconds to all toes. Toenails are long, and dystrophic bilateral. Significant lymphedema with a good amount of extra exuberant tissue noted to the forefoot covering many of the toes creating for many creases of skin with some residual maceration noted in these skin creases, lichenification of skin noted c/w chronic lymphedema bilateral foot, ankle and leg. 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 Clinical improvement noted to foot/ankle/leg bilateral - there were noted to be very small amount of residual maggots noted - there is no probe to bone or deeper tissue, there is no visible abscess, no fluctuance or crepitus noted. Labs and xrays have been ordered. Reviewed - radiologist reports gas in forefoot bilateral, CT scan reviewed and no gas noted - I did speak with radiologist Dr. Daniels and reviewed cased with him and again no noted gas in CT and findings of what looks like gas is also consistent with significant exuberant tissue with significant skin folds which presents as air. Clinically there is no evidence of gas to foot bilateral. Foot cultures have been obtained and final results pending. Patient is on board spectrum antibiotics. Bilateral lower extremities (foot/ankle/leg) were cleansed with betadine soln and a betadine wet to dry gauze dressing with overlying gauze, kerlix and neal dressing was applied. CTA also revealed multisegmental bilateral LE PAD - ultimately with this and lymphedema this is a vascular problem and patient should be following with vascular specialist. There is no evidence of acute ischemia or acute PAD at this time. Keep feet elevated. He does not appear to be able to care for himself properly at home, he would benefit from assisted facility placement with transition into a comprehensive home health or rat exterminator facility setting upon discharge. He would also benefit from lymphedema clinic and vascular specialist in the future. Podiatry will continue to follow
[2021-04-09] MEDS: Furosemide 40 MG Tablet PO ×2 (11:47→18:06)
--- NOTE | 2021-04-09 12:20 | PN.HOSP_ITS ---
Subjective Subjective Patient reports he is feeling well today. He has no complaints. He is very impressed with Dr. Charlton and pleased that he is taking care of his legs. He was able to walk with therapy today with utilization of a walker. Objective Data Objective Data Vital Signs: Vital Signs Temp Pulse Resp BP Pulse Ox 98.2 F 64 17 97/54 L 100 04/09/21 10:30 04/09/21 10:30 04/09/21 10:30 04/09/21 10:30 04/09/21 10:30 Oxygen Delivery Method Room Air Weight: 91.172 kg Body Mass Index (BMI) 25.1 Intake & Output: Intake and Output for Last 24 Hours 04/07/21 04/08/21 04/09/21 23:59 23:59 23:59 Intake Total 1229.75 / 1229.75 704 / 704 Output Total 300 / 300 610 / 610 Balance 929.75 / 929.75 94 / 94 Lab / Micro Data Result Diagrams: 04/09/21 04:53 04/09/21 04:53 Labs: Laboratory Results - last 24 hr 04/09/21 04:53: WBC 7.3, RBC 2.99 L, Hgb 8.2 L, Hct 26.1 L, MCV 87.3, MCH 27.4, MCHC 31.4 L, RDW Std Deviation 50.3 H, RDW Coeff of Allegra 15.9 H, Plt Count 277, MPV 9.4, Immature Gran % (Auto) 0.400, Neut % (Auto) 70.8 H, Lymph % (Auto) 16.1 L, [place] % (Auto) 8.2, Eos % (Auto) 4.0, Baso % (Auto) 0.5, Absolute Neuts (auto) 5.2, Absolute Lymphs (auto) 1.18, Nucleated RBC % 0 04/09/21 04:53: Sodium 138, Potassium 3.7, Chloride 109 H, Carbon Dioxide 22.0, Anion Gap 7, BUN 33 H, Creatinine 1.49 H, Estim Creat Clear Calc 51.20, Est GFR (MDRD) Af Amer 59 L, Est GFR (MDRD) Non-Af 49 L, BUN/Creatinine Ratio 22.1 H, Glucose 114 H, Calcium 7.7 L, Phosphorus 3.1, Magnesium 2.1, Total Bilirubin 0.20, AST 37, ALT 19, Alkaline Phosphatase 78, Total Protein 5.8 L, Albumin 1.8 L, Globulin 4.0, Albumin/Globulin Ratio 0.4 L 04/09/21 04:53: Retic Count 1.57 H, Immature Retic Fraction 16.10 H, Retic Hgb Equivalent 30.4 04/09/21 04:53: Iron 29 L, TIBC 295, Iron Saturation 9.8 L, Ferritin 178 Micro: Microbiology 04/08/21 10:56 Wound Drainage - Heel Right Gram Stain - Final 04/08/21 10:56 Wound Drainage - Heel Right Wound Culture - Preliminary Possible Fungus Mixed Gram Positive Organisms 04/08/21 10:56 Wound Drainage - Heel, Left Gram Stain - Final 04/08/21 10:56 Wound Drainage - Heel, Left Wound Culture - Preliminary Mixed Culture Radiography Diagnostic Testing: Radiology Impression Foot X-Ray 04/08/21 10:31 IMPRESSION: Severe soft tissue swelling. Air in the soft tissues consistent with infection with gas-forming organisms. No osseous destruction seen. Electronically Signed: Jonathon Muhammad MD at 12:50 EST , Service support , Tibia/Fibula X-Ray 04/08/21 10:31 IMPRESSION: Diffuse soft tissue swelling may indicate cellulitis. No underlying acute osseous abnormality is identified. Electronically Signed: Jose Springer MD at 12:45 EST Tel , Service support , Foot X-Ray 04/08/21 10:51 IMPRESSION: Severe soft tissue swelling. Air in the soft tissues consistent with infection with gas-forming organisms. No osseous destruction seen. Electronically Signed: Jonathon Muhammad MD at 12:51 EST , Service support , Tibia/Fibula X-Ray 04/08/21 10:51 IMPRESSION: Normal tibia/fibula. Soft tissue swelling and prior surgery. Electronically Signed: Alesha Hernadez MD at 12:21 EST Tel , Service support , Chest X-Ray 04/08/21 10:52 IMPRESSION: Normal x-ray examination of the chest. Electronically Signed: Jose Springer MD at 12:47 EST Tel , Service support , Lower Extremity CTA 04/08/21 14:13 IMPRESSION: 1. Multilevel vascular calcifications throughout the abdominal aorta and iliac vessels bilaterally without aneurysmal dilatation stenosis or occlusion. 2. Calcifications at the level of the proximal renal arteries greater on the LEFT than RIGHT. LEFT renal stenosis is not excluded. 3. Extensive diffuse nonoccluding calcification and vascular disease from the common femoral arteries to the popliteal arteries bilaterally. Mild narrowing is noted in the RIGHT tibial peroneal trunk. 4. Extensive multilevel atherosclerotic disease with circumferential calcifications from the tibial peroneal trunk to the level of the ankle and feet bilaterally. 5. There does appear to be significant reduction of contrast opacification of the distal LEFT OFFSET SECOND PRESS OPERATOR at the level of the ankle due to tandem stenoses. The LEFT plantar arch appears to be contributed and reinforced by the TOMASZ. 6. Extensive diffuse three-vessel disease on the LEFT, however the plantar arch appears to be contributed by both the OFFSET SECOND PRESS OPERATOR and reinforced by branches of the TOMASZ. 7. Extensive subcutaneous edema involving the ankle and feet bilaterally. 8. Incidental note of a prominent LEFT inguinal hernia containing a moderate length segment of bowel without obstruction or incarceration. Electronically Signed: Brent Daniels MD at 17:31 EST Tel , Service support , ADDENDUM: 04/08/21 1823 Physical Exam Const alert, oriented x3, no apparent distress and average body habitus Constitutional Narrative: Older white male, somewhat disheveled, sitting up in the chair at the bedside, very pleasant and appears comfortable, nontoxic General Appearance: cooperative, comfortable and disheveled Orientation / Consciousness: awake Exam Limitations: no limitations HEENT normocephalic, head/scalp atraumatic, moist oral mucous membranes and oropharynx normal; Negative for dentition normal HEENT Narrative: Hair is matted to head, dentures in place, Mallampati 2, no thrush Head and Scalp: normocephalic Resp normal respiratory effort, no retractions, no use of accessory muscles and clear to auscultation bilaterally Resp Narrative: Diffusely diminished but no adventitious sounds Auscultation: Negative for crackles, rales, rhonchi or wheezes Cardio regular rate, regular rhythm, S1 normal heart sound, S2 normal heart sound, no murmurs, no rub, no gallops, no clicks and no JVD GI normal to inspection, nondistended, normoactive bowel sounds, soft to palpation, non-tender and non-distended Extremity Extremity Narrative: Severe bilateral lower extremity distal lymphedema, dressings are in place at this time, unable to palpate for pulses but cap refill is good, no cyanosis or clubbing Neuro oriented x3, CN's II-XII intact bilaterally, moves all extremities and no focal motor deficits Sensorium / Orientation: awake and alert Speech: speech normal Assessment & Plan Assessment/Plan (1) Cellulitis of left lower limb: (2) Lymphedema of right lower extremity: (3) Lymphedema of left lower extremity: PLAN: Bilateral lower extremity cellulitis/lymphedema -Lymphedema is chronic and related to agent orange exposure in [place] -Dressings were unclean and a hundreds of maggots came pouring out of the underneath the dressings when removed in the emergency department -Tissue smells as if it is rotting -ESR and CRP are elevated -Bilateral foot x-rays show air in the soft tissues consistent with infection with gas-forming organisms -Suspect this was the rated the tissue folds over itself as the CT shows no signs of abscesses or necrotizing fasciitis -Will discontinue clindamycin given these findings -CT of bilateral feet are pending -Continue vancomycin and Zosyn -MRSA PCR is pending -If negative would consider discontinuing vancomycin -Wound care consulted -Podiatry following and dressings changed today Adult failure to thrive -Patient is insistent that he is able to take care of himself but upon examination he is very unclean, his hair is matted, his skin is dirty, he has significant dirt underneath his fingernails and with his presentation of his lower extremity wounds it is my opinion that he is not able to take care of himself at this time -It appears APS was consulted at his last admission -Reconsult to social work for further APS involvement -Patient may need guardianship -Recommend discharge to facility and not home -PT/OT following Chronic normocytic anemia -Continue home iron supplementation -Anticipate this is related to anemia of chronic disease -Iron studies appear more like chronic disease as his TIBC is normal with a low sat and iron level although he does have some elevated reticulocyte count it is not all that substantial -Hemoglobin is currently relatively stable Hypokalemia -Resolved CKD stage IIIa -Serum creatinine is just mildly elevated from baseline at 1.1-1.3 -Current serum creatinine is 1.49 -Continue to follow renal function slowly and avoid nephrotoxins as able -We will continue home Lasix at this time Compensated HFpEF-diastolic -Home Chronic constipation -Continue home MiraLAX and senna Hyperlipidemia -Continue on some statin History of CAD status post coronary artery bypass graft -Patient had CABG x6 in the ninety-seven -BNP is normal and patient is asymptomatic at this time -Continue home medications DVT prophylaxis -Lovenox daily 40 mg CODE STATUS -Full code as per discussion the emergency department with the patient Charges/Coding Visit Charges Inpatient E&M: 62587 Subs Hosp L2
[2021-04-09] MEDS: Atorvastatin Calcium 40 MG Tablet PO (20:47)
--- NOTE | 2021-04-09 23:53 | PCM.RX.CS ---
Consult Pharmacy has been consulted to manage selected antiobiotic: Vancomycin Type of Consult: Follow-up Suspected Infection: Skin/Soft tissue Labs: Sodium 138 mmol/L (136-145) 04/09/21 04:53 Potassium 3.7 mmol/L (3.5-5.1) 04/09/21 04:53 Chloride 109 mmol/L (98-107) H 04/09/21 04:53 Carbon Dioxide 22.0 mmol/L (21.0-32.0) 04/09/21 04:53 Anion Gap 7 (5-15) 04/09/21 04:53 BUN 33 mg/dL (7-18) H 04/09/21 04:53 Creatinine 1.49 mg/dL (0.70-1.30) H 04/09/21 04:53 Est GFR (MDRD) Af Amer 59 mL/min (>60) L 04/09/21 04:53 Est GFR (MDRD) Non-Af 49 mL/min (>60) L 04/09/21 04:53 BUN/Creatinine Ratio 22.1 RATIO (10-20) H 04/09/21 04:53 Glucose 114 mg/dL (74-106) H 04/09/21 04:53 Vancomycin Trough 15.0 ug/mL (5.0-15.0) 04/09/21 22:09 Microbiology: Microbiology 04/08/21 10:50 Blood Culture (Wb) - Anticubital Left Blood Culture - Preliminary 04/08/21 10:56 Wound Drainage - Heel Right Gram Stain - Final 04/08/21 10:56 Wound Drainage - Heel Right Wound Culture - Preliminary Possible Fungus Mixed Gram Positive Organisms 04/08/21 10:56 Wound Drainage - Heel, Left Gram Stain - Final 04/08/21 10:56 Wound Drainage - Heel, Left Wound Culture - Preliminary Mixed Culture Goal Trough: 15-20 mcg/mL Pharmacy Plan for Drug Dosing: VANCOMYCIN LEVEL RECEIVED Current Vancomycin Dose: 750MG IV Q12h Number of Doses Received: 3 Vancomycin Level: 15 Hours Since Last Dose: 10.5 Renal Function: 1.49 Renal Function Trend: stable Lab/Micro: mixed organisms (MRSA PCR ordered, not done yet) Vancomycin Plan/Comments: Patient's trough within goal range of 15-20, drawn 10.5hr from last administered dose. Although drawn slightly early, per progress notes, pt reports improvement in symptoms. Will continue patient on current dose of 750mg IV Q12hr since pt is improving and check another trough in 2 days to assess vancomycin at that time. Pending Level: 04/11/21 @5148 Pharmacy Service will continue to monitor and adjust dosing as required.
[2021-04-10] VITALS (14 sets, daily range): BP systolic 97–133; BP diastolic 51–70; PULSE 62–72; RESP 16–20; TEMP 36.6–37.3; O2SAT 94–97
[2021-04-10] MEDS: Acetaminophen 325 MG Tablet 650 MG PO (00:14)
[2021-04-10 06:10] LABS: Basophil# 0.03 X10^3/uL; Basophil% 0.4 % (0-1); Eosinophil# 0.42 X10^3/uL; Eosinophils% 5.6 % (0-5); Hematocrit 24.7 % (40-54); Hemoglobin 7.7 g/dL (13.0-16.5); Lymphocyte % 18.6 % (19-41); Mean Corp Hgb Conc 31.2 g/dL (32-36); Mean Corpuscular Hgb 27.5 pg (27.0-32.0); Mean Corpuscular Volume 88.2 fL (80-94); Mean Platelet Vol. 9.2 fl (6.2-12.0); Monocyte# 0.66 X10^3/uL; Monocyte% 8.8 % (0-10); NRBC Flagged by Analyzer 0 % (0-5); Neutrophil # 4.98 X10^3/uL (2.7-7.7); Neutrophil % 66.2 % (47-70); Platelet Count 249 K/mm3 (150-450); RBC Distribution Width CV 16.3 % (11.6-14.6); RBC Distribution Width SD 52.2 fl (35.1-43.9); White Blood Count 7.5 K/mm3 (4.4-11.0)
[2021-04-10] MEDS: Ibuprofen 400 MG Tablet PO (06:11)
[2021-04-10 06:45] LABS: Anion Gap 5 (5-15); BUN 27 mg/dL (7-18); BUN/Creat Ratio 17.6 RATIO (10-20); Calcium,Total 7.4 mg/dL (8.5-10.1); Chloride 111 mmol/L (98-107); Creatinine, Serum 1.53 mg/dL (0.70-1.30); EST Glomerular Filtration Rate 47 mL/min (>60); Est Glom Filt Rate - Afr Amer 57 mL/min (>60); Estimated Creatinine Clearance 49.86 ml/min; Glucose 109 mg/dL (74-106); Potassium 3.2 mmol/L (3.5-5.1); Sodium Level 141 mmol/L (136-145)
--- NOTE | 2021-04-10 07:20 | PN_ITS ---
Subjective Subjective Patient was seen today for follow up bilateral LE wounds and lymphedema. He had prior maggots at time of admission. Patient resting in bed, no complaints. No fever, chills, nausea or vomiting. He relates feet are feeling better. Objective Data Objective Data Vital Signs: Vital Signs Temp Pulse Resp BP Pulse Ox 98.1 F 67 18 133/70 H 95 04/10/21 06:14 04/10/21 06:14 04/10/21 06:14 04/10/21 06:14 04/10/21 06:14 Oxygen Delivery Method Room Air Weight: 91.172 kg Body Mass Index (BMI) 25.1 Intake & Output: Intake and Output for Last 24 Hours 04/08/21 04/09/21 04/10/21 23:59 23:59 23:59 Intake Total 1229.75 / 1229.75 2280.25 / 2280.25 100 / 100 Output Total 300 / 300 1235 / 1235 875 / 875 Balance 929.75 / 929.75 1045.25 / 1045.25 -775 / -775 Lab / Micro Data Result Diagrams: 04/10/21 04:48 04/10/21 04:48 Labs: Laboratory Results - last 24 hr 04/09/21 04:53: Retic Count 1.57 H, Immature Retic Fraction 16.10 H, Retic Hgb Equivalent 30.4 04/09/21 04:53: Iron 29 L, TIBC 295, Iron Saturation 9.8 L, Ferritin 178 04/09/21 10:35: MRSA (PCR) Cancelled 04/09/21 22:09: Vancomycin Trough 15.0 04/10/21 04:48: WBC 7.5, RBC 2.80 L, Hgb 7.7 L, Hct 24.7 L, MCV 88.2, MCH 27.5, MCHC 31.2 L, RDW Std Deviation 52.2 H, RDW Coeff of Allegra 16.3 H, Plt Count 249, MPV 9.2, Immature Gran % (Auto) 0.400, Neut % (Auto) 66.2, Lymph % (Auto) 18.6 L , Dixie % (Auto) 8.8, Eos % (Auto) 5.6 H, Baso % (Auto) 0.4, Absolute Neuts (auto) 5.0, Absolute Lymphs (auto) 1.40, Nucleated RBC % 0 04/10/21 04:48: Sodium 141, Potassium 3.2 L, Chloride 111 H, Carbon Dioxide 25.0, Anion Gap 5, BUN 27 H, Creatinine 1.53 H, Estim Creat Clear Calc 49.86, Est GFR (MDRD) Af Amer 57 L, Est GFR (MDRD) Non-Af 47 L, BUN/Creatinine Ratio 17.6, Glucose 109 H, Calcium 7.4 L Micro: Microbiology 04/08/21 10:50 Blood Culture (Wb) - Anticubital Left Blood Culture - Preliminary 04/08/21 10:56 Wound Drainage - Heel Right Gram Stain - Final 04/08/21 10:56 Wound Drainage - Heel Right Wound Culture - Preliminary Possible Fungus Mixed Gram Positive Organisms 04/08/21 10:56 Wound Drainage - Heel, Left Gram Stain - Final 04/08/21 10:56 Wound Drainage - Heel, Left Wound Culture - Preliminary Mixed Culture Physical Exam Const alert, oriented x3 and no apparent distress Extremity Extremity Narrative: Patient has ulcers plantar medial 1st toe on the left foot, also noted to have ulcer to the posterior medial right heel, and some diffuse ankle ulcerations bilaterally with fat layer exposed, there is no exposed bone or joint, no tracking, no undermining in these areas, there is no fluctuance, no crepitus, no visible abscess present. There was no longer residual maggots noted today, the bases of the wounds are a mixture of fibrogranular tissue, there is no purulence. Resolved erythema and odor. No necrosis noted. there is significant lower extremity lymphedema present but swelling less. No evidence of acute ischemia bilateral foot/ankle or leg. CFT < 2 seconds to all toes. Toenails are long, and dystrophic bilateral. Significant lymphedema with a good amount of extra exuberant tissue noted to the forefoot covering many of the toes creating for many creases of skin with some residual maceration noted in these skin creases, lichenification of skin noted c/w chronic lymphedema bilateral foot, ankle and leg. 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 Clinical improvement noted to foot/ankle/leg bilateral - resolved maggots noted - there is no probe to bone or deeper tissue, there is no visible abscess, no fluctuance or crepitus noted. Labs and xrays have been ordered. Reviewed - radiologist reports gas in forefoot bilateral, CT scan reviewed and no gas noted - I did speak with radiologist Dr. Daniels and reviewed cased with him and again no noted gas in CT and findings of what looks like gas is also consistent with significant exuberant tissue with significant skin folds which presents as air. Clinically there is no evidence of gas to foot bilateral. No clinical signs of infection noted today. Foot cultures have been obtained and final results pending. Multi organism found now also with possible fungus. Patient is on board spectrum antibiotics (vanco/zosyn). He remains afebrile with vitals stable. Blood cultures negative so far. Bilateral lower extremities (foot/ankle/leg) were cleansed with betadine soln and a betadine wet to dry gauze dressing with overlying gauze, kerlix and neal dressing was applied. Soap and water wash performed this morning also to improve skin integrity to limbs. CTA also revealed multisegmental bilateral LE PAD - ultimately with this and lymphedema this is a vascular problem and patient should be following with vascular specialist. There is no evidence of acute ischemia or acute PAD at this time. Keep feet elevated. He does not appear to be able to care for himself properly at home, he would be nefit from long term facility placement with transition into a comprehensive home health or exterminator termite facility setting upon discharge. He would also benefit from lymphedema clinic and vascular specialist in the future. Podiatry will continue to follow. Please call if questions. Abbie Weber DPM, [facility] [phone]
--- NOTE | 2021-04-10 07:53 | WOUNDNOTE ---
wound photo: left lower leg
--- NOTE | 2021-04-10 07:53 | WOUNDNOTE ---
wound photo: right lower leg
[2021-04-10] MEDS: Potassium Chloride Oral Tablet 20 MEQ PO ×2 (09:00→17:09)
[2021-04-10] MEDS: Senna/Docusate Sodium 1 Tablet PO (09:00)
[2021-04-10] MEDS: Iron Polysaccharide Complex 150 MG CAPSULE PO (09:00)
[2021-04-10] MEDS: Magnesium Chloride 64 MG Delay Rel.Tablet 128 MG PO (09:00)
[2021-04-10] MEDS: Furosemide 40 MG Tablet PO ×2 (09:00→17:09)
[2021-04-10] MEDS: Potassium Chloride Oral Tablet 20 MEQ 40 MEQ PO (09:00)
[2021-04-10] MEDS: Enoxaparin 40 MG/0.4 ML Syringe SC (09:01)
[2021-04-10] MEDS: Aspirin E.C. 81 MG Tablet PO (09:01)
[2021-04-10] MEDS: Polyethylene Glycol 3350 17 GM PACKET PO (09:01)
[2021-04-10] MEDS: Ascorbic Acid 500 MG Tablet PO ×2 (09:02→22:41)
[2021-04-10] MEDS: 0.9% Saline Lock 10 ML Syringe IV (10:37)
--- NOTE | 2021-04-10 11:03 | CASEMGMT ---
VIRGIE OLEA Assessment: Face to Face with pt for initial transition planning/care coordination assessment. VIRGIE OLEA introduced self and role at [facility], pt voices understanding and consents to assessment. Pt is A/O x4 and answers all questions appropriately at this time. Pt sitting up in bed in no distress. Care providers, pharmacy, and demographics verified/updated. Admitting Dx: B LE cellulitis/lymphedema PCP:Lakesha at [place] Specialists: Pt denies. Preferred Pharmacy: [facility] Insurance: [place] Benefit, [facility] Prescription Benefit: no, per pt report LW/HPOA: Pt denies having a LW/DPOA and denies need for info regarding AD. LNOK: Kurt Gibson, friend; Yinka Esquivel, son Living Arrangements: Pt lives alone in a ground floor apt with 1 small step to enter with a grab bar. Pt reports he is I in ADL's and denies concerns at home. Transportation: Pt drives self and denies concerns with transportation. DME/HHC/SNF: Pt has a FWW, cane that he normally uses, grab bars in the bathroom, hand held shower. Pt reports he sits on edge of shower to bathe. Pt has had C in the past but is unsure of the name of the agency. He has also been at [facility]. Pt states discussed with him having a nurse come in for assistance in monitoring of his wounds. Pt states he is agreeable to this. Patient was provided a list of [facility] providers including quality and resource use data and consistent with the patient?s preferred geographic region, medical needs, and insurance network. Pt has no preference. HAYES Davenport at [facility], left message with referral. Will await acceptance. Pt states no concerns with going home at time of dc. Pt states no further concerns/needs. CM to follow. Advised pt to ask CM if any further question/concerns/needs arise, voices understanding. Pt Goal: Home with HH Plan: Home with [facility]
--- NOTE | 2021-04-10 11:04 | PN.HOSP_ITS ---
Subjective Subjective Patient seen and examined. He had no complaints and felt well. His legs are just been wrapped. Blood pressures running marginally low at 98/51. Review of systems otherwise negative. Hemoglobin today 7.7 and potassium is 3.2. Creatinine is 1.53. Objective Data Objective Data Vital Signs: Vital Signs Temp Pulse Resp BP Pulse Ox 98.8 F 64 16 98/51 L 94 04/10/21 10:43 04/10/21 10:43 04/10/21 10:43 04/10/21 10:43 04/10/21 10:43 Oxygen Delivery Method Room Air Weight: 201 lb Body Mass Index (BMI) 25.1 Intake & Output: Intake and Output for Last 24 Hours 04/08/21 04/09/21 04/10/21 23:59 23:59 23:59 Intake Total 1229.75 / 1229.75 2280.25 / 2280.25 249 / 249 Output Total 300 / 300 1235 / 1235 875 / 875 Balance 929.75 / 929.75 1045.25 / 1045.25 -626 / -626 Lab / Micro Data Result Diagrams: 04/10/21 04:48 04/10/21 04:48 Labs: Laboratory Results - last 24 hr 04/09/21 10:35: MRSA (PCR) Cancelled 04/09/21 22:09: Vancomycin Trough 15.0 04/10/21 04:48: WBC 7.5, RBC 2.80 L, Hgb 7.7 L, Hct 24.7 L, MCV 88.2, MCH 27.5, MCHC 31.2 L, RDW Std Deviation 52.2 H, RDW Coeff of Allegra 16.3 H, Plt Count 249, MPV 9.2, Immature Gran % (Auto) 0.400, Neut % (Auto) 66.2, Lymph % (Auto) 18.6 L , Duval % (Auto) 8.8, Eos % (Auto) 5.6 H, Baso % (Auto) 0.4, Absolute Neuts (auto) 5.0, Absolute Lymphs (auto) 1.40, Nucleated RBC % 0 04/10/21 04:48: Sodium 141, Potassium 3.2 L, Chloride 111 H, Carbon Dioxide 25.0, Anion Gap 5, BUN 27 H, Creatinine 1.53 H, Estim Creat Clear Calc 49.86, Est GFR (MDRD) Af Amer 57 L, Est GFR (MDRD) Non-Af 47 L, BUN/Creatinine Ratio 17.6, Glucose 109 H, Calcium 7.4 L Micro: Microbiology 04/08/21 10:56 Wound Drainage - Heel, Left Gram Stain - Final 04/08/21 10:56 Wound Drainage - Heel, Left Wound Culture - Preliminary Gram negative avelina Gram negative avelina#2 Gram negative avelina#3 Gram positive organism Gram positive organism#2 04/08/21 10:50 Blood Culture (Wb) - Anticubital Left Blood Culture - Preliminary 04/08/21 10:56 Wound Drainage - Heel Right Gram Stain - Final 04/08/21 10:56 Wound Drainage - Heel Right Wound Culture - Preliminary Possible Fungus Mixed Gram Positive Organisms Physical Exam Const alert, oriented x3 and no apparent distress Exam Limitations: no limitations HEENT head/scalp atraumatic and moist oral mucous membranes Head and Scalp: normocephalic Eyes PERRL, EOMs intact bilaterally and conjunctivae normal Neck no lymphadenopathy Resp normal respiratory effort, no retractions, no use of accessory muscles and clear to auscultation bilaterally Cardio regular rate, regular rhythm, S1 normal heart sound, S2 normal heart sound, no murmurs and no gallops GI normal to inspection, nondistended, normoactive bowel sounds, soft to palpation, non-tender and non-distended Extremity Extremity Narrative: both LEs wrapped. Skin Skin Narrative: as under extremities Neuro oriented x3, CN's II-XII intact bilaterally and moves all extremities Sensorium / Orientation: awake and alert Psych affect normal Assessment & Plan Assessment/Plan (1) Infected wound: (2) Lymphedema of right lower extremity: (3) Cellulitis of right lower limb: PLAN: #Bilateral lower extremity cellulitis and lymphedema * Lymphedema is chronic. * CT of the lower extremity showed no evidence of abscesses or necrotizing fasciitis * On IV vancomycin and Zosyn. Podiatry on board. * Wound care also on board. * PT OT on board. Fall precautions. * #Adult failure to thrive * He does appear that adult protective services was consulted during previous admissions. Patient tells me that he does take care of himself while at home and is able to prepare his own food and clean up his apartment. Patient however does look unkempt with matted hair and untidy fingernails. * Will benefit from placement. PT OT on board. * #Hypokalemia: Potassium is 3.2. Will replace. #JEFF on CKD stage IIIa: * Creatinine is 1.53 which is above his baseline of ~ 1.13. * Encourage oral hydration; gentle hydration with iVF. * Will monitor. #Heart failure with preserved ejection fraction: Not in exacerbation. On Lasix #Hyperlipidemia: On statin #History of CAD s/p CABG: On aspirin and statin as well as metoprolol DVT prophylaxis: Lovenox Charges/Coding Visit Charges Inpatient E&M: 99885 Subs Hosp L2
--- NOTE | 2021-04-10 11:15 | CASEMGMT ---
Social Work Note SW placed a call to [facility] and left message for Keagan Nieto, [place] SW, to inquire if pt is service connected. SW waiting for call back. Tish Smith RIVERBOAT CAPTAIN, RESTAURANT CREW PERSON
--- NOTE | 2021-04-10 11:35 | CASEMGMT ---
Social Work Note MIRIAM received message from Andrea with [employer] requesting call back. MIRIAM placed a call to Andrea with [employer]. Andrea states that isn't much that she can do. Andrea states she has tried to visit pt at home and pt refuses to allow her in to his home. Andrea states she has called the squad before for pt and pt has refused to go with the squad. Andrea states that this worker can provide pt with her number if pt wants to speak with her. MIRIAM informed Andrea that at this time pt is requesting discharge home and is agreeable to [facility]. SW in to speak with pt. SW provided pt with Andrea with [employer] number and informed pt that Andrea can help with community resources. Pt states he may need someone to help with housekeeping and cleaning. SW informed pt that Andrea is a good community resource to have and can likely assist with community needs. Pt states understanding. MIRIAM also provided pt with additional community resources including [facility] and [facility] Home lists. MIRIAM received message from [place] at [facility] stating pt is 30% service connected, [place] SNF unless pt was admitted to [facility] with a heart related complication. Black states that since pt was admitted with Foot problems, [place] wouldn't [place] for skilled services/SNF. MIRIAM also updated pt that he is 30% service connected. Pt states he thought he was 100% service connected. SW informed pt that this worker doesn't handle VA benefits/service connection. MIRIAM encouraged pt to call either his CM or SW through the [place] regarding service connected. Pt states understanding. Tish Smith ELEVATOR CONSTRUCTOR HELPER, COLOR MAKER FORMULATOR
[2021-04-10 15:23] LABS: M R Staph aureus DNA By PCR Negative (Negative); Probe Check PASS; Specimen Processing Control PASS
[2021-04-10] MEDS: Atorvastatin Calcium 40 MG Tablet PO (21:56)
[2021-04-10] MEDS: Metoprolol Tartrate 25 MG Tablet PO (22:41)
[2021-04-11] VITALS (11 sets, daily range): BP systolic 102–116; BP diastolic 61–69; PULSE 61–71; RESP 17–20; TEMP 36.4–37.4; O2SAT 93–97
[2021-04-11 07:51] LABS: Absolute Neutrophil Count 5.4 X10^3/uL (2.0-7.7); Basophil# 0.02 X10^3/uL; Basophil% 0.3 % (0-1); Eosinophil# 0.52 X10^3/uL; Eosinophils% 6.6 % (0-5); Hematocrit 27.3 % (40-54); Hemoglobin 8.4 g/dL (13.0-16.5); Lymphocyte % 16.4 % (19-41); Mean Corp Hgb Conc 30.8 g/dL (32-36); Mean Corpuscular Hgb 27.4 pg (27.0-32.0); Mean Corpuscular Volume 88.9 fL (80-94); Mean Platelet Vol. 8.9 fl (6.2-12.0); Monocyte# 0.59 X10^3/uL; Monocyte% 7.5 % (0-10); NRBC Flagged by Analyzer 0 % (0-5); Neutrophil # 5.43 X10^3/uL (2.7-7.7); Neutrophil % 68.6 % (47-70); Platelet Count 272 K/mm3 (150-450); RBC Distribution Width CV 16.7 % (11.6-14.6); RBC Distribution Width SD 53.3 fl (35.1-43.9); Red Blood Count 3.07 M/mm3 (4.6-6.2); White Blood Count 7.9 K/mm3 (4.4-11.0)
[2021-04-11 08:23] LABS: Anion Gap 6 (5-15); BUN 21 mg/dL (7-18); BUN/Creat Ratio 15.1 RATIO (10-20); Calcium,Total 7.9 mg/dL (8.5-10.1); Chloride 110 mmol/L (98-107); Creatinine, Serum 1.39 mg/dL (0.70-1.30); EST Glomerular Filtration Rate 53 mL/min (>60); Est Glom Filt Rate - Afr Amer 64 mL/min (>60); Estimated Creatinine Clearance 54.88 ml/min; Glucose 105 mg/dL (74-106); Potassium 3.3 mmol/L (3.5-5.1); Sodium Level 142 mmol/L (136-145)
[2021-04-11] MEDS: Metoprolol Tartrate 25 MG Tablet PO ×2 (08:29→20:53)
[2021-04-11] MEDS: Aspirin E.C. 81 MG Tablet PO (08:29)
[2021-04-11] MEDS: Furosemide 40 MG Tablet PO ×2 (08:29→16:56)
[2021-04-11] MEDS: Iron Polysaccharide Complex 150 MG CAPSULE PO (08:29)
[2021-04-11] MEDS: Enoxaparin 40 MG/0.4 ML Syringe SC (08:30)
[2021-04-11] MEDS: Ascorbic Acid 500 MG Tablet PO ×2 (08:30→20:54)
[2021-04-11] MEDS: Magnesium Chloride 64 MG Delay Rel.Tablet 128 MG PO (08:30)
[2021-04-11] MEDS: Potassium Chloride Oral Tablet 20 MEQ PO ×2 (08:30→16:56)
--- NOTE | 2021-04-11 10:05 | PN.HOSP_ITS ---
Subjective Subjective Patient seen examined. He is complaining of diarrhea and cc: 3 times overnight. He denies any fever or chills, any nausea or vomiting. Review of systems otherwise negative. He has made hemodynamically stable. Objective Data Objective Data Vital Signs: Vital Signs Temp Pulse Resp BP Pulse Ox 98.4 F 64 18 116/68 97 04/11/21 08:26 04/11/21 08:29 04/11/21 08:26 04/11/21 08:26 04/11/21 08:26 Oxygen Delivery Method Room Air Weight: 201 lb Body Mass Index (BMI) 25.1 Intake & Output: Intake and Output for Last 24 Hours 04/09/21 04/10/21 04/11/21 23:59 23:59 23:59 Intake Total 2280.25 / 2280.25 1699 / 2014 465 / 465 Output Total 1235 / 1235 1625 / 2024 850 / 850 Balance 1045.25 / 1045.25 75 / -10 -385 / -385 Lab / Micro Data Result Diagrams: 04/11/21 07:30 04/11/21 07:30 Labs: Laboratory Results - last 24 hr 04/09/21 14:36: MRSA (PCR) Negative 04/11/21 07:30: WBC 7.9, RBC 3.07 L, Hgb 8.4 L, Hct 27.3 L, MCV 88.9, MCH 27.4, MCHC 30.8 L, RDW Std Deviation 53.3 H, RDW Coeff of Allegra 16.7 H, Plt Count 272, MPV 8.9, Immature Gran % (Auto) 0.600, Neut % (Auto) 68.6, Lymph % (Auto) 16.4 L , Cannon % (Auto) 7.5, Eos % (Auto) 6.6 H, Baso % (Auto) 0.3, Absolute Neuts (auto) 5.4, Absolute Lymphs (auto) 1.30, Nucleated RBC % 0 04/11/21 07:30: Sodium 142, Potassium 3.3 L, Chloride 110 H, Carbon Dioxide 26.0, Anion Gap 6, BUN 21 H, Creatinine 1.39 H, Estim Creat Clear Calc 54.88, Est GFR (MDRD) Af Amer 64, Est GFR (MDRD) Non-Af 53 L, BUN/Creatinine Ratio 15.1, Glucose 105, Calcium 7.9 L Micro: Microbiology 04/08/21 10:56 Wound Drainage - Heel Right Gram Stain - Final 04/08/21 10:56 Wound Drainage - Heel Right Wound Culture - Preliminary Pseudomonas spp Proteus mirabilis Pasteurella canis Gram negative avelina#4 Gram positive organism 04/08/21 10:56 Wound Drainage - Heel Right Anaerobic Culture - Preliminary Checking for anaerobes, further studies to follow. 04/08/21 10:56 Wound Drainage - Heel, Left Gram Stain - Final 04/08/21 10:56 Wound Drainage - Heel, Left Wound Culture - Preliminary Chromobacterium violaceum Providencia stuartii GNR lactose mind reader Staphylococcus epidermidis Gram positive organism#2 04/08/21 10:53 Blood Culture (Wb) - Anticubital Right Blood Culture - Preliminary No growth in 48 hours. 04/08/21 10:50 Blood Culture (Wb) - Anticubital Left Blood Culture - Preliminary Physical Exam Const alert, oriented x3 and no apparent distress General Appearance: cooperative and comfortable Orientation / Consciousness: awake Exam Limitations: no limitations HEENT normocephalic, head/scalp atraumatic, moist oral mucous membranes and oropharynx normal; Negative for dentition normal Eyes PERRL, EOMs intact bilaterally and conjunctivae normal Eyes Narrative: Mild pill conjunctiva, no scleral icterus Neck no lymphadenopathy, supple, no JVD and no carotid bruits Resp normal respiratory effort, no retractions, no use of accessory muscles and clear to auscultation bilaterally Auscultation: Negative for crackles, rales, rhonchi or wheezes Cardio regular rate, regular rhythm, S1 normal heart sound, S2 normal heart sound, no murmurs, no rub, no gallops, no clicks and no JVD GI normal to inspection, nondistended, normoactive bowel sounds, soft to palpation, non-tender and non-distended Extremity Extremity Narrative: both LEs wrapped. Skin Skin Narrative: as under extremities Neuro oriented x3, CN's II-XII intact bilaterally, moves all extremities and no focal motor deficits Sensorium / Orientation: awake and alert Speech: speech normal Psych affect normal Assessment & Plan Assessment/Plan (1) Infected wound: (2) Lymphedema of right lower extremity: (3) Cellulitis of right lower limb: PLAN: #Bilateral lower extremity cellulitis and lymphedema * Lymphedema is chronic. * CT of the lower extremity showed no evidence of abscesses or necrotizing fasciitis * On IV vancomycin and Zosyn. Podiatry on board. * Wound care also on board. * PT OT on board. Fall precautions. * #Adult failure to thrive * I spoke to patient about placement today, but he doesnt seem interested and says he can take care of himself at home. He says he will have carers coming in to help him * PT OT on board. * #Diarrhea * says he has had 3 episodes of diarrhea. * Encourage oral hydration. If diarrhea persists, will check for C Diff. * #Hypokalemia: Potassium is 3.3 today. Will replace. #JEFF on CKD stage IIIa: * Creatinine is 1.39 which is above his baseline of ~1.13. * Encourage oral hydration; gentle hydration with iVF. * Will monitor. #Heart failure with preserved ejection fraction: Not in exacerbation. On Lasix #Hyperlipidemia: On statin #History of CAD s/p CABG: On aspirin and statin as well as metoprolol DVT prophylaxis: Lovenox Charges/Coding Visit Charges Inpatient E&M: 78847 Subs Hosp L2
--- NOTE | 2021-04-11 14:51 | PN_ITS ---
Subjective Subjective Patient was seen today for follow up bilateral LE wounds and lymphedema which demonstrated great improvement yesterday. His dressings were already changed and his legs were cleaned this morning by wound nurse, Deysi. Patient resting in bed, no complaints. No fever, chills, nausea or vomiting. His toenails are long thickened dystrophic and he asked for help trimming them today. He is unable to trim these safely on his own and he has extensive lymphedema. Objective Data Objective Data Vital Signs: Vital Signs Temp Pulse Resp BP Pulse Ox 98.4 F 66 18 116/68 97 04/11/21 08:26 04/11/21 10:58 04/11/21 08:26 04/11/21 08:26 04/11/21 08:26 Oxygen Delivery Method Room Air Weight: 91.172 kg Body Mass Index (BMI) 25.1 Intake & Output: Intake and Output for Last 24 Hours 04/09/21 04/10/21 04/11/21 23:59 23:59 23:59 Intake Total 2280.25 / 2280.25 1699 / 2014 1130 / 1130 Output Total 1235 / 1235 1625 / 2025 1450 / 1450 Balance 1045.25 / 1045.25 75 / -10 -320 / -320 Lab / Micro Data Result Diagrams: 04/11/21 07:30 04/11/21 07:30 Labs: Laboratory Results - last 24 hr 04/09/21 14:36: MRSA (PCR) Negative 04/11/21 07:30: WBC 7.9, RBC 3.07 L, Hgb 8.4 L, Hct 27.3 L, MCV 88.9, MCH 27.4, MCHC 30.8 L, RDW Std Deviation 53.3 H, RDW Coeff of Allegra 16.7 H, Plt Count 272, MPV 8.9, Immature Gran % (Auto) 0.600, Neut % (Auto) 68.6, Lymph % (Auto) 16.4 L , Gray % (Auto) 7.5, Eos % (Auto) 6.6 H, Baso % (Auto) 0.3, Absolute Neuts (auto) 5.4, Absolute Lymphs (auto) 1.30, Nucleated RBC % 0 04/11/21 07:30: Sodium 142, Potassium 3.3 L, Chloride 110 H, Carbon Dioxide 26.0, Anion Gap 6, BUN 21 H, Creatinine 1.39 H, Estim Creat Clear Calc 54.88, Est GFR (MDRD) Af Amer 64, Est GFR (MDRD) Non-Af 53 L, BUN/Creatinine Ratio 15.1, Glucose 105, Calcium 7.9 L Micro: Microbiology 04/08/21 10:56 Wound Drainage - Heel Right Gram Stain - Final 04/08/21 10:56 Wound Drainage - Heel Right Wound Culture - Preliminary Pseudomonas stutzeri Proteus mirabilis Pasteurella canis Gram negative avelina#4 Gram positive organism 04/08/21 10:56 Wound Drainage - Heel Right Anaerobic Culture - Preliminary Checking for anaerobes, further studies to follow. 04/08/21 10:56 Wound Drainage - Heel, Left Gram Stain - Final 04/08/21 10:56 Wound Drainage - Heel, Left Wound Culture - Preliminary Chromobacterium violaceum Providencia stuartii GNR lactose wood tile installer Staphylococcus epidermidis Gram positive avelina 04/08/21 10:53 Blood Culture (Wb) - Anticubital Right Blood Culture - Preliminary No growth in 48 hours. 04/08/21 10:50 Blood Culture (Wb) - Anticubital Left Blood Culture - Preliminary Physical Exam Const alert, oriented x3 and no apparent distress Extremity Extremity Narrative: Dressing bilateral leg clean, dry, and intact without strikethrough. No lymphangitic streaking odor or necrosis. Lymphedema is significant and his toes are exposed with invagination noted. No ulcers noted to the toes or forefoot. His toenails are elongated incurvated and slightly thickened 1, 3, 4, 5 bilateral pain on patient with manipulation. CFT < 2 seconds to all toes. 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 Clinical improvement noted to foot/ankle/leg bilateral. Foot cultures have been obtained and final results pending. Multi organism found now also with possible fungus. Patient is on board spectrum antibiotics (vanco/zosyn). White blood cell count 7.9 this morning. He remains afebrile with vitals stable. Blood cultures negative so far. Resolution of clinical local signs of infection. Bilateral lower extremities (foot/ankle/leg) were cleansed with betadine soln and a betadine wet to dry gauze dressing with overlying gauze, kerlix and neal dressing was applied this morning. Soap and water wash performed this morning also to improve skin integrity to limbs. CTA also revealed multisegmental bilateral LE PAD - ultimately with this and lymphedema this is a vascular problem and patient should be following with vascular specialist. There is no evidence of acute ischemia or acute PAD at this time. Keep feet elevated. He does not appear to be able to care for himself properly at home, he would benefit from shelter facility placement with transition into a comprehensive home health or senior living facility setting upon discharge. He would also benefit from lymphedema clinic and vascular specialist in the future. Toenails were debrided in length and thickness with a sterile nail nipper. He tolerated this well. This was performed without incident bilateral 1, 3, 4, 5. This was performed to reduce pressure, reduce chance of wound formation, and to reduce pain. He is at risk due to his clinical and class findings and therefore trimming the nails by a nonprofessional place him at risk. Podiatry will continue to follow. Okay to discharge from a podiatry standpoint. I recommend he follows up within the next 2 to 3 weeks. home weatherizing worker is already meeting with him to determine whether he is going to assisted shelter facility or home with home health assistance. Please call if questions. Abbie Weber DPM, FACF[facility] [phone]
[2021-04-11] MEDS: Atorvastatin Calcium 40 MG Tablet PO (20:51)
[2021-04-11 23:09] LABS: Vancomycin, Trough Level 18.3 ug/mL (5.0-15.0)
[2021-04-12] VITALS (7 sets, daily range): BP systolic 108–119; BP diastolic 66–70; PULSE 60–64; RESP 16–18; TEMP 36.6–37.2; O2SAT 93–96
--- NOTE | 2021-04-12 00:49 | PCM.RX.CS ---
Consult Pharmacy has been consulted to manage selected antiobiotic: Vancomycin Type of Consult: Follow-up Suspected Infection: Skin/Soft tissue Labs: Sodium 142 mmol/L (136-145) 04/11/21 07:30 Potassium 3.3 mmol/L (3.5-5.1) L 04/11/21 07:30 Chloride 110 mmol/L (98-107) H 04/11/21 07:30 Carbon Dioxide 26.0 mmol/L (21.0-32.0) 04/11/21 07:30 Anion Gap 6 (5-15) 04/11/21 07:30 BUN 21 mg/dL (7-18) H 04/11/21 07:30 Creatinine 1.39 mg/dL (0.70-1.30) H 04/11/21 07:30 Est GFR (MDRD) Af Amer 64 mL/min (>60) 04/11/21 07:30 Est GFR (MDRD) Non-Af 53 mL/min (>60) L 04/11/21 07:30 BUN/Creatinine Ratio 15.1 RATIO (10-20) 04/11/21 07:30 Glucose 105 mg/dL (74-106) 04/11/21 07:30 Vancomycin Trough 18.3 ug/mL (5.0-15.0) H 04/11/21 22:30 Microbiology: Microbiology 04/08/21 10:56 Wound Drainage - Heel Right Gram Stain - Final 04/08/21 10:56 Wound Drainage - Heel Right Wound Culture - Preliminary Pseudomonas stutzeri Proteus mirabilis Pasteurella canis Gram negative avelina#4 Gram positive organism 04/08/21 10:56 Wound Drainage - Heel Right Anaerobic Culture - Preliminary Checking for anaerobes, further studies to follow. 04/08/21 10:56 Wound Drainage - Heel, Left Gram Stain - Final 04/08/21 10:56 Wound Drainage - Heel, Left Wound Culture - Preliminary Chromobacterium violaceum Providencia stuartii GNR lactose canvas cutter Staphylococcus epidermidis Gram positive avelina 04/08/21 10:53 Blood Culture (Wb) - Anticubital Right Blood Culture - Preliminary No growth in 48 hours. 04/08/21 10:50 Blood Culture (Wb) - Anticubital Left Blood Culture - Preliminary Goal Trough: 15-20 mcg/mL Pharmacy Plan for Drug Dosing: VANCOMYCIN LEVEL RECEIVED Current Vancomycin Dose: 750MG IV Q12H Number of Doses Received: 7 Vancomycin Level: 18.3 Hours Since Last Dose: 11.5hr Renal Function: 1.39 Renal Function Trend: stable Lab/Micro: Vancomycin Plan/Comments: Patient had trough drawn which resulted in a value of 18.3 (goal 15-20). Trough was drawn appropriately and is within therapeutic limits. Will continue current dose and check a trough in 2 days to assess still within therapeutic range. Pending Level: 04/15/21 @7557 Pharmacy Service will continue to monitor and adjust dosing as required.
[2021-04-12 06:50] LABS: Absolute Lymphocyte Count 1.52 X10^3/uL (0.83-4.51); Absolute Neutrophil Count 4.5 X10^3/uL (2.0-7.7); Basophil# 0.03 X10^3/uL; Basophil% 0.4 % (0-1); Eosinophil# 0.48 X10^3/uL; Eosinophils% 6.6 % (0-5); Hematocrit 26.5 % (40-54); Hemoglobin 8.1 g/dL (13.0-16.5); Lymphocyte # 1.52 X10^3/ul (0.83-4.51); Lymphocyte % 21.1 % (19-41); Mean Corp Hgb Conc 30.6 g/dL (32-36); Mean Corpuscular Hgb 27.6 pg (27.0-32.0); Mean Corpuscular Volume 90.1 fL (80-94); Monocyte# 0.67 X10^3/uL; Monocyte% 9.3 % (0-10); NRBC Flagged by Analyzer 0 % (0-5); Neutrophil # 4.49 X10^3/uL (2.7-7.7); Neutrophil % 62.2 % (47-70); Platelet Count 270 K/mm3 (150-450); RBC Distribution Width CV 17.1 % (11.6-14.6); RBC Distribution Width SD 55.4 fl (35.1-43.9); Red Blood Count 2.94 M/mm3 (4.6-6.2); White Blood Count 7.2 K/mm3 (4.4-11.0)
[2021-04-12 07:28] LABS: Anion Gap 6 (5-15); BUN 18 mg/dL (7-18); BUN/Creat Ratio 14.3 RATIO (10-20); Chloride 109 mmol/L (98-107); Creatinine, Serum 1.26 mg/dL (0.70-1.30); EST Glomerular Filtration Rate 59 mL/min (>60); Est Glom Filt Rate - Afr Amer 72 mL/min (>60); Estimated Creatinine Clearance 60.54 ml/min; Glucose 98 mg/dL (74-106); Potassium 3.3 mmol/L (3.5-5.1); Sodium Level 142 mmol/L (136-145)
--- NOTE | 2021-04-12 09:33 | CASEMGMT ---
TC to Ethel at [facility] to make aware that pt is dc'ing today.
[2021-04-12] MEDS: Ascorbic Acid 500 MG Tablet PO (09:34)
[2021-04-12] MEDS: Potassium Chloride Oral Tablet 20 MEQ 40 MEQ PO (09:34)
[2021-04-12] MEDS: Magnesium Chloride 64 MG Delay Rel.Tablet 128 MG PO (09:34)
[2021-04-12] MEDS: Potassium Chloride Oral Tablet 20 MEQ PO (09:34)
[2021-04-12] MEDS: Enoxaparin 40 MG/0.4 ML Syringe SC (09:34)
[2021-04-12] MEDS: Iron Polysaccharide Complex 150 MG CAPSULE PO (09:34)
[2021-04-12] MEDS: Metoprolol Tartrate 25 MG Tablet PO (09:35)
[2021-04-12] MEDS: Furosemide 40 MG Tablet PO (09:35)
[2021-04-12] MEDS: Aspirin E.C. 81 MG Tablet PO (09:35)
--- NOTE | 2021-04-12 09:49 | CASEMGMT ---
Social Work Note Pt to discharge home with HHC today. SW placed a call to Andrea with [facility] and left message that pt will be discharged home today. Tish Smith BUTTON DECORATING MACHINE OPERATOR, SHAREHOLDER
--- NOTE | 2021-04-12 13:00 | PCM.DC.SUM ---
Providers Date of Admission: 04/08/21 Primary Care Physician: [facility] Consultations 04/08/21 13:26 Consult: Onc/Wound/general car supervisor yard Routine Comment: Consult: Podiatry Routine Consulting Provider: Atul Charlton Reason for Consult: LE wounds EMERGENT Consult: No MD Notified: Yes Date Notified: 04/08/21 Time Notified: 11:56 Method of Notification: Provider Initiated Reason For Visit: B LE CELLULITIS/LYMPHEDEMA Diagnosis Discharge Diagnosis (1) Lymphedema of right lower extremity: Status: Chronic Code(s): I89.0 - Lymphedema, not elsewhere classified (2) Lymphedema of left lower extremity: Status: Acute Code(s): I89.0 - Lymphedema, not elsewhere classified (3) Chronic 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: Status: Chronic Code(s): L97.522 - Non-pressure chronic ulcer of other part of left foot with fat layer exposed (4) Non-pressure chronic ulcer of other part of right foot with fat layer exposed: Status: Chronic Code(s): L97.512 - Non-pressure chronic ulcer of other part of right foot with fat layer exposed (5) Cellulitis of right lower limb: Status: Acute Code(s): L03.115 - Cellulitis of right lower limb (6) Cellulitis of left lower limb: Status: Acute Code(s): L03.116 - Cellulitis of left lower limb Medications at Discharge Home Medications ascorbic acid (vitamin C) 500 mg capsule 500 mg PO BID ea 06/04/17 Aspirin [Aspirin Ec] 81 mg PO DAILY@0800 04/04/20 magnesium oxide 400 mg PO DAILY 04/04/20 acetaminophen 650 mg PO Q6H PRN PRN tab 04/08/20 polyethylene glycol 3350 17 gm PO DAILY packet 04/08/20 polysaccharide iron complex 150 mg PO DAILYCM cap 04/08/20 sennosides-docusate sodium 1 tab PO BID tab 04/08/20 sodium hypochlorite 1 applic TOPICAL DAILY bottle 04/08/20 metoprolol tartrate 25 mg tablet 25 mg PO BID #180 tab 06/29/20 furosemide 40 mg tablet 40 mg PO BID #180 tab 08/01/20 simvastatin 80 mg tablet 80 mg PO QPM #90 tab 08/01/20 potassium chloride 20 mEq tablet,extended release(part/cryst) 20 meq PO BID #90 tab 09/23/20 levofloxacin 750 mg PO DAILY #5 tab 04/12/21 metronidazole 500 mg PO Q8H #25 tab 04/12/21 Hospital Course Operations None Procedures None Summary of Care Provided Minutes Spent on Discharge: 45 Hospital Course: Patient is a 76 y/o male with a PMH as outlined was admitted through the ED on 04/08/2021 with a complaint of bilateral lower extremity wounds which have been worsening. Patient has bilateral lower extremity lymphedema secondary to agent orange exposure in [place] and said he has had recurrent admissions for cellulitis of the lower extremities. Patient has been caring for his legs at home himself. He had some maggots crawling out from his wounds. He denied any fever or chills, any nausea or vomiting and said he was able to ambulate well himself at home. During his previous admission about a year ago, adult protective services were consulted at that time due to concerns about patient being unable to take care of himself. On admission, he was noted to have bilateral lower extremity edema that was pitting and he also had lots of maggots in his wounds. WBC was not elevated. He was admitted and managed for cellulitis of the lower extremities. X-ray of the bilateral lower extremity showed severe soft tissue swelling with air in the soft tissues consistent with infection and gas-forming organisms. He was started on IV vancomycin, Zosyn and clindamycin. Podiatry was consulted. He had CT of the lower extremities which was negative for any evidence of necrotizing fasciitis. CTA of the lower extremity showed multisegmental bilateral lower extremity peripheral artery disease and was recommended that he follow-up with a vascular surgeon. Wound cultures grew Pseudomonas to surgery as well as Proteus and Pasteurella and Fusobacterium as well as Clostridium removed some, Providencia stuartii and staph epidermidis. Blood cultures also grew Clostridium group. Patient was discharged on p.o. levofloxacin and p.o. Flagyl for 5 days. He is to follow-up with podiatry on outpatient basis and is also to have home care change his dressings. Patient seen and examined prior to discharge. He had no complaints. He has been complaining of diarrhea but diarrhea started resolving. Review of systems otherwise negative. Labs and vitals reviewed. Home medication reviewed and reconciled. Physical Exam Const alert, oriented x3, no apparent distress and average body habitus General Appearance: cooperative, comfortable and disheveled Orientation / Consciousness: awake Exam Limitations: no limitations HEENT normocephalic, head/scalp atraumatic, moist oral mucous membranes and oropharynx normal; Negative for dentition normal Eyes PERRL, EOMs intact bilaterally and conjunctivae normal Eyes Narrative: Mild pill conjunctiva, no scleral icterus Neck no lymphadenopathy, supple, no JVD and no carotid bruits Resp normal respiratory effort, no retractions, no use of accessory muscles and clear to auscultation bilaterally Auscultation: Negative for crackles, rales, rhonchi or wheezes Cardio regular rate, regular rhythm, S1 normal heart sound, S2 normal heart sound, no murmurs, no rub, no gallops, no clicks and no JVD GI normal to inspection, nondistended, normoactive bowel sounds, soft to palpation, non-tender and non-distended Extremity Extremity Narrative: both LEs wrapped. Skin Skin Narrative: as under extremities Neuro oriented x3, CN's II-XII intact bilaterally, moves all extremities and no focal motor deficits Sensorium / Orientation: awake and alert Speech: speech normal Psych affect normal Weight / BMI Weight Weight: 201 lb Body Mass Index (BMI) 25.1 ABG / Lab / Microbiology Data Result Diagrams: 04/12/21 06:00 04/12/21 06:00 Laboratory: Laboratory Results - last 24 hr 04/11/21 22:30: Vancomycin Trough 18.3 H 04/12/21 06:00: WBC 7.2, RBC 2.94 L, Hgb 8.1 L, Hct 26.5 L, MCV 90.1, MCH 27.6, MCHC 30.6 L, RDW Std Deviation 55.4 H, RDW Coeff of Allegra 17.1 H, Plt Count 270, MPV 9.0, Immature Gran % (Auto) 0.400, Neut % (Auto) 62.2, Lymph % (Auto) 21.1, [place] % (Auto) 9.3, Eos % (Auto) 6.6 H, Baso % (Auto) 0.4, Absolute Neuts (auto) 4.5, Absolute Lymphs (auto) 1.52, Nucleated RBC % 0 04/12/21 06:00: Sodium 142, Potassium 3.3 L, Chloride 109 H, Carbon Dioxide 27.0, Anion Gap 6, BUN 18, Creatinine 1.26, Estim Creat Clear Calc 60.54, Est GFR (MDRD) Af Amer 72, Est GFR (MDRD) Non-Af 59 L, BUN/Creatinine Ratio 14.3, Glucose 98, Calcium 8.0 L Microbiology: Microbiology 04/08/21 10:56 Wound Drainage - Heel Right Gram Stain - Final 04/08/21 10:56 Wound Drainage - Heel Right Wound Culture - Preliminary Pseudomonas stutzeri Proteus mirabilis Pasteurella canis Gram negative avelina#4 Coag Negative Staph Gram negative avelina Gram positive organism 04/08/21 10:56 Wound Drainage - Heel Right Anaerobic Culture - Final Fusobacterium varium Clostridium ramosum Anaerobic cocci 04/08/21 10:56 Wound Drainage - Heel, Left Gram Stain - Final 04/08/21 10:56 Wound Drainage - Heel, Left Wound Culture - Preliminary Chromobacterium violaceum Providencia stuartii GNR lactose campaign fundraiser Staphylococcus epidermidis Gram positive avelina 04/08/21 10:56 Wound Drainage - Heel, Left Anaerobic Culture - Final Fusobacterium varium Bacteroides sp 04/08/21 10:50 Blood Culture (Wb) - Anticubital Left Blood Culture - Final Clostridium group 04/08/21 10:53 Blood Culture (Wb) - Anticubital Right Blood Culture - Preliminary No growth in 48 hours. D/C Instructions Discharge Diet: Low fat / Low cholesterol Discharge Activity: Return to Normal Activity Weight Bearing Status: Weight bearing as tolerated Call your doctor if you observe: Fever of 101 or Higher, Swelling in the ankles and Uncontrolled pain Meaningful Use Info Meaningful Use Diagnoses (Choose all that apply): None applicable Discharge Plan Admission Admit Date/Time: 04/08/21 11:51 Primary Reason for Your Visit: cellulitis of the LEs Attending Provider: Karyn Bunch Primary Care Provider: [place] [place] Consulting Providers: Atul Charlton Instructions Additional Instructions / Restrictions: Change bilateral leg dressings every 1 to 2 days with hydrogel and gauze. Wash with antibacterial soap and water. Place gauze into invaginated skin of legs and toes to prevent maceration build up or maggot infestation. Elevate bilateral lower extremities. Discharge Orders/Prescriptions Prescriptions: New levofloxacin 750 mg tablet 750 mg PO DAILY Qty: 5 RF: 0 metronidazole 500 mg tablet 500 mg PO Q8H Qty: 25 RF: 0 Continued ascorbic acid (vitamin C) 500 mg capsule 500 mg PO BID RF: 0 Aspirin [Aspirin Ec] 81 MG Tablet.Dr 81 mg PO DAILY@0800 RF: 0 magnesium oxide 400 MG tablet 400 mg PO DAILY RF: 0 acetaminophen 325 MG tablet 650 mg PO Q6H PRN PRN (Reason: Pain Score 1-10/Temp > 100.7 F) RF: 0 polyethylene glycol 3350 17 GM packet 17 gm PO DAILY RF: 0 polysaccharide iron complex 150 MG capsule 150 mg PO DAILYCM RF: 0 sennosides-docusate sodium 1 TABLET tablet 1 tab PO BID RF: 0 sodium hypochlorite 1 APPLIC bottle 1 applic TOPICAL DAILY RF: 0 metoprolol tartrate 25 mg tablet 25 mg PO BID Qty: 180 RF: 6 simvastatin 80 mg tablet 80 mg PO QPM Qty: 90 RF: 3 furosemide 40 mg tablet 40 mg PO BID Qty: 180 RF: 3 potassium chloride 20 mEq tablet,ER particles/crystals 20 meq PO BID Qty: 90 RF: 4 Referrals / Follow Up: Yinka Simon MD [STAFF PHYSICIAN] - Within 2 Weeks Abbie Weber DPM [STAFF PHYSICIAN] - See Referral Note (Follow up wound center within next 2-4 weeks. call [phone] sooner if questions or concerns.) [facility] [Primary Care Provider] - Within 2 Weeks Disposition Disposition (needs filled in before D/C Order can be placed): Home Health Service Charges/Coding Visit Charges Inpatient E&M: 94825 Disch Hosp
== END 2021-04-12 18:15 | disposition home health service (06) | DRG 593 ==
LOC: ED 11:44 → MS3 12:04
PROVIDERS: Admitting Provider Internal Medicine; Emergency Provider Student in an Organized Health Care Education/Training Program; Visit Provider Student in an Organized Health Care Education/Training Program
DX: L97.522 Non-pressure chronic ulcer of other part of left foot with fat layer exposed (principal); L03.116 Cellulitis of left lower limb; I50.32 Chronic diastolic (congestive) heart failure; I13.0 Hypertensive heart and chronic kidney disease with heart failure and stage 1 through stage 4 chronic kidney disease, or unspecified chronic kidney disease; L03.115 Cellulitis of right lower limb; N17.9 Acute kidney failure, unspecified; L28.0 Lichen simplex chronicus; I89.0 Lymphedema, not elsewhere classified; N18.31 Chronic kidney disease, stage 3a; K59.09 Other constipation; L97.512 Non-pressure chronic ulcer of other part of right foot with fat layer exposed; B96.4 Proteus (mirabilis) (morganii) as the cause of diseases classified elsewhere; B96.7 Clostridium perfringens [C. perfringens] as the cause of diseases classified elsewhere; B95.7 Other staphylococcus as the cause of diseases classified elsewhere; B96.6 Bacteroides fragilis [B. fragilis] as the cause of diseases classified elsewhere; B96.5 Pseudomonas (aeruginosa) (mallei) (pseudomallei) as the cause of diseases classified elsewhere; B96.89 Other specified bacterial agents as the cause of diseases classified elsewhere; R19.7 Diarrhea, unspecified; L60.3 Nail dystrophy; D63.8 Anemia in other chronic diseases classified elsewhere; E78.5 Hyperlipidemia, unspecified; E87.6 Hypokalemia; R62.7 Adult failure to thrive; B35.1 Tinea unguium; I73.9 Peripheral vascular disease, unspecified; I25.10 Atherosclerotic heart disease of native coronary artery without angina pectoris; I25.2 Old myocardial infarction; I35.0 Nonrheumatic aortic (valve) stenosis; Z95.1 Presence of aortocoronary bypass graft; Z79.82 Long term (current) use of aspirin; Z79.899 Other long term (current) drug therapy; Z87.891 Personal history of nicotine dependence
CPT/HCPCS: 36415; 71045; 73590; 73620; 73706; 80048; 80053; 80202; 82728; 83540; 83550; 83605; 83735; 83880; 84100; 85025; 85045; 85610; 85652; 86140; 87040; 87070; 87075; 87077; 87186; 87205; 87641; 93005; 97162; 97166; 97530; 97535; 97802; 99285; J7040; J7050; Q9967; 90686; A4216

== ENCOUNTER 2024-04-24 15:34 | Inpatient (IN) | payer OTHER, SELFPAY ==
[2024-04-24] VITALS (9 sets, daily range): BP systolic 137–183; BP diastolic 71–95; PULSE 81–85; RESP 16–28; TEMP 36.9–37.1; O2SAT 91–97; BMI 31.4; BMI 29.3
--- NOTE | 2024-04-24 16:13 | CT_ITS ---
INDICATION: Trauma EXAMINATION: CT FACIAL BONES - CT Maxillofacial W/O Contrast Injection TECHNIQUE: Helically acquired images were obtained of the facial bones. A radiation dose optimization technique was used for this scan. IV Contrast dosage and agent: None. Radiation Dose (provided by facility) CTDIvol (29.38 ) mGy, DLP ( 635.61) mGy-cm COMPARISON: None. FINDINGS: ORBITS: 1. Preseptal soft tissue swelling greater on the LEFT than RIGHT. Additional soft tissue subcutaneous swelling extends in the LEFT infraorbital soft tissue planes. No nasra hematoma noted. 2. Normal appearance the bony falcon the orbits. 3. Post septal soft tissue planes have normal appearance. Normal appearance of the globes, ocular lenses and optic nerves. NASAL SKELETON: Normal, no fractures noted. Nasal septum is near midline. PARANASAL SINUSES: Mucosal thickening in the maxillary sinuses, no fluid or blood in the paranasal sinuses middle ear cavities or mastoid air cells. SKULL BASE AND ZYGOMATIC ARCHES: Normal, normal alignment, no fractures noted. VISUALIZED MANDIBLE: 1. Normal appearance of the mandibular condyles, TMJs, and the visualized mandible to the level of the symphysis. 2. The patient is edentulous. OTHER: 1. Normal appearance of the deep spaces of the head and visualized upper neck. Airway has normal appearance. 2. 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 3. Extensive vascular calcifications involving the cavernous carotid vessels and the intracranial vertebral arteries. CT/Sinus/Facial Bone IMPRESSION: 1. Significant soft tissue swelling/ecchymosis and bruising in the preseptal soft tissue planes greater on LEFT than RIGHT, and extending into the LEFT infraorbital soft tissue/cheek. No radiopaque foreign bodies hematoma or underlying fracture. 2. Normal appearance of the globes and retrobulbar soft tissue planes bilaterally. 3. Mild mucosal thickening maxillary antra, no fluid or blood in the paranasal sinuses middle ear cavities or mastoid air cells. 4. Extensive intracranial vascular calcifications. 5. Elongation of the styloid processes and ossification of the stylohyoid ligament as detailed. 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 Electronically Signed: Brent Daniels MD at 17:19 EST ,
--- NOTE | 2024-04-24 16:14 | EKG12_ITS ---
Test Reason : FALL Blood Pressure : */* mmHG Vent. Rate : 83 BPM Atrial Rate : 83 BPM P-R Int : 114 ms QRS Dur : 124 ms QT Int : 386 ms P-R-T Axes : 5 -37 63 degrees QTcB Int : 453 ms Normal sinus rhythm Left axis deviation Non-specific intra-ventricular conduction delay Minimal voltage criteria for LVH, may be normal variant ( [place] product ) Nonspecific ST abnormality Abnormal ECG Confirmed by Javier Escalona ([id number]), editorial project manager MAXIME RIVER ([id number]) on 04/27/2024 11:30:12 AM Referred By: Confirmed By: Javier Escalona
--- NOTE | 2024-04-24 16:17 | CT_ITS ---
INDICATION: Trauma EXAMINATION: CT BRAIN - CT Head or Brain W/O Contrast Injection TECHNIQUE: Multiple axial images were obtained of the head without intravenous contrast. A radiation dose optimization technique was used for this scan. IV Contrast dosage and agent: None. RADIATION DOSAGE (If Supplied By Facility): CTDIvol = ( 44.99 ) mGy, DLP = ( 897.35 ) mGycm COMPARISON: No relevant prior examinations for comparison FINDINGS: HEMISPHERES: 1. The cerebral parenchyma, ventricular system, subarachnoid spaces have normal configuration and density. There is a normal gyral pattern. There is normal tena/white differentiation. No midline shift.. 2. There are diffuse involutional changes and chronic microvascular deep white matter disease. Areas of remote lacunar infarct present within the LEFT caudate. No intraparenchymal mass, hemorrhage, or acute territorial infarct. CEREBELLUM - BRAINSTEM: The cerebellum, brainstem, basilar and suprasellar cisterns have normal appearance. No Chiari malformation. PITUITARY: Infundibulum and pituitary have normal configuration. Midline structures appear normal. CSF SPACES: Appropriate for age. No hydrocephalus. Basal cisterns are patent. VESSELS: 1. Extensive carotid and vertebral calcifications. 2. No hyperdense vascular signs noted.. ORBITS AND PARANASAL SINUSES: 1. Normal appearance of the bony orbits. Normal appearance of the globes and retrobulbar soft tissues.. Preseptal soft tissue swelling and ecchymosis greater on the LEFT than RIGHT. 2. Paranasal sinuses are clear with the exception of mucosal thickening in the maxillary sinus.. BONY ELEMENTS: Bony elements of the cranial vault, facial skeleton and skull base have normal appearance. SCALP AND SOFT TISSUES: Scalp swelling/ecchymosis greater on the LEFT than RIGHT. No radiopaque foreign body, no underlying fractures noted. OTHER: None ASPECTS Score for Acute Strokes: 10 CT/Brain/Head without Contrast IMPRESSION: 1. Diffuse involutional change and chronic microvascular deep white matter disease. 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 2. No intracranial evidence of acute traumatic injury. 3. Preseptal soft tissue swelling/ecchymosis greater on the LEFT than RIGHT. Additional extensive soft tissue swelling and contusion/abrasion in the parietal scalp greater on LEFT than RIGHT. No radiopaque foreign body or underlying fracture. 4. No intracranial mass, hemorrhage or acute territorial infarct. 5. No fractures identified. 6. No radiographically significant sinus disease.. Electronically Signed: Brent Daniels MD at 17:33 EST ,
--- NOTE | 2024-04-24 16:17 | CT_ITS ---
INDICATION: Trauma EXAMINATION: CT CERVICAL SPINE - CT Spine Cervical W/O Contrast Injection TECHNIQUE: Helically acquired images were obtained of the cervical spine. 2D reformatted images were reviewed. A radiation dose optimization technique was used for this scan. Noncontrast images obtained. IV Contrast dosage and agent: None. Radiation Dose (provided by facility) CTDIvol (NA ) mGy, DLP ( NA) mGy-cm COMPARISON: : No relevant prior comparison study available FINDINGS: VERTEBRAE: No fracture or traumatic subluxation. No discrete lytic or blastic abnormality. Normal alignment. Normal craniocervical junction and cervicothoracic junction. Normal appearance of the odontoid process. DISCS and SPINAL CANAL: Multilevel disc space narrowing marginal osteophyte formation and endplate sclerosis. There are broad-based disc bulges and osteophytes without evidence of acutely acquired canal stenosis or acute disc herniation. There is moderate to marked LEFT foraminal narrowing at C4-5 and C5-C6. Moderate foraminal narrowing at remaining levels due to chronic facet and uncovertebral joint changes. No critical canal the nose. NECK SOFT TISSUES: No prevertebral soft tissue swelling. There is no cervical adenopathy. LUNG APICES: Clear. CT/Spine Cervical without Contras IMPRESSION: 1. No evidence of acute cervical spinal fracture or spondylolisthesis. No acutely acquired canal stenosis. 2. Multilevel chronic cervical spondylosis and chronic foraminal narrowing as detailed. Electronically Signed: Brent Daniels MD at 17:50 EST ,
[2024-04-24] MEDS: 0.9% Normal Saline (1000mL) 1,000 ML 1000 ML IV ×2 (16:19→21:29)
--- NOTE | 2024-04-24 16:21 | EDS_ITS ---
HPI HPI - Fall History of Present Illness Chief Complaint: Fall Narrative Narrative: Chief complaint and HPI: Fall. 79-year-old male with history of chronic bilateral lower extremity lymphedema and ulcers, CAD status post surgery, HFpEF, HTN, HLD presents for evaluation after a fall. Patient states that he is unsteady on his feet secondary to his lymphedema. He states that he slipped in the bathroom and was unable to get up. He has mostly been laying on his left side. Patient states that he was found today in his house by a friend that was trying to visit. He states that he has not had anything to eat and drink while laying on the floor. He states that he has been urinating and defecating himself. He originally refused to come to the hospital via EMS but then elected to proceed. Overall he states that he does not want to be here. He denies any pain. Endorses thirst and feelings of cold. He is requiring oxygen that he usually does not wear. He denies any fever, chills, URI symptoms, chest pain, shortness of breath, abdominal pain, nausea, vomiting. Patient has not ambulated since the fall. Review of systems: See HPI Medications: As listed on the chart Allergies: As listed on the chart PFSH: Per chart Vital signs: As listed on the chart. Reviewed. Physical exam: Gen: A&O x4, dirty, smells of urine Head: Normocephalic, patient is wearing a dirty wig that he will not let me remove-cannot assess his scalp for wounds or injury Eyes: No sclera icterus, conjunctiva clear, PERRL, EOMI, mild periorbital edema from lying on the floor-worse on the left compared to the right ENT: TMs clear BL, very dry mucous membranes with unremarkable posterior oropharynx, Dried blood in the naris, No nasal septal hematoma, swelling to the left lateral face-tender to palpation-likely from lying on the ground Neck: Trachea midline, No JVD, Nontender, full range of motion CV: RRR, no murmurs, no chest wall TTP Resp: Lungs CTA BL, no w/r/c GI: Abd soft, non-distended, non-tender, no r/r/g, large abdominal hernia, hernia belt is covered in urine and feces-removed Musc: Moves all extremities but generalized weakness, no deformity, no spinal TTP, no lucrecia step-offs, patient had dirty/soiled bilateral lymphedema bandages- these were removed-patient has extensive lymphedema with chronic ulcers and sores however appear relatively clean without cellulitis Skin: Cold, dry, covered in urine and dirt, abrasion to the left posterior shoul lynn Neuro: Alert, oriented, grossly intact, sensation intact, GCS 15 Psych: Intermittent cooperative [facility] Medical History Alcohol abuse Former smoker Non-pressure chronic ulcer of other part of right foot with fat layer exposed Cellulitis of right lower limb Lymphedema of left lower extremity Lymphedema of right lower extremity 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 Infected wound Cellulitis and abscess of lower extremity (12/2018) (HFpEF) heart failure with preserved ejection fraction Nonrheumatic aortic (valve) stenosis Essential (primary) hypertension Ulcer of left lower extremity with fat layer exposed Ulcer of right lower extremity with fat layer exposed Lymphedema of lower extremity Hyperlipidemia Bradycardia Old inferior wall myocardial infarction Atherosclerotic heart disease of [place] coronary artery without angina pectoris History of left heart catheterization Home Medications ?Medication ?Instructions ?Recorded ?Last Taken ?Type cholecalciferol (vitamin D3) 125 125 mcg PO DAILY 12/11/21 Unknown History mcg (5,000 unit) capsule sildenafil 100 mg tablet (Viagra) 100 mg PO DAILY PRN sexual 12/11/21 Unknown Rx activity #10 tabs simvastatin 80 mg tablet 80 mg PO QPM CHOLESTEROL #90 tabs 07/17/23 Unknown Rx aspirin 81 mg tablet,delayed 81 mg PO DAILY 11/19/23 Unknown History release (Adult Low Dose Aspirin) metoprolol tartrate 25 mg tablet 25 mg PO BID #180 tabs 11/19/23 Unknown Rx potassium chloride 20 mEq 20 meq PO BID PRN quantity 11/19/23 Unknown History tablet,extended release(part/cryst) correction #180 please vitamins A,C,U-ohus-eqbulf 4,296 1 cap PO DAILY 11/19/23 Unknown History mcg-226 mg-90 mg capsule (PreserVision AREDS) Allergy/AdvReac Type Severity Reaction Status Date / Time hydrocodone (From Vicodin) AdvReac Intermediate Vomiting Verified 04/24/24 15:39 morphine AdvReac Intermediate Vomiting Verified 04/24/24 15:39 Family History Father , age 62 CAD (coronary artery disease) Myocardial infarction Hx of CABG Mother CAD (coronary artery disease) Hx of CABG Alzheimer's dementia Surgical History History of bilateral cataract extraction H/O coronary artery bypass surgery (03/26/97) Social History (Updated 11/19/23 @ 09:12 by Corinne Talley) Smoking Status: Former smoker pack-years: 35 how long ago did patient quit smokin years ago alcohol intake: current alcohol intake frequency: holidays/special occasions only substance use type: does not use caffeine: Yes Type: coffee Number of servings: 1 EXAM Physical Exam Const Vital Signs: 04/24/24 15:34 04/24/24 15:35 04/24/24 16:34 Temperature 98.6 F Temperature Source Oral Pulse Rate 85 82 Respiratory Rate 28 H 16 Respiratory Effort Respiratory Depth Respiratory Pattern Blood Pressure 183/95 H 150/71 H Blood Pressure Mean 124 97 Pulse Ox 95 91 91 Oxygen Delivery Method Nasal Cannula Room Air Nasal Cannula Oxygen Flow Rate (L/min) 2 2 04/24/24 16:34 04/24/24 17:00 04/24/24 18:00 Temperature Temperature Source Pulse Rate 83 81 Respiratory Rate 22 H 28 H Respiratory Effort Normal Respiratory Depth Shallow Respiratory Pattern Tachypnea Blood Pressure 137/95 H 158/86 H Blood Pressure Mean 109 110 Pulse Ox 91 97 95 Oxygen Delivery Method Nasal Cannula Nasal Cannula Nasal Cannula Oxygen Flow Rate (L/min) 2 2 2 04/24/24 18:26 04/24/24 18:27 Temperature 98.8 F 98.8 F Temperature Source Oral Pulse Rate 82 84 Respiratory Rate 25 H 22 H Respiratory Effort Respiratory Depth Respiratory Pattern Blood Pressure 158/86 H 158/86 H Blood Pressure Mean 110 110 Pulse Ox 96 96 Oxygen Delivery Method Nasal Cannula Oxygen Flow Rate (L/min) 2 MDM MDM MDM Narrative Medical decision making narrative: 79-year-old male with history of chronic bilateral lower extremity lymphedema and ulcers, CAD status post surgery, HFpEF, HTN, HLD presents for evaluation after a fall. Patient slipped. He has been lying on the floor since Saturday. Nothing to eat or drink. Soiling himself. On presentation, patient is covered in his urine and feces. Very dry mucous membranes. Weak. He is hypertensive and tachypneic. Requiring 2 L nasal cannula which she does not wear at baseline. Patient was found by a friend. Originally refused EMS. Patient finally elected to come to the hospital. Patient originally refused all treatment and imaging. He is alert and oriented x 4. I explained to him the importance of this as well as risks and benefits. He wanted to leave AMA. I explained to him that the risk is . Once we discussed more, patient is in agreement to some laboratory and some imaging workup. He will not let me perform a full exam such as remove his soiled leg. He is intermittently cooperative. NS bolus ordered. Extensive laboratory workup ordered including chest x-ray, CT of the head, neck, face. Differential diagnosis includes but is not limited to rhabdomyolysis, JEFF, electrolyte abnormality, ACS, fracture, intracranial bleed. EKG and chest x-ray reviewed see below. CBC without leukocytosis. Patient has baseline anemia. Coagulation panel unremarkable. CMP shows baseline renal insufficiency with a creatinine of 1.4. AST mildly elevated at 83. Lactic acid unremarkable. CPK 2810. Patient is in rhabdomyolysis, another NS bolus ordered. Troponin elevated at 2712.B [employer] elevated at 982. Patient has no ST elevation or depressions on his EKG. No chest pain. This is likely secondary to his rhabdomyolysis. CT of the face shows significant soft tissue swelling in the preseptal soft tissue planes greater on the left than the right and extending into the left infraorbital soft tissue/cheek. This correlates with physical exam. No fracture. CT of the head head she has a remote lacunar infarct in the left caudate. Chronic changes. No acute traumatic injury. CT cervical spine without any traumatic injury. Patient will warrant admission for his rhabdomyolysis as well as elevated troponin and suspected lung contusion. Patient was updated all the results and confirmed understanding the plan. He is in agreement to admission. Patient was discussed with the hospitalist service and they accepted. EKG: Interpreted by me/EM physician: EKG shows normal sinus rhythm. Nonspecific ST T changes. Heart rate 83. Diagnostic: Interpreted by me/EM physician: Chest x-ray without pneumothorax. Patient has diffuse interstitial infiltrate throughout the left lung with a small left pleural effusion. Likely secondary to the fact that he was laying on his left side. Impression: 1. Rhabdomyolysis 2. Elevated troponin secondary to #1 3. Left pulmonary contusion secondary to #1 3. Mechanical fall with prolonged downtime Lab Data Labs: Laboratory Results - last 24 hr 04/24/24 04/24/24 04/24/24 15:47 16:18 16:24 WBC 10.4 RBC 3.79 L Hgb 10.6 L Hct 33.9 L MCV 89.4 MCH 28.0 MCHC 31.3 L RDW Std Deviation 52.8 H RDW Coeff of Allegra 16.1 H Plt Count 179 MPV 10.3 Immature Gran % (Auto) [employer] Neut % (Auto) [employer] Lymph % (Auto) [employer] Lyon % (Auto) [employer] Eos % (Auto) [employer] Baso % (Auto) [employer] Absolute Neuts (auto) 9.8 H Absolute Lymphs (auto) 0.21 L Total Counted 100 Neutrophils % (Manual) 81 H Band Neutrophils % 14 H Lymphocytes % (Manual) 2 L Monocytes % (Manual) 1 Myelocytes % 2 H Nucleated RBC % 0 [address] Path Review May foll Hypersegmented Neuts RARE H Atypical Lymphocytes RARE Platelet Estimate ADEQUATE Anisocytosis 1+ Ovalocytes 1+ Qi Cells RARE PT 15.2 H INR 1.2 APTT 30.7 Sodium 144 Potassium 3.8 Chloride 114 H Carbon Dioxide 24.0 Anion Gap 6 BUN 27 H Creatinine 1.40 H Estim Creat Clear Calc 59.23 Est GFR (MDRD) Af Amer 63 Est GFR (MDRD) Non-Af 52 L BUN/Creatinine Ratio 19.3 Glucose 114 H Lactic Acid 1.4 Calcium 8.3 L Total Bilirubin 0.50 AST 83 H ALT 36 Alkaline Phosphatase 95 Total Creatine Kinase 2810 H Troponin I High Sens 2712 H* B-Natriuretic Peptide 982.7 H Total Protein 6.5 Albumin 2.6 L Globulin 3.9 Albumin/Globulin Ratio 0.7 L POC Glucose 94 Radiography Diagnostic Testing: Clinical Impression(s) from Imaging Studies Facial/Sinus 04/24/24 16:13 IMPRESSION: 1. Significant soft tissue swelling/ecchymosis and bruising in the preseptal soft tissue planes greater on LEFT than RIGHT, and extending into the LEFT infraorbital soft tissue/cheek. No radiopaque foreign bodies hematoma or underlying fracture. 2. Normal appearance of the globes and retrobulbar soft tissue planes bilaterally. 3. Mild mucosal thickening maxillary antra, no fluid or blood in the paranasal sinuses middle ear cavities or mastoid air cells. 4. Extensive intracranial vascular calcifications. 5. Elongation of the styloid processes and ossification of the stylohyoid ligament as detailed. 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 Electronically Signed: Brent Daniels MD at 17:19 EST , Brain CT 04/24/24 16:17 IMPRESSION: 1. Diffuse involutional change and chronic microvascular deep white matter disease. 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 2. No intracranial evidence of acute traumatic injury. 3. Preseptal soft tissue swelling/ecchymosis greater on the LEFT than RIGHT. Additional extensive soft tissue swelling and contusion/abrasion in the parietal scalp greater on LEFT than RIGHT. No radiopaque foreign body or underlying fracture. 4. No intracranial mass, hemorrhage or acute territorial infarct. 5. No fractures identified. 6. No radiographically significant sinus disease.. Electronically Signed: Brent Daniels MD at 17:33 EST , Cervical Spine CT 04/24/24 16:17 IMPRESSION: 1. No evidence of acute cervical spinal fracture or spondylolisthesis. No acutely acquired canal stenosis. 2. Multilevel chronic cervical spondylosis and chronic foraminal narrowing as detailed. Electronically Signed: Brent Daniels MD at 17:50 EST , Chest X-Ray 04/24/24 16:48 IMPRESSION: 1. Postop changes of prior CABG. 2. Mild vascular congestion without nasra interstitial edema. 3. Diffuse interstitial atypical infiltrate throughout the LEFT lung and small LEFT effusion. 4. Atelectasis and volume loss at the RIGHT lung base. Electronically Signed: Brent Daniels MD at 17:38 EST , Discharge Plan Triage Chief Complaint: Fall ED Provider: Tee Akers Dx/Rx/DC Orders Prescriptions: No Action cholecalciferol (vitamin D3) 125 mcg (5,000 unit) capsule 125 mcg PO DAILY sildenafil [Viagra] 100 mg tablet 100 mg PO DAILY PRN (Reason: sexual activity) Qty: 10 3RF Rx Instructions: administer 30 minutes to 4 hours before activity PreserVision AREDS 4,296 mcg-226 mg-90 mg capsule 1 cap PO DAILY aspirin [Adult Low Dose Aspirin] 81 mg tablet,delayed release (DR/EC) 81 mg PO DAILY potassium chloride 20 mEq tablet,ER particles/crystals 20 meq PO BID PRN (Reason: quantity correction #180 please) Rx Instructions: Doesn't always take metoprolol tartrate 25 mg tablet 25 mg PO BID Qty: 180 3RF simvastatin 80 mg tablet 80 mg PO QPM Qty: 90 3RF [facility]: [facility] [Primary Care Provider] - Print Language: Slovenian
[2024-04-24 16:29] LABS: Basophil# 0.02 X10^3/uL; Hematocrit 33.9 % (40-54); Hemoglobin 10.6 g/dL (13.0-16.5); Lymphocyte # 0.37 X10^3/ul (0.83-4.51); Mean Corp Hgb Conc 31.3 g/dL (32-36); Mean Corpuscular Volume 89.4 fL (80-94); Mean Platelet Vol. 10.3 fl (6.2-12.0); Monocyte# 0.39 X10^3/uL; NRBC Flagged by Analyzer 0 % (0-5); Neutrophil # 9.56 X10^3/uL (2.7-7.7); POSITIVE DIFFERENTIAL YES; POSITIVE MORPHOLOGY YES; Platelet Count 179 K/mm3 (150-450); RBC Distribution Width CV 16.1 % (11.6-14.6); RBC Distribution Width SD 52.8 fl (35.1-43.9); Red Blood Count 3.79 M/mm3 (4.6-6.2); White Blood Count 10.4 K/mm3 (4.4-11.0)
[2024-04-24 16:36] LABS: Differential Indicated SCAN CRITERIA MET; International Normalized Ratio 1.2; Prothrombin Time (Protime)PT. 15.2 SECONDS (11.7-14.9)
[2024-04-24 16:37] LABS: Partial Thromboplast Time 30.7 Seconds (24.1-36.2)
[2024-04-24 16:37] LABS: Bedside Glucose 94 mg/dL (74-106)
--- NOTE | 2024-04-24 16:48 | RAD_ITS ---
INDICATION: hypoxia EXAMINATION/TECHNIQUE: X-RAY - XR Chest 2 Views COMPARISON: 04/08/2021 FINDINGS: LIFE-SUPPORT AND LINES: 1. Median sternotomy wires and vascular clips are again noted. HEART AND VESSELS: Cardiac silhouette is unchanged, there is mild vascular congestion LUNGS AND PLEURAL SPACES: Diffuse interstitial prominence throughout the LEFT lung, and small LEFT effusion suspected. The atypical interstitial infiltrate is present throughout the LEFT lung. Mild atelectasis and volume loss at the RIGHT base. No pulmonary mass is noted. MEDIASTINUM AND HILAR REGIONS: No masses adenopathy noted. No areas of calcification. Visualized upper airway is normal in position. BONY ELEMENTS: No acute bony changes noted. RAD/Chest PA and Lateral IMPRESSION: 1. Postop changes of prior CABG. 2. Mild vascular congestion without nasra interstitial edema. 3. Diffuse interstitial atypical infiltrate throughout the LEFT lung and small LEFT effusion. 4. Atelectasis and volume loss at the RIGHT lung base. Electronically Signed: Brent Daniels MD at 17:38 EST ,
[2024-04-24 16:54] LABS: Lactic Acid 1.4 mmol/L (0.4-1.9)
[2024-04-24 17:03] LABS: ALB/GLOB Ratio 0.7 RATIO (0.9-2.4); AST(SGOT) 83 U/L (15-37); Alanine Aminotransfer ALT/SGPT 36 U/L (16-61); Albumin, Serum 2.6 g/dL (3.2-5.0); Alkaline Phosphatase 95 U/L (45-117); Anion Gap 6 (5-15); BUN 27 mg/dL (7-18); BUN/Creat Ratio 19.3 RATIO (10-20); CPK Total, Creatine Kinase 2810 U/L (39-308); Calcium,Total 8.3 mg/dL (8.5-10.1); Chloride 114 mmol/L (98-107); EST Glomerular Filtration Rate 52 mL/min (>60); Est Glom Filt Rate - Afr Amer 63 mL/min (>60); Estimated Creatinine Clearance 59.23 ml/min; Globulin 3.9 g/dL (2.2-4.2); Glucose 114 mg/dL (74-106); Potassium 3.8 mmol/L (3.5-5.1); Protein, Total 6.5 g/dL (6.4-8.2); Sodium Level 144 mmol/L (136-145); Troponin-I HS (w/2H Reflex) 2712 pg/mL (3.0-78.0)
[2024-04-24 17:14] LABS: Lymphocyte 2 % (19-41); Monocyte 1 % (0-10); Myelocyte 2 % (0-0); Neutrophil-Band 14 % (0-5); Neutrophil-Segmented 81 % (47-70); Total Cells Counted 100 (MANUAL DIFF)
[2024-04-24 17:15] LABS: Anisocytosis 1+; Ovalocyte 1+
[2024-04-24 17:16] LABS: Atypical Lymphocyte RARE %; Burr Cells RARE
[2024-04-24 17:17] LABS: Hypersegmented Neutrophils RARE; Platelet Estimate ADEQUATE (ADEQ)
[2024-04-24 17:18] LABS: Scan Smear per Review Criteria MANUAL DIFF
[2024-04-24 17:20] LABS: Absolute Neutrophil Count 9.8 X10^3/uL (2.0-7.7)
[2024-04-24 17:21] LABS: Absolute Lymphocyte Count 0.21 X10^3/uL (0.83-4.51)
[2024-04-24 17:41] LABS: BNP,B-Type NATRIURETIC PEPTIDE 982.7 pg/mL (0-100)
--- NOTE | 2024-04-24 18:15 | HP.PCM.HOS_ITS ---
HPI - General General Date of Admission: 04/24/24 Date of Service: 04/24/24 Chief Complaint: Fall HPI Narrative SCOTT WIGGINS, is a 79 M with past medical history of bilateral lower extremity lymphedema [agent orange exposure during [place] war], tremors, coronary artery disease, HFpEF, hypertension, dyslipidemia, was brought to the ED for evaluation after fall. Per the patient he slipped in the bathroom and fell, unable to get up. Notes that he has been unsteady on his feet due to his lymphedema. For the last 2 days he has been laying on his left side following the fall. His friend found him today in the house on the floor. For the last 2 days he has not had any food or drink and has been urinating and defecating over himself. He initially refused care but was easily redirectable. At the time of presentation in the ED, WBC 10.4, hemoglobin 10.6, platelet 179, PT 15.2, chloride 114, sodium 144, potassium 3.8, BUN 27, creatinine 1.4, glucose 114, calcium 8.3, AST 83, ALT 836, alk phos 95, total creatinine kinase 2810, high-sensitivity troponin 2712, BNP 982, albumin 2.6, POC glucose 94 Chest x-ray showed mild vascular congestion without edema, interstitial infiltrate throughout left lung and left pleural effusion, atelectasis and volume loss of the right lung base. Diffuse involutional changes and chronic microvascular deep white matter disease was seen in the CT head, no intracranial mass/hemorrhage or infarct was noted. Ecchymosis and bruising were noted in the preseptal soft tissue on the left greater than right extending into the left intraorbital soft tissue/cheek. [facility] Medical History Alcohol abuse Former smoker Non-pressure chronic ulcer of other part of right foot with fat layer exposed Cellulitis of right lower limb Lymphedema of left lower extremity Lymphedema of right lower extremity 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 Infected wound Cellulitis and abscess of lower extremity (12/2018) (HFpEF) heart failure with preserved ejection fraction Nonrheumatic aortic (valve) stenosis Essential (primary) hypertension Ulcer of left lower extremity with fat layer exposed Ulcer of right lower extremity with fat layer exposed Lymphedema of lower extremity Hyperlipidemia Bradycardia Old inferior wall myocardial infarction Atherosclerotic heart disease of hoh coronary artery without angina pectoris History of left heart catheterization Home Medications ?Medication ?Instructions ?Recorded ?Last Taken ?Type cholecalciferol (vitamin D3) 125 125 mcg PO DAILY 12/11/21 Unknown History mcg (5,000 unit) capsule sildenafil 100 mg tablet (Viagra) 100 mg PO DAILY PRN sexual 12/11/21 Unknown Rx activity #10 tabs simvastatin 80 mg tablet 80 mg PO QPM CHOLESTEROL #90 tabs 07/17/23 Unknown Rx aspirin 81 mg tablet,delayed 81 mg PO DAILY 11/19/23 Unknown History release (Adult Low Dose Aspirin) metoprolol tartrate 25 mg tablet 25 mg PO BID #180 tabs 11/19/23 Unknown Rx potassium chloride 20 mEq 20 meq PO BID PRN quantity 11/19/23 Unknown History tablet,extended release(part/cryst) correction #180 please vitamins A,C,D-hyfy-giutqp 4,296 1 cap PO DAILY 11/19/23 Unknown History mcg-226 mg-90 mg capsule (PreserVision AREDS) Allergy/AdvReac Type Severity Reaction Status Date / Time hydrocodone (From Vicodin) AdvReac Intermediate Vomiting Verified 04/24/24 15:39 morphine AdvReac Intermediate Vomiting Verified 04/24/24 15:39 Family History Father , age 62 CAD (coronary artery disease) Myocardial infarction Hx of CABG Mother CAD (coronary artery disease) Hx of CABG Alzheimer's dementia Surgical History History of bilateral cataract extraction H/O coronary artery bypass surgery (03/26/97) Social History (Updated 11/19/23 @ 09:12 by Corinne Talley) Smoking Status: Former smoker pack-years: 35 how long ago did patient quit smokin years ago alcohol intake: current alcohol intake frequency: holidays/special occasions only substance use type: does not use caffeine: Yes Type: coffee Number of servings: 1 Vital Signs Vital Signs Vital Signs: 04/24/24 15:34 04/24/24 15:35 04/24/24 16:34 Temperature 98.6 F Temperature Source Oral Pulse Rate 85 82 Respiratory Rate 28 H 16 Respiratory Effort Respiratory Depth Respiratory Pattern Blood Pressure 183/95 H 150/71 H Blood Pressure Mean 124 97 Pulse Ox 95 91 91 Oxygen Delivery Method Nasal Cannula Room Air Nasal Cannula Oxygen Flow Rate (L/min) 2 2 04/24/24 16:34 04/24/24 17:00 04/24/24 18:00 Temperature Temperature Source Pulse Rate 83 81 Respiratory Rate 22 H 28 H Respiratory Effort Normal Respiratory Depth Shallow Respiratory Pattern Tachypnea Blood Pressure 137/95 H 158/86 H Blood Pressure Mean 109 110 Pulse Ox 91 97 95 Oxygen Delivery Method Nasal Cannula Nasal Cannula Nasal Cannula Oxygen Flow Rate (L/min) 2 2 2 Weight Weight: 251 lb 5.231 oz Body Mass Index (BMI) 31.4 Physical Exam Narrative Disheveled, foul-smelling Const alert and oriented x3 HEENT normocephalic Eyes PERRL Neck no lymphadenopathy Resp normal respiratory effort and no retractions Cardio regular rate GI normal to inspection, nondistended, normoactive bowel sounds Extremity Extremity Narrative: Bilateral lymphedema with ulcerations and deformed foot Neuro oriented x3, CN's II-XII intact bilaterally and moves all extremities Neuro Narrative: Resting tremors present in bilateral upper extremities Results Medical Records Data Attestation: I reviewed the patient's medical records Lab / Micro Data Attestation: I reviewed the patient's lab results. 04/24/24 15:47 04/24/24 15:47 Labs: Laboratory Results - last 24 hr 04/24/24 15:47: WBC 10.4, RBC 3.79 L, Hgb 10.6 L, Hct 33.9 L, MCV 89.4, MCH 28.0, MCHC 31.3 L, RDW Std Deviation 52.8 H, RDW Coeff of Allegra 16.1 H, Plt Count 179, MPV 10.3, Immature Gran % (Auto) ENROLLMENT NURSE, Neut % (Auto) ENROLLMENT NURSE, Lymph % (Auto) ENROLLMENT NURSE, [place] % (Auto) ENROLLMENT NURSE, Eos % (Auto) ENROLLMENT NURSE, Baso % (Auto) ENROLLMENT NURSE, Absolute Neuts (auto) 9.8 H , Absolute Lymphs (auto) 0.21 L, Total Counted 100, Neutrophils % (Manual) 81 H, Band Neutrophils % 14 H, Lymphocytes % (Manual) 2 L, Monocytes % (Manual) 1, M yelocytes % 2 H, Nucleated RBC % 0, Diff Path Review May foll, Hypersegmented Neuts RARE H, Atypical Lymphocytes RARE, Platelet Estimate ADEQUATE, Anisocytosis 1+, Ovalocytes 1+, [place] Cells RARE, PT 15.2 H, INR 1.2, APTT 30.7, Sodium 144, Potassium 3.8, Chloride 114 H, Carbon Dioxide 24.0, Anion Gap 6, BUN 27 H, Creatinine 1.40 H, Estim Creat Clear Calc 59.23, Est GFR (MDRD) Af Amer 63, Est GFR (MDRD) Non-Af 52 L, BUN/Creatinine Ratio 19.3, Glucose 114 H, C alcium 8.3 L, Total Bilirubin 0.50, AST 83 H, ALT 36, Alkaline Phosphatase 95, T otal Creatine Kinase 2810 H, Troponin I High Sens 2712 H*, B-Natriuretic Peptide 982.7 H, Total Protein 6.5, Albumin 2.6 L, Globulin 3.9, Albumin/Globulin Ratio 0.7 L 04/24/24 16:18: POC Glucose 94 04/24/24 16:24: Lactic Acid 1.4 Imaging Radiology Impression Facial/Sinus 04/24/24 16:13 IMPRESSION: 1. Significant soft tissue swelling/ecchymosis and bruising in the preseptal soft tissue planes greater on LEFT than RIGHT, and extending into the LEFT infraorbital soft tissue/cheek. No radiopaque foreign bodies hematoma or underlying fracture. 2. Normal appearance of the globes and retrobulbar soft tissue planes bilaterally. 3. Mild mucosal thickening maxillary antra, no fluid or blood in the paranasal sinuses middle ear cavities or mastoid air cells. 4. Extensive intracranial vascular calcifications. 5. Elongation of the styloid processes and ossification of the stylohyoid ligament as detailed. 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 Electronically Signed: Brent Daniels MD at 17:19 EST , Brain CT 04/24/24 16:17 IMPRESSION: 1. Diffuse involutional change and chronic microvascular deep white matter disease. 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 2. No intracranial evidence of acute traumatic injury. 3. Preseptal soft tissue swelling/ecchymosis greater on the LEFT than RIGHT. Additional extensive soft tissue swelling and contusion/abrasion in the parietal scalp greater on LEFT than RIGHT. No radiopaque foreign body or underlying fracture. 4. No intracranial mass, hemorrhage or acute territorial infarct. 5. No fractures identified. 6. No radiographically significant sinus disease.. Electronically Signed: Brent Daniels MD at 17:33 EST , Cervical Spine CT 04/24/24 16:17 IMPRESSION: 1. No evidence of acute cervical spinal fracture or spondylolisthesis. No acutely acquired canal stenosis. 2. Multilevel chronic cervical spondylosis and chronic foraminal narrowing as detailed. Electronically Signed: Brent Daniels MD at 17:50 EST , Chest X-Ray 04/24/24 16:48 IMPRESSION: 1. Postop changes of prior CABG. 2. Mild vascular congestion without nasra interstitial edema. 3. Diffuse interstitial atypical infiltrate throughout the LEFT lung and small LEFT effusion. 4. Atelectasis and volume loss at the RIGHT lung base. Electronically Signed: Brent Daniels MD at 17:38 EST , Assessment & Plan Assessment/Plan (1) Lymphedema of lower extremity: PLAN: Plan 79-year-old man presents with concerns regarding rhabdomyolysis following a fall and being stranded on the floor for the past 2 days. #Rhabdomyolysis -CPK, high-sensitivity troponin and AST/ALT are deranged -Continue fluid to 250 cc/h for 4 hours after completing the 2 L IV fluid bolus from the ED -Repeat CPK to assess response with fluids -Daily creatinine monitoring -No JEFF at present -Daily potassium, phosphorus monitoring #Elevated high-sensitivity troponin level -Repeat test to ensure no ongoing ischemia -EKG nonconcerning for any ischemic cardiac event -Likely related to rhabdomyolysis #Chronic lymphedema -Needs PT OT evaluation -Case management evaluation for discharge planning -Has a home nurse that helps him with daily activities and also mobilization, he believes his edema has improved -Elevation #Dyslipidemia -Simvastatin 80 mg daily #Coronary artery disease -Continue home medications #Risk of refeeding syndrome -Monitor daily phosphorus -Regular diet #DVT -High risk given comorbidities, and difficulty immobilization -Enoxaparin 40 mg daily
[2024-04-24 18:22] LABS: Reflex Troponin-HS? (from REC) Y
[2024-04-24 19:05] LABS: Troponin-I HS 3593 pg/mL (3.0-78.0)
[2024-04-24] MEDS: 0.9% Normal Saline (1000mL) 1,000 ML 250 ML IV (21:29)
[2024-04-24] MEDS: Atorvastatin Calcium 40 MG Tablet PO (21:30)
[2024-04-24] MEDS: Metoprolol Tartrate 25 MG Tablet PO (21:31)
[2024-04-25] VITALS (9 sets, daily range): BP systolic 125–149; BP diastolic 68–81; PULSE 64–70; RESP 16; TEMP 36.5–37; O2SAT 92–96; BMI 30.2
[2024-04-25] MEDS: 0.9% Normal Saline (1000mL) 1,000 ML 250 ML IV (02:36)
[2024-04-25 06:45] LABS: Absolute Lymphocyte Count 0.79 X10^3/uL (0.83-4.51); Absolute Neutrophil Count 5.4 X10^3/uL (2.0-7.7); Basophil# 0.01 X10^3/uL; Basophil% 0.1 % (0-1); Eosinophil# 0.01 X10^3/uL; Eosinophils% 0.1 % (0-5); Hematocrit 30.1 % (40-54); Hemoglobin 9.4 g/dL (13.0-16.5); Lymphocyte # 0.79 X10^3/ul (0.83-4.51); Lymphocyte % 11.7 % (19-41); Mean Corp Hgb Conc 31.2 g/dL (32-36); Mean Corpuscular Volume 89.6 fL (80-94); Monocyte# 0.46 X10^3/uL; Monocyte% 6.8 % (0-10); NRBC Flagged by Analyzer 0 % (0-5); Neutrophil # 5.42 X10^3/uL (2.7-7.7); Neutrophil % 80.7 % (47-70); Platelet Count 157 K/mm3 (150-450); RBC Distribution Width CV 16.2 % (11.6-14.6); Red Blood Count 3.36 M/mm3 (4.6-6.2); White Blood Count 6.7 K/mm3 (4.4-11.0)
[2024-04-25 06:52] LABS: International Normalized Ratio 1.3; Prothrombin Time (Protime)PT. 16.4 SECONDS (11.7-14.9)
[2024-04-25 07:35] LABS: ALB/GLOB Ratio 0.7 RATIO (0.9-2.4); AST(SGOT) 91 U/L (15-37); Alanine Aminotransfer ALT/SGPT 38 U/L (16-61); Albumin, Serum 2.2 g/dL (3.2-5.0); Alkaline Phosphatase 76 U/L (45-117); Anion Gap 5 (5-15); BUN 29 mg/dL (7-18); BUN/Creat Ratio 23.8 RATIO (10-20); Bilirubin, Direct 0.15 mg/dL (0.00-0.30); Calcium,Total 7.9 mg/dL (8.5-10.1); Chloride 117 mmol/L (98-107); Creatinine, Serum 1.22 mg/dL (0.70-1.30); EST Glomerular Filtration Rate 61 mL/min (>60); Est Glom Filt Rate - Afr Amer 74 mL/min (>60); Estimated Creatinine Clearance 65.88 ml/min; Globulin 3.1 g/dL (2.2-4.2); Glucose 100 mg/dL (74-106); Magnesium 1.7 mg/dL (1.6-2.6); Phosphorus 3.5 mg/dL (2.5-4.9); Potassium 3.6 mmol/L (3.5-5.1); Protein, Total 5.3 g/dL (6.4-8.2); Sodium Level 143 mmol/L (136-145)
--- NOTE | 2024-04-25 09:39 | PN.HOSP_ITS ---
Subjective Subjective Doing well, no issues overnight Objective Data Objective Data Vital Signs: Vital Signs Temp Pulse Resp BP Pulse Ox O2 Del Method O2 Flow Rate 98.6 F 65 16 149/81 H 96 Nasal Cannula 3 04/25/24 04:30 04/25/24 04:30 04/25/24 04:30 04/25/24 04:30 04/25/24 07:51 04/25/24 07:51 04/25/24 07:51 Oxygen Flow Rate (L/min) 3 Oxygen Delivery Method Nasal Cannula Weight: 241 lb 6.499 oz Body Mass Index (BMI) 30.2 Intake & Output: Intake and Output for Last 24 Hours 04/24/24 04/25/24 04/26/24 03:59 03:59 03:59 Intake Total 3000 / 3000 1000 / 1000 Output Total 100 / 100 50 / 50 Balance 2900 / 2900 950 / 950 Lab / Micro Data 04/25/24 06:25 04/25/24 06:25 Labs: Laboratory Results - last 24 hr 04/24/24 15:47: WBC 10.4, RBC 3.79 L, Hgb 10.6 L, Hct 33.9 L, MCV 89.4, MCH 28.0, MCHC 31.3 L, RDW Std Deviation 52.8 H, RDW Coeff of Allegra 16.1 H, Plt Count 179, MPV 10.3, Immature Gran % (Auto) COMPLIANCE NURSE, Neut % (Auto) COMPLIANCE NURSE, Lymph % (Auto) COMPLIANCE NURSE, [place] % (Auto) COMPLIANCE NURSE, Eos % (Auto) COMPLIANCE NURSE, Baso % (Auto) COMPLIANCE NURSE, Absolute Neuts (auto) 9.8 H , Absolute Lymphs (auto) 0.21 L, Total Counted 100, Neutrophils % (Manual) 81 H, Band Neutrophils % 14 H, Lymphocytes % (Manual) 2 L, Monocytes % (Manual) 1, M yelocytes % 2 H, Nucleated RBC % 0, Diff Path Review May foll, Hypersegmented Neuts RARE H, Atypical Lymphocytes RARE, Platelet Estimate ADEQUATE, Anisocytosis 1+, Ovalocytes 1+, Qi Cells RARE, PT 15.2 H, INR 1.2, APTT 30.7, Sodium 144, Potassium 3.8, Chloride 114 H, Carbon Dioxide 24.0, Anion Gap 6, BUN 27 H, Creatinine 1.40 H, Estim Creat Clear Calc 59.23, Est GFR (MDRD) Af Amer 63, Est GFR (MDRD) Non-Af 52 L, BUN/Creatinine Ratio 19.3, Glucose 114 H, C alcium 8.3 L, Total Bilirubin 0.50, AST 83 H, ALT 36, Alkaline Phosphatase 95, T otal Creatine Kinase 2810 H, Troponin I High Sens 2712 H*, B-Natriuretic Peptide 982.7 H, Total Protein 6.5, Albumin 2.6 L, Globulin 3.9, Albumin/Globulin Ratio 0.7 L 04/24/24 16:18: POC Glucose 94 04/24/24 16:24: Lactic Acid 1.4 04/24/24 18:30: Troponin I High Sens 3593 H* 04/25/24 06:25: WBC 6.7, RBC 3.36 L, Hgb 9.4 L, Hct 30.1 L, MCV 89.6, MCH 28.0, MCHC 31.2 L, RDW Std Deviation 53.0 H, RDW Coeff of Allegra 16.2 H, Plt Count 157, MPV 10.0, Immature Gran % (Auto) 0.600, Neut % (Auto) 80.7 H, Lymph % (Auto) 11.7 L, [place] % (Auto) 6.8, Eos % (Auto) 0.1, Baso % (Auto) 0.1, Absolute Neuts (auto) 5.4, Absolute Lymphs (auto) 0.79 L, Nucleated RBC % 0, PT 16.4 H, INR 1.3, Sodium 143, Potassium 3.6, Chloride 117 H, Carbon Dioxide 21.0, Anion Gap 5, BUN 29 H, Creatinine 1.22, Estim Creat Clear Calc 65.88, Est GFR (MDRD) Af Amer 74, Est GFR (MDRD) Non-Af 61, BUN/Creatinine Ratio 23.8 H, Glucose 100, C alcium 7.9 L, Phosphorus 3.5, Magnesium 1.7, Total Bilirubin 0.40, Direct Bilirubin 0.15, AST 91 H, ALT 38, Alkaline Phosphatase 76, Total Protein 5.3 L, Albumin 2.2 L, Globulin 3.1, Albumin/Globulin Ratio 0.7 L, TSH 1.150 Radiography Diagnostic Testing: Radiology Impression Facial/Sinus 04/24/24 16:13 IMPRESSION: 1. Significant soft tissue swelling/ecchymosis and bruising in the preseptal soft tissue planes greater on LEFT than RIGHT, and extending into the LEFT infraorbital soft tissue/cheek. No radiopaque foreign bodies hematoma or underlying fracture. 2. Normal appearance of the globes and retrobulbar soft tissue planes bilaterally. 3. Mild mucosal thickening maxillary antra, no fluid or blood in the paranasal sinuses middle ear cavities or mastoid air cells. 4. Extensive intracranial vascular calcifications. 5. Elongation of the styloid processes and ossification of the stylohyoid ligament as detailed. 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 Electronically Signed: Brent Daniels MD at 17:19 EST , Brain CT 04/24/24 16:17 IMPRESSION: 1. Diffuse involutional change and chronic microvascular deep white matter disease. 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 2. No intracranial evidence of acute traumatic injury. 3. Preseptal soft tissue swelling/ecchymosis greater on the LEFT than RIGHT. Additional extensive soft tissue swelling and contusion/abrasion in the parietal scalp greater on LEFT than RIGHT. No radiopaque foreign body or underlying fracture. 4. No intracranial mass, hemorrhage or acute territorial infarct. 5. No fractures identified. 6. No radiographically significant sinus disease.. Electronically Signed: Brent Daniels MD at 17:33 EST , Cervical Spine CT 04/24/24 16:17 IMPRESSION: 1. No evidence of acute cervical spinal fracture or spondylolisthesis. No acutely acquired canal stenosis. 2. Multilevel chronic cervical spondylosis and chronic foraminal narrowing as detailed. Electronically Signed: Brent Daniels MD at 17:50 EST , ADDENDUM: 04/24/24 1855 IMPRESSION: undefined Chest X-Ray 04/24/24 16:48 IMPRESSION: 1. Postop changes of prior CABG. 2. Mild vascular congestion without nasra interstitial edema. 3. Diffuse interstitial atypical infiltrate throughout the LEFT lung and small LEFT effusion. 4. Atelectasis and volume loss at the RIGHT lung base. Electronically Signed: Brent Daniels MD at 17:38 EST , Physical Exam Narrative General: Alert, Oriented x3, Cooperative, No apparent distress HEENT: Atraumatic, PERRLA, EOMI, Normocephalic Oral: Moist Mucosa Neck: Supple, No JVD Lungs: Clear to auscultation, Normal air movement, No rhonchi, No wheeze, No rales Cardiovascular: Regular rate, Regular Rhythm, Normal S1, Normal S2, No murmurs Abdomen: Soft, Non Tender, Non-Distended, No Hepato-splenomegaly Extremities: No edema, Capillary Refill Less than 3 Seconds Skin: Bilateral lymphedema with areas of ecchymosis Musculoskeletal: No Tenderness to Palpation of Joints or Extremities Neurological: No focal neurological deficits, Motor Exam 5/5 strength throughout, Sensory exam intact to light touch and pain Psych/Mental Status: Normal Affect, Appropriate Assessment & Plan Assessment/Plan (1) Lymphedema of lower extremity: PLAN: Plan 1. Rhabdomyolysis ? He had a mechanical fall and can get up ? Continue with IV fluids ? Renal functions improving ? Elevated troponin is in the setting of rhabdomyolysis will not pursue any cardiac workup as EKG was unremarkable and he denies any chest pain. ? PT/OT for debility and possible placement 2. Essential HTN/HLD/CAD status post CABG ? Continue with his home blood pressure medications ? Continue with statin ? Will monitor make adjustments as necessary DVT: Lovenox Charges/Coding Visit Charges Inpatient E&M: 54718 Subs Hosp L2
[2024-04-25] MEDS: Enoxaparin 40 MG/0.4 ML Syringe SC (10:14)
[2024-04-25] MEDS: Metoprolol Tartrate 25 MG Tablet PO ×2 (10:14→22:42)
[2024-04-25] MEDS: Aspirin E.C. 81 MG Tablet PO (10:14)
[2024-04-25] MEDS: Cholecalciferol (Vit D3) 125 MCG CAPSULE (5,000 UNITS) PO (10:15)
[2024-04-25] MEDS: Ensure Plus High Protein 120 ML LIQUID PO ×2 (10:26→15:57)
--- NOTE | 2024-04-25 11:06 | CASEMGMT ---
Addendum entered by Erin Cameron 04/25/24 17:19: Social Work- Pt has [facility]- SW verified with pt. Pt does not want a SNF, but relented a little when it was shared that the [facility] would cover the cost. Pt reports that he has never had PT/OT at home with snf, but again would be open to this if it is covered by the [facility]. Pt also would like a medical alert through [facility] ; again, if it can be covered. Pt reports that Lina at [facility] has been a great advocate for pt and would likely assist with this. Pt also confirmed that he uses [facility]. SW will continue to follow. LAURA Salinas Original Note: Social Work- SW met with pt to conduct SDOH. Pt reports that he has lived in a first floor apartment for 21 years. Pt reports rent is reasonable and includes water and trash. Pt reports electric is reasonable and he has never had concerns paying the bill. Pt has a ramp provided by [facility] into apartment to cover a small stoop. Pt has a lift chair that he sleeps in, a walker that he recently began using, and a raised toilet seat. Pt does not have a shower bench or chair d/t not being able to shower d/t legs being wrapped. Pt has had HHC for 2-3 years through [place] (pt uncertain of name, but thinks this is correct). Pt reports nurse visits weekly to care for legs. 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 Pt reports he has several Marine friends that he is close to as well as numerous golfing buddies. Pt reports that he has played golf since age 4 and played in college for [employer]. Pt reports it has been hard to give up golf since lymphedema, but he still enjoys watching it on TV. Pt spoke of a sister, son, and numerous friends who act as supports for pt. Pt reports no needs at this time. Pt was very complimentary of the nursing, aides, housekeeping, and therapy staff while admitted and reports that it is has been an exceptional experience at [facility]. SW remains available to follow. Plan: home with resumption of HHC LAURA Salinas
[2024-04-25 14:41] LABS: Mucous, Urine 0 SEEN /hpf (<or=2+)
[2024-04-25 14:45] LABS: Color, Urine Yellow (Yellow); Glucose, Dipstick Normal (Normal); Ketone-Dipstick 5 mg/dl (Negative); Leukocyte Esterase-Dipstick 25 /ul (Negative); Nitrite-Dipstick Negative (Negative); Occult Blood-Urine 50 /ul (Negative); Protein-Dipstick 30 mg/dl (Negative); Specific Gravity, Urine 1.025 (1.002-1.030); Urine Bilirubin Dipstick Negative (Negative); Urine Clarity Sl. Cloudy (Clear); Urine Urobilinogen 1 mg/dl (Normal)
[2024-04-25 14:56] LABS: Hyaline Cast 0-5 SEEN /lpf (0-5); Squamous Epithelial Cells - UA 0-5 SEEN /hpf (0-5)
[2024-04-25 14:57] LABS: Bacteria RARE /hpf (None Seen); Red Blood Cells-Urine 0-5 SEEN /hpf (0-5); White Blood Cells 0-5 SEEN /hpf (0-5)
[2024-04-25] MEDS: Nystatin Powder 15gm Bottle 1 APPLIC TOPICAL ×2 (15:58→22:42)
[2024-04-25] MEDS: Atorvastatin Calcium 40 MG Tablet PO (22:42)
[2024-04-26] VITALS (9 sets, daily range): BP systolic 126–150; BP diastolic 70–83; PULSE 60–67; RESP 16; TEMP 36.3–36.6; O2SAT 95–99; BMI 30.6
[2024-04-26] MEDS: Senna Tablet 1 TABLET PO ×2 (00:39→11:03)
[2024-04-26] MEDS: Docusate Sodium 100 MG Capsule PO ×2 (00:39→11:04)
[2024-04-26] MEDS: Nystatin Powder 15gm Bottle 1 APPLIC TOPICAL ×3 (06:10→22:26)
[2024-04-26 07:02] LABS: Absolute Lymphocyte Count 1.32 X10^3/uL (0.83-4.51); Absolute Neutrophil Count 5.5 X10^3/uL (2.0-7.7); Basophil# 0.03 X10^3/uL; Basophil% 0.4 % (0-1); Eosinophil# 0.19 X10^3/uL; Eosinophils% 2.4 % (0-5); Hematocrit 31.5 % (40-54); Hemoglobin 9.5 g/dL (13.0-16.5); Lymphocyte # 1.32 X10^3/ul (0.83-4.51); Mean Corp Hgb Conc 30.2 g/dL (32-36); Mean Corpuscular Hgb 27.5 pg (27.0-32.0); Monocyte# 0.65 X10^3/uL; Monocyte% 8.4 % (0-10); NRBC Flagged by Analyzer 0 % (0-5); Neutrophil # 5.54 X10^3/uL (2.7-7.7); Neutrophil % 71.4 % (47-70); Platelet Count 162 K/mm3 (150-450); RBC Distribution Width CV 16.2 % (11.6-14.6); RBC Distribution Width SD 53.8 fl (35.1-43.9); Red Blood Count 3.46 M/mm3 (4.6-6.2); White Blood Count 7.8 K/mm3 (4.4-11.0)
[2024-04-26 08:03] LABS: Anion Gap 7 (5-15); BUN 35 mg/dL (7-18); BUN/Creat Ratio 28.9 RATIO (10-20); Calcium,Total 8.1 mg/dL (8.5-10.1); Chloride 113 mmol/L (98-107); Creatinine, Serum 1.21 mg/dL (0.70-1.30); EST Glomerular Filtration Rate 62 mL/min (>60); Est Glom Filt Rate - Afr Amer 75 mL/min (>60); Estimated Creatinine Clearance 67.25 ml/min; Glucose 114 mg/dL (74-106); Potassium 3.5 mmol/L (3.5-5.1); Sodium Level 143 mmol/L (136-145)
[2024-04-26] MEDS: Enoxaparin 40 MG/0.4 ML Syringe SC (11:03)
[2024-04-26] MEDS: Aspirin E.C. 81 MG Tablet PO (11:03)
[2024-04-26] MEDS: Cholecalciferol (Vit D3) 125 MCG CAPSULE (5,000 UNITS) PO (11:03)
[2024-04-26] MEDS: Metoprolol Tartrate 25 MG Tablet PO ×2 (11:04→22:26)
[2024-04-26] MEDS: Acetaminophen 325 MG Tablet 650 MG PO (11:05)
--- NOTE | 2024-04-26 11:05 | PCM.PN.HOSP ---
Subjective Subjective Doing well, no issues overnight Objective Data Objective Data Vital Signs: Vital Signs Temp Pulse Resp BP Pulse Ox O2 Del Method O2 Flow Rate 97.7 F L 66 16 126/70 H 97 Room Air 3 04/26/24 11:01 04/26/24 11:01 04/26/24 11:01 04/26/24 11:01 04/26/24 11:01 04/26/24 11:01 04/26/24 07:09 Oxygen Flow Rate (L/min) 3 Oxygen Delivery Method Room Air Weight: 241 lb 6.499 oz Body Mass Index (BMI) 30.2 Intake & Output: Intake and Output for Last 24 Hours 04/25/24 04/26/24 04/27/24 03:59 03:59 03:59 Intake Total 3000 / 3000 2130 / 2130 140 / 140 Output Total 100 / 100 750 / 750 500 / 500 Balance 2900 / 2900 1380 / 1380 -360 / -360 Lab / Micro Data 04/26/24 06:16 04/26/24 06:16 Labs: Laboratory Results - last 24 hr 04/24/24 11:30: Urine Color Yellow, Urine Clarity Sl. Cloudy, Urine pH 6.0, Ur Specific [place] 1.025, Urine Protein 30 H, Urine Glucose (UA) Normal, Urine Ketones 5 H, Urine Occult Blood 50 H, Urine Nitrite Negative, Urine Bilirubin Negative, Urine Urobilinogen 1 H, Ur Leukocyte Esterase 25 H, Urine RBC 0-5 SEEN, Urine WBC 0-5 SEEN, Ur Squamous Epith Cells 0-5 SEEN, Urine Bacteria RARE, Hyaline Casts 0-5 SEEN, Urine Mucus 0 SEEN 04/26/24 06:16: WBC 7.8, RBC 3.46 L, Hgb 9.5 L, Hct 31.5 L, MCV 91.0, MCH 27.5, MCHC 30.2 L, RDW Std Deviation 53.8 H, RDW Coeff of Allegra 16.2 H, Plt Count 162, MPV 10.0, Immature Gran % (Auto) 0.400, Neut % (Auto) 71.4 H, Lymph % (Auto) 17.0 L, [place] % (Auto) 8.4, Eos % (Auto) 2.4, Baso % (Auto) 0.4, Absolute Neuts (auto) 5.5, Absolute Lymphs (auto) 1.32, Nucleated RBC % 0, Sodium 143, Potassium 3.5, Chloride 113 H, Carbon Dioxide 23.0, Anion Gap 7, BUN 35 H, Creatinine 1.21, Estim Creat Clear Calc 67.25, Est GFR (MDRD) Af Amer 75, Est GFR (MDRD) Non-Af 62, BUN/Creatinine Ratio 28.9 H, Glucose 114 H, Calcium 8.1 L Physical Exam Narrative General: Alert, Oriented x3, Cooperative, No apparent distress HEENT: Atraumatic, PERRLA, EOMI, Normocephalic Oral: Moist Mucosa Neck: Supple, No JVD Lungs: Clear to auscultation, Normal air movement, No rhonchi, No wheeze, No rales Cardiovascular: Regular rate, Regular Rhythm, Normal S1, Normal S2, No murmurs Abdomen: Soft, Non Tender, Non-Distended, No Hepato-splenomegaly Extremities: No edema, Capillary Refill Less than 3 Seconds Skin: Bilateral lymphedema with areas of ecchymosis Musculoskeletal: No Tenderness to Palpation of Joints or Extremities Neurological: No focal neurological deficits, Motor Exam 5/5 strength throughout, Sensory exam intact to light touch and pain Psych/Mental Status: Normal Affect, Appropriate Assessment & Plan Assessment/Plan (1) Lymphedema of lower extremity: PLAN: Plan 1. Rhabdomyolysis ? He had a mechanical fall and can get up ? Encourage p.o. intake ? Renal functions improving ? Elevated troponin is in the setting of rhabdomyolysis will not pursue any cardiac workup as EKG was unremarkable and he denies any chest pain. ? PT/OT for debility and possible placement 2. Essential HTN/HLD/CAD status post CABG ? Continue with his home blood pressure medications ? Continue with statin ? Will monitor make adjustments as necessary DVT: Lovenox Charges/Coding Visit Charges Inpatient E&M: 57506 Subs Hosp L2
[2024-04-26] MEDS: Menthol/Lanolin/Calamine/Znox 113 GM Tube 1 APPLIC TOPICAL ×2 (17:13→22:25)
[2024-04-26] MEDS: Ensure Plus High Protein 120 ML LIQUID PO (17:13)
[2024-04-26] MEDS: Polyethylene Glycol 3350 17 GM PACKET PO (17:23)
[2024-04-26] MEDS: Atorvastatin Calcium 40 MG Tablet PO (22:26)
[2024-04-27] VITALS (10 sets, daily range): BP systolic 137–166; BP diastolic 71–89; PULSE 63–72; RESP 16–18; TEMP 36.3–37.2; O2SAT 92–95
[2024-04-27 06:03] LABS: Absolute Lymphocyte Count 1.15 X10^3/uL (0.83-4.51); Absolute Neutrophil Count 4.9 X10^3/uL (2.0-7.7); Basophil# 0.03 X10^3/uL; Basophil% 0.4 % (0-1); Eosinophil# 0.29 X10^3/uL; Eosinophils% 4.1 % (0-5); Hematocrit 30.4 % (40-54); Hemoglobin 9.2 g/dL (13.0-16.5); Lymphocyte # 1.15 X10^3/ul (0.83-4.51); Lymphocyte % 16.5 % (19-41); Mean Corp Hgb Conc 30.3 g/dL (32-36); Mean Corpuscular Hgb 27.4 pg (27.0-32.0); Mean Corpuscular Volume 90.5 fL (80-94); Monocyte% 8.6 % (0-10); NRBC Flagged by Analyzer 0 % (0-5); Neutrophil % 70.1 % (47-70); Platelet Count 163 K/mm3 (150-450); RBC Distribution Width SD 53.5 fl (35.1-43.9); Red Blood Count 3.36 M/mm3 (4.6-6.2)
[2024-04-27 06:23] LABS: Anion Gap 5 (5-15); BUN 35 mg/dL (7-18); BUN/Creat Ratio 30.4 RATIO (10-20); Calcium,Total 8.2 mg/dL (8.5-10.1); Chloride 115 mmol/L (98-107); Creatinine, Serum 1.15 mg/dL (0.70-1.30); EST Glomerular Filtration Rate 65 mL/min (>60); Est Glom Filt Rate - Afr Amer 79 mL/min (>60); Estimated Creatinine Clearance 71.39 ml/min; Glucose 118 mg/dL (74-106); Potassium 3.5 mmol/L (3.5-5.1); Sodium Level 144 mmol/L (136-145)
--- NOTE | 2024-04-27 08:08 | PCM.PN.HOSP ---
Reason for Visit Reason for Visit: Diagnoses Lymphedema, not elsewhere classified (04/24/24) Objective Data Objective Data Vital Signs: Vital Signs Temp Pulse Resp BP Pulse Ox O2 Del Method O2 Flow Rate 98.5 F 70 16 147/79 H 95 Nasal Cannula 2 04/27/24 04:22 04/27/24 04:22 04/27/24 04:22 04/27/24 04:22 04/27/24 04:22 04/27/24 04:22 04/27/24 04:22 Oxygen Flow Rate (L/min) 2 Oxygen Delivery Method Nasal Cannula Weight: 246 lb 0.574 oz Body Mass Index (BMI) 30.6 Intake & Output: Intake and Output for Last 24 Hours 04/25/24 04/26/24 04/27/24 23:59 23:59 23:59 Intake Total 4980 / 5130 590 / 840 250 / 250 Output Total 450 / 850 1400 / 1900 1000 / 1000 Balance 4530 / 4280 -810 / -1060 -750 / -750 Lab / Micro Data 04/27/24 05:40 04/27/24 05:40 Labs: Laboratory Results - last 24 hr 04/27/24 05:40: WBC 7.0, RBC 3.36 L, Hgb 9.2 L, Hct 30.4 L, MCV 90.5, MCH 27.4, MCHC 30.3 L, RDW Std Deviation 53.5 H, RDW Coeff of Allegra 16.0 H, Plt Count 163, MPV 10.0, Immature Gran % (Auto) 0.300, Neut % (Auto) 70.1 H, Lymph % (Auto) 16.5 L, [place] % (Auto) 8.6, Eos % (Auto) 4.1, Baso % (Auto) 0.4, Absolute Neuts (auto) 4.9, Absolute Lymphs (auto) 1.15, Nucleated RBC % 0, Sodium 144, Potassium 3.5, Chloride 115 H, Carbon Dioxide 24.0, Anion Gap 5, BUN 35 H, Creatinine 1.15, Estim Creat Clear Calc 71.39, Est GFR (MDRD) Af Amer 79, Est GFR (MDRD) Non-Af 65, BUN/Creatinine Ratio 30.4 H, Glucose 118 H, Calcium 8.2 L Physical Exam Narrative Seen and examined. Patient stated that he had lymphedema not suddenly developed to 3 days ago before coming but looks chronic with solidification of soft tissue. . Has abrasion of left shoulder region on which he stated he had he fell down. Had bypass surgery when he was 40.. 35 pack years of smoking quit at that time. Physical exam General: Alert, Oriented x3, Cooperative HEENT: Atraumatic, PERRLA, EOMI, Normocephalic Oral: No Gingival or Mucosal Lesions/ Ulcerations Neck: Supple, No JVD, Negative Carotid Bruits Chest wall/Lungs: Air entry diminished in bilateral lungs. No crepitation/rhonchi Cardiovascular: Regular rate, Regular Rhythm, Normal S1, Normal S2, systolic murmur present Abdomen: Bowel Sounds Present, Soft, Non Tender, Non-Distended : No dysuria. No renal angle tenderness. No suprapubic tenderness. Extremities: No edema, Capillary Refill Less than 3 Seconds Skin: Abrasion/bruise over left shoulder region. Bilateral chronic lymphedema with hypertrophy and hyperplasia of subcutaneous tissue Musculoskeletal: No Tenderness to Palpation of Joints or Extremities Neurological: Cranial nerves II-XII grossly intact, DTR 2+/4. No acute focal neurological deficit. Psych/Mental Status: Flat affect Assessment & Plan Assessment/Plan (1) Lymphedema of lower extremity: PLAN: Plan [id number] gentleman was found on the floor after fall about 2 days ago at home. He slipped in the bathroom fell and was unable to get up. He has been laying on his left side for 2 days after a fall. He has lymphedema. 1. Rhabdomyolysis ? He had a mechanical fall and can get up ? Encourage p.o. intake ? Renal functions improving ? Elevated troponin is in the setting of rhabdomyolysis will not pursue any cardiac workup as EKG was unremarkable and he denies any chest pain. ? PT/OT for debility and possible placement 04/27: Last CPK on 1128 was 2810. Repeat CK ordered. 2. Essential HTN/HLD/CAD status post CABG ? Continue with his home blood pressure medications ? Continue with statin ? 04/27 BP is elevated, 147/79?166/89 Started on lisinopril 10 mg daily DVT: Lovenox Charges/Coding Visit Charges Inpatient E&M: 83371 Subs Hosp L2
[2024-04-27] MEDS: Metoprolol Tartrate 25 MG Tablet PO ×2 (08:33→22:26)
[2024-04-27] MEDS: Aspirin E.C. 81 MG Tablet PO (08:33)
[2024-04-27] MEDS: Cholecalciferol (Vit D3) 125 MCG CAPSULE (5,000 UNITS) PO (08:33)
[2024-04-27] MEDS: Enoxaparin 40 MG/0.4 ML Syringe SC (08:34)
[2024-04-27] MEDS: Ensure Plus High Protein 120 ML LIQUID PO ×2 (08:35→22:29)
--- NOTE | 2024-04-27 09:46 | CASEMGMT ---
MIRIAM called [facility] and left a voice mail for licensed social worker Black Canales requesting a return call regarding patient's service connection. Anusha ALARCON
--- NOTE | 2024-04-27 11:37 | CASEMGMT ---
MIRIAM spoke with patient as he is requiring an assist of 2 to get up. MIRIAM introduced self and role at [facility]. SW spoke with patient about going somewhere short term for rehab. Patient said he is not going to go anywhere. Patient said he had a bad experience in the past. Patient said he is having a hard time getting up, but then he walks okay. Patient said he was not doing that well at home already. Patient said he private pays to have a nurse come out and wrap his legs. Patient thinks the agency is [facility]. MIRIAM told patient MIRIAM and RN EMMIE will continue to follow and assist with d/c planning. Anusha Patterson OIL SPOT WASHER DORIAN
[2024-04-27 13:31] LABS: CPK Total, Creatine Kinase 1084 U/L (39-308)
[2024-04-27] MEDS: Lisinopril 10 MG Tablet PO (13:32)
[2024-04-27] MEDS: Nystatin Powder 15gm Bottle 1 APPLIC TOPICAL ×2 (13:33→22:40)
[2024-04-27] MEDS: Acetaminophen 325 MG Tablet 650 MG PO (13:33)
[2024-04-27] MEDS: Menthol/Lanolin/Calamine/Znox 113 GM Tube 1 APPLIC TOPICAL ×2 (13:33→22:40)
[2024-04-27 13:49] LABS: Pathologist Review Reviewed
--- NOTE | 2024-04-27 13:58 | WOUNDNOTE ---
wound photo: right foot
--- NOTE | 2024-04-27 13:58 | WOUNDNOTE ---
skin photo: right lower leg/foot
--- NOTE | 2024-04-27 13:59 | WOUNDNOTE ---
skin photo: left lower leg/foot
--- NOTE | 2024-04-27 14:00 | WOUNDNOTE ---
skin photo: left foot
--- NOTE | 2024-04-27 14:04 | CASEMGMT ---
MIRIAM received a call from Black with [facility]. Patient is not eligible to have the [place] pay for SNF stay. Black asked that MIRIAM notify her when patient is discharged and where he goes. Anusha ALARCON
--- NOTE | 2024-04-27 14:15 | CASEMGMT ---
MIRIAM called [facility] ([phone]). Patient is active with them private pay for nursing to wrap his legs. They do take insurance, but only certain ones. MIRIAM told the individual patient's insurance and she wrote it down. Should patient need PT/OT at discharge a referral would need to be made to their [place] office at phone: [phone] and fax: [phone]. Anusha ALARCON
--- NOTE | 2024-04-27 14:22 | CASEMGMT ---
VIRGIE OLEA in to discuss needs at discharge. VIRGIE OLEA reviewed progress with therapy and recent fall. Patient states he laid on floor at home for 2 days. VIRGIE OLEA discussed concerns for safety and therapy recommendations for additional therapy. Patient does voice concern regarding his ambulation. VIRGIE OLEA discussed going to SNF for additional therapy to improve ambulation safety. Patient states that he has been to [facility] in the past and liked it. Patient agreeable to have referral made to [facility] and declined SNF list. Patient had no further questions or concerns. VIRGIE OLEA updated regarding request for SNF.
--- NOTE | 2024-04-27 14:38 | CASEMGMT ---
Discharge Planning Referral sent to [facility]. Virginia Segal DC Planning Asst.
--- NOTE | 2024-04-27 15:00 | CASEMGMT ---
Discharge Planning [facility] has accepted and will submit for precert. Virginia Segal DC Planning Asst.
--- NOTE | 2024-04-27 15:30 | CASEMGMT ---
Discharge Planning [facility] has obtained auth to admit. Virginia Segal DC Planning Asst.
[2024-04-27] MEDS: Atorvastatin Calcium 40 MG Tablet PO (22:27)
[2024-04-28 04:00] VITALS: BP 138/81; PULSE 62; RESP 18; TEMP 36.8; O2SAT 93
[2024-04-28] MEDS: Nystatin Powder 15gm Bottle 1 APPLIC TOPICAL (06:29)
[2024-04-28] MEDS: Menthol/Lanolin/Calamine/Znox 113 GM Tube 1 APPLIC TOPICAL (06:29)
[2024-04-28 06:53] VITALS: O2SAT 92
--- NOTE | 2024-04-28 10:28 | CASEMGMT ---
Patient was notified that he was approved to go to [facility] today. Patient would like to wait until this afternoon when his friends will be bringing in his clothes. Anusha ALARCON
[2024-04-28 10:30] VITALS: BP 109/70; PULSE 72; RESP 18; TEMP 36.3; O2SAT 94
[2024-04-28 10:59] VITALS: PULSE 72
[2024-04-28] MEDS: Aspirin E.C. 81 MG Tablet PO (10:59)
[2024-04-28] MEDS: Cholecalciferol (Vit D3) 125 MCG CAPSULE (5,000 UNITS) PO (10:59)
[2024-04-28] MEDS: Metoprolol Tartrate 25 MG Tablet PO (10:59)
[2024-04-28] MEDS: Potassium Chloride Oral Tablet 20 MEQ 40 MEQ PO (10:59)
[2024-04-28] MEDS: Enoxaparin 40 MG/0.4 ML Syringe SC (11:00)
[2024-04-28] MEDS: Ensure Plus High Protein 120 ML LIQUID PO (11:00)
--- NOTE | 2024-04-28 11:29 | PCM.TXEXTCAR ---
Diet Diet Order/Speech Therapy: 04/24/24 19:13 Diet: Regular - General Food consistency:: Regular Liquid Consistency:: Regular/Thin Dietary Modifications:: Sodium Restricted Routine Orders/Code Status Suppository Type: Dulcolax 10mg Suppository Frequency: Daily PRN Routine Lab Work: BMP (In 1 week) DC O2, CPAP, BIPAP needs Additional Home O2 Discharge instructions: No Wound(s) left shoulder: Wound Type: Abrasion Left foot: Wound Type: superficial weeping areas Dressing Change: Adaptic Right Foot: Wound Type: superficial weeping areas at distal toes Dressing Change: Adaptic Therapies Extremity Affected:: Bilateral Lower Physical Therapy: Eval and Treat Occupational Therapy: Eval and Treat Speech Therapy: Eval and Treat Problem/Diagnosis (1) Lymphedema of lower extremity: Status: Chronic Code(s): I89.0 - Lymphedema, not elsewhere classified Plan 7012 gentleman was found on the floor after fall about 2 days ago at home. He slipped in the bathroom fell and was unable to get up. He has been laying on his left side for 2 days after a fall. He has lymphedema. 1. Rhabdomyolysis ? He had a mechanical fall and can get up ? Encourage p.o. intake ? Renal functions improving ? Elevated troponin is in the setting of rhabdomyolysis will not pursue any cardiac workup as EKG was unremarkable and he denies any chest pain. ? PT/OT for debility and possible placement 04/27: Last CPK on 1129 was 2810. Repeat CK ordered. 2. Essential HTN/HLD/CAD status post CABG ? Continue with his home blood pressure medications ? Continue with statin ? 04/27 BP is elevated, 147/79?166/89 Started on lisinopril 10 mg daily DVT: Lovenox Allergies/Procedures Done in Hospital Allergies hydrocodone (From Vicodin) Adverse Reaction (Intermediate, Verified 04/24/24 15:39) Vomiting morphine Adverse Reaction (Intermediate, Verified 04/24/24 15:39) Vomiting Type of Care/Length of Stay Estimated LOS: Convalescent Care Less Than 30 days Type of Care Needed: Skilled Rehab Potential: Good Prognosis: Good Additional Orders/Day of Discharge Day of Discharge: 04/28/24 Dietary and Speech Recommendations Dietitian Recommendations/Changes: Continue Regular diet, will add sodium restriction d/t edema and hx of heart problems. Continue 120mL ensure plus high protein 4x daily to provide supplemental energy. Discharge Plan Admission Admit Date/Time: 04/24/24 18:28 Attending Provider: Delgado Kingsley Primary Care Provider: [facility],[place] Consulting Providers: Keke Cordero; Anthony Landis Instructions Additional Instructions / Restrictions: Follow-up on wound/lymphedema clinic center in 1 week Discharge Orders/Prescriptions Prescriptions: New potassium chloride 20 mEq Tablet,Er Particles/Crystals 40 meq PO DAILYCM Qty: 0 0RF Rx Instructions: Hold for serum potassium more than 5.0 lisinopril 10 mg Tablet 5 mg PO DAILY Qty: 0 0RF Rx Instructions: Hold for SBP less than 130 mmHg atorvastatin 40 mg Tablet 40 mg PO QHS Qty: 0 0RF sennosides-docusate sodium [Senna-S] 8.6-50 mg tablet 2 tab-cap PO QHS PRN (Reason: constipation) Qty: 30 0RF Continued cholecalciferol (vitamin D3) 125 mcg (5,000 unit) capsule 125 mcg PO DAILY sildenafil [Viagra] 100 mg tablet 100 mg PO DAILY PRN (Reason: sexual activity) Qty: 10 3RF Rx Instructions: administer 30 minutes to 4 hours before activity PreserVision AREDS 4,296 mcg-226 mg-90 mg capsule 1 cap PO DAILY aspirin [Adult Low Dose Aspirin] 81 mg tablet,delayed release (DR/EC) 81 mg PO DAILY metoprolol tartrate 25 mg tablet 25 mg PO BID Qty: 180 3RF Discontinued potassium chloride 20 mEq tablet,ER particles/crystals 20 meq PO QODAY Rx Instructions: Doesn't always take simvastatin 80 mg tablet 80 mg PO QPM Qty: 90 3RF Referrals / Follow Up: [facility] [Primary Care Provider] - Disposition Disposition (needs filled in before D/C Order can be placed): [facility]
--- NOTE | 2024-04-28 11:37 | DS.PCM_ITS ---
Providers Date of Admission: 04/24/24 Date of Discharge: 04/28/24 Primary Care Physician: [facility] Consultations 04/25/24 03:34 Consult: Onc/Wound/returned goods sorter Routine Comment: Comments:: bilateral LE lymphedema with open wound L anterior ankl Reason For Visit: RHABDOMYOLYSIS Diagnosis Discharge Diagnosis (1) Lymphedema of lower extremity: Status: Chronic Code(s): I89.0 - Lymphedema, not elsewhere classified Plan 7012 gentleman was found on the floor after fall about 2 days ago at home. He slipped in the bathroom fell and was unable to get up. He has been laying on his left side for 2 days after a fall. He has lymphedema. Bilateral lower extremities looks chronic with solidification of soft tissue. Has abrasion of left shoulder region on which he stated he had he fell down. Had bypass surgery when he was 40. 35 pack years of smoking quit at that time. 1. Rhabdomyolysis ? He had a mechanical fall and can get up ? Encourage p.o. intake ? Renal functions improving ? Elevated troponin is in the setting of rhabdomyolysis will not pursue any cardiac workup as EKG was unremarkable and he denies any chest pain. ? PT/OT for debility and possible placement 04/27: Last CPK on 9 was 2810. Repeat CK ordered. 04/28: Repeat CK improved 1084. 2. Essential HTN/HLD/CAD status post CABG ? Continue with his home blood pressure medications ? Continue with statin ? 04/27 BP is elevated, 147/79?166/89 Started on lisinopril 10 mg daily 04/28: Blood pressure is lower side 109/17 therefore lisinopril decreased to 5 mg daily. Simvastatin changed to atorvastatin. DVT: Lovenox Discharge medication reconciliation done. Discharge follow-up instructions completed. Discharge process discussed with the patient and all questions were answered to patient's satisfaction. Follow with PCP in 1 to 2 weeks. Advised to follow-up in wound/lymphedema clinic in 1 week Total time spent, exact 35 minutes on discharge meds reconciliation, examination, coordination of care with nurses and ancillary staff, review of imaging and blood test and discussion with the patient on follow-up instructions. Medications at Discharge Home Medications cholecalciferol (vitamin D3) 125 mcg (5,000 unit) capsule 125 mcg PO DAILY supplement 12/11/21 sildenafil 100 mg tablet (Viagra) 100 mg PO DAILY PRN sexual activity #10 tabs 12/11/21 aspirin 81 mg tablet,delayed release (Adult Low Dose Aspirin) 81 mg PO DAILY heart disease 11/19/23 metoprolol tartrate 25 mg tablet 25 mg PO BID #180 tabs 11/19/23 vitamins A,C,R-yqwd-ridmmo 4,296 mcg-226 mg-90 mg capsule (PreserVision AREDS) 1 cap PO DAILY supplement 11/19/23 atorvastatin 40 mg tablet 40 mg PO QHS #0 tabs 04/28/24 lisinopril 10 mg tablet 5 mg (1/2 x 10 mg) PO DAILY #0 tabs 04/28/24 potassium chloride 20 mEq tablet,extended release(part/cryst) 40 meq (2 x 20 mEq) PO DAILYCM #0 tabs 04/28/24 sennosides 8.6 mg-docusate sodium 50 mg tablet (Senna-S) 2 tab-cap (2 x 8.6-50 mg) PO QHS PRN constipation #30 tabs 04/28/24 Physical Exam Narrative Seen and examined. Leg swelling is much improved. Physical exam General: Alert, Oriented x3, Cooperative HEENT: Atraumatic, PERRLA, EOMI, Normocephalic Oral: No Gingival or Mucosal Lesions/ Ulcerations Neck: Supple, No JVD, Negative Carotid Bruits Chest wall/Lungs: Air entry diminished in bilateral lungs. No crepitation/rhonchi Cardiovascular: Regular rate, Regular Rhythm, Normal S1, Normal S2, systolic murmur present Abdomen: Bowel Sounds Present, Soft, Non Tender, Non-Distended : No dysuria. No renal angle tenderness. No suprapubic tenderness. Extremities: No edema, Capillary Refill Less than 3 Seconds Skin: Abrasion/bruise over left shoulder region. Bilateral chronic lymphedema with hypertrophy and hyperplasia of subcutaneous tissue Musculoskeletal: No Tenderness to Palpation of Joints or Extremities. ROM restricted at knees and ankle joints Neurological: Cranial nerves II-XII grossly intact, DTR 2+/4. No acute focal neurological deficit. Psych/Mental Status: Flat affect Weight / BMI Weight Weight: 246 lb 0.574 oz Body Mass Index (BMI) 30.6 ABG / Lab / Microbiology Data 04/27/24 05:40 04/27/24 05:40 Laboratory: Laboratory Results - last 24 hr 04/24/24 15:47: Diff Path Review Reviewed 04/27/24 05:40: Total Creatine Kinase 1084 H D/C Instructions DC O2, CPAP, BIPAP Needs Additional Home O2 Discharge instructions: No DC home with Oxygen: No Meaningful Use Info Meaningful Use Meaningful Use Diagnoses (Choose all that apply): None applicable Ischemic Stroke Statin Dosing Therapy Reference: STATIN DOSE THERAPY REFERENCE: * Patients > 75 years receive moderate or high dose statin therapy. * Patients 75 years or YOUNGER should receive HIGH intensity statin dose unless contraindicated. You will be required to document reason for non-treatment if statin daily dose does not meet guidelines. HIGH DOSE STATIN THERAPY DAILY Atorvastatin > than or = to 40 mg Rosuvastatin > than or = to 20 mg Amlodipine + Atorvastatin > than or = to 2.5/40 mg Ezetimibe + Simvastatin 10/80 mg Simvastatin 80mg Discharge Plan Admission Admit Date/Time: 04/24/24 18:28 Attending Provider: Delgado Kingsley Primary Care Provider: [facility],[place] Consulting Providers: Keke Cordero; Anthony Landis Instructions Additional Instructions / Restrictions: Follow-up on wound/lymphedema clinic center in 1 week Discharge Orders/Prescriptions Prescriptions: New potassium chloride 20 mEq Tablet,Er Particles/Crystals 40 meq PO DAILYCM Qty: 0 0RF Rx Instructions: Hold for serum potassium more than 5.0 lisinopril 10 mg Tablet 5 mg PO DAILY Qty: 0 0RF Rx Instructions: Hold for SBP less than 130 mmHg atorvastatin 40 mg Tablet 40 mg PO QHS Qty: 0 0RF sennosides-docusate sodium [Senna-S] 8.6-50 mg tablet 2 tab-cap PO QHS PRN (Reason: constipation) Qty: 30 0RF Continued cholecalciferol (vitamin D3) 125 mcg (5,000 unit) capsule 125 mcg PO DAILY sildenafil [Viagra] 100 mg tablet 100 mg PO DAILY PRN (Reason: sexual activity) Qty: 10 3RF Rx Instructions: administer 30 minutes to 4 hours before activity PreserVision AREDS 4,296 mcg-226 mg-90 mg capsule 1 cap PO DAILY aspirin [Adult Low Dose Aspirin] 81 mg tablet,delayed release (DR/EC) 81 mg PO DAILY metoprolol tartrate 25 mg tablet 25 mg PO BID Qty: 180 3RF Discontinued potassium chloride 20 mEq tablet,ER particles/crystals 20 meq PO QODAY Rx Instructions: Doesn't always take simvastatin 80 mg tablet 80 mg PO QPM Qty: 90 3RF Referrals / Follow [facility]: [facility] [Primary Care Provider] - Disposition Disposition (needs filled in before D/C Order can be placed): Assisted Facility Charges/Coding Visit Charges Inpatient E&M: 61108 Disch Hosp >30min
--- NOTE | 2024-04-28 11:47 | PHA.DC.MR.R ---
Pharmacy [place] Med Reconciliation Pharmacy Service has performed discharge medication reconciliation for this patient. The patient's discharge medication list was reviewed for discrepancies and discrepancies were resolved. Medications at Discharge Home Medications cholecalciferol (vitamin D3) 125 mcg (5,000 unit) capsule 125 mcg PO DAILY supplement 12/11/21 sildenafil 100 mg tablet (Viagra) 100 mg PO DAILY PRN sexual activity #10 tabs 12/11/21 aspirin 81 mg tablet,delayed release (Adult Low Dose Aspirin) 81 mg PO DAILY heart disease 11/19/23 metoprolol tartrate 25 mg tablet 25 mg PO BID #180 tabs 11/19/23 vitamins A,C,R-ebju-nmgkbs 4,296 mcg-226 mg-90 mg capsule (PreserVision AREDS) 1 cap PO DAILY supplement 11/19/23 atorvastatin 40 mg tablet 40 mg PO QHS #0 tabs 04/28/24 lisinopril 10 mg tablet 5 mg (1/2 x 10 mg) PO DAILY #0 tabs 04/28/24 potassium chloride 20 mEq tablet,extended release(part/cryst) 40 meq (2 x 20 mEq) PO DAILYCM #0 tabs 04/28/24 sennosides 8.6 mg-docusate sodium 50 mg tablet (Senna-S) 2 tab-cap (2 x 8.6-50 mg) PO QHS PRN constipation #30 tabs 04/28/24
--- NOTE | 2024-04-28 12:10 | CASEMGMT ---
Patient is ready for discharge to [place]. SW completed a 7000 in [facility] system. Patient asked that transport be set up after his friends bring in his belongings. Plan: d/c to [place] under skilled level of care on a convalescent stay. Physicians will transport patient via wheelchair van. Anusha ALARCON
--- NOTE | 2024-04-28 12:18 | CASEMGMT ---
MIRIAM called Black at [facility] and let her a voice mail letting her know patient will be going to [facility] today. MIRIAM also called [facility] and spoke with Sonia letting her know patient will be going to [facility] today for short term rehab. Anusha Patterson RANGE MECHANIC DORIAN
--- NOTE | 2024-04-28 12:32 | CASEMGMT ---
Discharge Planning Discharge orders, signed med list, and transport time sent to [facility] via [facility]. Physicians will transport patient by wheelchair at 3p. Nursing, SW, and patient updated. Virginia Segal DC Planning Asst.
[2024-04-28 14:00] VITALS: O2SAT 96
[2024-04-28 14:06] VITALS: BP 156/76; PULSE 64; RESP 18; TEMP 36.9; O2SAT 96
--- NOTE | 2024-04-28 15:00 | NURSING ---
Report called to [facility]. Notified that transport was here to get patient at this time.
== END 2024-04-28 15:20 | disposition skilled nursing facility (03) | DRG 558 ==
LOC: ED 18:26 → PCU 18:36
PROVIDERS: Family Medicine; Admitting Provider Internal Medicine; Emergency Provider Surgery; Visit Provider Internal Medicine
DX: M62.82 Rhabdomyolysis (principal); I50.30 Unspecified diastolic (congestive) heart failure; E78.5 Hyperlipidemia, unspecified; I11.0 Hypertensive heart disease with heart failure; I89.0 Lymphedema, not elsewhere classified; I25.10 Atherosclerotic heart disease of native coronary artery without angina pectoris; S40.812A Abrasion of left upper arm, initial encounter; I25.2 Old myocardial infarction; W01.198A Fall on same level from slipping, tripping and stumbling with subsequent striking against other object, initial encounter; Z95.1 Presence of aortocoronary bypass graft; Z79.82 Long term (current) use of aspirin; Z87.891 Personal history of nicotine dependence; R53.81 Other malaise; Z79.899 Other long term (current) drug therapy; Z98.49 Cataract extraction status, unspecified eye; R79.89 Other specified abnormal findings of blood chemistry
CPT/HCPCS: 36415; 70450; 70486; 71046; 72125; 80048; 80053; 81001; 82248; 82550; 82962; 83605; 83735; 83880; 84100; 84443; 84484; 85025; 85610; 85730; 93005; 97110; 97116; 97162; 97166; 97530; 97535; 97802; 99285; J7030; A4216